=== PATIENT | female | born 1975 | race Caucasian/White ===

== ENCOUNTER → 2016-05-08 | Outpatient (REF) | payer SELFPAY ==
[~2016-05-08] MED LIST: /CLON1TA PO; /FENT25PA TD; /FENT75PA TD; /OXYC15TA OR; AMIT10TA2 OR; AMIT25TA2 PO; CARI350T20 PO; COLA100C PO; COLA100C2 PO; COLA50CA3 PO; DEPA250T3 OR; DIAZ5TAB OR; DILA2TAB OR; DILA4TAB PO; ELAVIL OR; EXAL8TAB PO; FIOR1CAP PO; FLEX10TA2 PO; FLEXERIL; HYDR-3713 PO; HYDR4TAB PO; IMIT50TA PO; IMIT6INJ IJ; LYRI75CA PO; MAGN1TAB25 PO; MAXA10TA17 OR; MAXA5TAB OR; MORP10SO OR; MORP15TA2 PO; MORP15TA4; MORP15TA4 OR; MOTR200T44 PO; MS C30TA2 OR; MULTIVIT; MULTIVIT OR; MULTTAB4 PO; MUSCCRE9 TOP; NEUR100C OR; NEUR300C PO; NORT25CA2 PO; OPAN10TA16 OR; OXYCPOW PO; PERCOCET PO; PROZ10CA OR; RELPAX OR; ROBA750T4 PO; SENN15UDC PO; SOMA250T OR; SOMA350T PO; TIZA4CAP PO; TIZA4CAP3 PO; TIZA4TAB; TIZA4TAB OR; TPS PAIN TOP; TRAM50TA2 PO; VALI5TAB PO; VOLT1GEL TOP; ZANA2CAP PO; ZOLO100T OR; [UNRECOGNIZED DRUG - CODE] PO; [UNRECOGNIZED DRUG - OTHER] PO; [UNRECOGNIZED DRUG - REMARK] PO; miralax PO; morphine PO
[2016-05-08 16:32] LABS: PERCENT SATURATION 13.8 % (13.2-37.4); PHOSPHORUS LEVEL 2.5 MG/DL (2.5-4.9)
[2016-05-12 10:08] LABS: PRETREATED FOLATE FOR RBCFOL 14.2 NG/ML
== END ==
LOC: M LAB REF 16:09
PROVIDERS: ATTEND Internal Medicine
DX: K91.2 Postsurgical malabsorption, not elsewhere classified (principal); Z98.84 Bariatric surgery status

== ENCOUNTER 2017-02-15 08:59 | Inpatient (IN) | payer OTHER ==
[~2017-02-15] VITALS: Ht 162.6 cm; Wt 74.5 kg
[~2017-02-15 08:59] MED LIST changes: +CARI350T PO; -CARI350T20 PO; -COLA100C PO; +COLA100C5 PO; -DILA4TAB PO; +DILA4TAB13 PO; +MUSC1CRE TOP; -MUSCCRE9 TOP
[2017-02-15] MEDS ORDERED: [UNRECOGNIZED DRUG - OTHER] (09:10)
[2017-02-15] MEDS ORDERED: GI COCKTAIL 50ML BTL(HYOSCYAMINE/MAALOX/LIDOCAINE VISCOUS)(1:3:1) PO ONE (09:30)
[2017-02-15 09:38] LABS: BASO % 0.4 % (0.0-1.0); EOS # 0.1 10^3/uL (0.0-0.50); EOS % 0.6 % (0.0-3.0); IMMATURE GRANULOCYTE % 0.2 % (0-0); LYMPH # 3.3 10^3/uL (1.5-4.5); LYMPH % 31.4 % (24.0-44.0); MEAN CORPUSCULAR HGB CONC 32.6 g/dl (32.0-36.5); MEAN CORPUSCULAR VOLUME 88.9 fl (80.0-96.0); MONO # 0.7 10^3/uL (0.0-0.8); MONO % 6.9 % (0.0-5.0); NEUTROPHILS # 6.3 10^3/uL (1.8-7.7); NEUTROPHILS % 60.5 % (36.0-66.0); PLATELET COUNT, AUTOMATED 350 10^3/uL (150-450); RED CELL DISTRIBUTION WIDTH 13.3 % (11.5-14.5); WHITE BLOOD COUNT 10.5 10^3/uL (4.0-10.0)
[2017-02-15] MEDS ORDERED: METOCLOPRAMIDE INJ 10MG/2ML VIAL (J2765) IV ONE (09:45)
[2017-02-15] MEDS: MORPHINE 4 MG/ML 1ML SYRINGE IV PRN ×2 (09:54→10:47)
[2017-02-15 09:57] LABS: CONTROL LINE HCG INT CTR LINE PRESENT
[2017-02-15 10:03] LABS: ALBUMIN/GLOBULIN RATIO 0.93 (1.00-1.93); ALKALINE PHOSPHATASE 111 U/L (45-117); ALT/SGPT 37 U/L (12-78); ANION GAP 5 MEQ/L (8-16); AST/SGOT 32 U/L (7-37); BILIRUBIN,DIRECT 0.2 MG/DL (0.0-0.2); BILIRUBIN,TOTAL 0.7 MG/DL (0.2-1.0); BLOOD UREA NITROGEN 10 MG/DL (7-18); CALCIUM LEVEL 8.9 MG/DL (8.5-10.1); CARBON DIOXIDE LEVEL 30 MEQ/L (21-32); CHLORIDE LEVEL 103 MEQ/L (98-107); CREATININE FOR GFR 0.74 MG/DL (0.55-1.02); GLOMERULAR FILTRATION RATE > 60.0 (>60); GLUCOSE, FASTING 89 MG/DL (70-105); POTASSIUM SERUM 3.6 MEQ/L (3.5-5.1); SODIUM LEVEL 138 MEQ/L (136-145); TOTAL PROTEIN 8.3 GM/DL (6.4-8.2)
[2017-02-15] MEDS ORDERED: SUCRALFATE SUSP 1GM/10ML UD PO ONE (10:30)
--- NOTE | 2017-02-15 10:47 | REP ---
AP PORTABLE SEATED CHEST: 02/15/2017. Clinical history: Chest pain. Comparison: 02/12/2016, 11/25/2006. Findings: The upright chest shows the lung fay well inflated and clear. The heart, mediastinal and hilar contours were normal. Aorta and airway intact. There is no widening of the mediastinum. Dorsal column stimulator leads terminate at about T7 as before. Impression: 1. Dorsal column stimulator leads present but no acute cardiopulmonary change. Stable chest. Signed by Akira Ernandez MD 02/15/2017 01:15 P
--- NOTE | 2017-02-15 12:13 | REP ---
CT ABDOMEN AND PELVIS WITHOUT CONTRAST: 02/15/2017. Clinical history: Abdominal pain. Comparison: CT 11/25/2006. Findings: CT abdomen: Lung bases were clear. Heart is not enlarged and there is no pericardial thickening or effusion. Staple line over the stomach from gastric sleeve procedure. No hiatal hernia. The liver and spleen are not enlarged. There is no focal hepatic mass or biliary dilatation. No adjacent ascites. Gallbladder shows no calcified stone or mass. Pancreas was unremarkable. No ductal dilatation or stone. Adrenal glands were normal. The kidneys show nonobstructing stones lower pole collecting system, both about 6 mm. There is no hydronephrosis or hydroureter on that right side the left side shows no stones, hydronephrosis or hydroureter. No ureteral stone. The aorta has a few calcifications but no aneurysm. No periaortic or other retroperitoneal pathologic sized lymphadenopathy. Small bowel loops grossly intact. Colon shows no sign of colitis or diverticulitis with scattered stool and gas. Lung windows of all CT abdomen pelvis slices show no sign of perforation, free air or other acute finding. The bone windows show the lumbar spine with degenerative disc change and vacuum phenomenon at L4-5 and L5-S1, the other disc levels show preserved height and vertebral body heights are normal throughout. No destructive lesion. Posterior elements grossly intact. Visualized ribs intact. Dorsal column stimulator terminating in the dorsal aspect of the thoracic neural canal. CT pelvis: Sacrum, SI joints, pelvis, hips and symphysis pubis show no fracture or destructive lesion. There is a bone island in the left femoral head and minimal degenerative changes at the acetabular roof with small rim osteophytes. Uterus anteverted with an IUD in the body and fundus. It is not enlarged. Ovaries symmetric in size, dominant follicle on the left about 13 mm. Bladder well filled and without wall thickening, stone or mass. No dilated distal ureter or ureteral stone. The distal left colon, sigmoid and rectum are without sign of colitis or diverticulitis. No stricture or mass. No ventral or inguinal hernia nor pathologic sized inguinal adenopathy. Appendix is seen and normal. Impression: 1. There are nonobstructing stones in the right lower pole collecting system where two approximately 6 mm stones are seen in the interpolar and lower pole region on that right side. No hydronephrosis, hydroureter or ureteral stone. 2. Prior gastric sleeve procedure. No other significant or acute findings. Incidental note made of a dorsal column stimulator battery unit over the right flank and leads terminating in the lower thoracic region. Signed by Akira Ernandez MD 02/15/2017 01:22 P
[2017-02-15] MEDS ORDERED: HYDROmorphone HCL 1 MG/ML SYRINGE (J1170) IV ONE (12:15)
[2017-02-15] MEDS ORDERED: PANTOPRAZOLE 40MG INJ (PROTONIX) (C9113) IV ONE (12:15)
[2017-02-15] MEDS ORDERED: ONDANSETRON 4MG/2ML VIAL (J2405) IV ONE (12:30)
[2017-02-15] MEDS ORDERED: PROMETHAZINE INJ 25 MG/ML VIAL (J2550) IV ONE (13:00)
[2017-02-15] MEDS ORDERED: VITMTA PO (14:07)
[2017-02-15] MEDS ORDERED: PROCHLORPERAZINE 10 MG/2 ML VIAL (J0780) IV PRN (14:15)
--- NOTE | 2017-02-15 14:28 | HPEPDOC ---
[facility] Medical History & Physical Date of Admission Feb 15, 2017 History and Physical ATTENDING: PCP: Dr Chatterjee CC: Intractable abdominal pain. HPI: 41yoF with a past medical history significant for chronic back pain, migraine PONCE, H/O gastric sleeve 01/25 who states she came to work this AM "feeling fine". She had coffee this AM. Was working when she suddenly had onset of N/V and upper abdominal pain. Pt states this has been sharp/pressure, radiating to rt scapular area. Denies diarrhea. States she had recent cold symptoms that have been lingering, but improving. Denies any fevers, chills, weakness, fatigue, PONCE, CP, SOB, cough, palpitations, Diarrhea or changes in bowel or bladder habits. Upon presentation to the hospital the patient was found to have intractable back pain, thus the hospitalist team was consulted. 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 Father: Alive, Parkinson's disease Siblings: Alive, migraine PONCE Children: Alive, well Unexpected deaths due to medical reasons: None. ROS: As noted in HPI, otherwise 11pt ROS of systems reviewed and remarkable only for LMP unknown, Mirena. PE: GEN: 41yoF, appears stated age. Well-nourished, well developed. Reporting persistent abdominal discomfort. Alert and oriented x 3. Interactive. HEENT: Normocephalic, atraumatic. Pupils are equal, round, and reactive to light. Extraocular movements are intact. No nystagmus appreciated. Sclera are nonicteric. Conjunctiva without injection. Nose midline. Nasal turbinates without bogginess. EACs both patent BL. TMs both visualized and valdes with good cone of light, no bulging or erythema. No facial asymmetry. Moist mucous membranes. Dentition fair. Pharynx pink and moist, no cobblestoning. Neck supple , trachea midline. No lymphadenopathy or thyromegaly appreciated. CHEST: Regular rate and rhythm, +S1, +S2 LUNGS: Clear to auscultation bilaterally. No wheezes, rales, or rhonchi. Breathing appears symmetric and easy. Patient is speaking in full sentences. No accessory muscle use. ABD: Round, soft, tender to palpation RUQ, epigastric area, non-distended. + Bowel sounds throughout. No rebound or guarding.Rt costovertebral angle tenderness noted. EXT: Pulses 2+ bilaterally dorsalis pedis and radial. No lower extremity edema appreciated. SKIN: [place], dry, warm. Capillary refill <2sec. No rashes. NEURO: Alert and oriented x 3. Cranial nerves III-XII are intact. No focal deficits appreciated. CXR: 1. Dorsal column stimulator leads present but no acute cardiopulmonary change. Stable chest. CT: A/P 1. There are nonobstructing stones in the right lower pole collecting system where two approximately 6 mm stones are seen in the interpolar and lower pole region on that right side. No hydronephrosis, hydroureter or ureteral stone. 2. Prior gastric sleeve procedure. No other significant or acute findings. Incidental note made of a dorsal column stimulator battery unit over the right flank and leads terminating in the lower thoracic region. EKG: SR/SA 88 bpm. BLOOD CULTURES: pending. UA/UC pending. A&P: 41yoF with a past medical history significant for chronic back pain, migraine PONCE, H/O gastric sleeve 01/25 who states she came to work this AM "feeling fine". She had coffee this AM. Was working when she suddenly had onset of N/V and upper abdominal pain. Pt states this has been sharp/pressure, radiating to rt scapular area. 1. The patient will be admitted to M/S for at least [address] Anand's service. Pt is discussed with Dr Joyce. 2. Intractable abdominal pain and vomiting. Clear liquids. IV Zofran/Compazine as needed. Carafate AC/HS. IV Protonix Q12. Check RUQ U/S. 3. H/O gastric sleeve 01/25. 4. Chronic LBP/DCS. 5. Chronic migraine PONCE. DVT prophylaxis. Lovenox. The patient is a Full code. Vital Signs Vital Signs Date Time Temp Pulse Resp B/P (MAP) Pulse Ox O2 Delivery O2 Flow Rate FiO2 02/15/17 12:59 92 96 02/15/17 12:50 107/65 (79) 02/15/17 12:42 18 Room Air 02/15/17 08:59 97.5 Laboratory Data Labs 24H Laboratory Tests 2 02/15/17 09:25: Immature Granulocyte % (Auto) 0.2H, White Blood Count 10.5H, Red Blood Count 5.04, Hemoglobin 14.6, Hematocrit 44.8, Mean Corpuscular Volume 88.9, Mean Corpuscular Hemoglobin 29.0, Mean Corpuscular Hemoglobin Concent 32.6, Red Cell Distribution Width 13.3, Platelet Count 350, Neutrophils (%) (Auto) 60.5, Lymphocytes (%) (Auto) 31.4, Monocytes (%) (Auto) 6.9H, Eosinophils (%) (Auto) 0.6, Basophils (%) (Auto) 0.4, Neutrophils # (Auto) 6.3, Lymphocytes # (Auto) 3.3, Monocytes # (Auto) 0.7, Eosinophils # (Auto) 0.1, Basophils # (Auto) 0.0, Immature Granulocyte # (Auto) 0.0, Nucleated Red Blood Cells % (auto) 0.0, Anion Gap 5L, Glomerular Filtration Rate > 60.0, Calcium Level 8.9, Aspartate Amino Transf (AST/SGOT) 32, Alanine Aminotransferase (ALT/SGPT) 37, Alkaline Phosphatase 111, Total Bilirubin 0.7, Direct Bilirubin 0.2, Total Protein 8.3H, Albumin 4.0, Albumin/Globulin Ratio 0.93L, Lipase 115, Human Chorionic Gonadotropin, Qual NEGATIVE CBC/BMP Laboratory Tests 02/15/17 09:25 Red Blood Count 5.04, Mean Corpuscular Volume 88.9, Mean Corpuscular Hemoglobin 29.0, Mean Corpuscular Hemoglobin Concent 32.6, Red Cell Distribution Width 13.3 , Neutrophils (%) (Auto) 60.5, Lymphocytes (%) (Auto) 31.4, Monocytes (%) (Auto ) 6.9 H, Eosinophils (%) (Auto) 0.6, Basophils (%) (Auto) 0.4, Neutrophils # ( Auto) 6.3, Lymphocytes # (Auto) 3.3, Monocytes # (Auto) 0.7, Eosinophils # (Auto ) 0.1, Basophils # (Auto) 0.0 Home Medications Scheduled Multivitamins *[facility] STOCKED* (Thera M Plus *[facility] STOCKED*) 1 Tab Tab, 1 TAB PO DAILY Allergies Coded Allergies: Amoxicillin (Verified Allergy, Intermediate, rash, 02/15/17) Hydrocodone (Verified Adverse Reaction, Intermediate, HEADACHE, 07/17/12) Ibuprofen (Verified Adverse Reaction, Mild, NAUSEA, 07/17/12) Nortriptyline (Unverified Adverse Reaction, Unknown, "[place] Drunk", 01/18/16 ) Pregabalin (Unverified Adverse Reaction, Unknown, "[place] Drunk", 01/18/16) Parul Mclain Feb 15, 2017 14:28
[2017-02-15] MEDS ORDERED: DICYCLOMINE INJ 20MG/2ML (J0500) IM ONE (15:15)
[2017-02-15 18:15] VITALS: BP 99/61
[2017-02-15] MEDS ORDERED: HYDROmorphone HCL 1 MG/ML SYRINGE (J1170) IV PRN (18:30)
[2017-02-15] MEDS: NS 1,000 ML IV SCH (18:42)
[2017-02-15] MEDS: ENOXAPARIN 40 MG/0.4 ML SYRINGE (J1650) SC SCH (18:44)
[2017-02-15] MEDS: HYDROmorphone HCL 1 MG/ML SYRINGE (J1170) IV PRN ×2 (18:48→21:38)
--- NOTE | 2017-02-15 18:53 | REP ---
Right upper quadrant sonography: History: Right upper quadrant pain. Comparison study: No comparison study Findings: Scanning through the right upper quadrant of the abdomen demonstrates a normal sized, thin-walled gallbladder containing multiple shadowing calculi in the dependent portion. No wall thickening. . Common bile duct is normal measuring 0.4 cm in greatest diameter. No focal liver lesion is seen. Liver size is normal. No pancreatic abnormality is observed. No right renal abnormality is seen. There is no evidence of ascites. The right kidney measures 11.3 x 4.5 x 3.9 cm. Impression: Cholelithiasis, otherwise negative right upper quadrant sonography. Signed by Remington Plasencia MD 02/15/2017 06:44 P
--- NOTE | 2017-02-15 18:57 | REP ---
KUB: Two views. History: Abdominal pain. Findings: Dorsal column stimulator device is noted. There are surgical sutures in the left upper quadrant of the abdomen suggestive of gastric bypass or other surgery. An IUD is seen in the central pelvis. Psoas margins and flank stripes are intact. A normal bowel gas pattern is seen. Urine filled bladder is noted in the pelvis. Impression: Dorsal column stimulator leads and sutures in the left upper quadrant postop. IUD in place. Normal bowel gas pattern. Signed by Remington Plasencia MD 02/15/2017 07:48 P
[2017-02-15 20:00] VITALS: BP_SYST 111; BP_SYST 96; BP_DIAS 47; BP_DIAS 68
[2017-02-15] MEDS ORDERED: MORPHINE 2 MG/ML 1ML SYRINGE IV ONE (22:45)
[2017-02-15] MEDS: ONDANSETRON 4MG/2ML VIAL (J2405) IV PRN (22:56)
[2017-02-15 23:10] VITALS: BP 119/62
[2017-02-16] MEDS: PANTOPRAZOLE 40MG INJ (PROTONIX) (C9113) IV SCH ×3 (00:03→23:22)
[2017-02-16] MEDS: HYDROmorphone HCL 1 MG/ML SYRINGE (J1170) IV PRN ×5 (00:54→22:43)
[2017-02-16] MEDS: ONDANSETRON 4MG/2ML VIAL (J2405) IV PRN (04:20)
[2017-02-16 06:57] LABS: BASO # 0.1 10^3/uL (0.0-0.2); BASO % 0.6 % (0.0-1.0); EOS # 0.2 10^3/uL (0.0-0.50); IMMATURE GRANULOCYTE % 0.3 % (0-0); LYMPH # 2.6 10^3/uL (1.5-4.5); LYMPH % 32.6 % (24.0-44.0); MEAN CORPUSCULAR HEMOGLOBIN 29.1 pg (27.0-33.0); MEAN CORPUSCULAR HGB CONC 32.4 g/dl (32.0-36.5); MEAN CORPUSCULAR VOLUME 89.7 fl (80.0-96.0); MONO # 0.6 10^3/uL (0.0-0.8); MONO % 7.8 % (0.0-5.0); NEUTROPHILS # 4.5 10^3/uL (1.8-7.7); NEUTROPHILS % 56.7 % (36.0-66.0); PLATELET COUNT, AUTOMATED 254 10^3/uL (150-450); RED CELL DISTRIBUTION WIDTH 13.3 % (11.5-14.5); WHITE BLOOD COUNT 7.9 10^3/uL (4.0-10.0)
[2017-02-16 07:19] LABS: ANION GAP 4 MEQ/L (8-16); BLOOD UREA NITROGEN 10 MG/DL (7-18); CALCIUM LEVEL 8.1 MG/DL (8.5-10.1); CARBON DIOXIDE LEVEL 30 MEQ/L (21-32); CHLORIDE LEVEL 107 MEQ/L (98-107); CREATININE FOR GFR 0.68 MG/DL (0.55-1.02); GLOMERULAR FILTRATION RATE > 60.0 (>60); GLUCOSE, FASTING 77 MG/DL (70-105); POTASSIUM SERUM 3.6 MEQ/L (3.5-5.1); SODIUM LEVEL 141 MEQ/L (136-145)
[2017-02-16] MEDS: NS 1,000 ML IV SCH ×2 (07:30→20:00)
[2017-02-16 08:00] VITALS: BP 112/67
[2017-02-16] MEDS: ENOXAPARIN 40 MG/0.4 ML SYRINGE (J1650) SC SCH (08:19)
--- NOTE | 2017-02-16 09:04 | ECGEPIP ---
Stationary ECG Study [facility] - ED Test Date: 2017-02-15 Pat Name: STEPHANIE BOLANOS Department: Room: [place] [address] Gender: F Assisted Living Nursing Director: jonatan : 1975 Requested By: Zuri Martino Order Number: [id number] Reading MD: Zuri Martino Measurements Intervals [place] Rate: 88 P: 64 MS: 123 QRS: 27 QRSD: 78 T: 42 QT: 371 QTc: 449 Interpretive Statements SINUS RHYTHM WITH SINUS ARRHYTHMIA BASELINE ARTIFACT LIMITS INTERPRETATION DECREASED RATE 02/12/16 Electronically Signed On 02-16-2017 9:04:32 EST by Zuri Martino
[2017-02-16] MEDS ORDERED: FIORICET TAB PO ONE (10:45)
[2017-02-16] MEDS ORDERED: SUMAtriptan SUCCINATE 25 MG TAB PO ONE (12:00)
[2017-02-16] MEDS ORDERED: ISOVUE-370 76% 100ML VIAL (Q9967) As Ordered ONE (13:19)
--- NOTE | 2017-02-16 15:20 | REP ---
CT ANGIOGRAM ABDOMEN: 02/16/2017 COMPARISON: Hepatic ultrasound 02/15/2017, CT abdomen/pelvis without contrast 02/15/2017. CLINICAL HISTORY: Upper abdominal pain. Prior gastric sleeve procedure. Evaluate arterial flow. FINDINGS: 100 mL Isovue-[address] angiogram of the abdomen with coronal and sagittal reconstructions, thick slab coronal MIP reformats and 3D surface rendering revolved around the longitudinal axis of the spine. Lung bases show minor dependent atelectatic change. Heart not enlarged. No pericardial thickening or effusion. No hepatosplenomegaly. No focal hepatic or splenic mass. Gallbladder without calcified stone. Pancreas grossly intact. Adrenal glands and kidneys grossly normal. Extrarenal pelvis for both kidneys. No periaortic other retroperitoneal pathologic adenopathy. Small bowel loops and colon grossly intact. There is a dorsal column stimulator over the left flank with the leads extending into the thoracic spine. Lung window review shows no perforation, free air, or abscess. Surgical clips from an anastomotic suture line related to gastric sleeve procedure. No hiatal hernia. CT ANGIOGRAM: The abdominal aorta shows no evidence of aneurysm or dissection. There is no visible calcific plaque. I see no stenosis or soft plaque. Origins of the bilateral renal arteries are symmetric. There is an early bifurcation of the of the right renal artery as anatomic variation. No stenosis or poststenotic dilatation. The SMA is intact without stenosis. The celiac axis shows no plaque. There is mild stenosis proximally with mild poststenotic dilatation near its origin. No calcific plaque. The hepatic, splenic arteries, and branches of the SMA are unremarkable. There is an OWEN, and it is also unremarkable. The right and left common iliac arteries were unremarkable. IMPRESSION: 1. No abdominal aortic aneurysm, dissection, stenosis, or atherosclerotic plaque. 2. 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 No obstruction or calcification. Hepatic and splenic arteries are unremarkable. 3. The bilateral renal arteries, SMA, and OWEN are unremarkable. No other findings or changes from noncontrast CT yesterday. Signed by Akira Ernandez MD 02/16/2017 04:52 P
[2017-02-16] MEDS ORDERED: MORPHINE 4 MG/ML 1ML SYRINGE IV PRN (15:30)
[2017-02-16 16:00] VITALS: BP 127/76
--- NOTE | 2017-02-16 17:18 | CR.PDOC ---
[facility] Consultation General Date of Consultation: 02/16/17 Consultation Report For: RAJ GILMORE DO Chief Complaint The patient is a 41-year-old female admitted with a reason for visit of Intractable Vomiting and epigastric and right upper quadrant abdominal pain. Pain management is asked to see her for emergence of left-sided head pain and intractable migraine headache. History of Present Illness Ana Cristina Kaba is a 41-year-old female well known to our practice. She has not been seen in the clinic in several years because, in general, she has done quite well. She has had a history of intense migrainous headaches which we have treated in the past. She reports that she had been doing fairly well until 02/15. At that time. She reports onset of severe epigastric and right upper quadrant pain. She was seen in the emergency room. She was treated with IV morphine 3 mg which produced minimal control of her abdominal pain. This was changed to hydromorphone 0.4 mg IV, which has provided relief. Over a week or prior to the emergence of the abdominal pain. She was having some increased neck tightness and pain located at the back of her head. With the use of the opioids for the abdominal pain control. She did have a marked increase in the head pain. This has occurred in the past. She was treated with Fioricet one dose , which did give some relief of the migraine. She is also been given Imitrex 50 mg by mouth. She is noting intense tightness and loss of range of motion at the base of the neck to the left. She notes I pain when with upward gaze. Rates her pain level as between a 7 and 8/10 with the worst of the headache and abdominal pain. Does note that the hydromorphone is helpful for the abdominal pain but does not improve the head pain and if anything does worsen it. Home Medications Scheduled Multivitamins *[facility] STOCKED* (Thera M Plus *[facility] STOCKED*) 1 Tab Tab, 1 TAB PO DAILY, (Reported) Allergies Coded Allergies: Amoxicillin (Verified Allergy, Intermediate, rash, 02/15/17) Hydrocodone (Verified Adverse Reaction, Intermediate, HEADACHE, 07/17/12) Ibuprofen (Verified Adverse Reaction, Mild, NAUSEA, 07/17/12) Nortriptyline (Unverified Adverse Reaction, Unknown, "[place] Drunk", 01/18/16 ) Pregabalin (Unverified Adverse Reaction, Unknown, "[place] Drunk", 01/18/16) Past Medical History Medical History Status post lumbar laminectomy with residual back pain and radiculopathy. Does have dorsal column stimulator in place which she states is providing good relief. Other health issues have included migraine headache. Surgical History Status post placement of gastric sleeve for weight loss by Dr. Moffett with success. Family History Family History Family history migraine headaches. Social History Social History Denies tobacco, alcohol, or illicit substance abuse. Review of Systems Subjective HEENT: Reports: eye pain (with upward gaze), other (denies swollen glands or sore throat), Denies: vision problems, hearing problems Skin: Denies: lesions, rash, breakdown Pulmonary: Denies: cough, dyspnea Cardiovascular: Denies: chest pain, edema, palpitations Gastrointestinal: Reports: abdominal pain, vomiting, other (persistent nausea) Genitourinary: Denies: dysuria, hematuria, loss of bladder control Hematologic: Denies: easy bleeding, easy bruising, blood dyscrasias Endocrine: Denies: Diabetes mellitus Musculoskeletal: Reports: neck pain, shoulder pain (left), muscle stiffness Neurological: Reports: headache (history of intermittent severe migrainous headaches.), seizures (denies), Denies: tremors, weakness Psych: Reports: mood normal, Denies: thoughts of self harm, thoughts of harming other Physical Examination Physical Examination Vital Signs/I&O Vital Signs Date Time Temp Pulse Resp B/P (MAP) Pulse Ox O2 Delivery O2 Flow Rate FiO2 02/16/17 15:49 18 02/16/17 08:00 98.9 80 112/67 (82) 97 Room Air 98.9 I&O- Last 24 Hours up to 6 AM 02/17/17 06:00 Intake Total 240 ml Output Total 250 ml Balance -10 ml General Exam: Positive: alert, attentive, talkative, no acute distress, oriented times three ENT EXAM: Positive: normocephalic Neck Exam: Positive: Limited range of motion (decreased range of motion, particularly with head turn to the left), Negative: Lymphadenopathy, Thyromegaly Chest Exam: Positive: Decreased breath sounds (with intermittent wheezing) Heart Exam: Positive: Regular rate and rhythm, Normal S1, S2 Abdominal Exam: Positive: Soft, BS Hyperactive, Other (tender in the epigastric and right upper quadrant) Extremity Exam: Negative: Edema Skin Exam: Positive: Warm, Dry, Negative: Rashes, Lesions Neuro Exam: Positive: Cranial Nerves 3-12 NL, Reflexes 2+ (bilateral upper and lower extremities), Other (EOMs are intact without nystagmus. Reports pain with upward gaze) Psych Exam: Positive: Mental status NL, Mood NL Musculoskeletal Point tenderness present at the left greater than right occipital notch. Trigger points and tight fibrous bands are identified over cervical paraspinous muscles across the trapezius bilaterally, left side greater than right. His range of motion with neck rotation to the left. Some decrease in left shoulder shrug. Visitor Information Assistant strength equal and strong. Laboratory Data CBC/BMP Laboratory Tests 02/16/17 06:36 Red Blood Count 4.19, Mean Corpuscular Volume 89.7, Mean Corpuscular Hemoglobin 29.1, Mean Corpuscular Hemoglobin Concent 32.4, Red Cell Distribution Width 13.3 , Neutrophils (%) (Auto) 56.7, Lymphocytes (%) (Auto) 32.6, Monocytes (%) (Auto ) 7.8 H, Eosinophils (%) (Auto) 2.0, Basophils (%) (Auto) 0.6, Neutrophils # ( Auto) 4.5, Lymphocytes # (Auto) 2.6, Monocytes # (Auto) 0.6, Eosinophils # (Auto ) 0.2, Basophils # (Auto) 0.1, Calcium Level 8.1 L Microbiology Microbiology 02/15/17 Blood Culture - Preliminary, Resulted No growth after 24 hours . All specim... Diagnostic and Imaging Studies No recent imaging studies are available of the head or neck. Assessment 1. Migraine headache with associated nausea, vomiting, photo and phonophobia. 2. Myalgia. 3. Occipital neuralgia 4. Abdominal pain/right upper quadrant pain. Currently undergoing further evaluation. Recommendation and Plan Recommendations.: Considered change in anti-emetics to rotation between Zofran and Reglan. Consider bolus of magnesium sulfate 1 g over 1 hour for migraine. Consider start of magnesium oxide 400 mg daily also for migraine prevention. Patient is reporting that the hydromorphone is helpful for the abdominal pain and so would like to continue this. Despite the migraine situation for control of her abdominal pain until a further explanation and treatment plan are put in place for the abdominal pain. In terms of the identified trigger points and tenderness over the left greater occipital nerve . We will look to do a occipital nerve block and trigger point injection to this region here in the pain Center tomorrow. I will put the Lovenox on hold for that purpose. Thank you [Cheng], for allowing us to participate in the care of your patient , Ana Cristina Purcell . Should you have any questions we will be glad to discuss this with you at any time please contact us here at the pain center at [phone]. Vangie Peck HARDBOARD PRESS OPERATOR-C Feb 16, 2017 17:18
[2017-02-16] MEDS ORDERED: MAGNESIUM OXIDE 400 MG TAB (MAG-OX) PO ONE (17:45)
[2017-02-16] MEDS: FIORICET TAB PO PRN ×2 (18:27→23:54)
[2017-02-16 20:00] VITALS: BP 110/67
[2017-02-17] VITALS: BP 119/74
[2017-02-17] MEDS ORDERED: diphenhydrAMINE 25 MG CAP PO ONE (00:15)
[2017-02-17] MEDS: HYDROmorphone HCL 1 MG/ML SYRINGE (J1170) IV PRN ×5 (02:46→21:00)
[2017-02-17] MEDS: ONDANSETRON 4MG/2ML VIAL (J2405) IV PRN (03:13)
[2017-02-17] MEDS: FIORICET TAB PO PRN ×2 (04:06→09:10)
[2017-02-17 07:21] LABS: BASO % 0.5 % (0.0-1.0); EOS # 0.2 10^3/uL (0.0-0.50); EOS % 2.5 % (0.0-3.0); IMMATURE GRANULOCYTE % 0.1 % (0-0); LYMPH # 3.1 10^3/uL (1.5-4.5); LYMPH % 35.3 % (24.0-44.0); MEAN CORPUSCULAR HEMOGLOBIN 29.6 pg (27.0-33.0); MEAN CORPUSCULAR HGB CONC 33.1 g/dl (32.0-36.5); MEAN CORPUSCULAR VOLUME 89.2 fl (80.0-96.0); MONO # 0.7 10^3/uL (0.0-0.8); MONO % 8.4 % (0.0-5.0); NEUTROPHILS # 4.7 10^3/uL (1.8-7.7); NEUTROPHILS % 53.2 % (36.0-66.0); PLATELET COUNT, AUTOMATED 232 10^3/uL (150-450); RED CELL DISTRIBUTION WIDTH 13.1 % (11.5-14.5); WHITE BLOOD COUNT 8.8 10^3/uL (4.0-10.0)
[2017-02-17 07:36] LABS: ANION GAP 2 MEQ/L (8-16); BLOOD UREA NITROGEN 5 MG/DL (7-18); CALCIUM LEVEL 7.8 MG/DL (8.5-10.1); CARBON DIOXIDE LEVEL 31 MEQ/L (21-32); CHLORIDE LEVEL 106 MEQ/L (98-107); CREATININE FOR GFR 0.55 MG/DL (0.55-1.02); GLOMERULAR FILTRATION RATE > 60.0 (>60); GLUCOSE, FASTING 78 MG/DL (70-105); MAGNESIUM LEVEL 1.9 MG/DL (1.8-2.4); POTASSIUM SERUM 3.5 MEQ/L (3.5-5.1); SODIUM LEVEL 139 MEQ/L (136-145)
--- NOTE | 2017-02-17 07:38 | IPN ---
DATE OF SERVICE: 02/16/2017 SUBJECTIVE: Patient seen and examined in the room today. The patient complained of persistent migraine headache with visual ora. Previously patient's migraines only intermittent. Patient does have a history of migraine exacerbation when patient is taking hydrocodone. She is not sure if Dilaudid is the reason for her persistent headaches. Does not have continuous nausea and vomiting at the time of encounter. Still complains about significant abdominal pain. OBJECTIVE: Vital signs: Temperature 98.9, pulse 80, respirations 17, blood pressure 112/67, pulse ox 97% on room air. General: Moderate stress secondary to severe migraine and abdominal pain, alert and oriented times three. HEENT: Normocephalic, atraumatic. Extraocular motor grossly intact. Appears to be some photo sensitivity noted during the encounter. Cardiovascular: Positive S1, S2. Regular rate. Lungs: Clear to auscultation bilaterally. Abdomen: Significant tenderness to palpation in bilateral abdomen and epigastric region. Upon light palpation, the pain can be recreated and with radiation to the right rib area and the back. Abdomen is soft. Bowel sounds present. Extremities: No edema. No sign of cyanosis. LABORATORY DATA: WBC 7.9, hemoglobin 12.2, hematocrit 37.6, platelet count is 254. Sodium is 141, potassium 3.6, chloride 107, carbon dioxide 30, BUN 10, creatinine 0.68, glomerular filtration rate is greater than 60, fasting glucose 77, calcium is 8.1. ASSESSMENT AND PLAN: 1. Severe abdominal pain with nausea and vomiting. Nausea and vomiting has been improving since admission. Patient has Zofran encompassing as needed. During examination, it seems that patient's pain is out of proportion. Will follow with CT angiogram of the abdomen. Previously patient did have a CT abdomen and pelvis with contrast showing no significant finding. Liver ultrasound was ordered which did not show any significant finding. Liver enzymes and pancreatic enzymes all negative. Etiology contributing to patient's severe abdominal pain is unknown at this moment, could be due to history of gastric sleeve. That was performed in 2015. We will also consult pain management for medication adjustments. 2. Migraine headache. Will try Fioricet as needed and patient will also have sumatriptan times one to see if we can control patient's pain. 3. History of gastric sleeve in January 2016. 4. Chronic lower back pain. Patient has a dorsal column stimulator placed. However per patient, the dorsal column stimulator is not activated at this moment. Patient is complaining about low back pain. 5. Deep venous thrombosis (DVT) prophylaxis on Lovenox.
[2017-02-17 08:00] VITALS: BP 130/76
[2017-02-17] MEDS: MAGNESIUM OXIDE 400 MG TAB (MAG-OX) PO SCH (09:09)
[2017-02-17] MEDS: NS 1,000 ML IV SCH ×2 (09:09→23:18)
[2017-02-17] MEDS: PANTOPRAZOLE 40MG INJ (PROTONIX) (C9113) IV SCH ×2 (11:31→23:18)
[2017-02-17] MEDS ORDERED: ONDANSETRON 4MG/2ML VIAL (J2405) IV SCH (12:00)
[2017-02-17] MEDS ORDERED: oxyCODONE 5MG TAB As Ordered ONE (12:46)
[2017-02-17] MEDS ORDERED: diazePAM 5 MG TAB As Ordered ONE (12:46)
[2017-02-17] MEDS ORDERED: BUPIVACAINE HCL 0.25% 10 ML VIAL As Ordered ONE (12:47)
[2017-02-17] MEDS ORDERED: TRIAMCINOLONE ACETONIDE SUSP 40 MG/ML VIAL (J3301) As Ordered ONE (12:47)
[2017-02-17] MEDS ORDERED: BUPIVACAINE HCL 0.25% 30 ML VIAL As Ordered ONE (12:47)
[2017-02-17] MEDS ORDERED: MAG SULF 1GM/100ML (MAG RUN) 1 GM in APPROPRIATE DILUENT 1 EA IV ONE (13:00)
[2017-02-17] MEDS ORDERED: VALPROATE SOD INJ 1,000 MG in D5W 50 ML IV SCH (15:00)
[2017-02-17] MEDS ORDERED: diphenhydrAMINE INJ 50MG/ML VIAL (J1200) IV ONE (15:30)
[2017-02-17 16:00] VITALS: BP 133/87
[2017-02-17] MEDS: SUCRALFATE 1 GM TAB PO SCH ×2 (16:48→21:00)
[2017-02-17] MEDS ORDERED: ONDANSETRON 4 MG ORAL DISINTEGRATING TAB (S0181) PO PRN (17:15)
--- NOTE | 2017-02-17 17:17 | CR.PDOC ---
[facility] Consultation Consultation DATE OF CONSULTATION: Feb 15, 2017 at 08:59 PRIMARY CARE PHYSICIAN: Dr. Chatterjee REFERRING PROVIDER: Fariba Anand DO ATTENDING PHYSICIAN: Ernesto Cedillo DO REASON FOR CONSULTATION/CHIEF COMPLAINT: Epigastric abdominal pain. HISTORY OF PRESENT ILLNESS: Yomaira Kaba is a 41 year old female who presents with the chief complaint of abdominal pain. 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 She was working 2 days ago when she had a sudden onset of sharp, burning epigastric abdominal pain that radiated up into her chest. She has never had pain like this before or problem with reflux in the past. She had not eaten anything that morning, was drinking coffee with 2 sugar and 2 cream which she usually drinks every morning. She had buffalo chicken wing dip for dinner the night before. During this episode she became sweaty, hot and lightheaded. She initially thought it was gas pains but decided to go to the ED after it remained constant. It began to radiate to the RUQ and through to her back and right scapula. She had one episode of clear/yellow emesis in the ED. Since receiving narcotics, the pain has been better but still constant and waxing and waning throughout the day. It seems to recur sporadically, somewhat aggravated by foods. Patient reports decreased appetite due to early satiety and feeling bloated every time she eats. She has been eating soft foods such as applesauce and pudding during her hospital course but can "feel the food stuck in my stomach". Complains of some associated nausea and dry heaving but no vomiting since the ED. She usually has 1 bowel movement daily but it is common for her to alternate between constipation and diarrhea. Recently she has had soft stools over past week and no stools for 2 days. Denies bloody, black or tarry stools. Denies blood or coffee ground emesis. No recent fever, chills, unexplained weight loss, urinary symptoms or NSAID use. ALLERGIES: Please see below. HOME MEDICATIONS: Please see below. PAST MEDICAL HISTORY: 1. Migraines. 2. Chronic low back pain. PAST SURGICAL HISTORY: 1. Sleeve gastrectomy 1 year ago 2. Tonsillectomy 3. Back surgery x2 - diskectomy with subsequent stimulator placement 4. 3 years ago FAMILY HISTORY: Noncontributory SOCIAL HISTORY: Tobacco use: none ETOH: Occasional Illicit drug use: denies REVIEW OF SYSTEMS: CONSTITUTIONAL: Denies fever, chills, unexplained weight loss. HEENT: Migraine headaches but none currently. CARDIOVASCULAR: Denies leg swelling. RESPIRATORY: denies shortness of breath. Admit pain on inhalation of the right upper quadrant. GENITOURINARY: Denies hematuria or dysuria. MUSCULOSKELETAL: Chronic low back pain. GASTROINTESTINAL: See HPI. SKIN: Denies jaundice. Admits to new generalized pruritus NEUROLOGICAL: Admits to chronic migraines and lower back pain. HEMATOLOGIC/LYMPHATIC: Denies easy bleeding/bruising. Denies lymphadenopathy. PHYSICAL EXAMINATION: VITAL SIGNS: Please see below. GENERAL APPEARANCE: pleasant 41 year old female in no acute distress sitting up right on the hospital bed. HEENT: Normocephalic, Atraumatic, PERRLA, EOMI. RESPIRATORY: lungs to clear to auscultate bilateral with no rhonchi, rales or wheezing appreciated. CARDIOVASCULAR: Regular sinus rhythm, no murmurs, rubs or gallops noted. ABDOMEN: soft nondistended abdomen with normal bowl sounds in all four quadrants. tenderness on palpitation of the epigastric, right upper and right lower quadrant. No lesion or rash on the abdomen. LABORATORY DATA: Please see below. ASSESSMENT/PLAN: 1. Abdominal Pain. With complaints of epigastric burning pain, and right upper quadrant sharp pain that is weaning. We will order a HIDA SCAN and EGD tomorrow to rule out gastric ulcer or underlying possible obstruction from the cholelithiasis. pending results will see if cholecystectomy is needed. Carafate has been ordered and continue pain management per medicine team. Thank you for this consult. Vital Signs/I&O Vital Signs Date Time Temp Pulse Resp B/P (MAP) Pulse Ox O2 Delivery O2 Flow Rate FiO2 02/17/17 16:00 98.9 70 18 133/87 (102) 97 Room Air I&O- Last 24 Hours up to 6 AM 02/18/17 06:00 Intake Total 660 ml Output Total 2400 ml Balance -1740 ml Laboratory Data Labs 24H Laboratory Tests 2 02/16/17 18:20: Magnesium Level 2.1 02/17/17 06:20: Magnesium Level 1.9, Immature Granulocyte % (Auto) 0.1H, White Blood Count 8.8, Red Blood Count 3.89L, Hemoglobin 11.5L, Hematocrit 34.7L, Mean Corpuscular Volume 89.2, Mean Corpuscular Hemoglobin 29.6, Mean Corpuscular Hemoglobin Concent 33.1, Red Cell Distribution Width 13.1, Platelet Count 232, Neutrophils (%) (Auto) 53.2, Lymphocytes (%) (Auto) 35.3, Monocytes (%) (Auto) 8.4H, Eosinophils (%) (Auto) 2.5, Basophils (%) (Auto) 0.5, Neutrophils # (Auto) 4.7, Lymphocytes # (Auto) 3.1, Monocytes # (Auto) 0.7, Eosinophils # (Auto) 0.2, Basophils # (Auto) 0.0, Immature Granulocyte # (Auto) 0.0, Nucleated Red Blood Cells % (auto) 0.0, Anion Gap 2L, Glomerular Filtration Rate > 60.0, Blood Urea Nitrogen 5L, Creatinine 0.55, Sodium Level 139, Potassium Level 3.5, Chloride Level 106, Carbon Dioxide Level 31, Calcium Level 7.8L CBC/BMP Laboratory Tests 02/17/17 06:20 Red Blood Count 3.89 L, Mean Corpuscular Volume 89.2, Mean Corpuscular Hemoglobin 29.6, Mean Corpuscular Hemoglobin Concent 33.1, Red Cell Distribution Width 13.1, Neutrophils (%) (Auto) 53.2, Lymphocytes (%) (Auto) 35.3, Monocytes (%) (Auto) 8.4 H, Eosinophils (%) (Auto) 2.5, Basophils (%) ( Auto) 0.5, Neutrophils # (Auto) 4.7, Lymphocytes # (Auto) 3.1, Monocytes # (Auto ) 0.7, Eosinophils # (Auto) 0.2, Basophils # (Auto) 0.0, Calcium Level 7.8 L Microbiology Microbiology 02/15/17 Blood Culture - Preliminary, Resulted No growth after 24 hours . All specim... 02/16/17 Urine Culture - Final, Complete Allergies Coded Allergies: Amoxicillin (Verified Allergy, Intermediate, rash, 02/15/17) Hydrocodone (Verified Adverse Reaction, Intermediate, HEADACHE, 07/17/12) Ibuprofen (Verified Adverse Reaction, Mild, NAUSEA, 07/17/12) Nortriptyline (Unverified Adverse Reaction, Unknown, "Sheldon Drunk", 01/18/16 ) Pregabalin (Unverified Adverse Reaction, Unknown, "Sheldon Drunk", 01/18/16) Home Medications Scheduled Multivitamins *[facility] STOCKED* (Thera M Plus *[facility] STOCKED*) 1 Tab Tab, 1 TAB PO DAILY, (Reported) GME ATTESTATION GME ATTESTATION My preceptor for this patient encounter was physically present in the building during the encounter and was fully available. As needed, all aspects of the patient interview, examination, medical decision making process, and medical care plan development were reviewed and approved by the preceptor. Preceptor is aware and concurs with the plan as stated in the body of this note and will attest to such by his/her cosignature. DUTCH TREVINO DO Feb 17, 2017 16:09
[2017-02-17] MEDS: FIORICET TAB PO SCH ×2 (17:57→23:19)
[2017-02-17] MEDS: METOCLOPRAMIDE INJ 10MG/2ML VIAL (J2765) IV SCH ×2 (17:57→23:18)
[2017-02-17] MEDS: diphenhydrAMINE 25 MG CAP PO PRN (23:18)
[2017-02-18] VITALS (9 sets, daily range): BP systolic 115–131; BP diastolic 63–88
--- NOTE | 2017-02-18 01:53 | CR ---
DATE OF CONSULTATION: 02/17/2017 REQUESTING PROVIDER: Dr. Anand. REASON FOR CONSULTATION: Intractable migraine headache. Ms. Kaba is a 41-year-old female with past medical history significant for chronic migraine headaches, occipital neuralgia, chronic neck and back pain. The patient was at [facility] admitted for intractable abdominal pain, described as right upper quadrant pain, currently being worked up for cholelithiasis. The patient was complaining of intense sharp pains at the left occipital region radiating towards her eye associated with a throbbing, shooting pain. The patient states that the pain presently is a 4/10, the best it has been since the admission. She was taken earlier today to the pain clinic where Dr. Hylton did an occipital node block and trigger point injection. This significantly reduced her symptoms. While in the hospital, the patient did receive intravenous (IV) Depacon which she states helped tremendously. The patient used to take Inderal 60 mg daily, as well as Maxalt 10 mg as needed for adequate relief of her migrainous headaches. She has not taken them for a number of years. She would like to continue to follow with the pain clinic. The patient states that her headaches are associated with light and sound sensitivity, nausea, vomiting and dizziness without any change in vision. She denies any aura, sensory, motor, speech changes. She gets about 1-2 migraines a month lasting all day and her pain is 10/10. Sometimes the headaches can last 1-2 weeks in a row. PAST MEDICAL HISTORY: 1. Migraine headaches. 2. Chronic back pain due to degenerative disc disease. 3. Chronic neck pain with history of cervical spondylosis. FAMILY HISTORY: Mother, two sisters, grandmother and great-grandmother with migraine headaches. SOCIAL HISTORY: The patient denies use of any alcohol, tobacco or illicit drugs. REVIEW OF SYSTEMS: 14-point review of systems obtained and is negative except as per history of present illness (HPI). MEDICATIONS: Given to her during the hospital stay: - Depacon 1000 mg - Zofran 4 mg - Dilaudid 0.4 mg - Fioricet - Protonix 40 mg - Compazine 10 mg - sucralfate [address] head completed on 12/24/2015 was negative. There has been no recent head CT completed during this hospitalization. ALLERGIES: AMOXICILLIN, HYDROCODONE, IBUPROFEN, NORTRIPTYLINE, LYRICA, TOPIRAMATE. PHYSICAL EXAMINATION: Blood pressure is 133/87, pulse 70, respiratory rate is 18, temperature is 98.9 degrees Fahrenheit. Oxygenation is 97% on room air. The patient is alert, oriented to person, place and time. Speech, language comprehension, and repetition are intact. Pupils are 3 mm, round, reactive to light. Reflexes are 2+ throughout. Sensation V1, V2, V3 is intact to light touch. No facial asymmetry to activation. Palate elevates symmetrically. Tongue is midline. No weakness to sternocleidomastoid bilaterally. Hearing is subjectively equal to finger rub. No pronator drift. Strength is 5/5 including bilateral deltoids, biceps, triceps, handgrip, iliopsoas, quadriceps, and anterior tibialis. Deep tendon reflexes are 2+ throughout. Sensory is intact to light touch, temperature in all four extremities. Coordination: Normal [id number] without any signs of ataxia, dysmetria. Gait is normal. ASSESSMENT: 1. Left-sided occipital neuralgia. 2. History of cervical spondylosis. 3. Chronic intractable migraine headache without aura. RECOMMEND: The patient start a Inderal 60 mg daily and Maxalt 10 mg daily at the onset of migraine. Patient advised not to exceed Maxalt usage beyond two tablets in 24 hours and four tablets in 7 days. The patient will followup only with her primary care provider for further management of her migraine headaches. The patient was discharged from the [facility] neurology practice due to noncompliance and failure to show up for followup appointments. The patient has been on numerous medications in the past and was thus treated for her migraines with Inderal and Maxalt. She finds tremendous relief with intravenous (IV) Depacon which would allow the patient to possibly benefit from Depakote as a contingency plan for treatment of her migraines. She would also benefit tremendously from repeat occipital nerve blocks and trigger point injections under the care of the pain clinic for which she is followed it for and was a patient of Dr. Stephen Hylton in the past.
[2017-02-18] MEDS: HYDROmorphone HCL 1 MG/ML SYRINGE (J1170) IV PRN ×6 (02:41→22:10)
[2017-02-18] MEDS: METOCLOPRAMIDE INJ 10MG/2ML VIAL (J2765) IV SCH ×4 (05:50→23:31)
[2017-02-18] MEDS: FIORICET TAB PO SCH ×4 (05:51→23:31)
[2017-02-18 07:24] LABS: BASO # 0.1 10^3/uL (0.0-0.2); BASO % 0.4 % (0.0-1.0); EOS # 0.1 10^3/uL (0.0-0.50); EOS % 0.9 % (0.0-3.0); IMMATURE GRANULOCYTE % 0.3 % (0-0); LYMPH # 2.2 10^3/uL (1.5-4.5); LYMPH % 19.1 % (24.0-44.0); MEAN CORPUSCULAR HEMOGLOBIN 29.1 pg (27.0-33.0); MEAN CORPUSCULAR HGB CONC 32.8 g/dl (32.0-36.5); MEAN CORPUSCULAR VOLUME 88.7 fl (80.0-96.0); MONO # 0.7 10^3/uL (0.0-0.8); MONO % 5.7 % (0.0-5.0); NEUTROPHILS # 8.4 10^3/uL (1.8-7.7); NEUTROPHILS % 73.6 % (36.0-66.0); PLATELET COUNT, AUTOMATED 255 10^3/uL (150-450); RED CELL DISTRIBUTION WIDTH 12.7 % (11.5-14.5); WHITE BLOOD COUNT 11.4 10^3/uL (4.0-10.0)
[2017-02-18 07:54] LABS: ANION GAP 3 MEQ/L (8-16); BLOOD UREA NITROGEN 5 MG/DL (7-18); CALCIUM LEVEL 8.4 MG/DL (8.5-10.1); CARBON DIOXIDE LEVEL 31 MEQ/L (21-32); CHLORIDE LEVEL 106 MEQ/L (98-107); CREATININE FOR GFR 0.61 MG/DL (0.55-1.02); GLOMERULAR FILTRATION RATE > 60.0 (>60); GLUCOSE, FASTING 86 MG/DL (70-105); POTASSIUM SERUM 4.2 MEQ/L (3.5-5.1); SODIUM LEVEL 140 MEQ/L (136-145)
[2017-02-18] MEDS: ENOXAPARIN 40 MG/0.4 ML SYRINGE (J1650) SC SCH (09:00)
[2017-02-18] MEDS: MAGNESIUM OXIDE 400 MG TAB (MAG-OX) PO SCH (09:24)
[2017-02-18] MEDS: SUCRALFATE 1 GM TAB PO SCH ×4 (09:24→21:56)
--- NOTE | 2017-02-18 09:43 | IPN ---
DATE OF VISIT: 02/17/2017 SUBJECTIVE: Patient seen and examined in the room today. Yesterday, we tried to adjust the patient's medication; however, patient felt the morphine is not as effective as Dilaudid to control her abdominal pain and was switched back. We also started a trial of the magnesium for her migraine headache control. She stated there is still effect but it is not significant. When reviewing patient's past medication use for her migraine headache, she stated she recently was discharged from the neurology clinic in [place]. Patient was referred to see neurology in either [place] or [place]; however, patient was not able to do so. Still has persistent abdominal pain with some migraine headache with visual auras. OBJECTIVE: Vital signs: Temperature 98.7, pulse 77, respirations 18, blood pressure 130/76, pulse oximetry 98% in room air. General: Mild to moderate distress secondary to abdominal pain and migraine headache. Alert and oriented times three. HEENT: Normocephalic, atraumatic. Extraocular motor grossly intact. Appeared to have some photosensitivity during the encounter. Cardiovascular: Positive S1, S2. Regular rate. Lungs: Clear to auscultation bilaterally. Abdomen: Abdominal tenderness to palpation in the bilateral upper quadrant and epigastric region, right side greater than the left. Abdomen is soft. Bowel sounds present. Extremities: No edema. No sign of cyanosis. LABORATORY DATA: WBC 8.8, hemoglobin 11.5, hematocrit 34.7, platelet count is 232. Sodium is 139, potassium 3.5, chloride 106, carbon dioxide 31, BUN 5, creatinine 0.55, GFR greater than 60, fasting glucose is 78, calcium is 7.8, magnesium 1.9. ASSESSMENT AND PLAN: 1. Intractable abdominal pain with nausea and vomiting. Nausea and vomiting have been improving since admission. CT angiogram was performed yesterday, and the imaging study is negative and there are no findings for colonic ischemia. General surgery, Dr. Cedillo, has been consulted to see if we can identify possible sources for patient's intractable abdominal pain. Currently, patient is on IV Dilaudid for pain control. Pain management has been consulted. Patient does have a history of gastric sleeve performed in 2016. 2. Migraine headache. Started a trial of Fioricet and sumatriptan previously; however, pain is still not controlled. Started trial of magnesium yesterday. No significant improvements noted. Case discussed with on-call neurologist, and we will start a trial of IV Depacon, IV magnesium sulfate bolus, and IV Zofran scheduled. Patient will be evaluated by Dr. Fernández. When asked with regarding to previous followup, it was noted that the patient was last seen November 2011 and since then, patient has multiple no shows. Therefore, patient was discharged from the neurology clinic. That may create some difficulty for patient's tighter migraine control. 3. History of gastric sleeve in January 2016. 4. Chronic back pain. Patient has a dorsal column stimulator placed. However, per patient, the device is not active. Apparently, patient is not compliant about the low back pain. 5. Deep venous thrombosis (DVT) prophylaxis. On Lovenox.
[2017-02-18] MEDS: PANTOPRAZOLE 40MG INJ (PROTONIX) (C9113) IV SCH ×2 (12:31→23:31)
[2017-02-18] MEDS: NS 1,000 ML IV SCH ×3 (14:30→21:59)
--- NOTE | 2017-02-18 15:11 | IPNPDOC ---
Date Seen The patient was seen on 02/18/17. Progress Note SUBJECTIVE: Patient is a 41 year old female presenting for abdominal pain. She was seen and examined this morning at bedside. Patient states her pain is getting better but is still present. She was able to sleep in the evening and has been NPO since midnight. Was given carafate yesterday which she states didn' t provide relief. She will be getting her Hida scan this morning. OBJECTIVE PHYSICAL EXAMINATION: VITAL SIGNS: Please see below. GENERAL: 41 year old female in no acute distress on her hospital bed ABDOMINAL: Soft, non distended, normal bowl sounds in all 4 quadrants. EXTREMITIES: no swelling on the lower extremities. LABORATORY DATA: Please see below. MICROBIOLOGY: Please see below. ASSESSMENT AND PLAN: Patient is a 41 year old female presenting for abdominal pain. PROBLEMS: 1. Patient is scheduled for a HIDA scan this morning, and an EGD later this evening. Continue with current pain management and Carafate. Pending results on imaging today will see if patient will need elective cholecystectomy. VS, I&O, [facility] Vital Signs/I&O Vital Signs Date Time Temp Pulse Resp B/P (MAP) Pulse Ox O2 Delivery O2 Flow Rate FiO2 02/18/17 13:30 18 02/18/17 08:00 98.3 67 116/65 (82) 100 Room Air I&O- Last 24 Hours up to 6 AM 02/19/17 06:00 Output Total 800 ml Balance -800 ml Laboratory Data 24H LABS Laboratory Tests 2 02/18/17 07:10: Immature Granulocyte % (Auto) 0.3H, White Blood Count 11.4H, Red Blood Count 4.16, Hemoglobin 12.1, Hematocrit 36.9, Mean Corpuscular Volume 88.7, Mean Corpuscular Hemoglobin 29.1, Mean Corpuscular Hemoglobin Concent 32.8, Red Cell Distribution Width 12.7, Platelet Count 255, Neutrophils (%) (Auto) 73.6H, Lymphocytes (%) (Auto) 19.1L, Monocytes (%) (Auto) 5.7H, Eosinophils (%) (Auto) 0.9, Basophils (%) (Auto) 0.4, Neutrophils # (Auto) 8.4H, Lymphocytes # (Auto) 2.2, Monocytes # (Auto) 0.7, Eosinophils # (Auto) 0.1, Basophils # (Auto) 0.1, Immature Granulocyte # (Auto) 0.0, Nucleated Red Blood Cells % (auto) 0.0, Anion Gap 3L, Glomerular Filtration Rate > 60.0, Blood Urea Nitrogen 5L, Creatinine 0.61, Sodium Level 140, Potassium Level 4.2, Chloride Level 106, Carbon Dioxide Level 31, Calcium Level 8.4L CBC/BMP Laboratory Tests 02/18/17 07:10 Red Blood Count 4.16, Mean Corpuscular Volume 88.7, Mean Corpuscular Hemoglobin 29.1, Mean Corpuscular Hemoglobin Concent 32.8, Red Cell Distribution Width 12.7 , Neutrophils (%) (Auto) 73.6 H, Lymphocytes (%) (Auto) 19.1 L, Monocytes (%) ( Auto) 5.7 H, Eosinophils (%) (Auto) 0.9, Basophils (%) (Auto) 0.4, Neutrophils # (Auto) 8.4 H, Lymphocytes # (Auto) 2.2, Monocytes # (Auto) 0.7, Eosinophils # (Auto) 0.1, Basophils # (Auto) 0.1, Calcium Level 8.4 L Microbiology Microbiology 02/15/17 Blood Culture - Preliminary, Resulted No Growth after 48 hours. All Specime... 02/16/17 Urine Culture - Final, Complete GME ATTESTATION GME ATTESTATION My preceptor for this patient encounter was physically present in the building during the encounter and was fully available. As needed, all aspects of the patient interview, examination, medical decision making process, and medical care plan development were reviewed and approved by the preceptor. Preceptor is aware and concurs with the plan as stated in the body of this note and will attest to such by his/her cosignature. DUTCH TREVINO DO Feb 18, 2017 15:11
--- NOTE | 2017-02-18 16:35 | REP ---
Hepatobiliary scan: History: Cholelithiasis. Technique: 6.6 mCi technetium 99m mebrofenin is injected and sequential anterior abdominal images are acquired. Scintigraphic findings: The initial hepatocellular parenchymal uptake phase is normal and homogeneous. Intrahepatic and extrahepatic biliary tract is labeled along the duodenum and gallbladder on the 10-minute image. There is normal washout from the liver parenchyma into the gallbladder and small intestine on subsequent images. Impression: Normal hepatobiliary scan. Signed by Remington Plasencia MD 02/18/2017 05:28 P
[2017-02-18] MEDS ORDERED: PROPOFOL 200 MG/20 ML VIAL As Ordered ONE (17:26)
[2017-02-18] MEDS ORDERED: LIDOCAINE 2% INJ 100 MG/5 ML SDV (FOR ANES.) As Ordered ONE (17:26)
[2017-02-18] MEDS ORDERED: fentaNYL 100 MCG/2 ML INJECTION (J3010) As Ordered ONE (17:27)
--- NOTE | 2017-02-18 18:39 | IPNPDOC ---
Text Note Date of Service The patient was seen on 02/18/17. NOTE SUBJECTIVE: Patient seen and examined in the room today. Her migraine headache is improving. However, she still continue to experience right upper abdominal pain. No nausea or vomiting. OBJECTIVE: Vital signs: Listed below. General: Mild to moderate distress secondary to abdominal pain and migraine headache. Alert and oriented times three. HEENT: Normocephalic, atraumatic. Extraocular motor grossly intact. Appeared to have some photosensitivity during the encounter. Cardiovascular: Positive S1, S2. Regular rate. Lungs: Clear to auscultation bilaterally. Abdomen: Abdominal tenderness to palpation in the bilateral upper quadrant and epigastric region, right side greater than the left. Abdomen is soft. Bowel sounds present. Extremities: No edema. No sign of cyanosis. LABORATORY DATA: Listed below ASSESSMENT AND PLAN: 1. Intractable abdominal pain with nausea and vomiting. Nausea and vomiting have been improving since admission. CT angiogram was performed, and the imaging study was negative. General surgery, Dr. Cedillo, has been consulted to see if we can identify possible sources for patient's intractable abdominal pain. Patient has HIDA and endoscopy scheduled for the patient. Currently, patient is on IV Dilaudid for pain control. Pain management has been consulted. 2. Migraine headache. Started a trial of Fioricet and sumatriptan previously; however, pain is still not controlled. Started trial of magnesium yesterday. No significant improvements noted. Started IV Depacon, IV magnesium sulfate bolus , and IV Zofran scheduled yesterday. And symptoms are improving. Will change to scheduled imdur and PRN Maxalt. 3. History of gastric sleeve in January 2016. 4. Chronic back pain. Patient has a dorsal column stimulator placed. However, per patient, the device is not active. Apparently, patient is not compliant about the low back pain. 5. Deep venous thrombosis (DVT) prophylaxis. On Lovenox. VS,Fishbone, I+O VS, Fishbone, I+O Laboratory Tests 02/18/17 07:10 Red Blood Count 4.16, Mean Corpuscular Volume 88.7, Mean Corpuscular Hemoglobin 29.1, Mean Corpuscular Hemoglobin Concent 32.8, Red Cell Distribution Width 12.7 , Neutrophils (%) (Auto) 73.6 H, Lymphocytes (%) (Auto) 19.1 L, Monocytes (%) ( Auto) 5.7 H, Eosinophils (%) (Auto) 0.9, Basophils (%) (Auto) 0.4, Neutrophils # (Auto) 8.4 H, Lymphocytes # (Auto) 2.2, Monocytes # (Auto) 0.7, Eosinophils # (Auto) 0.1, Basophils # (Auto) 0.1, Calcium Level 8.4 L Vital Signs Date Time Temp Pulse Resp B/P (MAP) Pulse Ox O2 Delivery O2 Flow Rate FiO2 02/18/17 16:00 99.1 67 16 123/74 (90) 96 Room Air I&O- Last 24 Hours up to 6 AM 02/19/17 06:00 Intake Total 960 ml Output Total 1700 ml Balance -740 ml RAJ GILMORE DO Feb 18, 2017 18:39
[2017-02-18] MEDS ORDERED: fentaNYL 100 MCG/2 ML INJECTION (J3010) IV PRN (18:45)
[2017-02-18] MEDS ORDERED: ONDANSETRON 4MG/2ML VIAL (J2405) IV PRN (18:45)
[2017-02-18] MEDS ORDERED: ISOSORBIDE MON. (IMDUR) 60 MG XR TAB PO SCH (21:00)
[2017-02-19] VITALS: BP 102/53
[2017-02-19] MEDS: HYDROmorphone HCL 1 MG/ML SYRINGE (J1170) IV PRN ×3 (01:12→12:20)
[2017-02-19] MEDS ORDERED: LIDOCAINE 5% (LIDODERM) PATCH TD PRN (03:15)
[2017-02-19] MEDS ORDERED: CYCLOBENZAPRINE 5MG TABLET PO ONE (03:15)
[2017-02-19] MEDS: RIZATRIPTAN BENZOATE 10 MG TAB PO PRN ×2 (03:48→09:40)
[2017-02-19 04:00] VITALS: BP 107/63
[2017-02-19] MEDS ORDERED: CYCLOBENZAPRINE 5MG TABLET PO SCH (06:00)
[2017-02-19] MEDS: METOCLOPRAMIDE INJ 10MG/2ML VIAL (J2765) IV SCH ×2 (06:28→12:09)
[2017-02-19] MEDS: FIORICET TAB PO SCH ×2 (06:29→12:10)
[2017-02-19 07:17] LABS: BASO % 0.3 % (0.0-1.0); EOS # 0.1 10^3/uL (0.0-0.50); EOS % 0.8 % (0.0-3.0); IMMATURE GRANULOCYTE % 0.3 % (0-0); LYMPH # 2.4 10^3/uL (1.5-4.5); LYMPH % 22.5 % (24.0-44.0); MEAN CORPUSCULAR HGB CONC 32.8 g/dl (32.0-36.5); MEAN CORPUSCULAR VOLUME 88.4 fl (80.0-96.0); MONO # 0.6 10^3/uL (0.0-0.8); MONO % 5.6 % (0.0-5.0); NEUTROPHILS # 7.6 10^3/uL (1.8-7.7); NEUTROPHILS % 70.5 % (36.0-66.0); PLATELET COUNT, AUTOMATED 265 10^3/uL (150-450); RED CELL DISTRIBUTION WIDTH 12.9 % (11.5-14.5); WHITE BLOOD COUNT 10.7 10^3/uL (4.0-10.0)
[2017-02-19] MEDS: NS 1,000 ML IV SCH (07:31)
[2017-02-19 07:50] LABS: ANION GAP 8 MEQ/L (8-16); BLOOD UREA NITROGEN 9 MG/DL (7-18); CALCIUM LEVEL 7.9 MG/DL (8.5-10.1); CARBON DIOXIDE LEVEL 25 MEQ/L (21-32); CHLORIDE LEVEL 109 MEQ/L (98-107); CREATININE FOR GFR 0.51 MG/DL (0.55-1.02); GLOMERULAR FILTRATION RATE > 60.0 (>60); GLUCOSE, FASTING 75 MG/DL (70-105); POTASSIUM SERUM 3.8 MEQ/L (3.5-5.1); SODIUM LEVEL 142 MEQ/L (136-145)
[2017-02-19 08:00] VITALS: BP 110/73
[2017-02-19] MEDS: ENOXAPARIN 40 MG/0.4 ML SYRINGE (J1650) SC SCH (08:21)
[2017-02-19] MEDS: MAGNESIUM OXIDE 400 MG TAB (MAG-OX) PO SCH (08:22)
[2017-02-19] MEDS: SUCRALFATE 1 GM TAB PO SCH ×2 (08:22→12:10)
[2017-02-19] MEDS: diphenhydrAMINE 25 MG CAP PO PRN (10:44)
[2017-02-19] MEDS ORDERED: ISOS60TA2 PO (11:12)
[2017-02-19] MEDS ORDERED: DILA2TAB6 PO (11:12)
[2017-02-19] MEDS ORDERED: BUTA-198 PO (11:12)
[2017-02-19] MEDS ORDERED: SUCR1TA PO (11:12)
[2017-02-19] MEDS ORDERED: DIPH25CA PO (11:12)
[2017-02-19] MEDS ORDERED: MAXA5TAB10 PO (11:12)
[2017-02-19 12:00] VITALS: BP 131/82
[2017-02-19] MEDS: PANTOPRAZOLE 40MG INJ (PROTONIX) (C9113) IV SCH (12:09)
--- NOTE | 2017-02-19 12:38 | IPNPDOC ---
Date Seen The patient was seen on 02/19/17. Progress Note SUBJECTIVE: Patient is a 41 year old female presenting for abdominal pain. She was seen and examined this morning at bedside. Yesterday she had an HIDA scan and EGD. She is still complaining of abdominal pain that is sharp in nature. She is getting some relief with the Protonix and Carafate. OBJECTIVE PHYSICAL EXAMINATION: VITAL SIGNS: Please see below. GENERAL: 41 year old female in no acute distress on her hospital bed ABDOMINAL: Soft, non distended, normal bowl sounds in all 4 quadrants. EXTREMITIES: no swelling on the lower extremities. LABORATORY DATA: Please see below. MICROBIOLOGY: Please see below. ASSESSMENT AND PLAN: Patient is a 41 year old female presenting for abdominal pain. PROBLEMS: 1. Abdominal pain - On 02/18, her HIDA scan on was negative and EGD was negative for ulcers but there was mild gastritis and biopsy is currently pending. We would like an upper GI series because the patient is still complaining of sharp epigastric pain and her description makes more esophageal / gastric in nature. Because this imaging is currently done here in [facility]. The patient has an appointment with [facility] on 02/22 at 9 am. She is to follow up with Dr. Cedillo in office on Wednesday. She will be discharged with Protonix and Carafate. VS, I&O, 24H, Fishbone Vital Signs/I&O Vital Signs Date Time Temp Pulse Resp B/P (MAP) Pulse Ox O2 Delivery O2 Flow Rate FiO2 02/19/17 12:20 98.9 72 16 107/63 95 Room Air 10.0 Laboratory Data 24H LABS Laboratory Tests 2 02/19/17 07:02: Immature Granulocyte % (Auto) 0.3H, White Blood Count 10.7H, Red Blood Count 3.89L, Hemoglobin 11.3L, Hematocrit 34.4L, Mean Corpuscular Volume 88.4, Mean Corpuscular Hemoglobin 29.0, Mean Corpuscular Hemoglobin Concent 32.8, Red Cell Distribution Width 12.9, Platelet Count 265, Neutrophils (%) (Auto) 70.5H, Lymphocytes (%) (Auto) 22.5L, Monocytes (%) (Auto) 5.6H, Eosinophils (%) (Auto) 0.8, Basophils (%) (Auto) 0.3, Neutrophils # (Auto) 7.6, Lymphocytes # (Auto) 2.4, Monocytes # (Auto) 0.6, Eosinophils # (Auto) 0.1, Basophils # (Auto) 0.0, Immature Granulocyte # (Auto) 0.0, Nucleated Red Blood Cells % (auto) 0.0, Anion Gap 8, Glomerular Filtration Rate > 60.0, Blood Urea Nitrogen 9#, Creatinine 0.51L, Sodium Level 142, Potassium Level 3.8, Chloride Level 109H, Carbon Dioxide Level 25, Calcium Level 7.9L CBC/BMP Laboratory Tests 02/19/17 07:02 Red Blood Count 3.89 L, Mean Corpuscular Volume 88.4, Mean Corpuscular Hemoglobin 29.0, Mean Corpuscular Hemoglobin Concent 32.8, Red Cell Distribution Width 12.9, Neutrophils (%) (Auto) 70.5 H, Lymphocytes (%) (Auto) 22.5 L, Monocytes (%) (Auto) 5.6 H, Eosinophils (%) (Auto) 0.8, Basophils (%) ( Auto) 0.3, Neutrophils # (Auto) 7.6, Lymphocytes # (Auto) 2.4, Monocytes # (Auto ) 0.6, Eosinophils # (Auto) 0.1, Basophils # (Auto) 0.0, Calcium Level 7.9 L Microbiology Microbiology 02/15/17 Blood Culture - Preliminary, Resulted No Growth after 72 hours. All specime... 02/16/17 Urine Culture - Final, Complete GME ATTESTATION GME ATTESTATION My preceptor for this patient encounter was physically present in the building during the encounter and was fully available. As needed, all aspects of the patient interview, examination, medical decision making process, and medical care plan development were reviewed and approved by the preceptor. Preceptor is aware and concurs with the plan as stated in the body of this note and will attest to such by his/her cosignature. DUTCH TREVINO DO Feb 19, 2017 12:38
[2017-02-19 12:40] VITALS: BP 107/63
[2017-02-19] MEDS ORDERED: PROT1TAB2 PO (17:30)
[2017-02-19] MEDS ORDERED: **NOTE PATIENT COMMENT** MISC XX PRN (21:00)
--- NOTE | 2017-02-19 22:09 | DSES ---
DATE OF ADMISSION: 02/15/2017 DATE OF DISCHARGE: 02/19/2017 PRIMARY CARE PROVIDER: Dr. Chatterjee CONSULTANTS: Pain management, neurologist, general surgery. PROCEDURE: Upper endoscopy. COMPLICATIONS: None. DISCHARGE DIAGNOSES: 1. Intractable abdominal pain with nausea and vomiting. 2. Persistent migraine headaches. 3. Chronic back pain status post dorsal column stimulator placement. 4. History of gastric sleeve procedure. HOSPITALIZATION COURSE: The patient is a 41-year-old female who presented to [facility] on 02/15/2017 with severe abdominal pain with persistent nausea and vomiting and persistent migraines. Patient was admitted to the medical/surgical floor under the hospitalist service. Imaging study was performed, and laboratory tests were done. No obvious source of patient's pain was identified. Due to the adverse effect to he pain medication and difficulty with pain control, pain management was consulted. Later, due to the persistence of the migraine headache, neurology was consulted. The regimen has been adjusted continuously. Later, general surgery was consulted, and patient had hepatobiliary iminodiacetic acid (HIDA) scan was ordered, and patient was brought to the procedure room for the upper endoscopy. Later, the results all came back negative. With medical management and assistance from other specialists, patient's pain is under good control. On 02/19/2017 patient is discharged from the hospital with instructions to followup with [facility] on 02/23/2017 to follow with upper gastrointestinal (GI) series, and patient is instructed to followup with Dr. Cedillo on 02/23/2017 to review the results for the biopsy sample taken from the upper endoscopy. At that time patient will be re-evaluated again to see if patient may benefit from elective cholecystectomy. VITAL SIGNS: On the day of discharge, temperature is 98.9, pulse is 72, respirations 10, blood pressure is 107/63, pulse oximetry is 95% in room air. LABORATORY DATA: WBC 10.7, hemoglobin 11.3, hematocrit 34.4, platelet count is 265. Sodium is 142, potassium 3.8, chloride 109, carbon dioxide 25, BUN 9, creatinine 0.51, GFR greater than 60, fasting glucose 75, calcium is 7.9. Urinalysis is negative. Microbiology: Blood cultures preliminary show negative after 72 hours. Urine culture shows contamination. GI biopsy is pending. IMAGING STUDIES: Chest x-ray on 02/15/2017 showed dorsal column stimulator leads present but not acute cardiopulmonary changes. CT abdomen and pelvis without contrast on 02/15/2017 showed no obstructing stones in the right lower pole collecting system, where two approximately 6 mm stones are seen in the interpolar and lower pole region on that right side. No hydronephrosis, hydroureter, or ureteral stone. Prior gastric sleeve procedure. No other significant or acute findings. Liver ultrasound on 02/15/2017 showed cholelithiasis. Otherwise, negative right upper quadrant sonography. Abdominal x-ray on 02/15/2017 showed dorsal column stimulator leads and sutures in the left upper quadrant, postoperative intrauterine device (IUD) in place. Normal bowel-gas pattern. CT angiogram of the abdomen on 02/16/2017 shows no abdominal aortic aneurysm, dissection, stenosis, or atherosclerotic plaque. Mild stenosis, proximal celiac axis near its origin, with mild post stenotic dilatation. No obstruction or calcification Hepatic and splenic arteries are unremarkable. The bilateral renal arteries, superior mesenteric artery (SMA) and inferior mesenteric artery (OWEN) are unremarkable. Hepatobiliary iminodiacetic acid (HIDA) scan on 02/18/2017 showed normal hepatobiliary scan. DISCHARGE MEDICATIONS: - Fioricet one tablet by mouth every 6 hours as needed. Maximum daily dose is four. - Benadryl 25 mg by mouth every 8 hours as needed for 7 days - Dilaudid 2 mg by mouth every 4 hours as needed for 5 days' supply only - isosorbide mononitrate 60 mg by mouth every 8 hours for migraine headache control - Maxalt 5 mg by mouth every 2 hours as needed for migraine control. Maximum daily dose two. Maximum weekly dose is four. Eight pills were given for a 2-week supply. - sucralfate 1 gram by mouth four times a day - Protonix 40 mg by mouth twice a day DISCHARGE INSTRUCTIONS: Discontinue line. Discharge home. Activity as tolerated. Diet as tolerated. Patient is recommended to take Imdur scheduled with as needed Maxalt for her migraine control. Patient is instructed to followup with [facility] on 02/22/2017 for upper GI series. Patient is instructed to followup with Dr. Cedillo on 02/23/2017 to review the procedure results and re-evaluate if patient may need elective cholecystectomy. Patient is instructed to followup with primary care provider in 1-2 weeks. DISCHARGE CONDITION: Stable. DISCHARGE TIME: Greater than 30 minutes.
--- NOTE | 2017-02-21 07:24 | RO ---
DATE OF PROCEDURE: 02/18/2017 PREOPERATIVE DIAGNOSIS: Epigastric abdominal pain. POSTOPERATIVE DIAGNOSIS: Epigastric abdominal pain. PROCEDURE: Esophagogastroduodenoscopy (EGD). SURGEON: Ernesto Cedillo DO QUICK SERVICE TECHNICIAN: None. ANESTHESIA: IV sedation. COMPLICATIONS: None. INDICATIONS FOR PROCEDURE: The patient is a 41-year-old female who presents with history of epigastric and right upper quadrant abdominal pain for the past week. She has been on the hospital for four days and has not had any improvement in her symptoms. The only abnormal finding so far is one gallstone. She is slightly improved with Carafate and a proton pump inhibitor (PPI); however, she still having immediate pain with food. Recommendation is to check an upper endoscopy due to her history of a gastric sleeve about a year ago to make sure she is not have any signs of gastritis, duodenitis or ulcer disease. Risks and benefits of the procedure, not limited to but including bleeding, infection and perforation were discussed in detail with the patient informed was obtained and procedure was planned. PROCEDURE: The patient brought back to operating room 3. After sufficient sedation, a bite block was placed an she was placed in a left lateral decubitus position. Next, a time out was done to confirm proper patient and proper procedure. Following that, the gastroscope was passed through the oropharynx, through the esophagus, down into the stomach and into the second portion of duodenum. The scope was then slowly retracted back. There was some edema, gastritis in the prepyloric area. This area was biopsied to check for H. pylori. The scope was then slowly withdrawn backwards. There were no signs of any active bleeding or ulcer disease. The gastric pouch looked healthy. There was no signs of any masses or strictures. The scope was then brought backwards towards the GE junction. There appeared to be a small sliding hiatal hernia. The Z-line appeared to be regular. No signs of any inflammation in this area. The scope was then brought out and the patient was awakened from anesthesia and sent to the postanesthesia care unit (PACU) in stable condition.
== END 2017-02-19 13:00 | disposition home or self-care (01) | DRG 251 ==
LOC: M ED 08:59 → OBSVTOIN 14:04 → M ED INP 14:04 → M MS4PR 18:40 → M PED 23:08 → OBSVTOIN 02-17 12:47 → INTOOBSV 02-17 12:47
PROVIDERS: ADMIT Internal Medicine Nephrology; ATTEND Internal Medicine
PROC: 3E0233Z Introduction of Anti-inflammatory into Muscle, Percutaneous Approach (ICD-10-PCS; 2017-02-17)
PROC: 0DB78ZX Excision of Stomach, Pylorus, Via Natural or Artificial Opening Endoscopic, Diagnostic (ICD-10-PCS; principal; 2017-02-18 16:30)
DX: R10.11 Right upper quadrant pain (principal); G43.719 Chronic migraine without aura, intractable, without status migrainosus; M54.81 Occipital neuralgia; R11.2 Nausea with vomiting, unspecified; G43.519 Persistent migraine aura without cerebral infarction, intractable, without status migrainosus; Z88.6 Allergy status to analgesic agent; Z88.5 Allergy status to narcotic agent; Z88.8 Allergy status to other drugs, medicaments and biological substances; M79.1 Myalgia; Z98.84 Bariatric surgery status; Z88.0 Allergy status to penicillin; K29.70 Gastritis, unspecified, without bleeding

== ENCOUNTER 2017-02-20 05:34 | Emergency (ER) | payer OTHER ==
[~2017-02-20] VITALS: Ht 162.6 cm; Wt 74.5 kg
[~2017-02-20 05:34] MED LIST changes: +BUTA-198 PO; +DILA2TAB6 PO; +DIPH25CA PO; +ISOS60TA2 PO; +MAXA5TAB10 PO; +PROT1TAB2 PO; +SUCR1TA PO; +VITMTA PO; +[UNRECOGNIZED DRUG - OTHER]
[2017-02-20] MEDS ORDERED: ONDANSETRON 4 MG ORAL DISINTEGRATING TAB (S0181) PO ONE (07:15)
[2017-02-20] MEDS ORDERED: SUMAtriptan SUCCINATE 6 MG/0.5 ML VIAL SC ONE (07:15)
[2017-02-20] MEDS ORDERED: PANTOPRAZOLE 40MG TAB (PROTONIX) PO ONE (07:45)
[2017-02-20] MEDS ORDERED: SUCRALFATE 1 GM TAB PO ONE (07:45)
[2017-02-20] MEDS ORDERED: diphenhydrAMINE 25 MG CAP PO ONE (07:45)
[2017-02-20 08:47] VITALS: BP 139/89
== END 2017-02-20 09:25 | disposition home or self-care (01) ==
LOC: M ED 05:34
DX: R51 Headache (principal); R11.0 Nausea; Z88.1 Allergy status to other antibiotic agents; Z88.5 Allergy status to narcotic agent; Z88.6 Allergy status to analgesic agent; Z88.8 Allergy status to other drugs, medicaments and biological substances; Z91.048 Other nonmedicinal substance allergy status; Z79.899 Other long term (current) drug therapy

== ENCOUNTER 2017-02-21 14:26 | Emergency (ER) | payer OTHER ==
[~2017-02-21] VITALS: Ht 162.6 cm; Wt 74.5 kg
[2017-02-21] MEDS ORDERED: METOCLOPRAMIDE INJ 10MG/2ML VIAL (J2765) IV ONE (16:15)
--- NOTE | 2017-02-21 16:28 | REP ---
CT cervical spine without contrast HISTORY: Left C3-4 radiculopathy COMPARISON: None There is no acute fracture or subluxation. There is no disc bulge or herniation. The spinal canal and neural foramina are patent. The intervertebral discs and vertebral bodies are normal in height. IMPRESSION: There is no acute fracture or subluxation. Signed by Ish Rodríguez MD 02/21/2017 04:18 P
[2017-02-21] MEDS ORDERED: HYDROmorphone 2 MG TAB PO ONE (16:45)
[2017-02-21 18:16] VITALS: BP 113/71
== END 2017-02-21 18:18 | disposition home or self-care (01) ==
LOC: M ED 14:26
DX: M54.81 Occipital neuralgia (principal); G89.4 Chronic pain syndrome
CPT/HCPCS: 72125; 96374; 96375; 99284; J2765; J3360

== ENCOUNTER → 2017-02-22 | Outpatient (CLI) | payer OTHER, MEDICAID ==
[~2017-02-22] MED LIST changes: +BANO25CA PO; +CIPR-249 PO; +GABA-283 PO; +MIREIUD IU
--- NOTE | 2017-03-09 23:56 | ECWPNPC ---
PATIENT NAME: STEPHANIE BOLANOS : 1975 GENDER: FEMALE VISIT DATE: 02/22/2017 DISCHARGE DATE: 02/22/17 0916 VISIT LOCKED DATE TIME: PHYSICIAN: SHELLY JOLLY RESOURCE: SHELLY JOLLY REASON FOR APPOINTMENT 1. D ON PER CHARGE NURSE PAST MEDICAL HISTORY MIGRAINES BACK PAIN RECURRENT SPONTANEOUS MISCARRAIGES DEPRESSIVE DISORDER ALLERGIES CIPRO: RASH: ALLERGY AMOXICILLIN: NAUSEA/VOMITING: ALLERGY HYDROCODONE-IBUPROFEN: NAUSEA/VOMITING: SIDE EFFECTS IMITREX: SUNBURN-LIKE RASH ON FACE: ALLERGY MAGNESIUM OXIDE: SUNBURN-LIKE RASH ON FACE: ALLERGY REVIEW OF SYSTEMS FOLLOW-UP ROS: GENERAL: INTENSE FACIAL FLUSHING . HEENT SHOOTING PAIN WITH SPEACH. NO SORE THROAT. . VITAL SIGNS WT 164.0 LBS, HT 62.5 IN, BMI 29.51 INDEX, BP 124/79 MM HG, HR 87 /MIN, RR 16 /MIN, TEMP 99.6 F, OXYGEN SAT % 97%, NA INITIALS TL 0837ELEVATED TEMP 99.7- TL. EXAMINATION GENERAL EXAMINATION: PSYCHALERT , ORIENTED X 3 , APPROPRIATE MOOD AND AFFECT . LUNGS:CLEAR TO AUSCULTATION BILATERALLY. HEART:HEART RATE REGULAR. MUSCULOSKELETAL:MUSCLE STRENGTH TESTING 5/5 BILATERAL UPPER AND LOWER EXTREMITIES. MILD TENDERNESS WITH PALPATION OVER BILATERAL OCCIPITAL NOTCH AND OVER CERVICAL PARASPINOUS MUSCLES. FEW TIGHT FIBROUS BANDS IDENTIFIED OVER TRAPEZIUS MUSCLES. GOOD RANGE OF MOTION WITH NECK FLEXION/EXTENSION AND ROTATION. 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 PROCEDURE CODES FA211 ESTABILISHED PATIENT [facility] CHARGE DISPOSITION & COMMUNICATION FOLLOW UP 02/24 VERY EARLY ELECTRONICALLY SIGNED BY MAGEN PARISH ON 03/09/2017 AT 08:45 AM EST DISCLAIMER : THIS IS A VISIT SUMMARY EXTRACTED FROM THE [employer] CHART. IT IS NOT A COPY OF THE [employer] PROGRESS NOTE. MTDD
== END ==
LOC: M PAIN 08:30
PROVIDERS: ATTEND Nurse Practitioner Family
DX: G89.29 Other chronic pain (principal); M79.1 Myalgia; M54.81 Occipital neuralgia; G43.709 Chronic migraine without aura, not intractable, without status migrainosus; F32.9 Major depressive disorder, single episode, unspecified; Z88.0 Allergy status to penicillin; Z88.5 Allergy status to narcotic agent; Z88.6 Allergy status to analgesic agent; Z88.8 Allergy status to other drugs, medicaments and biological substances

== ENCOUNTER → 2017-02-24 | Outpatient (CLI) | payer OTHER, MEDICAID ==
--- NOTE | 2017-03-09 23:54 | ECWPNPC ---
PATIENT NAME: STEPHANIE BOLANOS : 1975 GENDER: FEMALE VISIT DATE: 02/24/2017 DISCHARGE DATE: 02/24/1728 VISIT LOCKED DATE TIME: PHYSICIAN: SHELLY JOLLY RESOURCE: SHELLY JOLLY REASON FOR APPOINTMENT 1. F/U 02-24 PER MAYANK HISTORY OF PRESENT ILLNESS HISTORY OF PRESENT ILLNESS: PAIN THE PATIENT DESCRIBES THE PAIN... FALL RISK SCREENING: SCREENING :NO FALLS IN THE PAST YEAR TODAY'S VISIT: NOTES: RATES PAIN TODAY 11/19. REPORTS PAIN HAS SPREAD TO RIGHT SIDE OF NECK . CURRENT MEDICATIONS TAKING VALIUM 5 MG TABLET 1 TABLET NEEDED ORALLY FOUR TIMES DAILY TAKING FIORICET 325-50-40 MG TABLET 1 TABLET NEEDED ORALLY EVERY 4 HRS TAKING ISOSORBIDE MONONITRATE 60 MG TABLET EXTENDED RELEASE 24 HOUR 1 TABLET IN THE MORNING ORALLY ONCE A DAY TAKING MAXALT 5 MG TABLET 1 TABLET NEEDED ONE TIME ORALLY ONCE A DAY TAKING SUCRALFATE 1 GM TABLET 1 TABLET ON AN EMPTY STOMACH ORALLY TWICE A DAY TAKING PROTONIX 40 MG TABLET DELAYED RELEASE 1 TABLET ORALLY ONCE A DAY MEDICATION LIST REVIEWED AND RECONCILED WITH THE PATIENT PAST MEDICAL HISTORY MIGRAINES BACK PAIN RECURRENT SPONTANEOUS MISCARRAIGES DEPRESSIVE DISORDER ALLERGIES CIPRO: RASH: ALLERGY AMOXICILLIN: NAUSEA/VOMITING: ALLERGY HYDROCODONE-IBUPROFEN: NAUSEA/VOMITING: SIDE EFFECTS IMITREX: SUNBURN-LIKE RASH ON FACE: ALLERGY MAGNESIUM OXIDE: SUNBURN-LIKE RASH ON FACE: ALLERGY REVIEW OF SYSTEMS REVIEWED BY: PROVIDER: . CONSTITUTIONAL: ANY CHANGE IN YOUR MEDICAL CONDITION? NO . CHILLS NO . FEVER NO . INFECTION: DO YOU HAVE NEW INFECTIONS? NO . DO YOU HAVE HISTORY OF MRSA? NO . MUSCULOSKELETAL: ANY NEW PATTERNS OF PAIN OR NUMBNESS? YES PT WAS INPATIENT THURSDAY 02/15- MONDAY 02/19, SAW INPATIENT. HAD TPI/OCCIPTIAL NERVE BLOCK 02/17, STATES SHE DID NOT GET ANY RELIEF FROM INJECTIONS. NOW REPORTS HER NECK HURTS ON RIGHT SIDE WELL, . GASTROENTEROLOGY: ANY NEW CHANGE IN BOWEL CONTROL? YES PT REPORTS SHE HAS NOT HAD A BOWEL MOVEMENT SINCE HOSPITAL STAY LAST WEEK. . GENITOURINARY: ANY NEW CHANGE IN BLADDER CONTROL? NO . IS THERE A CHANCE YOU COULD BE ? NO . HEMATOLOGY/LYMPH: DO YOU TAKE ANY BLOOD THINNERS? (FOR EXAMPLE- COUMADIN, PLAVIX, AGGRENOX, PLATEL, PRADAXA, OR XARELTO) NO . WHEN WAS YOUR LAST DOSE? DATE: TIME: . NEUROLOGY: HAVE YOU FALLEN IN THE PAST 6 MONTHS? NO . ANY NEW EXTREMITY NUMBNESS OR WEAKNESS? NO . CARDIOLOGY: DO YOU HAVE A PACEMAKER OR DEFIBRILLATOR? NO . RESPIRATORY: HAVE YOU BEEN SICK IN THE PAST WEEK? NO . FEVER NO . FLU LIKE SYMPTOMS? NO . COUGH NO . INTEGUMENTARY: DO YOU HAVE ANY RASHES OR OPEN SORES? NO . ALLERGIC/IMMUNO: ARE YOU ALLERGIC TO SHELLFISH OR IV DYE? NO . ANY NEW ALLERGIES? NO . PSYCHIATRIC: DO YOU HAVE THOUGHTS OF HURTING YOURSELF OR SOMEONE ELSE? NO . ARE YOU ABUSED, NEGLECTED, OR IN AN UNSAFE ENVIRONMENT? NO . ENDOCRINOLOGY: ARE YOU DIABETIC? NO . OTHER: DO YOU NEED ANY PRESCRIPTIONS? NO . IF YES, PLEASE LIST: ____ . ANY NEW PROBLEMS WITH YOUR MEDICATIONS? NO . WHEN DID YOU LAST EAT? ____ . WHEN DID YOU LAST DRINK? ____ . WHAT DID YOU LAST DRINK? ____ . NAME OF PERSON DRIVING YOU HOME? ____ . DO YOU HAVE ANY OTHER QUESTIONS OR CONCERNS NO . VITAL SIGNS WT 164.0 LBS, HT 62.5 IN, BMI 29.51 INDEX, BP 121/76 MM HG, HR 61 /MIN, RR 16 /MIN, TEMP 97.8 F, OXYGEN SAT % 97%, NA INITIALS TL 0841, REVIEWED BY: NEVILLE. EXAMINATION GENERAL EXAMINATION: PSYCHALERT , ORIENTED X 3 , CRYING. VERY UNCOMFORTABLE. LUNGS:CLEAR TO AUSCULTATION BILATERALLY. HEART:HEART RATE REGULAR. MUSCULOSKELETAL:MUSCLE STRENGTH TESTING 5/5 BILATERAL UPPER AND LOWER EXTREMITIES. EXQUISITE TENDERNESS WITH PALPATION OVER BILATERAL OCCIPITAL NOTCH AND OVER CERVICAL PARASPINOUS MUSCLES. TIGHT FIBROUS BANDS IDENTIFIED OVER TRAPEZIUS MUSCLES. VERY POOR RANGE OF MOTION WITH FLEXION/EXTENSION AND ALMOST NO ABILITY TO ROTATE NECK RANGE OF MOTION WITH NECK FLEXION/EXTENSION AND ROTATION. ASSESSMENTS MYALGIA - M79.1 (PRIMARY) CERVICALGIA - M54.2 TREATMENT MYALGIA START GABAPENTIN TABLET, 800 MG, 1 TABLET, ORALLY, THREE TIMES A DAY, 10 DAY(S), 30 TABLET, REFILLS 0 START TIZANIDINE HCL TABLET, 4 MG, 1 TABLET NEEDED, ORALLY, EVERY 4 HOURS NEEDED, 10 DAY(S), 40, REFILLS 0 START HYDROMORPHONE HCL TABLET, 4 MG, 1 TABLET NEEDED, ORALLY, EVERY 4 HOURS NEEDED PRN PAIN MDD=4, 10 DAY(S), 60, REFILLS 0 NOTES: TAKE WHOLE TAB OF GABAPENTIN WHEN 1ST GET HOME AND THEN 1/2 TAB 4 TIMES PER DAYTAKE TIZANIDINE 4 TIMES A DAY FOR NERVE PAINSTOP VALIUM WHEN STARTING ABOVE MEDS. USE 1/2 TO 1 WHOLE TAB OF HYDROMORPHONE FOR PAIN NEEDED. PROCEDURE CODES FA211 ESTABILISHED PATIENT [facility] CHARGE DISPOSITION & COMMUNICATION FOLLOW UP MUST SEE EARLY 02/26/17 (REASON: NECK PAIN) ELECTRONICALLY SIGNED BY MAGEN PARISH ON 03/09/2017 AT 06:45 PM EST DISCLAIMER : THIS IS A VISIT SUMMARY EXTRACTED FROM THE [employer] CHART. IT IS NOT A COPY OF THE [employer] PROGRESS NOTE. TASHA
== END ==
LOC: M PAIN 08:30
PROVIDERS: ATTEND Nurse Practitioner Family
DX: G89.29 Other chronic pain (principal); M54.2 Cervicalgia; M79.1 Myalgia; F32.9 Major depressive disorder, single episode, unspecified; Z88.8 Allergy status to other drugs, medicaments and biological substances; Z88.1 Allergy status to other antibiotic agents; Z88.6 Allergy status to analgesic agent; Z79.899 Other long term (current) drug therapy

== ENCOUNTER 2017-02-25 16:02 | Emergency (ER) | payer MEDICAID, OTHER ==
[~2017-02-25] VITALS: Ht 162.6 cm; Wt 74.5 kg
[~2017-02-25 16:02] MED LIST changes: -BANO25CA PO; -CIPR-249 PO; -GABA-283 PO; -MIREIUD IU
[2017-02-25] MEDS ORDERED: CIPR-249 PO (16:19)
[2017-02-25] MEDS ORDERED: TIZA4CAP3 PO (16:19)
[2017-02-25] MEDS ORDERED: GABA-283 PO (16:19)
[2017-02-25] MEDS ORDERED: BANO25CA PO (16:19)
[2017-02-25] MEDS ORDERED: DILA4TAB13 PO (16:19)
[2017-02-25] MEDS ORDERED: MIREIUD IU (16:21)
[2017-02-25 17:39] LABS: BASO % 0.3 % (0.0-1.0); EOS # 0.1 10^3/uL (0.0-0.50); EOS % 0.8 % (0.0-3.0); IMMATURE GRANULOCYTE % 0.3 % (0-0); LYMPH # 2.9 10^3/uL (1.5-4.5); LYMPH % 24.6 % (24.0-44.0); MEAN CORPUSCULAR HEMOGLOBIN 29.3 pg (27.0-33.0); MEAN CORPUSCULAR HGB CONC 32.6 g/dl (32.0-36.5); MEAN CORPUSCULAR VOLUME 89.7 fl (80.0-96.0); MONO # 0.7 10^3/uL (0.0-0.8); NEUTROPHILS # 7.9 10^3/uL (1.8-7.7); PLATELET COUNT, AUTOMATED 315 10^3/uL (150-450); RED CELL DISTRIBUTION WIDTH 13.3 % (11.5-14.5); WHITE BLOOD COUNT 11.6 10^3/uL (4.0-10.0)
[2017-02-25 17:59] LABS: ALBUMIN 4.1 GM/DL (3.2-5.2); ALBUMIN/GLOBULIN RATIO 1.14 (1.00-1.93); ALKALINE PHOSPHATASE 126 U/L (45-117); ALT/SGPT 63 U/L (12-78); ANION GAP 6 MEQ/L (8-16); AST/SGOT 24 U/L (7-37); BILIRUBIN,TOTAL 0.3 MG/DL (0.2-1.0); BLOOD UREA NITROGEN 8 MG/DL (7-18); CALCIUM LEVEL 9.2 MG/DL (8.5-10.1); CARBON DIOXIDE LEVEL 31 MEQ/L (21-32); CHLORIDE LEVEL 104 MEQ/L (98-107); CREATININE FOR GFR 0.77 MG/DL (0.55-1.02); GLOMERULAR FILTRATION RATE > 60.0 (>60); GLUCOSE, FASTING 90 MG/DL (70-105); POTASSIUM SERUM 4.5 MEQ/L (3.5-5.1); SODIUM LEVEL 141 MEQ/L (136-145); TOTAL PROTEIN 7.7 GM/DL (6.4-8.2)
[2017-02-25] MEDS ORDERED: VALI5TAB PO (18:39)
[2017-02-25 19:00] VITALS: BP 137/84
== END 2017-02-25 19:02 | disposition home or self-care (01) ==
LOC: M ED 16:02
DX: M53.0 Cervicocranial syndrome (principal); G89.29 Other chronic pain; M54.9 Dorsalgia, unspecified; Z96.9 Presence of functional implant, unspecified; Z79.899 Other long term (current) drug therapy; Z97.5 Presence of (intrauterine) contraceptive device; Z88.1 Allergy status to other antibiotic agents; Z88.5 Allergy status to narcotic agent; Z88.8 Allergy status to other drugs, medicaments and biological substances; L23.1 Allergic contact dermatitis due to adhesives

== ENCOUNTER → 2017-02-26 | Outpatient (CLI) | payer OTHER, MEDICAID ==
[~2017-02-26] MED LIST changes: +BANO25CA PO; +CIPR-249 PO; +GABA-283 PO; +MIREIUD IU
--- NOTE | 2017-03-16 00:26 | ECWPNPC ---
PATIENT NAME: STPEHANIE BOLANOS : 1975 GENDER: FEMALE VISIT DATE: 02/26/2017 DISCHARGE DATE: 02/26/17 1455 VISIT LOCKED DATE TIME: PHYSICIAN: REBECCA ARIAS RESOURCE: REBECCA ARIAS REASON FOR APPOINTMENT 1. NECK PAIN HISTORY OF PRESENT ILLNESS GENERAL: 41 YEAR OLD FEMALE PATIENT WITH HISTORY OF CHRONIC NECK PAIN. PATIENT DESCRIBES THE PAIN SHARP, THROBBING, SORE, SHOOTING AND HAVING IT ALL THE TIME WITH A PAIN SCORE OF 8/10. PATIENT RECEIVED A TRIGGER POINT INJECTION ON 02/17/2017 AND REPORTS THE PAIN INCREASING SINCE THE INJECTION. PATIENT STATES THAT SHE IS BARELY ABLE TO MOVE HER NECK SINCE THE INJECTION AND AT TIMES THE PAIN IS UNBEARABLE. PATIENT HAS BEEN TO THE ED ON SEVERAL OCCASIONS FOR THIS PAIN. CURRENTLY THE PATIENT IS USING VALIUM, GABAPENTIN, TIZANIDINE AND HYDROMORPHONE FOR THIS PAIN AND STATES THAT THE MEDICATION IS TAKING THE EDGE OFF BUT THE PAIN IS STILL VERY SEVERE. PATIENT DENIES UNEXPLAINABLE WEIGHT LOSS, FEVER, CHILLS, NEW CHANGES ON HER URINARY OR BOWEL CONTROL. CURRENT MEDICATIONS TAKING VALIUM 5 MG TABLET 1 TABLET NEEDED ORALLY FOUR TIMES DAILY TAKING FIORICET 325-50-40 MG TABLET 1 TABLET NEEDED ORALLY EVERY 4 HRS TAKING MAXALT 5 MG TABLET 1 TABLET NEEDED ONE TIME ORALLY ONCE A DAY TAKING SUCRALFATE 1 GM TABLET 1 TABLET ON AN EMPTY STOMACH ORALLY TWICE A DAY TAKING PROTONIX 40 MG TABLET DELAYED RELEASE 1 TABLET ORALLY ONCE A DAY TAKING GABAPENTIN 400 MG TABLET 1 TABLET ORALLY THREE TIMES A DAY TAKING TIZANIDINE HCL 4 MG TABLET 1 TABLET NEEDED ORALLY EVERY 4 HOURS NEEDED TAKING HYDROMORPHONE HCL 4 MG TABLET 1 TABLET NEEDED ORALLY EVERY 4 HOURS NEEDED PRN PAIN MDD=4 NOT-TAKING ISOSORBIDE MONONITRATE 60 MG TABLET EXTENDED RELEASE 24 HOUR 1 TABLET IN THE MORNING ORALLY ONCE A DAY MEDICATION LIST REVIEWED AND RECONCILED WITH THE PATIENT PAST MEDICAL HISTORY MIGRAINES BACK PAIN RECURRENT SPONTANEOUS MISCARRAIGES DEPRESSIVE DISORDER ALLERGIES CIPRO: RASH: ALLERGY AMOXICILLIN: NAUSEA/VOMITING: ALLERGY HYDROCODONE-IBUPROFEN: NAUSEA/VOMITING: SIDE EFFECTS IMITREX: SUNBURN-LIKE RASH ON FACE: ALLERGY MAGNESIUM OXIDE: SUNBURN-LIKE RASH ON FACE: ALLERGY VITAL SIGNS WT 164 LBS, HT 62.5 IN, BMI 29.51 INDEX, BP 135/80 MM HG, HR 84 /MIN, RR 16 /MIN, TEMP 98.4 F, OXYGEN SAT % 95%, NA INITIALS SC 12:26. EXAMINATION GENERAL: PATIENT IS ALERT O X 3 AND COOPERATIVE. SEVERE SPACTICITY IN THE CERVICAL AREA. PATIENT NOT ABLE TO MOVE NECK DUE TO PAIN. ASSESSMENTS CERVICALGIA - M54.2 (PRIMARY) MYALGIA - M79.1 TREATMENT CERVICALGIA NOTES: WE DISCUSSED SEVERAL ISSUES WITH MRS. BOLANOS'S PAIN MANAGEMENT CASE. AT THIS TIME THE PATIENT WILL START SOMA FOR THE SEVERE SPASTICITY SHE IS HAVING IN THE CERVICAL AREA. PATIENT WAS ADVISED TO STOP THE MEDICATION IF SHE HAS ANY ADVERSE SIDE EFFECTS. I WILL ALSO REFER THE PATIENT TO A NEUROSURGEON FOR A SURGICAL CONSULT. DUE TO THE SEVERE PAIN THE PATIENT IS HAVING I WOULD LIKE THE PATIENT TO GO TO THE ER FOR PAIN CONTROL. PATIENT WILL FOLLOW UP IN 5 DAYS. INSTRUCTIONS WERE GIVEN, QUESTIONS WERE ANSWERED, PATIENT REPORTS UNDERSTANDING AND AGREES WITH THE PLAN. I, DORIS PAREDES, DOCUMENTED THE ABOVE INFORMATION ACTING A SCRIBE FOR DR. ARIAS. I HAVE REVIEWED THE ABOVE DOCUMENT, WRITTEN BY DORIS RENAE AND I VERIFY THAT IT IS ACCURATE. OTHERS START SOMA TABLET, 350 MG, 1 TABLET NEEDED, ORALLY FOR SPASMS AND PAIN, EVERY 6 HOURS NEEDEDMDD3, 10 DAY(S), 30, REFILLS 0 PROCEDURE CODES FA211 ESTABILISHED PATIENT [facility] FACILITY CHARGE G8427 DOC MEDS VERIFIED W/PT OR RE [id number] PAIN ASSESS POS TOOL F/U PLAN DOC DISPOSITION & COMMUNICATION FOLLOW UP 2 - 3 DAYS ELECTRONICALLY SIGNED BY REBECCA ARIAS MD ON 03/15/2017 AT 06:40 PM EST DISCLAIMER : THIS IS A VISIT SUMMARY EXTRACTED FROM THE [employer] CHART. IT IS NOT A COPY OF THE [employer] PROGRESS NOTE. MTDD
== END ==
LOC: M PAIN 11:00
PROVIDERS: ATTEND Anesthesiology
DX: M54.2 Cervicalgia (principal); M79.1 Myalgia; G89.29 Other chronic pain; F32.9 Major depressive disorder, single episode, unspecified; Z79.891 Long term (current) use of opiate analgesic; Z79.899 Other long term (current) drug therapy; Z88.0 Allergy status to penicillin; Z88.1 Allergy status to other antibiotic agents; Z88.5 Allergy status to narcotic agent; Z88.8 Allergy status to other drugs, medicaments and biological substances

== ENCOUNTER → 2017-03-03 | Outpatient (CLI) | payer OTHER, MEDICAID ==
--- NOTE | 2017-03-24 00:13 | ECWPNPC ---
PATIENT NAME: STEPHANIE BOLANOS : 1975 GENDER: FEMALE VISIT DATE: 03/03/2017 DISCHARGE DATE: 03/03/17 1638 VISIT LOCKED DATE TIME: PHYSICIAN: REBECCA ARIAS RESOURCE: REBECCA ARIAS REASON FOR APPOINTMENT 1. NECK PAIN HISTORY OF PRESENT ILLNESS HISTORY OF PRESENT ILLNESS: PAIN THE PATIENT DESCRIBES THE PAIN... 41 YEAR OLD FEMALE PATIENT WITH HISTORY OF CHRONIC NECK PAIN. PATIENT DESCRIBES THE PAIN SHARP, STABBING, TENDER, THROBBING, SORE, SHOOTING, AND HAVING IT ALL THE TIME WITH A PAIN SCORE OF 7/10. PATIENT REPORTS GOING TO THE ED IN [place] AND WAS ADMITTED FOR PAIN CONTROL. PATIENT STATES THAT THE PAIN HAS LESSENED BUT IT IS STILL VERY SEVERE. CURRENTLY THE PATIENT IS USING VALIUM, HYDROMORPHONE, GABAPENTIN, AND TIZANIDINE TO AID IN PAIN RELIEF. PATIENT STATES IT IS STILL DIFFICULT FOR HER TO TURN HER HEAD IN ANY DIRECTION. PATIENT DENIES UNEXPLAINABLE WEIGHT LOSS, FEVER, CHILLS, NEW CHANGES ON HER URINARY OR BOWEL CONTROL. FALL RISK SCREENING: SCREENING :NO FALLS IN THE PAST YEAR CURRENT MEDICATIONS TAKING VALIUM 5 MG TABLET 2 TABLET NEEDED ORALLY EVERY 6 HOURS NEEDED TAKING FIORICET 325-50-40 MG TABLET 1 TABLET NEEDED ORALLY EVERY 6 HRS TAKING MAXALT 5 MG TABLET 1 TABLET NEEDED ONE TIME ORALLY DIRECTED TAKING SUCRALFATE 1 GM TABLET 1 TABLET ON AN EMPTY STOMACH ORALLY TWICE A DAY TAKING PROTONIX 40 MG TABLET DELAYED RELEASE 1 TABLET ORALLY ONCE A DAY TAKING GABAPENTIN 400 MG TABLET 1 TABLET ORALLY THREE TIMES A DAY TAKING TIZANIDINE HCL 4 MG TABLET 1 TABLET NEEDED ORALLY EVERY 4 HOURS NEEDED TAKING HYDROMORPHONE HCL 4 MG TABLET 1 TABLET NEEDED ORALLY EVERY 4 HOURS NEEDED PRN PAIN MDD=4 TAKING SOMA 350 MG TABLET 1 TABLET NEEDED ORALLY FOR SPASMS AND PAIN EVERY 6 HOURS NEEDEDMDD3 TAKING XANAX 0.25 MG TABLET 1 TABLET ORALLY 3 TIMES A DAY NOT-TAKING ISOSORBIDE MONONITRATE 60 MG TABLET EXTENDED RELEASE 24 HOUR 1 TABLET IN THE MORNING ORALLY ONCE A DAY MEDICATION LIST REVIEWED AND RECONCILED WITH THE PATIENT PAST MEDICAL HISTORY MIGRAINES BACK PAIN RECURRENT SPONTANEOUS MISCARRAIGES DEPRESSIVE DISORDER CERVICAL NEURALGIA ALLERGIES CIPRO: RASH: ALLERGY AMOXICILLIN: NAUSEA/VOMITING: ALLERGY HYDROCODONE-IBUPROFEN: NAUSEA/VOMITING: SIDE EFFECTS IMITREX: SUNBURN-LIKE RASH ON FACE: ALLERGY MAGNESIUM OXIDE: SUNBURN-LIKE RASH ON FACE: ALLERGY SURGICAL HISTORY BACK SURGERY DORSAL COLUMN STIMULATER 2011 SOCIAL HISTORY GENERAL: TOBACCO USE ARE YOU A:NONSMOKER RECREATIONAL DRUG USE DRUG USE?NO CAFFEINE CAFFEINE USE?NO 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 LEARNING BARRIERS / SPECIAL NEEDS ABILITY TO UNDERSTAND VERBAL INSTRUCTIONS AVERAGE, ABILITY TO UNDERSTAND WRITTEN INSTRUCTIONS AVERAGE, KNOWLEDGE OF EDUCATIONAL NEEDS/TREATMENT PLAN AVERAGE, ORTHODOXY? NO, LEARNING PREFERENCE NO PREFERENCE, ORIENTED TO PLAN OF CARE: PATIENT, TEACHING MATERIALS DEMONSTRATION/VERBAL INSTRUCTION, RESPONSE TO EDUCATION EXPLAINES ACCURATELY/VERBALIZES UNDERSTANDING, PAIN MANAGEMENT PATIENT, TEACHING MATERIALS DEMONSTRATION/VERBAL INSTRUCTION, RESPONSE TO EDUCATION EXPLAINS ACCURATELY/VERBALIZES UNDERSTANDING. PSYCHOLOGICAL HX TREATMENTNO PAIN CLINIC PFS, CLERGY, PUBLIC HEALTH REFERRALS CLERGY REFERRAL NEEDED?NO WAS THE PROVIDER NOTIFIED OF ANY PERTINENT INFO?NO PFS REFERRAL NEEDED?NO PUBLIC HEALTH REFERRAL NEEDED?NO ADVANCE DIRECTIVES HEALTH CARE PROXY?NO POWER OF BAKERY ASSOCIATE?NO HOSPITALIZATION/MAJOR DIAGNOSTIC PROCEDURE SEE ABOVE CERVICAL NEURALGIA 02/2017 REVIEW OF SYSTEMS REVIEWED BY: PROVIDER: REBECCA ARIAS MD . CONSTITUTIONAL: ANY CHANGE IN YOUR MEDICAL CONDITION? NO . CHILLS NO . FEVER NO . INFECTION: DO YOU HAVE NEW INFECTIONS? NO . DO YOU HAVE HISTORY OF MRSA? NO . MUSCULOSKELETAL: ANY NEW PATTERNS OF PAIN OR NUMBNESS? NO . GASTROENTEROLOGY: ANY NEW CHANGE IN BOWEL CONTROL? NO . GENITOURINARY: ANY NEW CHANGE IN BLADDER CONTROL? NO . IS THERE A CHANCE YOU COULD BE ? NO . HEMATOLOGY/LYMPH: DO YOU TAKE ANY BLOOD THINNERS? (FOR EXAMPLE- COUMADIN, PLAVIX, AGGRENOX, PLATEL, PRADAXA, OR XARELTO) NO . WHEN WAS YOUR LAST DOSE? DATE: TIME: . NEUROLOGY: HAVE YOU FALLEN IN THE PAST 6 MONTHS? NO . ANY NEW EXTREMITY NUMBNESS OR WEAKNESS? NO . CARDIOLOGY: DO YOU HAVE A PACEMAKER OR DEFIBRILLATOR? NO . RESPIRATORY: HAVE YOU BEEN SICK IN THE PAST WEEK? NO . FEVER NO . FLU LIKE SYMPTOMS? NO . COUGH NO . INTEGUMENTARY: DO YOU HAVE ANY RASHES OR OPEN SORES? NO . ALLERGIC/IMMUNO: ARE YOU ALLERGIC TO SHELLFISH OR IV DYE? NO . ANY NEW ALLERGIES? NO . PSYCHIATRIC: DO YOU HAVE THOUGHTS OF HURTING YOURSELF OR SOMEONE ELSE? NO . ARE YOU ABUSED, NEGLECTED, OR IN AN UNSAFE ENVIRONMENT? NO . ENDOCRINOLOGY: ARE YOU DIABETIC? NO . OTHER: DO YOU NEED ANY PRESCRIPTIONS? NO . IF YES, PLEASE LIST: ____ . ANY NEW PROBLEMS WITH YOUR MEDICATIONS? NO . WHEN DID YOU LAST EAT? ____ . WHEN DID YOU LAST DRINK? ____ . WHAT DID YOU LAST DRINK? ____ . NAME OF PERSON DRIVING YOU HOME? ____ . DO YOU HAVE ANY OTHER QUESTIONS OR CONCERNS NO . VITAL SIGNS WT 164 LBS, HT 62.5 IN, BMI 29.51 INDEX, BP 136/84 MM HG, HR 100 /MIN, RR 16 /MIN, TEMP 98.3 F, OXYGEN SAT % 92%, NA INITIALS AW 1330, REVIEWED BY: ROMA. EXAMINATION : PATIENT IS ALERT O X 3 AND COOPERATIVE. WEARING SOFT COLLAR BRACE AROUND NECK AT VISIT. SEVERE SPASTICITY IN THE CERVICAL AREA. PATIENT NOT ABLE TO MOVE NECK DUE TO PAIN. CT OF THE CERVICAL SPINE DONE ON 02/21/17 SHOWS NO FRACTURE OR SUBLUXATION. ASSESSMENTS CERVICALGIA - M54.2 (PRIMARY) MYALGIA - M79.1 TREATMENT CERVICALGIA NOTES: WE DISCUSSED SEVERAL ISSUES WITH MRS. BOLANOS'S PAIN MANAGEMENT CASE. I WAS WITH THIS PATIENT FOR OVER 25 MINUTES MORE THAT HALF OF THE TIME I WAS IN COORDINATION OF CARE DISCUSSING MEDICATION MANAGEMENT AND OPTIONS. AT THIS TIME I WOULD LIKE THE PATIENT TO STOP REDUCE THE USE OF HYDROMORPHONE MUCH POSSIBLE AND SUBSTITUTE IT FOR SOMA. PATIENT WILL USE TIZANIDINE ONLY AT NIGHT DUE TO IT MAKING HER FEEL TIRED AND GROGGY. I WOULD LIKE THE PATIENT TO INCREASE GABAPENTIN TO 4 TABLETS A DAY TO AID IN NEUROPATHIC PAIN RELIEF. PATIENT WILL ALSO START LIDOCAINE JELLY TO AID WITH THE SOMATIC PAIN IN THE NECK. PATIENT WAS ADVISED TO STOP ANY MEDICATION IF SHE HAS ANY ADVERSE SIDE EFFECTS. PATIENT IS AWARE OF THE RISKS OF USING HYDROMORPHONE AND UNDERSTANDS WHY WE ARE TRYING TO REDUCE THE MEDICATION. PATIENT WILL RETURN IN ONE WEEK TO DISCUSS HOW THE MEDICATION IS WORKING FOR HER. INSTRUCTIONS WERE GIVEN, QUESTIONS WERE ANSWERED, PATIENT REPORTS UNDERSTANDING AND AGREES WITH THE PLAN. I, DORIS PAREDES, DOCUMENTED THE ABOVE INFORMATION ACTING A SCRIBE FOR DR. ARIAS. I HAVE REVIEWED THE ABOVE DOCUMENT, WRITTEN BY DORIS RENAE AND I VERIFY THAT IT IS ACCURATE. OTHERS START LIDOCAINE HCL JELLY JELLY, 2%, 3 ML, TOPICALLY AT NECK (FOR NECK NEUROPATHY), EVERY 6 HOURS NEEDED FOR PAIN, 30 DAY(S), 1, REFILLS 1 PROCEDURE CODES FA211 ESTABILISHED PATIENT [facility] FACILITY CHARGE G8427 DOC MEDS VERIFIED W/PT OR RE [id number] PAIN ASSESS POS TOOL F/U PLAN DOC DISPOSITION & COMMUNICATION FOLLOW UP 1 WEEK ELECTRONICALLY SIGNED BY REBECCA ARIAS MD ON 03/23/2017 AT 08:56 PM EST DISCLAIMER : THIS IS A VISIT SUMMARY EXTRACTED FROM THE [employer] CHART. IT IS NOT A COPY OF THE [employer] PROGRESS NOTE. TASHA
== END ==
LOC: M PAIN 13:00
PROVIDERS: ATTEND Anesthesiology
DX: M54.2 Cervicalgia (principal); M79.1 Myalgia; F32.9 Major depressive disorder, single episode, unspecified; G89.29 Other chronic pain; Z79.891 Long term (current) use of opiate analgesic; Z79.899 Other long term (current) drug therapy; Z88.1 Allergy status to other antibiotic agents; Z88.8 Allergy status to other drugs, medicaments and biological substances

== ENCOUNTER → 2017-03-09 | Outpatient (CLI) | payer OTHER, MEDICAID ==
--- NOTE | 2017-03-24 00:11 | ECWPNPC ---
PATIENT NAME: STEPHANIE BOLANOS : 1975 GENDER: FEMALE VISIT DATE: 03/09/2017 DISCHARGE DATE: 03/09/17 1349 VISIT LOCKED DATE TIME: PHYSICIAN: REBECCA ARIAS RESOURCE: REBECCA ARIAS REASON FOR APPOINTMENT 1. MEDS HISTORY OF PRESENT ILLNESS HISTORY OF PRESENT ILLNESS: PAIN THE PATIENT DESCRIBES THE PAIN... 41 YEAR OLD FEMALE PATIENT WITH HISTORY OF CHRONIC NECK PAIN. PATIENT DESCRIBES THE PAIN SHARP, THROBBING, SORE, SHOOTING AND HAVING IT ALL THE TIME WITH A PAIN SCORE OF 8/10. PATIENT RECEIVED A TRIGGER POINT INJECTION ON 02/17/2017 AND REPORTS THE PAIN INCREASING SINCE THE INJECTION. PATIENT STATES THAT SHE IS BARELY ABLE TO MOVE HER NECK SINCE THE INJECTION AND AT TIMES THE PAIN IS UNBEARABLE. PATIENT HAS BEEN TO THE ED ON SEVERAL OCCASIONS FOR THIS PAIN. CURRENTLY THE PATIENT IS USING VALIUM, GABAPENTIN, TIZANIDINE AND HYDROMORPHONE FOR THIS PAIN AND STATES THAT THE MEDICATION IS TAKING THE EDGE OFF BUT THE PAIN IS STILL VERY SEVERE. PATIENT DENIES UNEXPLAINABLE WEIGHT LOSS, FEVER, CHILLS, NEW CHANGES ON HER URINARY OR BOWEL CONTROL. FALL RISK SCREENING: SCREENING :NO FALLS IN THE PAST YEAR CURRENT MEDICATIONS TAKING VALIUM 5 MG TABLET 2 TABLET NEEDED ORALLY EVERY 6 HOURS NEEDED TAKING FIORICET 325-50-40 MG TABLET 1 TABLET NEEDED ORALLY EVERY 6 HRS TAKING MAXALT 5 MG TABLET 1 TABLET NEEDED ONE TIME ORALLY DIRECTED TAKING SUCRALFATE 1 GM TABLET 1 TABLET ON AN EMPTY STOMACH ORALLY TWICE A DAY TAKING PROTONIX 40 MG TABLET DELAYED RELEASE 1 TABLET ORALLY ONCE A DAY TAKING GABAPENTIN 400 MG TABLET 1 TABLET ORALLY THREE TIMES A DAY TAKING TIZANIDINE HCL 4 MG TABLET 1 TABLET NEEDED ORALLY EVERY 4 HOURS NEEDED TAKING HYDROMORPHONE HCL 4 MG TABLET 1 TABLET NEEDED ORALLY EVERY 4 HOURS NEEDED PRN PAIN MDD=4 TAKING SOMA 350 MG TABLET 1 TABLET NEEDED ORALLY FOR SPASMS AND PAIN EVERY 6 HOURS NEEDEDMDD3 TAKING LIDOCAINE HCL JELLY 2% JELLY 3 ML TOPICALLY AT NECK (FOR NECK NEUROPATHY) EVERY 6 HOURS NEEDED FOR PAIN NOT-TAKING XANAX 0.25 MG TABLET 1 TABLET ORALLY 3 TIMES A DAY NOT-TAKING ISOSORBIDE MONONITRATE 60 MG TABLET EXTENDED RELEASE 24 HOUR 1 TABLET IN THE MORNING ORALLY ONCE A DAY MEDICATION LIST REVIEWED AND RECONCILED WITH THE PATIENT PAST MEDICAL HISTORY MIGRAINES BACK PAIN RECURRENT SPONTANEOUS MISCARRAIGES DEPRESSIVE DISORDER CERVICAL NEURALGIA ALLERGIES CIPRO: RASH: ALLERGY AMOXICILLIN: NAUSEA/VOMITING: ALLERGY HYDROCODONE-IBUPROFEN: NAUSEA/VOMITING: SIDE EFFECTS IMITREX: SUNBURN-LIKE RASH ON FACE: ALLERGY MAGNESIUM OXIDE: SUNBURN-LIKE RASH ON FACE: ALLERGY SURGICAL HISTORY BACK SURGERY DORSAL COLUMN STIMULATER 2011 SOCIAL HISTORY GENERAL: TOBACCO USE ARE YOU A:NONSMOKER RECREATIONAL DRUG USE DRUG USE?NO CAFFEINE CAFFEINE USE?NO 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 LEARNING BARRIERS / SPECIAL NEEDS ABILITY TO UNDERSTAND VERBAL INSTRUCTIONS AVERAGE, ABILITY TO UNDERSTAND WRITTEN INSTRUCTIONS AVERAGE, KNOWLEDGE OF EDUCATIONAL NEEDS/TREATMENT PLAN AVERAGE, SHINTO? NO, LEARNING PREFERENCE NO PREFERENCE, ORIENTED TO PLAN OF CARE: PATIENT, TEACHING MATERIALS DEMONSTRATION/VERBAL INSTRUCTION, RESPONSE TO EDUCATION EXPLAINES ACCURATELY/VERBALIZES UNDERSTANDING, PAIN MANAGEMENT PATIENT, TEACHING MATERIALS DEMONSTRATION/VERBAL INSTRUCTION, RESPONSE TO EDUCATION EXPLAINS ACCURATELY/VERBALIZES UNDERSTANDING. PSYCHOLOGICAL HX TREATMENTNO PAIN CLINIC PFS, CLERGY, PUBLIC HEALTH REFERRALS CLERGY REFERRAL NEEDED?NO WAS THE PROVIDER NOTIFIED OF ANY PERTINENT INFO?NO PFS REFERRAL NEEDED?NO PUBLIC HEALTH REFERRAL NEEDED?NO ADVANCE DIRECTIVES HEALTH CARE PROXY?NO POWER OF SURVEYOR MINE?NO HOSPITALIZATION/MAJOR DIAGNOSTIC PROCEDURE SEE ABOVE CERVICAL NEURALGIA 02/2017 REVIEW OF SYSTEMS REVIEWED BY: PROVIDER: , REBECCA ARIAS MD . CONSTITUTIONAL: ANY CHANGE IN YOUR MEDICAL CONDITION? NO . CHILLS NO . FEVER NO . INFECTION: DO YOU HAVE NEW INFECTIONS? NO . DO YOU HAVE HISTORY OF MRSA? NO . MUSCULOSKELETAL: ANY NEW PATTERNS OF PAIN OR NUMBNESS? NO . GASTROENTEROLOGY: ANY NEW CHANGE IN BOWEL CONTROL? NO . GENITOURINARY: ANY NEW CHANGE IN BLADDER CONTROL? NO . IS THERE A CHANCE YOU COULD BE ? NO . HEMATOLOGY/LYMPH: DO YOU TAKE ANY BLOOD THINNERS? (FOR EXAMPLE- COUMADIN, PLAVIX, AGGRENOX, PLATEL, PRADAXA, OR XARELTO) NO . WHEN WAS YOUR LAST DOSE? DATE: TIME: . NEUROLOGY: HAVE YOU FALLEN IN THE PAST 6 MONTHS? NO . ANY NEW EXTREMITY NUMBNESS OR WEAKNESS? NO . CARDIOLOGY: DO YOU HAVE A PACEMAKER OR DEFIBRILLATOR? NO . RESPIRATORY: HAVE YOU BEEN SICK IN THE PAST WEEK? NO . FEVER NO . FLU LIKE SYMPTOMS? NO . COUGH NO . INTEGUMENTARY: DO YOU HAVE ANY RASHES OR OPEN SORES? NO . ALLERGIC/IMMUNO: ARE YOU ALLERGIC TO SHELLFISH OR IV DYE? NO . ANY NEW ALLERGIES? NO . PSYCHIATRIC: DO YOU HAVE THOUGHTS OF HURTING YOURSELF OR SOMEONE ELSE? NO . ARE YOU ABUSED, NEGLECTED, OR IN AN UNSAFE ENVIRONMENT? NO . ENDOCRINOLOGY: ARE YOU DIABETIC? NO . OTHER: DO YOU NEED ANY PRESCRIPTIONS? NO . IF YES, PLEASE LIST: ____ . ANY NEW PROBLEMS WITH YOUR MEDICATIONS? NO . WHEN DID YOU LAST EAT? ____ . WHEN DID YOU LAST DRINK? ____ . WHAT DID YOU LAST DRINK? ____ . NAME OF PERSON DRIVING YOU HOME? ____ . DO YOU HAVE ANY OTHER QUESTIONS OR CONCERNS NO . VITAL SIGNS WT 164.0 LBS, HT 62.5 IN, BMI 29.51 INDEX, BP 122/74 MM HG, HR 88 /MIN, RR 16 /MIN, TEMP 98.4 F, OXYGEN SAT % 98%, NA INITIALS TL 1248, REVIEWED BY: ROMA. EXAMINATION : PATIENT IS ALERT O X 3 AND COOPERATIVE. SEVERE SPACTICITY IN THE CERVICAL AREA. PATIENT NOT ABLE TO MOVE NECK DUE TO PAIN. ASSESSMENTS MYALGIA - M79.1 (PRIMARY) TREATMENT MYALGIA REFILL TIZANIDINE HCL TABLET, 4 MG, 1 TABLET NEEDED FOR SPSMS AND PAIN, ORALLY, BEFORE BEDTIME MAY REOEAT IN 5 HRS MDD2, 30 DAY(S), 60, REFILLS 1 REFILL GABAPENTIN TABLET, 400 MG, 1 TABLET, ORALLY, FOUR TIMES DAILY, 30 DAY(S), 120, REFILLS 1 CLINICAL NOTES: WE DISCUSSED SEVERAL ISSUES WITH MRS. BOLANOS'S PAIN MANAGEMENT CASE. AT THIS TIME THE PATIENT WILL START SOMA FOR THE SEVERE SPASTICITY SHE IS HAVING IN THE CERVICAL AREA, AND TIZANIDINE ONLY AT NIGHT. WE DISCUSSED REDUCING THE PATIENTS OTHER MEDICATIONS AT THIS TIME SUCH THE DILAUDID AND VALIUM. PATIENT WAS ADVISED TO STOP THE MEDICATION IF SHE HAS ANY ADVERSE SIDE EFFECTS. I WILL ALSO REFER THE PATIENT TO A NEUROSURGEON FOR A SURGICAL CONSULT TO HAVE HER DCS TAKEN OUT SO WE CAN PROCEED WITH MRI'S. PATIENT WILL FOLLOW UP IN 1 WEEK. INSTRUCTIONS WERE GIVEN, QUESTIONS WERE ANSWERED, PATIENT REPORTS UNDERSTANDING AND AGREES WITH THE PLAN. I, MARTIN FENG, DOCUMENTED THE ABOVE INFORMATION ACTING A SCRIBE FOR DR. ARIAS. I HAVE REVIEWED THE ABOVE DOCUMENT, WRITTEN BY MARTIN FENG SCRIBE AND I VERIFY THAT IT IS ACCURATE. OTHERS REFILL SOMA TABLET, 350 MG, 1 TABLET NEEDED, ORALLY FOR SPASMS AND PAIN, EVERY 6 HOURS NEEDEDMDD3, 14 DAY(S), 42, REFILLS 0 PROCEDURE CODES FA211 ESTABILISHED PATIENT [facility] CHARGE G8730 PAIN ASSESS POS TOOL F/U PLAN DOC G8427 DOC MEDS VERIFIED W/PT OR RE DISPOSITION & COMMUNICATION FOLLOW UP 1 WEEK ELECTRONICALLY SIGNED BY REBECCA ARIAS MD ON 03/23/2017 AT 09:31 PM EST DISCLAIMER : THIS IS A VISIT SUMMARY EXTRACTED FROM THE [employer] CHART. IT IS NOT A COPY OF THE [employer] PROGRESS NOTE. MTDD
== END ==
LOC: M PAIN 12:30
PROVIDERS: ATTEND Anesthesiology
DX: G89.29 Other chronic pain (principal); M79.1 Myalgia; G43.909 Migraine, unspecified, not intractable, without status migrainosus; F32.9 Major depressive disorder, single episode, unspecified; M79.2 Neuralgia and neuritis, unspecified; M54.2 Cervicalgia; Z79.899 Other long term (current) drug therapy; Z88.0 Allergy status to penicillin; Z88.5 Allergy status to narcotic agent; Z88.8 Allergy status to other drugs, medicaments and biological substances; Z88.1 Allergy status to other antibiotic agents

== ENCOUNTER → 2017-03-12 | Outpatient (CLI) | payer OTHER, MEDICAID ==
--- NOTE | 2017-03-12 23:18 | ECWPNPC ---
PATIENT NAME: STEPHANIE BOLANOS : 1975 GENDER: FEMALE VISIT DATE: 03/12/2017 DISCHARGE DATE: 03/12/17 1534 VISIT LOCKED DATE TIME: PHYSICIAN: SHELLY JOLLY RESOURCE: SHELLY JOLLY REASON FOR APPOINTMENT 1. NECK PAIN HISTORY OF PRESENT ILLNESS TODAY'S VISIT: NOTES: REPORTS INCREASING NECK PAIN AND THAT IT HURTS TO MOVE HER NECK AND HEAD.IS NOT WEARING SOFT CERVICAL COLLAR SHE IS SAYING IT MAKES NO DIFFERENCE. RATES PAIN TODAY 6/10. DESCRIBES PAIN STABBING, TENDER SORE AND SHOOTING. REPORTS SHE IS VERY FRUSTRATED.. CURRENT MEDICATIONS TAKING FIORICET 325-50-40 MG TABLET 1 TABLET NEEDED ORALLY EVERY 6 HRS TAKING MAXALT 5 MG TABLET 1 TABLET NEEDED ONE TIME ORALLY DIRECTED TAKING SUCRALFATE 1 GM TABLET 1 TABLET ON AN EMPTY STOMACH ORALLY TWICE A DAY TAKING PROTONIX 40 MG TABLET DELAYED RELEASE 1 TABLET ORALLY ONCE A DAY TAKING TIZANIDINE HCL 4 MG TABLET 1 TABLET NEEDED FOR SPSMS AND PAIN ORALLY BEFORE BEDTIME MAY REOEAT IN 5 HRS MDD2 TAKING GABAPENTIN 400 MG TABLET 1 TABLET ORALLY FOUR TIMES DAILY TAKING SOMA 350 MG TABLET 1 TABLET NEEDED ORALLY FOR SPASMS AND PAIN EVERY 6 HOURS NEEDEDMDD3 TAKING LIDOCAINE 4 % CREAM 1 APPLICATION TO AFFECTED AREA NEEDED EXTERNALLY APPLY EVERY 2 HRS TO NECK REGION NOT-TAKING VALIUM 5 MG TABLET 2 TABLET NEEDED ORALLY EVERY 6 HOURS NEEDED NOT-TAKING HYDROMORPHONE HCL 4 MG TABLET 1 TABLET NEEDED ORALLY EVERY 4 HOURS NEEDED PRN PAIN MDD=4 NOT-TAKING LIDOCAINE HCL JELLY 2% JELLY 3 ML TOPICALLY AT NECK (FOR NECK NEUROPATHY) EVERY 6 HOURS NEEDED FOR PAIN NOT-TAKING XANAX 0.25 MG TABLET 1 TABLET ORALLY 3 TIMES A DAY NOT-TAKING ISOSORBIDE MONONITRATE 60 MG TABLET EXTENDED RELEASE 24 HOUR 1 TABLET IN THE MORNING ORALLY ONCE A DAY MEDICATION LIST REVIEWED AND RECONCILED WITH THE PATIENT PAST MEDICAL HISTORY MIGRAINES BACK PAIN RECURRENT SPONTANEOUS MISCARRAIGES DEPRESSIVE DISORDER CERVICAL NEURALGIA ALLERGIES CIPRO: RASH: ALLERGY AMOXICILLIN: NAUSEA/VOMITING: ALLERGY HYDROCODONE-IBUPROFEN: NAUSEA/VOMITING: SIDE EFFECTS IMITREX: SUNBURN-LIKE RASH ON FACE: ALLERGY MAGNESIUM OXIDE: SUNBURN-LIKE RASH ON FACE: ALLERGY SOCIAL HISTORY GENERAL: TOBACCO USE ARE YOU A:: NEVER SMOKER , ARE YOU A: NONSMOKER . RECREATIONAL DRUG USE DRUG USE? NO. CAFFEINE CAFFEINE USE? NO . 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 CHRISTIANITY NO EPISCOPALIAN BELIEFS THAT WOULD IMPACT HEALTH CARE, NO PREFERENCE. LEARNING BARRIERS / SPECIAL NEEDS ABILITY TO UNDERSTAND VERBAL INSTRUCTIONS AVERAGE, ABILITY TO UNDERSTAND WRITTEN INSTRUCTIONS AVERAGE, KNOWLEDGE OF EDUCATIONAL NEEDS/TREATMENT PLAN AVERAGE, EPISCOPALIAN? NO, LEARNING PREFERENCE NO PREFERENCE, ORIENTED TO PLAN OF CARE: PATIENT, TEACHING MATERIALS DEMONSTRATION/VERBAL INSTRUCTION, RESPONSE TO EDUCATION EXPLAINES ACCURATELY/VERBALIZES UNDERSTANDING, PAIN MANAGEMENT PATIENT, TEACHING MATERIALS DEMONSTRATION/VERBAL INSTRUCTION, RESPONSE TO EDUCATION EXPLAINS ACCURATELY/VERBALIZES UNDERSTANDING. PSYCHOLOGICAL HX TREATMENT NO . PAIN CLINIC PFS, CLERGY, PUBLIC HEALTH REFERRALS PFS REFERRAL NEEDED? NO , CLERGY REFERRAL NEEDED? NO , PUBLIC HEALTH REFERRAL NEEDED? NO , WAS THE PROVIDER NOTIFIED OF ANY PERTINENT INFO? NO . ADVANCE DIRECTIVES HEALTH CARE PROXY? NO , POWER OF FUSELAGE FRAMER? NO . REVIEW OF SYSTEMS FOLLOW-UP ROS: NEUROLOGY: NO NUMBNESS OR TINGLING INTO ARMS OR HANDS. DID HAVE SOME TO RIGHT HAND WHILE HOSPITALIZED IN [place] . PSYCHOLOGY: POSITIVE FOR, ANXIETY/FRUSTRATION. IS NOT SLEEPING DUE TO PAIN AND SPASMS . VITAL SIGNS WT 164 LBS, HT 62.5 IN, BMI 29.51 INDEX, BP 128/82 MM HG, HR 88 /MIN, RR 16 /MIN, TEMP 98.6 F, OXYGEN SAT % 97%, NA INITIALS SC 15:09, REVIEWED BY: JOSE. EXAMINATION GENERAL EXAMINATION: PSYCHALERT , ORIENTED X 3 , VERY UNCOMFORTABLE WITH SHARP INTERMITTANT SPASMS IN NECK. LUNGS:CLEAR TO AUSCULTATION BILATERALLY. HEART:HEART RATE REGULAR. MUSCULOSKELETAL:MUSCLE STRENGTH TESTING 5/5 BILATERAL UPPER AND LOWER EXTREMITIES. EXQUISITE TENDERNESS WITH PALPATION OVER CERVICAL PARASPINOUS MUSCLES. TIGHT FIBROUS BANDS IDENTIFIED OVER TRAPEZIUS MUSCLES. VERY POOR RANGE OF MOTION WITH FLEXION/EXTENSION AND ALMOST NO ABILITY TO ROTATE NECK RANGE OF MOTION WITH NECK FLEXION/EXTENSION AND ROTATION. ASSESSMENTS CERVICALGIA - M54.2 (PRIMARY) MYALGIA - M79.1 TREATMENT CERVICALGIA REFILL SOMA TABLET, 350 MG, 1 TABLET NEEDED, ORALLY FOR SPASMS AND PAIN, EVERY 6 HOURS NEEDEDMDD3, 30 DAY(S), 90, REFILLS 0 START ALPRAZOLAM TABLET, 0.25 MG, 1 TABLET, ORALLY, Q 8 HOURS PRN SPASM MDD=3, 14 DAY(S), 42, REFILLS 0 START BUSPIRONE HCL TABLET, 5 MG, 1 TAB, ORALLY, THREE TIMES DAILY, 30 DAY(S), 90, REFILLS 1 NOTES: LUMBAR DORSAL COLUMN STIMULATOR ID NON FUNCTIONAL AND NEEDS TO COME OUT SO THAT CERVICAL MRI CAN BE COMPLETED. CONSIDER PHYSICAL THERAPY WT CERVICAL TRACTION IN THE FUTURE. USE ALPAZALAM INFREQUENTLY. MAY DECREASE GABAPENTIN BACK TO 3/DAY IF PAIN BETTER CONTROLLED WITH NEW MEDS. WEAR COLLAR IF IT HELPS. CLINICAL NOTES: [facility]STOP REGISTRY REVIEWED AND DEMNOSTRATES COMPLLIANCE. REF # [id number]. [facility]FERRAL TO[facility] REASON:NEEDS REMOVAL OF LUMBAR DCS LUIS DISPOSITION & COMMUNICATION FOLLOW UP KEEP SCHEDULED APPOINTMENT (REASON: NECK PAIN) ELECTRONICALLY SIGNED BY MAGEN PARISH ON 03/12/2017 AT 04:17 PM EST DISCLAIMER : THIS IS A VISIT SUMMARY EXTRACTED FROM THE [employer] CHART. IT IS NOT A COPY OF THE [employer] PROGRESS NOTE. TASHA
== END ==
LOC: M PAIN 14:45
PROVIDERS: ATTEND Nurse Practitioner Family
DX: G89.29 Other chronic pain (principal); M54.2 Cervicalgia; M79.1 Myalgia; G43.709 Chronic migraine without aura, not intractable, without status migrainosus; F32.9 Major depressive disorder, single episode, unspecified; F41.9 Anxiety disorder, unspecified; G47.09 Other insomnia; Z88.1 Allergy status to other antibiotic agents; Z88.5 Allergy status to narcotic agent; Z88.8 Allergy status to other drugs, medicaments and biological substances; Z79.891 Long term (current) use of opiate analgesic; Z79.899 Other long term (current) drug therapy

== ENCOUNTER → 2017-03-19 | Outpatient (CLI) | payer OTHER, MEDICAID ==
--- NOTE | 2017-04-08 02:17 | ECWPNPC ---
PATIENT NAME: STEPHANIE BOLANOS : 1975 GENDER: FEMALE VISIT DATE: 03/19/2017 DISCHARGE DATE: 03/19/17 1651 VISIT LOCKED DATE TIME: PHYSICIAN: REBECCA ARIAS RESOURCE: REBECCA ARIAS REASON FOR APPOINTMENT 1. NECK PAIN HISTORY OF PRESENT ILLNESS HISTORY OF PRESENT ILLNESS: PAIN THE PATIENT DESCRIBES THE PAIN... 41 YEAR OLD FEMALE PATIENT WITH HISTORY OF CHRONIC CERVICAL PAIN. PATIENT DESCRIBES THE PAIN SHARP, TENDER, SORE, SHOOTING, AND HAVING IT ALL THE TIME WITH A PAIN SCORE OF 6/10. PATIENT IS CURRENTLY USING XANAX, TIZANIDINE, LIDOCAINE, AND TRAMADOL TO AID IN PAIN RELIEF AND STATES THAT THE MEDICATION DOES AID IN RELIEF BUT IT IS STILL SEVERE. PATIENT IS AWAITING A REFERRAL TO DR. DOMINIQUE TO HAVE THE DCS REMOVED SO THE PATIENT MAY MOVE FORWARD WITH IMAGING OF THE CERVICAL AREA. PATIENT DENIES UNEXPLAINABLE WEIGHT LOSS, FEVER, CHILLS, NEW CHANGES ON HER URINARY OR BOWEL CONTROL. FALL RISK SCREENING: SCREENING :NO FALLS IN THE PAST YEAR CURRENT MEDICATIONS TAKING FIORICET 325-50-40 MG TABLET 1 TABLET NEEDED ORALLY EVERY 6 HRS TAKING MAXALT 5 MG TABLET 1 TABLET NEEDED ONE TIME ORALLY DIRECTED TAKING SUCRALFATE 1 GM TABLET 1 TABLET ON AN EMPTY STOMACH ORALLY TWICE A DAY TAKING PROTONIX 40 MG TABLET DELAYED RELEASE 1 TABLET ORALLY ONCE A DAY TAKING TIZANIDINE HCL 4 MG TABLET 1 TABLET NEEDED FOR SPSMS AND PAIN ORALLY BEFORE BEDTIME MAY REOEAT IN 5 HRS MDD2 TAKING GABAPENTIN 400 MG TABLET 1 TABLET ORALLY FOUR TIMES DAILY TAKING LIDOCAINE 4 % CREAM 1 APPLICATION TO AFFECTED AREA NEEDED EXTERNALLY APPLY EVERY 2 HRS TO NECK REGION TAKING SOMA 350 MG TABLET 1 TABLET NEEDED ORALLY FOR SPASMS AND PAIN EVERY 6 HOURS NEEDEDMDD3 TAKING ALPRAZOLAM 0.25 MG TABLET 1 TABLET ORALLY Q 8 HOURS PRN SPASM MDD=3 TAKING BUSPIRONE HCL 5 MG TABLET 1 TAB ORALLY THREE TIMES DAILY NOT-TAKING VALIUM 5 MG TABLET 2 TABLET NEEDED ORALLY EVERY 6 HOURS NEEDED NOT-TAKING HYDROMORPHONE HCL 4 MG TABLET 1 TABLET NEEDED ORALLY EVERY 4 HOURS NEEDED PRN PAIN MDD=4 NOT-TAKING LIDOCAINE HCL JELLY 2% JELLY 3 ML TOPICALLY AT NECK (FOR NECK NEUROPATHY) EVERY 6 HOURS NEEDED FOR PAIN NOT-TAKING XANAX 0.25 MG TABLET 1 TABLET ORALLY 3 TIMES A DAY NOT-TAKING ISOSORBIDE MONONITRATE 60 MG TABLET EXTENDED RELEASE 24 HOUR 1 TABLET IN THE MORNING ORALLY ONCE A DAY MEDICATION LIST REVIEWED AND RECONCILED WITH THE PATIENT PAST MEDICAL HISTORY MIGRAINES BACK PAIN RECURRENT SPONTANEOUS MISCARRAIGES DEPRESSIVE DISORDER CERVICAL NEURALGIA ALLERGIES CIPRO: RASH: ALLERGY AMOXICILLIN: NAUSEA/VOMITING: ALLERGY HYDROCODONE-IBUPROFEN: NAUSEA/VOMITING: SIDE EFFECTS IMITREX: SUNBURN-LIKE RASH ON FACE: ALLERGY MAGNESIUM OXIDE: SUNBURN-LIKE RASH ON FACE: ALLERGY SURGICAL HISTORY BACK SURGERY DORSAL COLUMN STIMULATER 2011 SOCIAL HISTORY GENERAL: TOBACCO USE ARE YOU A:: NEVER SMOKER , ARE YOU A: NONSMOKER . RECREATIONAL DRUG USE DRUG USE? NO. CAFFEINE CAFFEINE USE? NO . 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 [place] NO HOLINESS BELIEFS THAT WOULD IMPACT HEALTH CARE, NO PREFERENCE. LEARNING BARRIERS / SPECIAL NEEDS ABILITY TO UNDERSTAND VERBAL INSTRUCTIONS AVERAGE, ABILITY TO UNDERSTAND WRITTEN INSTRUCTIONS AVERAGE, KNOWLEDGE OF EDUCATIONAL NEEDS/TREATMENT PLAN AVERAGE, HOLINESS? NO, LEARNING PREFERENCE NO PREFERENCE, ORIENTED TO PLAN OF CARE: PATIENT, TEACHING MATERIALS DEMONSTRATION/VERBAL INSTRUCTION, RESPONSE TO EDUCATION EXPLAINES ACCURATELY/VERBALIZES UNDERSTANDING, PAIN MANAGEMENT PATIENT, TEACHING MATERIALS DEMONSTRATION/VERBAL INSTRUCTION, RESPONSE TO EDUCATION EXPLAINS ACCURATELY/VERBALIZES UNDERSTANDING. PSYCHOLOGICAL HX TREATMENT NO . PAIN CLINIC PFS, CLERGY, PUBLIC HEALTH REFERRALS PFS REFERRAL NEEDED? NO , CLERGY REFERRAL NEEDED? NO , PUBLIC HEALTH REFERRAL NEEDED? NO , WAS THE PROVIDER NOTIFIED OF ANY PERTINENT INFO? NO . ADVANCE DIRECTIVES HEALTH CARE PROXY? NO , POWER OF MOLD CHECKER? NO . HOSPITALIZATION/MAJOR DIAGNOSTIC PROCEDURE SEE ABOVE CERVICAL NEURALGIA 02/2017 REVIEW OF SYSTEMS REVIEWED BY: PROVIDER: REBECCA ARIAS MD . CONSTITUTIONAL: ANY CHANGE IN YOUR MEDICAL CONDITION? NO . CHILLS NO . FEVER NO . INFECTION: DO YOU HAVE NEW INFECTIONS? NO . DO YOU HAVE HISTORY OF MRSA? NO . MUSCULOSKELETAL: ANY NEW PATTERNS OF PAIN OR NUMBNESS? NO . GASTROENTEROLOGY: ANY NEW CHANGE IN BOWEL CONTROL? NO . GENITOURINARY: ANY NEW CHANGE IN BLADDER CONTROL? NO . IS THERE A CHANCE YOU COULD BE ? NO . HEMATOLOGY/LYMPH: DO YOU TAKE ANY BLOOD THINNERS? (FOR EXAMPLE- COUMADIN, PLAVIX, AGGRENOX, PLATEL, PRADAXA, OR XARELTO) NO . WHEN WAS YOUR LAST DOSE? DATE: TIME: . NEUROLOGY: HAVE YOU FALLEN IN THE PAST 6 MONTHS? NO . ANY NEW EXTREMITY NUMBNESS OR WEAKNESS? NO . CARDIOLOGY: DO YOU HAVE A PACEMAKER OR DEFIBRILLATOR? NO . RESPIRATORY: HAVE YOU BEEN SICK IN THE PAST WEEK? NO . FEVER NO . FLU LIKE SYMPTOMS? NO . COUGH NO . INTEGUMENTARY: DO YOU HAVE ANY RASHES OR OPEN SORES? NO . ALLERGIC/IMMUNO: ARE YOU ALLERGIC TO SHELLFISH OR IV DYE? NO . ANY NEW ALLERGIES? NO . PSYCHIATRIC: DO YOU HAVE THOUGHTS OF HURTING YOURSELF OR SOMEONE ELSE? NO . ARE YOU ABUSED, NEGLECTED, OR IN AN UNSAFE ENVIRONMENT? NO . ENDOCRINOLOGY: ARE YOU DIABETIC? NO . OTHER: DO YOU NEED ANY PRESCRIPTIONS? NO . IF YES, PLEASE LIST: ____ . ANY NEW PROBLEMS WITH YOUR MEDICATIONS? NO . WHEN DID YOU LAST EAT? ____ . WHEN DID YOU LAST DRINK? ____ . WHAT DID YOU LAST DRINK? ____ . NAME OF PERSON DRIVING YOU HOME? ____ . DO YOU HAVE ANY OTHER QUESTIONS OR CONCERNS NO . VITAL SIGNS WT 164.0 LBS, HT 62.5 IN, BMI 29.51 INDEX, BP 120/59 MM HG, HR 78 /MIN, RR 16 /MIN, TEMP 97.5 F, OXYGEN SAT % 98%, NA INITIALS TL 1523, REVIEWED BY: NL. EXAMINATION GENERAL EXAMINATION: PATIENT IS ALERT O X 3 AND COOPERATIVE. SEVERE SPACTICITY IN THE CERVICAL AREA. PATIENT NOT ABLE TO MOVE NECK DUE TO PAIN. CT OF THE CERVICAL SPINE DONE ON 02/21/17 SHOWS NO FRACTURE OF SUBLUXATION. PATIENT HAS DCS SO UNABLE TO RECEIVE MRIS AT THIS TIME. ASSESSMENTS MYALGIA - M79.1 (PRIMARY) CERVICALGIA - M54.2 TREATMENT MYALGIA NOTES: WE DISCUSSED SEVERAL ISSUES WITH MRS. BOLANOS'S PAIN MANAGEMENT CASE. I WAS WITH THE PATIENT FOR OVER 25 MINUTES, OVER HALF OF THE TIME WAS DISCUSSING MEDICATIONS THAT THE PATIENT MAY BE ABLE TO USE, ALSO SPEAKING WITH HER SURGEONS OFFICE AND DISCUSSING ALTERNATIVES. I SPOKE WITH THE PATIENT GASTROINTESTINAL DOCTOR AND THE DOCTOR RECOMMENDS TRAMADOL AND IF WE USED NSAID'S FOR ANY REASON TO ALSO PRESCRIBE 2 OMEPRAZOLE'S PER NSAID. WE ALSO DISCUSSED THE PATIENT STOPPING THE XANAX THE MEDICATION IS HIGHLY ADDICTION AND THE PATIENT REPORTS THAT IT IS NOT AIDING IN PAIN RELIEF IT SHOULDER. PATIENT WILL START TRAMADOL BUT WAS ADVISED TO STOP THE MEDICATION IF SHE HAS ANY ADVERSE SIDE EFFECT. WE ALSO DISCUSSED THE USE OF CYMBALTA. PATIENT DENIES ABUSE OF ANY MEDICATION, DENIES USE OF ILLEGAL SUBSTANCES, AND STATES THAT SHE IS ONLY USING THE MEDICATION FOR PAIN MANAGEMENT. ISTOP REVIEWED [id number]. PATIENT WILL FOLLOW UP IN ONE WEEK TO DISCUSS HOW THE MEDICATION IS AIDING IN PAIN RELIEF. INSTRUCTIONS WERE GIVEN, QUESTIONS WERE ANSWERED, PATIENT REPORTS UNDERSTANDING AND AGREES WITH THE PLAN. I, DORIS PAREDES, DOCUMENTED THE ABOVE INFORMATION ACTING A SCRIBE FOR DR. ARIAS. I HAVE REVIEWED THE ABOVE DOCUMENT, WRITTEN BY DORIS MONTESIBSerenity AND I VERIFY THAT IT IS ACCURATE. OTHERS START TRAMADOL HCL TABLET, 50 MG, 1 TO 2 TABLET NEEDED, ORALLY, EVERY 6 HRS MDD6, 10 DAY(S), 60, REFILLS 0 PROCEDURE CODES FA211 ESTABILISHED PATIENT [facility] FACILITY CHARGE G8427 DOC MEDS VERIFIED W/PT OR RE G0682 PAIN ASSESS POS TOOL F/U PLAN DOC DISPOSITION & COMMUNICATION ELECTRONICALLY SIGNED BY REBECCA ARIAS MD ON 04/07/2017 AT 08:10 PM EST DISCLAIMER : THIS IS A VISIT SUMMARY EXTRACTED FROM THE [employer] CHART. IT IS NOT A COPY OF THE [employer] PROGRESS NOTE. WENDYD
== END ==
LOC: M PAIN 16:00
PROVIDERS: ATTEND Anesthesiology
DX: M79.1 Myalgia (principal); M54.2 Cervicalgia; G89.29 Other chronic pain; Z79.899 Other long term (current) drug therapy; Z88.1 Allergy status to other antibiotic agents; Z88.0 Allergy status to penicillin; Z88.8 Allergy status to other drugs, medicaments and biological substances

== ENCOUNTER → 2017-03-24 | Outpatient (CLI) | payer OTHER, MEDICAID | LOC: M PAIN 16:15 | DX: M79.1 Myalgia (principal); M54.2 Cervicalgia; G89.29 Other chronic pain; Z79.891 Long term (current) use of opiate analgesic; Z79.899 Other long term (current) drug therapy; Z88.1 Allergy status to other antibiotic agents; Z88.8 Allergy status to other drugs, medicaments and biological substances | CPT/HCPCS: G0463 ==

== ENCOUNTER → 2017-03-25 | Outpatient (REF) | payer OTHER | LOC: M LAB REF 18:54 | PROVIDERS: ATTEND Specialist | DX: Z01.419 Encounter for gynecological examination (general) (routine) without abnormal findings (principal); Z11.51 Encounter for screening for human papillomavirus (HPV) ==

== ENCOUNTER → 2017-03-26 | Outpatient (CLI) | payer OTHER, MEDICAID | LOC: M PAIN 15:15 | DX: G89.29 Other chronic pain (principal); M54.2 Cervicalgia; M79.1 Myalgia; G43.709 Chronic migraine without aura, not intractable, without status migrainosus; F32.9 Major depressive disorder, single episode, unspecified; Z88.1 Allergy status to other antibiotic agents; Z88.5 Allergy status to narcotic agent; Z88.8 Allergy status to other drugs, medicaments and biological substances; Z79.899 Other long term (current) drug therapy | CPT/HCPCS: G0463 ==

== ENCOUNTER → 2017-05-13 | Outpatient (CLI) | payer OTHER, MEDICAID | LOC: M PAIN 09:00 | DX: G89.29 Other chronic pain (principal); M79.1 Myalgia; M54.2 Cervicalgia; G43.909 Migraine, unspecified, not intractable, without status migrainosus; F32.9 Major depressive disorder, single episode, unspecified; Z79.899 Other long term (current) drug therapy; Z88.0 Allergy status to penicillin; Z88.5 Allergy status to narcotic agent; Z88.6 Allergy status to analgesic agent; Z88.8 Allergy status to other drugs, medicaments and biological substances | CPT/HCPCS: G0463 ==

== ENCOUNTER → 2017-05-21 | Outpatient (CLI) | payer OTHER, MEDICAID | LOC: M PAIN 10:15 | DX: M54.2 Cervicalgia (principal); M79.1 Myalgia; M54.81 Occipital neuralgia; G43.909 Migraine, unspecified, not intractable, without status migrainosus; F32.9 Major depressive disorder, single episode, unspecified; Z79.899 Other long term (current) drug therapy; Z88.1 Allergy status to other antibiotic agents; Z88.5 Allergy status to narcotic agent; Z88.8 Allergy status to other drugs, medicaments and biological substances | CPT/HCPCS: G0463 ==

== ENCOUNTER 2017-06-19 13:49 | Emergency (ER) | payer OTHER, SELFPAY, MEDICAID ==
[2017-06-19] MEDS: NS 1,000 ML IV ×2 (14:44)
[2017-06-19] MEDS: methylPREDNISolone INJ 125 MG/2 ML VIAL (J2930) IV ×2 (14:44)
[2017-06-19] MEDS: METOCLOPRAMIDE INJ 10MG/2ML VIAL (J2765) IV ×2 (14:44)
[2017-06-19] MEDS: hydrOXYzine 25 MG TAB PO ×2 (15:12)
[2017-06-19] MEDS: HYDROmorphone HCL 1 MG/ML SYRINGE (J1170) IV ×4 (16:12→17:27)
[2017-06-19] MEDS: ONDANSETRON 4MG/2ML VIAL (J2405) IV ×2 (16:27)
[2017-06-19] MEDS: diazePAM 5 MG TAB PO ×2 (18:31)
== END 2017-06-19 20:08 | disposition home or self-care (01) ==
LOC: M ED 13:49
DX: G43.909 Migraine, unspecified, not intractable, without status migrainosus (principal); Z98.84 Bariatric surgery status; Z79.899 Other long term (current) drug therapy; Z88.0 Allergy status to penicillin; Z88.6 Allergy status to analgesic agent; Z88.5 Allergy status to narcotic agent; Z88.8 Allergy status to other drugs, medicaments and biological substances; Z91.89 Other specified personal risk factors, not elsewhere classified
CPT/HCPCS: J1170

== ENCOUNTER → 2017-07-01 | Outpatient (CLI) | payer OTHER, MEDICAID | LOC: M PAIN 13:00 | DX: M54.2 Cervicalgia (principal); M79.1 Myalgia; M54.81 Occipital neuralgia; G43.909 Migraine, unspecified, not intractable, without status migrainosus; Z79.891 Long term (current) use of opiate analgesic; Z79.899 Other long term (current) drug therapy; Z88.8 Allergy status to other drugs, medicaments and biological substances; Z96.9 Presence of functional implant, unspecified | CPT/HCPCS: G0463 ==

== ENCOUNTER → 2017-07-12 | Outpatient (CLI) | payer OTHER | LOC: M RAD 13:28 | DX: M54.2 Cervicalgia (principal); M54.6 Pain in thoracic spine | CPT/HCPCS: 72128 ==

== ENCOUNTER → 2017-07-12 | Outpatient (CLI) | payer OTHER, MEDICAID | LOC: M PAIN 10:45 | DX: M54.2 Cervicalgia (principal); M79.1 Myalgia; M54.81 Occipital neuralgia; G43.909 Migraine, unspecified, not intractable, without status migrainosus; F32.0 Major depressive disorder, single episode, mild; Z88.1 Allergy status to other antibiotic agents; Z88.5 Allergy status to narcotic agent; Z88.8 Allergy status to other drugs, medicaments and biological substances; Z79.899 Other long term (current) drug therapy | CPT/HCPCS: G0463 ==

== ENCOUNTER → 2017-07-19 | Outpatient (CLI) | payer OTHER, MEDICAID | LOC: M PAIN 12:30 | DX: M54.2 Cervicalgia (principal); M79.1 Myalgia; M54.81 Occipital neuralgia; G43.909 Migraine, unspecified, not intractable, without status migrainosus; F32.9 Major depressive disorder, single episode, unspecified; Z79.899 Other long term (current) drug therapy; Z88.1 Allergy status to other antibiotic agents; Z88.5 Allergy status to narcotic agent; Z88.8 Allergy status to other drugs, medicaments and biological substances | CPT/HCPCS: G0463 ==

== ENCOUNTER → 2017-08-11 | Outpatient (CLI) | payer OTHER, MEDICAID | LOC: M PAIN 10:45 | DX: M79.1 Myalgia (principal); M54.2 Cervicalgia; M54.32 Sciatica, left side; G43.909 Migraine, unspecified, not intractable, without status migrainosus; F32.9 Major depressive disorder, single episode, unspecified; Z79.899 Other long term (current) drug therapy; Z88.1 Allergy status to other antibiotic agents; Z88.5 Allergy status to narcotic agent; Z88.8 Allergy status to other drugs, medicaments and biological substances | CPT/HCPCS: G0463 ==

== ENCOUNTER → 2017-08-17 | Outpatient (CLI) | payer OTHER, MEDICAID | LOC: M PAIN 13:45 | DX: M79.1 Myalgia (principal); M54.2 Cervicalgia; M54.32 Sciatica, left side; G43.909 Migraine, unspecified, not intractable, without status migrainosus; F32.9 Major depressive disorder, single episode, unspecified; Z79.891 Long term (current) use of opiate analgesic; Z79.1 Long term (current) use of non-steroidal anti-inflammatories (NSAID); Z79.899 Other long term (current) drug therapy; Z88.5 Allergy status to narcotic agent; Z88.8 Allergy status to other drugs, medicaments and biological substances | CPT/HCPCS: G0463 ==

== ENCOUNTER → 2017-09-16 | Outpatient (CLI) | payer OTHER, MEDICAID ==
[~2017-09-16] MED LIST changes: -/CLON1TA PO; -/FENT25PA TD; -/FENT75PA TD; -/OXYC15TA OR; -AMIT10TA2 OR; -AMIT25TA2 PO; -BANO25CA PO; +BUPIVACAINE HCL 0.25% 30 ML VIAL As Ordered; -BUTA-198 PO; -CARI350T PO; -CIPR-249 PO; -COLA100C2 PO; -COLA100C5 PO; -COLA50CA3 PO; -DEPA250T3 OR; -DIAZ5TAB OR; -DILA2TAB OR; -DILA2TAB6 PO; -DILA4TAB13 PO; -DIPH25CA PO; -ELAVIL OR; -EXAL8TAB PO; -FIOR1CAP PO; -FLEX10TA2 PO; -FLEXERIL; -GABA-283 PO; -HYDR-3713 PO; -HYDR4TAB PO; -IMIT50TA PO; -IMIT6INJ IJ; -ISOS60TA2 PO; +ISOVUE-M 300 61% 15ML VIAL (Q9967) As Ordered; +LIDOCAINE 1% SDV INJ 30 ML VIAL As Ordered; -LYRI75CA PO; -MAGN1TAB25 PO; -MAXA10TA17 OR; -MAXA5TAB OR; -MAXA5TAB10 PO; +MIDAZOLAM INJ 2 MG/2 ML VIAL (J2250) As Ordered; -MIREIUD IU; -MORP10SO OR; -MORP15TA2 PO; -MORP15TA4; -MORP15TA4 OR; -MOTR200T44 PO; -MS C30TA2 OR; -MULTIVIT; -MULTIVIT OR; -MULTTAB4 PO; -MUSC1CRE TOP; -NEUR100C OR; -NEUR300C PO; -NORT25CA2 PO; -OPAN10TA16 OR; -OXYCPOW PO; -PERCOCET PO; -PROT1TAB2 PO; -PROZ10CA OR; -RELPAX OR; -ROBA750T4 PO; -SENN15UDC PO; -SOMA250T OR; -SOMA350T PO; -SUCR1TA PO; -TIZA4CAP PO; -TIZA4CAP3 PO; -TIZA4TAB; -TIZA4TAB OR; -TPS PAIN TOP; -TRAM50TA2 PO; +TRIAMCINOLONE ACETONIDE SUSP 40 MG/ML VIAL (J3301) As Ordered; -VALI5TAB PO; -VITMTA PO; -VOLT1GEL TOP; -ZANA2CAP PO; -ZOLO100T OR; -[UNRECOGNIZED DRUG - CODE] PO; -[UNRECOGNIZED DRUG - OTHER]; -[UNRECOGNIZED DRUG - OTHER] PO; -[UNRECOGNIZED DRUG - REMARK] PO; +diphenhydrAMINE 25 MG CAP As Ordered; +diphenhydrAMINE INJ 50MG/ML VIAL (J1200) As Ordered; +fentaNYL 100 MCG/2 ML INJECTION (J3010) As Ordered; -miralax PO; -morphine PO
== END ==
LOC: M PAIN 14:00
DX: G89.29 Other chronic pain (principal); M46.1 Sacroiliitis, not elsewhere classified; M53.88 Other specified dorsopathies, sacral and sacrococcygeal region; F32.9 Major depressive disorder, single episode, unspecified; G43.909 Migraine, unspecified, not intractable, without status migrainosus; Z79.891 Long term (current) use of opiate analgesic; Z79.899 Other long term (current) drug therapy; Z88.1 Allergy status to other antibiotic agents; Z88.5 Allergy status to narcotic agent; Z88.8 Allergy status to other drugs, medicaments and biological substances
CPT/HCPCS: J3301

== ENCOUNTER → 2017-09-16 | Outpatient (CLI) | payer OTHER, MEDICAID | LOC: M PAIN 10:30 | DX: M79.1 Myalgia (principal); M46.1 Sacroiliitis, not elsewhere classified; G43.909 Migraine, unspecified, not intractable, without status migrainosus; F32.9 Major depressive disorder, single episode, unspecified; Z79.891 Long term (current) use of opiate analgesic; Z79.899 Other long term (current) drug therapy; Z88.1 Allergy status to other antibiotic agents; Z88.5 Allergy status to narcotic agent; Z88.8 Allergy status to other drugs, medicaments and biological substances | CPT/HCPCS: G0463 ==

== ENCOUNTER → 2017-09-24 | Outpatient (CLI) | payer OTHER, MEDICAID | LOC: M PAIN 12:30 | DX: M51.16 Intervertebral disc disorders with radiculopathy, lumbar region (principal); M51.17 Intervertebral disc disorders with radiculopathy, lumbosacral region; G89.29 Other chronic pain; G43.909 Migraine, unspecified, not intractable, without status migrainosus; F32.9 Major depressive disorder, single episode, unspecified; Z79.899 Other long term (current) drug therapy; Z88.1 Allergy status to other antibiotic agents; Z88.5 Allergy status to narcotic agent; Z88.8 Allergy status to other drugs, medicaments and biological substances | CPT/HCPCS: G0463 ==

== ENCOUNTER → 2017-10-08 | Outpatient (CLI) | payer OTHER, MEDICAID | LOC: M PAIN 12:45 | DX: M51.16 Intervertebral disc disorders with radiculopathy, lumbar region (principal); M79.1 Myalgia; M96.1 Postlaminectomy syndrome, not elsewhere classified; G43.909 Migraine, unspecified, not intractable, without status migrainosus; Z79.891 Long term (current) use of opiate analgesic; Z79.899 Other long term (current) drug therapy; Z88.0 Allergy status to penicillin; Z88.8 Allergy status to other drugs, medicaments and biological substances | CPT/HCPCS: G0463 ==

== ENCOUNTER → 2017-10-14 | Outpatient (CLI) | payer OTHER, MEDICAID ==
[~2017-10-14] MED LIST changes: -TRIAMCINOLONE ACETONIDE SUSP 40 MG/ML VIAL (J3301) As Ordered; +dexameTHASONE 10 MG/1 ML VIAL PRES.FREE (J1100) As Ordered; -diphenhydrAMINE 25 MG CAP As Ordered
== END ==
LOC: M PAIN 14:00
DX: G89.29 Other chronic pain (principal); M51.16 Intervertebral disc disorders with radiculopathy, lumbar region; G43.909 Migraine, unspecified, not intractable, without status migrainosus; F32.9 Major depressive disorder, single episode, unspecified; M54.81 Occipital neuralgia; Z79.891 Long term (current) use of opiate analgesic; Z79.899 Other long term (current) drug therapy; Z88.1 Allergy status to other antibiotic agents; Z88.8 Allergy status to other drugs, medicaments and biological substances; Z88.5 Allergy status to narcotic agent
CPT/HCPCS: J1100

== ENCOUNTER 2017-10-17 12:42 | Emergency (ER) | payer OTHER, MEDICAID | END 2017-10-17 14:46 | disposition home or self-care (01) | LOC: M ED 12:42 | DX: M25.521 Pain in right elbow (principal); Z88.0 Allergy status to penicillin; Z88.5 Allergy status to narcotic agent; Z88.8 Allergy status to other drugs, medicaments and biological substances; Z91.048 Other nonmedicinal substance allergy status; Z79.899 Other long term (current) drug therapy | CPT/HCPCS: 73080 ==

== ENCOUNTER → 2017-10-22 | Outpatient (CLI) | payer OTHER, MEDICAID | LOC: M PAIN 11:45 | DX: M51.16 Intervertebral disc disorders with radiculopathy, lumbar region (principal); M79.1 Myalgia; G43.909 Migraine, unspecified, not intractable, without status migrainosus; F31.9 Bipolar disorder, unspecified; Z79.891 Long term (current) use of opiate analgesic; Z79.899 Other long term (current) drug therapy; Z88.1 Allergy status to other antibiotic agents; Z88.5 Allergy status to narcotic agent; Z88.8 Allergy status to other drugs, medicaments and biological substances | CPT/HCPCS: G0463 ==

== ENCOUNTER 2017-11-22 23:08 | Emergency (ER) | payer OTHER, MEDICAID ==
[2017-11-23 01:05] LABS: BASO % 0.3 % (0.0-1.0); EOS # 0.1 10^3/uL (0.0-0.50); EOS % 0.5 % (0.0-3.0); HEMATOCRIT 39.7 % (36.0-47.0); HEMOGLOBIN 13.4 g/dl (12.0-15.5); IMMATURE GRANULOCYTE % 0.3 % (0-3.0); LYMPH # 2.2 10^3/uL (1.5-4.5); MEAN CORPUSCULAR HEMOGLOBIN 29.8 pg (27.0-33.0); MEAN CORPUSCULAR HGB CONC 33.8 g/dl (32.0-36.5); MEAN CORPUSCULAR VOLUME 88.2 fl (80.0-96.0); MONO # 1.1 10^3/uL (0.0-0.8); MONO % 7.3 % (0.0-5.0); NEUTROPHILS % 77.6 % (36.0-66.0); PLATELET COUNT, AUTOMATED 232 10^3/uL (150-450); RED CELL DISTRIBUTION WIDTH 12.4 % (11.5-14.5); WHITE BLOOD COUNT 15.4 10^3/uL (4.0-10.0)
[2017-11-23] MEDS: GI COCKTAIL 50ML BTL(HYOSCYAMINE/MAALOX/LIDOCAINE VISCOUS)(1:3:1) PO (01:17)
[2017-11-23] MEDS: GASTROGRAFIN SOLUTION 30ML PO ×2 (01:17→02:00)
[2017-11-23] MEDS: ONDANSETRON 4MG/2ML VIAL (J2405) IV (01:17)
[2017-11-23] MEDS: PANTOPRAZOLE 40MG INJ (PROTONIX) (C9113) IV (01:17)
[2017-11-23 01:32] LABS: ALBUMIN 3.5 GM/DL (3.2-5.2); ALBUMIN/GLOBULIN RATIO 1.03 (1.00-1.93); ALKALINE PHOSPHATASE 80 U/L (45-117); ALT/SGPT 57 U/L (12-78); ANION GAP 9 MEQ/L (8-16); AST/SGOT 135 U/L (7-37); BILIRUBIN,DIRECT 0.4 MG/DL (0.0-0.2); BILIRUBIN,TOTAL 0.6 MG/DL (0.2-1.0); BLOOD UREA NITROGEN 11 MG/DL (7-18); CALCIUM LEVEL 8.3 MG/DL (8.5-10.1); CARBON DIOXIDE LEVEL 26 MEQ/L (21-32); CHLORIDE LEVEL 107 MEQ/L (98-107); CREATININE FOR GFR 0.62 MG/DL (0.55-1.30); GLOMERULAR FILTRATION RATE > 60.0 (>58); GLUCOSE, FASTING 96 MG/DL (70-100); LIPASE 118 U/L (73-393); POTASSIUM SERUM 4.1 MEQ/L (3.5-5.1); SODIUM LEVEL 142 MEQ/L (136-145); TOTAL PROTEIN 6.9 GM/DL (6.4-8.2)
[2017-11-23 01:40] LABS: CONTROL LINE HCG INT CTR LINE PRESENT; HCG, SERUM QUALITATIVE NEGATIVE (NEGATIVE)
[2017-11-23] MEDS ORDERED: ISOVUE-370 76% 100ML VIAL (Q9967) As Ordered (02:32)
[2017-11-23] MEDS: MORPHINE 2 MG/ML 1ML SYRINGE (J2270) IM (03:50)
== END 2017-11-23 06:03 | disposition home or self-care (01) ==
LOC: M ED 23:08
DX: K59.00 Constipation, unspecified (principal); N20.0 Calculus of kidney; R94.31 Abnormal electrocardiogram [ECG] [EKG]; F11.20 Opioid dependence, uncomplicated; G89.29 Other chronic pain; Z98.84 Bariatric surgery status; Z98.890 Other specified postprocedural states; Z79.899 Other long term (current) drug therapy; Z88.0 Allergy status to penicillin; Z88.5 Allergy status to narcotic agent; Z91.048 Other nonmedicinal substance allergy status; Z88.8 Allergy status to other drugs, medicaments and biological substances
CPT/HCPCS: C9113

== ENCOUNTER 2017-11-29 12:36 | Outpatient (RCR) | payer OTHER | END 2017-12-10 | LOC: M PT 12:36 | DX: Z47.89 Encounter for other orthopedic aftercare (principal); S50.01XA Contusion of right elbow, initial encounter | CPT/HCPCS: 97140 ==

== ENCOUNTER → 2017-12-21 | Outpatient (CLI) | payer OTHER, MEDICAID | LOC: M PAIN 15:15 | DX: M79.1 Myalgia (principal); M54.2 Cervicalgia; G43.909 Migraine, unspecified, not intractable, without status migrainosus; F32.9 Major depressive disorder, single episode, unspecified; Z88.0 Allergy status to penicillin; Z88.1 Allergy status to other antibiotic agents; Z88.5 Allergy status to narcotic agent; Z88.8 Allergy status to other drugs, medicaments and biological substances; Z79.899 Other long term (current) drug therapy | CPT/HCPCS: G0463 ==

== ENCOUNTER → 2018-01-03 | Outpatient (CLI) | payer OTHER, MEDICAID | LOC: M PAIN 09:15 | DX: M79.1 Myalgia (principal); G43.709 Chronic migraine without aura, not intractable, without status migrainosus; M54.2 Cervicalgia; G43.909 Migraine, unspecified, not intractable, without status migrainosus; F32.9 Major depressive disorder, single episode, unspecified; Z79.891 Long term (current) use of opiate analgesic; Z79.899 Other long term (current) drug therapy; Z88.0 Allergy status to penicillin; Z88.1 Allergy status to other antibiotic agents; Z88.8 Allergy status to other drugs, medicaments and biological substances | CPT/HCPCS: G0463 ==

== ENCOUNTER → 2018-02-10 | Outpatient (REF) | payer OTHER ==
[2018-02-10 19:15] LABS: FERRITIN 22 NG/ML (8-252); IRON (FE) 97 UG/DL (50-170); PERCENT SATURATION 25.1 % (13.2-45.0); TOTAL IRON BINDING CAPACITY 387 UG/DL (250-450)
== END ==
LOC: M LAB REF 16:44
DX: Z98.84 Bariatric surgery status (principal)

== ENCOUNTER → 2018-02-18 | Outpatient (CLI) | payer OTHER, MEDICAID | LOC: M PAIN 11:45 | DX: M79.18 Myalgia, other site (principal); G43.709 Chronic migraine without aura, not intractable, without status migrainosus; M54.2 Cervicalgia; F32.9 Major depressive disorder, single episode, unspecified; Z79.891 Long term (current) use of opiate analgesic; Z79.899 Other long term (current) drug therapy; Z88.1 Allergy status to other antibiotic agents; Z88.5 Allergy status to narcotic agent; Z88.8 Allergy status to other drugs, medicaments and biological substances | CPT/HCPCS: G0463 ==

== ENCOUNTER → 2018-03-28 | Outpatient (CLI) | payer OTHER, MEDICAID ==
[~2018-03-28] MED LIST changes: +/CLON1TA PO; +/FENT25PA TD; +/FENT75PA TD; +/OXYC15TA OR; +ACE65ERTAB PO; +AMIT10TA2 OR; +AMIT25TA2 PO; +BANO25CA PO; +BOTULINUM INJ 100 UNITS (J0585) IM ONE; -BUPIVACAINE HCL 0.25% 30 ML VIAL As Ordered; +BUT/APAP/CAF; +BUTA-198 PO; +BUTACAP78; +CARI1TAB7 PO; +CIPR-249 PO; +CLIN150C14 PO; +CLON1TAB8; +COLA100C2 PO; +COLA100C5 PO; +COLA50CA3 PO; +CYCL10TA; +DEPA250T3 OR; +DIAZ5TAB OR; +DILA2TAB OR; +DILA2TAB6; +DILA2TAB6 PO; +DILA4TAB13 PO; +DIPH25CA PO; +ELAVIL OR; +EXAL8TAB PO; +FENT12DI8; +FIOR1CAP PO; +FLEX10TA2 PO; +FLEXERIL; +GABA-845 PO; +HYDR-3713 PO; +HYDR4TAB PO; +IMIT50TA PO; +IMIT6INJ IJ; +ISOS60TA2 PO; -ISOVUE-M 300 61% 15ML VIAL (Q9967) As Ordered; -LIDOCAINE 1% SDV INJ 30 ML VIAL As Ordered; +LYRI75CA PO; +MAGN1TAB25 PO; +MAXA10TA17 OR; +MAXA5TAB OR; +MAXA5TAB10 PO; -MIDAZOLAM INJ 2 MG/2 ML VIAL (J2250) As Ordered; +MIRE1IUD IU; +MORP10SO OR; +MORP15TA2 PO; +MORP15TA4; +MORP15TA4 OR; +MOTR200T44 PO; +MS C30TA2 OR; +MULT1TAB18 PO; +MULTIVIT; +MULTIVIT OR; +MULTTAB4 PO; +MUSC1CRE TOP; +NEUR100C OR; +NEUR300C PO; +NORT25CA2 PO; +OPAN10TA16 OR; +OXYC1TAB23 PO; +OXYCPOW PO; +PERCOCET PO; +PROT1TAB2 PO; +PROZ10CA OR; +RELPAX OR; +RIZA10TA2; +ROBA750T4 PO; +SENN15UDC PO; +SERT25TA88; +SOMA250T OR; +SOMA350T PO; +SUCR1TA PO; +TIZA4CAP PO; +TIZA4CAP6 PO; +TIZA4TAB; +TIZA4TAB OR; +TPS PAIN TOP; +TRAM50TA2 PO; +VALI5TAB PO; +VITA100072 PO; +VITMTA PO; +VOLT1GEL TOP; +ZANA2CAP PO; +ZOLO100T OR; +[UNRECOGNIZED DRUG - CODE] PO; +[UNRECOGNIZED DRUG - OTHER]; +[UNRECOGNIZED DRUG - OTHER] PO; +[UNRECOGNIZED DRUG - REMARK] PO; -dexameTHASONE 10 MG/1 ML VIAL PRES.FREE (J1100) As Ordered; +diazePAM 5 MG TAB As Ordered ONE; +diphenhydrAMINE 25 MG CAP As Ordered ONE; -diphenhydrAMINE INJ 50MG/ML VIAL (J1200) As Ordered; -fentaNYL 100 MCG/2 ML INJECTION (J3010) As Ordered; +miralax PO; +morphine PO; +oxyCODONE 5MG TAB As Ordered ONE
--- NOTE | 2018-04-12 23:47 | ECWPNPC ---
PATIENT NAME: STEPHANIE BOLANOS : 1975 GENDER: FEMALE VISIT DATE: 03/28/2018 DISCHARGE DATE: 03/28/18 1424 VISIT LOCKED DATE TIME: PHYSICIAN: REBECCA ARIAS MD RESOURCE: REBECCA ARIAS MD REASON FOR APPOINTMENT 1. BOTOX HISTORY OF PRESENT ILLNESS HISTORY OF PRESENT ILLNESS: PAIN THE PATIENT DESCRIBES THE PAIN... FALL RISK SCREENING: SCREENING :NO FALLS IN THE PAST YEAR CURRENT MEDICATIONS TAKING SUCRALFATE 1 GM TABLET 1 TABLET ON AN EMPTY STOMACH ORALLY TWICE A DAY NEEDED, NOTES: 2 WEEKS AGO TAKING COLACE 100 MG CAPSULE 1 CAPSULE ORALLY ONCE A DAY NEEDED, NOTES: 2 WEEKS AGO TAKING ONDANSETRON HCL 8 MG TABLET 1 TAB ORALLY TWICE A DAY PRN NAUSEA, NOTES: 1 WEEK TAKING INDERAL LA 60 MG CAPSULE EXTENDED RELEASE 24 HOUR 1 CAPSULE ORALLY ONCE A DAY, NOTES: 03/28 8AM TAKING PERCOCET 5-325 MG TABLET 1-2 TABLET NEEDED ORALLY EVERY 6 HRS PRN PAIN MDD=6, NOTES: ON HOLD TAKING CYCLOBENZAPRINE HCL 10 MG TABLET 1 TABLET NEEDED ORALLY THREE TIMES A DAY, NOTES: 03/28 6:30AM TAKING MAXALT 10 MG TABLET 1 TABLET ORALLY BID FOR MIGRAINE MAX 10 MIGRAINE DAIS PER MONTH MDD=2, NOTES: 03/28 7AM TAKING FIORICET 325-50-40 MG TABLET 1 TABLET NEEDED ORALLY EVERY 6 HRS PRN MIGRAINE MDD=2, NOTES: 03/28 7AM TAKING FENTANYL 12 MCG/HR PATCH 72 HOUR 1 PATCH TO SKIN TRANSDERMAL FOR PAIN Q 72 HRS MDD1, NOTES: 2 DAYS AGO 7PM TAKING OXYCODONE HCL 15 MG TABLET 1 TABLET ORALLY Q12H PRN MDD2, NOTES: 03/28 9AM NOT-TAKING ESCITALOPRAM OXALATE 20 MG TABLET 1 TAB ORALLY ONCE A DAY NOT-TAKING DIPHENHYDRAMINE HCL 25 MG CAPSULE 1 CAPSULE NEEDED ORALLY AT ONSET OF MIGRAINE MAY REPEAT IN 6HR IF NEEDED NOT-TAKING REGLAN 10 MG TABLET DIRECTED ORALLY AT ONSET OF MIGRAINE NOT-TAKING IBUPROFEN 600 MG TABLET 2 ORALLY AT ONSET OF MIGRAINE NOT-TAKING SERTRALINE HCL 50 MG TABLET 1 TABLET ORALLY ONCE A DAY NOT-TAKING REGLAN 10 MG TABLET DIRECTED ORALLY Q 6 HRS PRN MIGRAINE NOT-TAKING ACETAMINOPHEN 500 MG TABLET 1 TABLETS ORALLY EVERY 6 HRS NOT-TAKING HYDROXYZINE HCL 25 MG TABLET 1-2 TABLET ORALLY EVERY 6 HRS PRN ITCHING/SLEEP NOT-TAKING ZOLMITRIPTAN 5 MG TABLET 1 TABLET NEEDED ONE TIME ORALLY BID PRN MIGRAINE MAX 10 MIGRAINE DAYS PER MONTH NOT-TAKING CYCLOBENZAPRINE HCL 10 MG TABLET 1 TABLET NEEDED ORALLY THREE TIMES A DAY NOT-TAKING ZONISAMIDE 25 MG CAPSULE 1 CAP ORALLY TWICE A DAY NOT-TAKING MORPHINE SULFATE 15 MG TABLET 1 TABLET NEEDED ORALLY FOR PAIN EVERY 4 HRS FOR PAIN MDD6 NOT-TAKING CYMBALTA 30 MG CAPSULE DELAYED RELEASE PARTICLES 1 CAPSULE ORALLY WITH FOOD ONCE A DAY NOT-TAKING FENTANYL 12 MCG/HR PATCH 72 HOUR 1 PATCH TO SKIN TRANSDERMAL APPLY 1 PATCH Q 72 HRS MDD=1 NOT-TAKING DIAZEPAM 5 MG TABLET 1 TABLET NEEDED ORALLY FOR SPASMS AND PAIN EVERY 6 HOURS NEEDED MDD4 NOT-TAKING GABAPENTIN 100 MG CAPSULE 2 CAPSULE ORALLY THREE TIMES A DAY, NOTES: NOT TAKING, GAVE CHEST PAIN NOT-TAKING BUTRANS 5 MCG/HR PATCH WEEKLY 1 PATCH TO SKIN TRANSDERMAL APPLY 1 PATCH Q 7 DAYS FPR CHRONIC PAIN MDD=1, NOTES: HASNT GOTTEN YET NOT-TAKING DIPHENHYDRAMINE HCL 25 MG CAPSULE 1 CAPSULE NEEDED FOR ITCHING ORALLY EVERY 8 HRS MDD3 MEDICATION LIST REVIEWED AND RECONCILED WITH THE PATIENT PAST MEDICAL HISTORY MIGRAINES BACK PAIN RECURRENT SPONTANEOUS MISCARRAIGES DEPRESSIVE DISORDER CERVICAL NEURALGIA ALLERGIES CIPRO: RASH: ALLERGY AMOXICILLIN: NAUSEA/VOMITING: ALLERGY HYDROCODONE-IBUPROFEN: NAUSEA/VOMITING: SIDE EFFECTS IMITREX: SUNBURN-LIKE RASH ON FACE: ALLERGY MAGNESIUM OXIDE: SUNBURN-LIKE RASH ON FACE: ALLERGY BUSPIRONE: HIVES: ALLERGY NUCYNTA: HIVES: ALLERGY CYMBALTA: RASH: ALLERGY TRAMADOL HCL: RASH: ALLERGY HYDROMORPHONE HCL: ITCHING: ALLERGY NEURONTIN: CHEST PAIN: ALLERGY SURGICAL HISTORY BACK SURGERY DORSAL COLUMN STIMULATER 2011 DORSAL COLUMN REMOVED JUNE 2017 FAMILY HISTORY NO FAMILY HISTORY DOCUMENTED. SOCIAL HISTORY GENERAL: TOBACCO USE ARE YOU A:: NEVER SMOKER , ARE YOU A: NONSMOKER . RECREATIONAL DRUG USE DRUG USE? NO. CAFFEINE CAFFEINE USE? NO . JUDAISM NO TENRIISM BELIEFS THAT WOULD IMPACT HEALTH CARE, NO PREFERENCE. LANGUAGE LANGUAGES SPOKEN:POL[place] LEARNING BARRIERS / SPECIAL NEEDS ABILITY TO UNDERSTAND VERBAL INSTRUCTIONS AVERAGE, ABILITY TO UNDERSTAND WRITTEN INSTRUCTIONS AVERAGE, KNOWLEDGE OF EDUCATIONAL NEEDS/TREATMENT PLAN AVERAGE, TENRIISM? NO, LEARNING PREFERENCE NO PREFERENCE, ORIENTED TO PLAN OF CARE: PATIENT, TEACHING MATERIALS DEMONSTRATION/VERBAL INSTRUCTION, RESPONSE TO EDUCATION EXPLAINES ACCURATELY/VERBALIZES UNDERSTANDING, PAIN MANAGEMENT PATIENT, TEACHING MATERIALS DEMONSTRATION/VERBAL INSTRUCTION, RESPONSE TO EDUCATION EXPLAINS ACCURATELY/VERBALIZES UNDERSTANDING. 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 PAIN CLINIC PFS, CLERGY, PUBLIC HEALTH REFERRALS WAS THE PROVIDER NOTIFIED OF ANY PERTINENT INFO?YES HAS THE PATIENT BEEN EDUCATED REGARDING HIS/HER PLAN OF CARE?YES HAS THE PATIENT BEEN EDUCATED REGARDING PAIN, THE RISK FOR PAIN, THE IMPORTANCE OF EFFECTIVE PAIN MANAGEMENT, AND THE PAIN ASSESSMENT PROCESS?YES ADVANCE DIRECTIVE ADVANCE DIRECTIVE DISCUSSED WITH PATIENT:YES PT DECLINES HOSPITALIZATION/MAJOR DIAGNOSTIC PROCEDURE SEE ABOVE CERVICAL NEURALGIA 02/2017 REVIEW OF SYSTEMS REVIEWED BY: PROVIDER: . CONSTITUTIONAL: ANY CHANGE IN YOUR MEDICAL CONDITION? NO . CHILLS NO . FEVER NO . INFECTION: DO YOU HAVE NEW INFECTIONS? NO . DO YOU HAVE HISTORY OF MRSA? NO . MUSCULOSKELETAL: ANY NEW PATTERNS OF PAIN OR NUMBNESS? NO . GASTROENTEROLOGY: ANY NEW CHANGE IN BOWEL CONTROL? NO . GENITOURINARY: ANY NEW CHANGE IN BLADDER CONTROL? NO . IS THERE A CHANCE YOU COULD BE ? NO . HEMATOLOGY/LYMPH: DO YOU TAKE ANY BLOOD THINNERS? (FOR EXAMPLE- COUMADIN, PLAVIX, AGGRENOX, PLATEL, PRADAXA, OR XARELTO) NO . WHEN WAS YOUR LAST DOSE? DATE: TIME: . NEUROLOGY: HAVE YOU FALLEN IN THE PAST 6 MONTHS? NO . ANY NEW EXTREMITY NUMBNESS OR WEAKNESS? NO . CARDIOLOGY: DO YOU HAVE A PACEMAKER OR DEFIBRILLATOR? NO . RESPIRATORY: HAVE YOU BEEN SICK IN THE PAST WEEK? NO . FEVER NO . FLU LIKE SYMPTOMS? NO . COUGH NO . INTEGUMENTARY: DO YOU HAVE ANY RASHES OR OPEN SORES? NO . ALLERGIC/IMMUNO: ARE YOU ALLERGIC TO SHELLFISH OR IV DYE? NO . ANY NEW ALLERGIES? NO . PSYCHIATRIC: DO YOU HAVE THOUGHTS OF HURTING YOURSELF OR SOMEONE ELSE? NO . ARE YOU ABUSED, NEGLECTED, OR IN AN UNSAFE ENVIRONMENT? NO . ENDOCRINOLOGY: ARE YOU DIABETIC? NO . OTHER: DO YOU NEED ANY PRESCRIPTIONS? NO . IF YES, PLEASE LIST: ____ . ANY NEW PROBLEMS WITH YOUR MEDICATIONS? NO . WHEN DID YOU LAST EAT? 12-16 DINNER . WHEN DID YOU LAST DRINK? 12-17 8AM . WHAT DID YOU LAST DRINK? WATER . NAME OF PERSON DRIVING YOU HOME? DAUGHTER . DO YOU HAVE ANY OTHER QUESTIONS OR CONCERNS NO . VITAL SIGNS WT 153.8 LBS, HT 62.5 IN, BMI 27.68 INDEX, BP 119/79 MM HG, HR 80 /MIN, RR 16 /MIN, TEMP 98.0 F, OXYGEN SAT % 97%, SAFE IN ENV? (Y/N) Y, NA INITIALS TX 11:36, REVIEWED BY: JANEEN. ASSESSMENTS CHRONIC MIGRAINE - G43.709 (PRIMARY) PROCEDURES PN BOTOX INJECTIONS FIRST INJECTION DATE OF PROCEDURE 03/28/2018 : PRE PROCEDURE DIAGNOSIS CHRONIC MIGRAINE HEADACHES. POST PROCEDURE DIAGNOSIS CHRONIC MIGRAINE HEADACHES. PROCEDURE BOTOX INJECTION AT THE HEAD, NECK AND SHOULDERS. SURGEON DR. REBECCA ARIAS TIRE TECHNICIAN NONE ANESTHESIA NONE PRE PROCEDURE NOTE 42 YEAR-OLD PATIENT WITH HISTORY OF CHRONIC MIGRAINE HEADACHES. I EVALUATED THE PATIENT AND REVIEWED THE CHART. I WENT OVER THE RISKS, ALTERNATIVES, AND BENEFITS ASSOCIATED WITH THIS PROCEDURE. THE PATIENT WOULD LIKE TO PROCEED AND GAVE CONSENT TO PERFORM THE PROCEDURE. THE PATIENT DENIES UNEXPLAINABLE WEIGHT LOSS, FEVER, CHILLS, OR NEW CHANGES IN URINARY OR BOWEL CONTROL. THE PATIENT HAS BEEN SUFFERING FROM HEADACHES FOR MORE THAN 16 DAYS OF THE MONTH. THESE HEADACHES LAST MORE THAN 4 HOURS PER DAY. THE PATIENT HAS USED THE MEDICATIONS LISTED IN THE CHART TO TREAT THE HEADACHES FOR MANY MONTHS BUT THE HEADACHES PERSIST DESCRIBED ABOVE. DESCRIPTION OF PROCEDURE THE PATIENT WAS BROUGHT TO THE PROCEDURE ROOM AND PLACED IN THE SUPINE POSITION. I CHECKED LATERALITY AND THE AREAS WHERE THE PROCEDURE WAS GOING TO BE PERFORMED WITH THE PATIENT AND THE SUPPORTING STAFF AT THE MOMENT OF THE TIME OUT IN THE PROCEDURE ROOM. FOR THE PROCEDURE I USED A SOLUTION OF 5 UNITS OF BOTOX PER EACH 0.1 ML OF THE SOLUTION. I USED A 30-GAUGE NEEDLE TO INJECT THE SOLUTION AT THE SELECTED LOCATIONS. I INJECTED FIRST THE RIGHT AND LEFT BRICK POINTER MUSCLES. THE LANDMARK FOR BOTH INJECTIONS WAS APPROXIMATELY 1 CM ABOVE THE SUPERIOR MEDIAL EDGE OF THE EYEBROW. AFTER THESE TWO INJECTIONS, I INJECTED THE PROCERUS MUSCLE AT THE MIDLINE POINT BETWEEN THESE FIRST TWO INJECTIONS. THEN I PROCEEDED TO INJECT THE RIGHT AND LEFT FRONTALIS MUSCLE. TWO INJECTIONS WERE DONE IN EACH SIDE. THE FIRST INJECTION WAS DONE APPROXIMATELY 2 CM ABOVE THE FIRST INJECTION OF THE BRICK POINTER. THE SECOND INJECTION WAS DONE APPROXIMATELY 1.5 CM LATERAL TO THIS FIST INJECTION OF THE FRONTALIS OF EACH SIDE. AFTER THE INJECTIONS OVER THE FOREHEAD WERE DONE, THE PATIENT'S HEAD WAS TURNED TO THE LEFT SIDE AND WE STARTED TO WORK WITH THE RIGHT TEMPORALIS MUSCLE. FIRST INJECTION WAS DONE IN A VERTICAL LINE OF THE TRAGUS APPROXIMATELY 3 CM ABOVE THE TRAGUS. THE SECOND INJECTION WAS DONE APPROXIMATELY 2 CM ABOVE THE FIRST INJECTION. THE THIRD INJECTION WAS DONE APPROXIMATELY 1 CM FRONTWARD FROM THIS VERTICAL LINE CREATED AT THE LEVEL OF THE TRAGUS, CUSTODIAL BETWEEN THESE TWO INJECTIONS. THE FOURTH INJECTION WAS DONE APPROXIMATELY 1.5 CM BACK FROM THE SECOND INJECTION TO THE TEMPORALIS IN LINE TO THE MIDPORTION OF THE EAR. THEN, WE PROCEEDED TO INJECT THE LEFT TEMPORALIS MUSCLE. WE CLEANED THE AREA WITH ALCOHOL AND PROCEEDED TO PERFORM THE SAME FOR INJECTIONS DESCRIBED ABOVE BUT IN THE LEFT TEMPORALIS MUSCLE USING THE SAME LANDMARKS. AFTER THESE INJECTIONS WERE DONE, THE PATIENT WAS SEATED. FIRST, WE STARTED TO INJECT THE LEFT AND RIGHT OCCIPITALIS MUSCLE. I INJECTED AT THE FOLLOWING PLACES IN THE RIGHT AND LEFT MUSCLE. THE FIRST INJECTION WAS DONE AT THE MIDPOINT POSITION BETWEEN THE MASTOID PROCESS AND THE INION OF THE OCCIPITAL PROTUBERANCE. THE SECOND INJECTION WAS DONE APPROXIMATELY 1.5 CM SUPERIOR AND LATERAL OF THIS POINT. THE THIRD INJECTION WAS DONE APPROXIMATELY 1.5 CM SUPERIOR AND MEDIAL TO THIS FIRST INJECTION. NEXT, I PROCEEDED TO INJECT THE RIGHT AND LEFT PARASPINAL MUSCLES. LANDMARK OF THE INJECTION WERE APPROXIMATELY: FIRST INJECTION 3 CM BELOW THE INION AND 1 CM LATERAL TO THE MIDLINE AND SECOND INJECTION AT EACH SIDE WAS DONE APPROXIMATELY 1.5 CM SUPERIOR AND LATERAL OF THE FIRST INJECTION. THE LAST GROUP OF INJECTIONS WAS DONE OVER THE RIGHT AND LEFT TRAPEZIUS MUSCLE OVER THE SHOULDERS AREA. THE FIRST INJECTION WAS DONE AT THE MIDPOINT BETWEEN THE INFLECTION POINT BETWEEN THE NECK AND SHOULDER AND THE ACROMION. THE SECOND AND THIRD INJECTIONS WERE DONE APPROXIMATELY 2.5 CM LATERAL AND MEDIAL FROM THIS FIRST INJECTION. SAME TARGETS WERE USED IN THE RIGHT AND LEFT SIDE. IN TOTAL, I INJECTED 155 UNITS OF BOTOX. PROCEDURE WAS DONE WITHOUT EVIDENCE OF PARESTHESIA, PNEUMOTHORAX, OR ANY COMPLICATIONS. THE PATIENT TOLERATED THE PROCEDURE VERY WELL. THE PATIENT WAS SENT TO THE RECOVERY ROOM FOR OBSERVATIONS. INJECTIONS WERE DONE AFTER CLEANING WITH ALCOHOL, USING ASEPTIC TECHNIQUES. POST PROCEDURE NOTE THE PROCEDURE DONE WAS DISCUSSED WITH THE PATIENT. THE PATIENT WILL BE SEEN IN A FOLLOW UP IN THE NEXT FEW WEEKS. INSTRUCTIONS WERE GIVEN, QUESTIONS WERE ANSWERED, AND THE PATIENT EXPRESSED UNDERSTANDING AND AGREES WITH THE PLAN. INATHAN, DOCUMENTED THE ABOVE INFORMATION ACTING A SCRIBE FOR DR. ARIAS. I HAVE REVIEWED THE ABOVE DOCUMENT, WRITTEN BY NATHAN MONTESIBSerenity AND I VERIFY THAT IT IS ACCURATE. PROCEDURE CODES 36440 CHEMODENERV MUSC MIGRAINE DISPOSITION & COMMUNICATION FOLLOW UP 3 WEEKS ELECTRONICALLY SIGNED BY REBECCA ARIAS MD, MD ON 04/12/2018 AT 07:22 PM EST DISCLAIMER : THIS IS A VISIT SUMMARY EXTRACTED FROM THE [employer] CHART. IT IS NOT A COPY OF THE [employer] PROGRESS NOTE. TASHA
== END ==
LOC: M PAIN 11:30
PROVIDERS: ATTEND Anesthesiology
DX: G43.709 Chronic migraine without aura, not intractable, without status migrainosus (principal); M79.2 Neuralgia and neuritis, unspecified; F32.9 Major depressive disorder, single episode, unspecified; Z79.899 Other long term (current) drug therapy; N96 Recurrent pregnancy loss; Z88.0 Allergy status to penicillin; Z88.5 Allergy status to narcotic agent; Z88.1 Allergy status to other antibiotic agents; Z88.8 Allergy status to other drugs, medicaments and biological substances
CPT/HCPCS: 64615; J0585

== ENCOUNTER 2018-03-31 09:35 | Emergency (ER) | payer OTHER ==
[~2018-03-31] VITALS: Ht 162.6 cm; Wt 65.9 kg
[~2018-03-31 09:35] MED LIST changes: -BOTULINUM INJ 100 UNITS (J0585) IM ONE; -CLIN150C14 PO; -CLON1TAB8; -CYCL10TA; -diazePAM 5 MG TAB As Ordered ONE; -diphenhydrAMINE 25 MG CAP As Ordered ONE; -oxyCODONE 5MG TAB As Ordered ONE
[2018-03-31] MEDS ORDERED: CYCL10TA (09:52)
[2018-03-31] MEDS ORDERED: CLON1TAB8 (09:52)
[2018-03-31] MEDS ORDERED: CLINDAMYCIN 900 MG in APPROPRIATE DILUENT 1 EA IV ONE (10:15)
[2018-03-31] MEDS ORDERED: methylPREDNISolone INJ 125 MG/2 ML VIAL (J2930) IV ONE (10:15)
[2018-03-31 10:30] LABS: BASO % 0.4 % (0.0-1.0); EOS % 0.4 % (0.0-3.0); HEMATOCRIT 42.6 % (36.0-47.0); HEMOGLOBIN 14.2 g/dl (12.0-15.5); LYMPH # 2.1 10^3/uL (1.5-4.5); LYMPH % 21.7 % (24.0-44.0); MEAN CORPUSCULAR HEMOGLOBIN 30.3 pg (27.0-33.0); MEAN CORPUSCULAR HGB CONC 33.3 g/dl (32.0-36.5); MONO # 0.6 10^3/uL (0.0-0.8); MONO % 6.7 % (0.0-5.0); NEUTROPHILS # 6.6 10^3/uL (1.8-7.7); NEUTROPHILS % 70.5 % (36.0-66.0); PLATELET COUNT, AUTOMATED 299 10^3/uL (150-450); RED BLOOD COUNT 4.68 10^6/uL (4.00-5.40); WHITE BLOOD COUNT 9.4 10^3/uL (4.0-10.0)
[2018-03-31 10:49] LABS: ERYTHROCYTE SEDIMENTATION RATE 4 mm/hr (0-20)
--- NOTE | 2018-03-31 10:53 | REP ---
RIGHT ELBOW, FOUR VIEWS: HISTORY: Pain. There is no acute fracture or dislocation. The joint space is normal in appearance. IMPRESSION: There is no acute fracture or dislocation. Electronically Signed by Ish Rodríguez MD 03/31/2018 10:58 A
[2018-03-31 10:58] LABS: ALBUMIN 3.8 GM/DL (3.2-5.2); ALT/SGPT 14 U/L (12-78); BILIRUBIN,TOTAL 0.3 MG/DL (0.2-1.0); BLOOD UREA NITROGEN 9 MG/DL (7-18); CALCIUM LEVEL 8.5 MG/DL (8.5-10.1); CARBON DIOXIDE LEVEL 30 MEQ/L (21-32); CHLORIDE LEVEL 104 MEQ/L (98-107); CREATININE FOR GFR 0.92 MG/DL (0.55-1.30); GLOMERULAR FILTRATION RATE > 60.0 (>58); GLUCOSE, FASTING 80 MG/DL (70-100); POTASSIUM SERUM 3.8 MEQ/L (3.5-5.1); SODIUM LEVEL 140 MEQ/L (136-145); TOTAL PROTEIN 7.3 GM/DL (6.4-8.2)
[2018-03-31] MEDS ORDERED: CLIN150C14 PO (11:31)
[2018-03-31 11:41] VITALS: BP 120/72
== END 2018-03-31 11:46 | disposition home or self-care (01) ==
LOC: M ED 09:35
DX: M25.561 Pain in right knee (principal); Z98.890 Other specified postprocedural states
CPT/HCPCS: 73080; 80053; 85025; 85652; 86140; 87040; 96374; 99284; J2930

== ENCOUNTER → 2018-04-25 | Outpatient (REF) | payer OTHER ==
[~2018-04-25] MED LIST changes: +CLIN150C14 PO; +CLON1TAB8; +CYCL10TA
== END ==
LOC: M LAB REF 17:16
PROVIDERS: ATTEND Advanced Practice Midwife
DX: R30.0 Dysuria (principal)

== ENCOUNTER → 2018-05-22 | Outpatient (REF) | payer OTHER | LOC: M LAB REF 09:11 | PROVIDERS: ATTEND Physician Assistant | DX: R30.0 Dysuria (principal) ==

== ENCOUNTER → 2018-06-06 | Outpatient (CLI) | payer OTHER, MEDICAID ==
--- NOTE | 2018-06-20 00:15 | ECWPNPC ---
PATIENT NAME: STEPHANIE BOLANOS : 1975 GENDER: FEMALE VISIT DATE: 06/06/2018 DISCHARGE DATE: 06/06/18 1254 VISIT LOCKED DATE TIME: PHYSICIAN: RODNEY NEAL RESOURCE: RODNEY NEAL REASON FOR APPOINTMENT 1. POST BOTOX HISTORY OF PRESENT ILLNESS HISTORY OF PRESENT ILLNESS: HERE FOR POST BOTOX VISIT.LAST BOTOX WAS 03/28/18.REPORTING LESS FREQUENT HEADACHES SINCE BOTOX.HAVING BAD HEADACHE DAYS THAT LAST 5 DAYS.RATING PAIN VAS 6/10. PAIN THE PATIENT DESCRIBES THE PAIN... FALL RISK SCREENING: SCREENING : NO FALLS IN THE PAST YEAR. CURRENT MEDICATIONS TAKING SUCRALFATE 1 GM TABLET 1 TABLET ON AN EMPTY STOMACH ORALLY TWICE A DAY NEEDED TAKING COLACE 100 MG CAPSULE 1 CAPSULE ORALLY ONCE A DAY NEEDED TAKING ONDANSETRON HCL 8 MG TABLET 1 TAB ORALLY TWICE A DAY PRN NAUSEA TAKING PERCOCET 5-325 MG TABLET 1-2 TABLET NEEDED ORALLY EVERY 6 HRS PRN PAIN MDD=6 TAKING MAXALT 10 MG TABLET 1 TABLET ORALLY BID FOR MIGRAINE MAX 10 MIGRAINE DAIS PER MONTH MDD=2 TAKING FIORICET 325-50-40 MG TABLET 1 TABLET NEEDED ORALLY EVERY 6 HRS PRN MIGRAINE MDD=2 TAKING FENTANYL 12 MCG/HR PATCH 72 HOUR 1 PATCH TO SKIN TRANSDERMAL FOR PAIN Q 72 HRS MDD1 TAKING OXYCODONE HCL 15 MG TABLET 1 TABLET ORALLY Q12H PRN MDD2 TAKING CYCLOBENZAPRINE HCL 10 MG TABLET 1 TABLET NEEDED ORALLY THREE TIMES A DAY TAKING DIPHENHYDRAMINE HCL 25 MG CAPSULE 1 CAPSULE NEEDED ORALLY AT ONSET OF MIGRAINE MAY REPEAT IN 6HR IF NEEDED TAKING REGLAN 10 MG TABLET DIRECTED ORALLY AT ONSET OF MIGRAINE TAKING HYDROXYZINE HCL 25 MG TABLET 1-2 TABLET ORALLY EVERY 6 HRS PRN ITCHING/SLEEP TAKING ZOLMITRIPTAN 5 MG TABLET 1 TABLET NEEDED ONE TIME ORALLY BID PRN MIGRAINE MAX 10 MIGRAINE DAYS PER MONTH NOT-TAKING INDERAL LA 60 MG CAPSULE EXTENDED RELEASE 24 HOUR 1 CAPSULE ORALLY ONCE A DAY NOT-TAKING BUTRANS 5 MCG/HR PATCH WEEKLY 1 PATCH TO SKIN TRANSDERMAL APPLY 1 PATCH Q 7 DAYS FPR CHRONIC PAIN MDD=1, NOTES: NEVER APPROVED BY INSURANCE DISCONTINUED ESCITALOPRAM OXALATE 20 MG TABLET 1 TAB ORALLY ONCE A DAY DISCONTINUED IBUPROFEN 600 MG TABLET 2 ORALLY AT ONSET OF MIGRAINE DISCONTINUED SERTRALINE HCL 50 MG TABLET 1 TABLET ORALLY ONCE A DAY DISCONTINUED REGLAN 10 MG TABLET DIRECTED ORALLY Q 6 HRS PRN MIGRAINE DISCONTINUED ACETAMINOPHEN 500 MG TABLET 1 TABLETS ORALLY EVERY 6 HRS DISCONTINUED CYCLOBENZAPRINE HCL 10 MG TABLET 1 TABLET NEEDED ORALLY THREE TIMES A DAY, NOTES: DUPLICATE DISCONTINUED ZONISAMIDE 25 MG CAPSULE 1 CAP ORALLY TWICE A DAY DISCONTINUED MORPHINE SULFATE 15 MG TABLET 1 TABLET NEEDED ORALLY FOR PAIN EVERY 4 HRS FOR PAIN MDD6 DISCONTINUED CYMBALTA 30 MG CAPSULE DELAYED RELEASE PARTICLES 1 CAPSULE ORALLY WITH FOOD ONCE A DAY DISCONTINUED FENTANYL 12 MCG/HR PATCH 72 HOUR 1 PATCH TO SKIN TRANSDERMAL APPLY 1 PATCH Q 72 HRS MDD=1, NOTES: DUPLICATE DISCONTINUED DIAZEPAM 5 MG TABLET 1 TABLET NEEDED ORALLY FOR SPASMS AND PAIN EVERY 6 HOURS NEEDED MDD4 DISCONTINUED GABAPENTIN 100 MG CAPSULE 2 CAPSULE ORALLY THREE TIMES A DAY, NOTES: NOT TAKING, GAVE CHEST PAIN DISCONTINUED DIPHENHYDRAMINE HCL 25 MG CAPSULE 1 CAPSULE NEEDED FOR ITCHING ORALLY EVERY 8 HRS MDD3, NOTES: DUPLICATE MEDICATION LIST REVIEWED AND RECONCILED WITH THE PATIENT PAST MEDICAL HISTORY MIGRAINES BACK PAIN RECURRENT SPONTANEOUS MISCARRAIGES DEPRESSIVE DISORDER CERVICAL NEURALGIA ALLERGIES CIPRO: RASH: ALLERGY AMOXICILLIN: NAUSEA/VOMITING: ALLERGY HYDROCODONE-IBUPROFEN: NAUSEA/VOMITING: SIDE EFFECTS IMITREX: SUNBURN-LIKE RASH ON FACE: ALLERGY MAGNESIUM OXIDE: SUNBURN-LIKE RASH ON FACE: ALLERGY BUSPIRONE: HIVES: ALLERGY NUCYNTA: HIVES: ALLERGY CYMBALTA: RASH: ALLERGY TRAMADOL HCL: RASH: ALLERGY HYDROMORPHONE HCL: ITCHING: ALLERGY NEURONTIN: CHEST PAIN: ALLERGY SURGICAL HISTORY BACK SURGERY DORSAL COLUMN STIMULATER 2011 DORSAL COLUMN REMOVED JUNE 2017 FAMILY HISTORY FATHER: ALIVE, NO KNOWN MEDICAL PROBLEMS MOTHER: ALIVE, NO KNOWN MEDICAL PROBLEMS 2 SON(S) , 2 DAUGHTER(S) - HEALTHY. SOCIAL HISTORY GENERAL: TOBACCO USE ARE YOU A:: NEVER SMOKER , ARE YOU A: NONSMOKER . ALCOHOL SCREENING DID YOU HAVE A DRINK CONTAINING ALCOHOL IN THE PAST YEAR?NO POINTS0 INTERPRETATIONNEGATIVE RECREATIONAL DRUG USE DRUG USE? NO. CAFFEINE CAFFEINE USE? NO . WORSHIP NO ADVENTISM BELIEFS THAT WOULD IMPACT HEALTH CARE, NO PREFERENCE. LANGUAGE LANGUAGES SPOKEN:ST HELENIAN LEARNING BARRIERS / SPECIAL NEEDS ABILITY TO UNDERSTAND VERBAL INSTRUCTIONS AVERAGE, ABILITY TO UNDERSTAND WRITTEN INSTRUCTIONS AVERAGE, KNOWLEDGE OF EDUCATIONAL NEEDS/TREATMENT PLAN AVERAGE, ADVENTISM? NO, LEARNING PREFERENCE NO PREFERENCE, ORIENTED TO PLAN OF CARE: PATIENT, TEACHING MATERIALS DEMONSTRATION/VERBAL INSTRUCTION, RESPONSE TO EDUCATION EXPLAINES ACCURATELY/VERBALIZES UNDERSTANDING, PAIN MANAGEMENT PATIENT, TEACHING MATERIALS DEMONSTRATION/VERBAL INSTRUCTION, RESPONSE TO EDUCATION EXPLAINS ACCURATELY/VERBALIZES UNDERSTANDING. 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 PAIN CLINIC PFS, CLERGY, PUBLIC HEALTH REFERRALS HAS THE PATIENT BEEN EDUCATED REGARDING HIS/HER PLAN OF CARE?YES HAS THE PATIENT BEEN EDUCATED REGARDING PAIN, THE RISK FOR PAIN, THE IMPORTANCE OF EFFECTIVE PAIN MANAGEMENT, AND THE PAIN ASSESSMENT PROCESS?YES ADVANCE DIRECTIVE ADVANCE DIRECTIVE DISCUSSED WITH PATIENT:YES 05/27/18 PT DOES NOT HAVE ANY ADVANCED DIRECTIVES AND SHE DECLINES INFORMATION ON HCP AT THIS TIME. AD 05/27/18 REVIEWED WITH PT. AD. HOSPITALIZATION/MAJOR DIAGNOSTIC PROCEDURE SEE ABOVE CERVICAL NEURALGIA/MIGRAINES 02/2017 REVIEW OF SYSTEMS REVIEWED BY: PROVIDER: RODNEY DRAKE . CONSTITUTIONAL: ANY CHANGE IN YOUR MEDICAL CONDITION? NO . CHILLS NO . FEVER NO . INFECTION: DO YOU HAVE NEW INFECTIONS? NO . DO YOU HAVE HISTORY OF MRSA? NO . MUSCULOSKELETAL: ANY NEW PATTERNS OF PAIN OR NUMBNESS? YES, TODAY HER MIGRAINE IS SEVERE. SHE FEELS IT IS COMING FROM HER NECK. SHE STATES SHE HAS HAD THIS MIGRAINE FOR 5 DAYS. NOTHING HAS REALLY HELPED IT. . GASTROENTEROLOGY: ANY NEW CHANGE IN BOWEL CONTROL? NO . GENITOURINARY: ANY NEW CHANGE IN BLADDER CONTROL? NO . IS THERE A CHANCE YOU COULD BE ? NO . HEMATOLOGY/LYMPH: DO YOU TAKE ANY BLOOD THINNERS? (FOR EXAMPLE- COUMADIN, PLAVIX, AGGRENOX, PLATEL, PRADAXA, OR XARELTO) NO . WHEN WAS YOUR LAST DOSE? DATE: TIME: . NEUROLOGY: HAVE YOU FALLEN IN THE PAST 12 MONTHS? NO . ANY NEW EXTREMITY NUMBNESS OR WEAKNESS? NO . CARDIOLOGY: DO YOU HAVE A PACEMAKER OR DEFIBRILLATOR? NO . RESPIRATORY: HAVE YOU BEEN SICK IN THE PAST WEEK? NO . FEVER NO . FLU LIKE SYMPTOMS? NO . COUGH NO . INTEGUMENTARY: DO YOU HAVE ANY RASHES OR OPEN SORES? NO . ALLERGIC/IMMUNO: ARE YOU ALLERGIC TO IV DYE? NO . ANY NEW ALLERGIES? NO . PSYCHIATRIC: DO YOU HAVE THOUGHTS OF HURTING YOURSELF OR SOMEONE ELSE? NO . ARE YOU ABUSED, NEGLECTED, OR IN AN UNSAFE ENVIRONMENT? NO . ENDOCRINOLOGY: ARE YOU DIABETIC? NO . OTHER: DO YOU NEED ANY PRESCRIPTIONS? NO . IF YES, PLEASE LIST: ____ . ANY NEW PROBLEMS WITH YOUR MEDICATIONS? YES, FENTANYL PATCH IS MAKING HER ITCH AND HAS REDNESS AT THE PATCH SITE . WHEN DID YOU LAST EAT? ____ . WHEN DID YOU LAST DRINK? ____ . WHAT DID YOU LAST DRINK? ____ . NAME OF PERSON DRIVING YOU HOME? ____ . DO YOU HAVE ANY OTHER QUESTIONS OR CONCERNS NO . VITAL SIGNS WT 153 LBS, HT 62.5 IN, BMI 27.54 INDEX, BP 155/74 MM HG, HR 100 /MIN, RR 16 /MIN, TEMP 98.5 F, OXYGEN SAT % 99%, SAFE IN ENV? (Y/N) Y, NA INITIALS AW 1201, REVIEWED BY: AD. EXAMINATION GENERAL EXAMINATION: PSYCHALERT , ORIENTED X 3 , APPROPRIATE MOOD AND AFFECT . LUNGS:CLEAR TO AUSCULTATION BILATERALLY. HEART:HEART RATE REGULAR. ASSESSMENTS CHRONIC MIGRAINE W/O AURA W/O STATUS MIGRAINOSUS, NOT INTRACTABLE - G43.709 (PRIMARY) LUMBAR POST-LAMINECTOMY SYNDROME - M96.1 CERVICALGIA - M54.2 TREATMENT CHRONIC MIGRAINE W/O AURA W/O STATUS MIGRAINOSUS, NOT INTRACTABLE DECREASE PERCOCET TABLET, 5-325 MG, 1, ORALLY, Q6H PRN MDD4, 30 DAY(S), 120, REFILLS 0 REFILL MAXALT TABLET, 10 MG, 1 TABLET, ORALLY, BID FOR MIGRAINE MAX 10 MIGRAINE DAIS PER MONTH MDD=2, 30 DAY(S), 20, REFILLS 1 REFILL FIORICET TABLET, 325-50-40 MG, 1 TABLET NEEDED, ORALLY, EVERY 6 HRS PRN MIGRAINE MDD=2, 30 DAY(S), 30, REFILLS 0 STOP FENTANYL PATCH 72 HOUR, 12 MCG/HR, 1 PATCH TO SKIN, TRANSDERMAL FOR PAIN, Q 72 HRS MDD1 REFILL OXYCODONE HCL TABLET, 15 MG, 1 TABLET, ORALLY, Q8H TID MDD3, 30 DAY(S), 90, REFILLS 0 CONTINUE COLACE CAPSULE, 100 MG, 1 CAPSULE, ORALLY, ONCE A DAY NEEDED CONTINUE REGLAN TABLET, 10 MG, DIRECTED, ORALLY, AT ONSET OF MIGRAINE CONTINUE CYCLOBENZAPRINE HCL TABLET, 10 MG, 1 TABLET NEEDED, ORALLY, THREE TIMES A DAY NOTES: ISTOP REGISTRY REVIEWED AND DEMONSTRATES COMPLLIANCE. (REF # [id number] ) BRINGS IN MEDICATIONS WHICH IS APPROPRIATE FOR WHAT WAS DISPENSED. RECENT URINE TOXICOLOGY REVIEWED. NO UNAUTHORIZED MEDICATIONS. NO ILLICIT SUBSTANCES AND PRESCRIBED MEDICATIONS WERE PRESENT. , RISKS AND BENEFITS OF NARCOTIC/OPIOD MEDICATIONS WERE REVIEWED WITH PATIENT - THIS INCLUDES BUT IS NOT LIMITED TO RISK OF DEPENDANCE/DEVELOPMENT OF ADDICTION, MOOD DISTURBANCE AND DEPRESSION, OSTEOPOROSIS, HORMONAL AND LABIDAL CHANGES, RESPIRATORY DEPRESSION AND . PATIENT IS ADVISED NOT TO DRIVE OR DRINK ALCOHOL WHILE ON THESE MEDICATIONSBOTOX @ 06/26/18. PREVENTIVE MEDICINE PAIN CLINIC TEACHING: PROCEDURE TEACHING REVIEWED BOTOX PROCEDURE INFORMATION WITH PATIENT. ALSO REVIEWED PRE-PROCEDURE INSTRUCTIONS. PATIENT VERBALIZED AN UNDERSANDING. CARMEN MORAN 06/06/2018 1:15:54 PM > . PROCEDURE CODES FA211 ESTABILISHED PATIENT [facility] CHARGE DISPOSITION & COMMUNICATION FOLLOW UP POST / NURSE VISIT WEDNESDAY-URINE/MED VISIT (REASON: BOTOX @ 06/26/18) ELECTRONICALLY SIGNED BY VIDAL THOMPSON ON 06/19/2018 AT 11:06 AM EDT DISCLAIMER : THIS IS A VISIT SUMMARY EXTRACTED FROM THE [employer] [email or web address] CHART. IT IS NOT A COPY OF THE [employer] PROGRESS NOTE. TASHA
== END ==
LOC: M PAIN 11:00
PROVIDERS: ATTEND Nurse Practitioner Family
DX: G43.709 Chronic migraine without aura, not intractable, without status migrainosus (principal); M96.1 Postlaminectomy syndrome, not elsewhere classified; M54.2 Cervicalgia; F32.9 Major depressive disorder, single episode, unspecified; Z79.891 Long term (current) use of opiate analgesic; Z79.899 Other long term (current) drug therapy; Z88.1 Allergy status to other antibiotic agents; Z88.5 Allergy status to narcotic agent; Z88.8 Allergy status to other drugs, medicaments and biological substances

== ENCOUNTER 2018-08-31 09:26 | Emergency (ER) | payer OTHER ==
[~2018-08-31] VITALS: Ht 162.6 cm; Wt 71.2 kg
[~2018-08-31 09:26] MED LIST changes: -/CLON1TA PO; -/FENT25PA TD; -/FENT75PA TD; -/OXYC15TA OR; +CLON-412 PO; +FENT1DIS14 TD; +FENT1DIS16 TD; -MAGN1TAB25 PO; +MAGN1TAB26 PO; +OXYC15TA76 PO; +OXYC1TAB32 OR; +VITA100018 PO; -VITA100072 PO
[2018-08-31] MEDS ORDERED: METOCLOPRAMIDE INJ 10MG/2ML VIAL (J2765) IV ONE (10:15)
[2018-08-31] MEDS ORDERED: NS 1,000 ML IV ONE (10:15)
[2018-08-31] MEDS ORDERED: diphenhydrAMINE INJ 50MG/ML VIAL (J1200) IV ONE (10:15)
[2018-08-31 10:38] LABS: BASO # 0.1 10^3/uL (0.0-0.2); BASO % 0.5 % (0.0-1.0); EOS # 0.2 10^3/uL (0.0-0.50); EOS % 1.7 % (0.0-3.0); HEMATOCRIT 43.7 % (36.0-47.0); HEMOGLOBIN 14.6 g/dl (12.0-15.5); LYMPH # 2.5 10^3/uL (1.5-4.5); MEAN CORPUSCULAR HEMOGLOBIN 30.6 pg (27.0-33.0); MEAN CORPUSCULAR HGB CONC 33.4 g/dl (32.0-36.5); MEAN CORPUSCULAR VOLUME 91.6 fl (80.0-96.0); MONO % 7.9 % (0.0-5.0); NEUTROPHILS # 8.8 10^3/uL (1.8-7.7); NEUTROPHILS % 69.5 % (36.0-66.0); PLATELET COUNT, AUTOMATED 296 10^3/uL (150-450); RED BLOOD COUNT 4.77 10^6/uL (4.00-5.40); WHITE BLOOD COUNT 12.7 10^3/uL (4.0-10.0)
[2018-08-31 10:59] LABS: BLOOD UREA NITROGEN 9 MG/DL (7-18); CALCIUM LEVEL 8.3 MG/DL (8.5-10.1); CARBON DIOXIDE LEVEL 26 MEQ/L (21-32); CHLORIDE LEVEL 106 MEQ/L (98-107); CREATININE FOR GFR 0.73 MG/DL (0.55-1.30); GLOMERULAR FILTRATION RATE > 60.0 (>58); GLUCOSE, FASTING 68 MG/DL (70-100); MAGNESIUM LEVEL 2.2 MG/DL (1.8-2.4); POTASSIUM SERUM 4.4 MEQ/L (3.5-5.1); SODIUM LEVEL 139 MEQ/L (136-145)
[2018-08-31] MEDS ORDERED: BUPIVACAINE HCL 0.25% 10 ML VIAL IM ONE (13:30)
[2018-08-31] MEDS ORDERED: BACL10TA2 PO (13:50)
[2018-08-31 14:22] VITALS: BP 117/66
== END 2018-08-31 14:28 | disposition home or self-care (01) ==
LOC: M ED 09:26
DX: G40.909 Epilepsy, unspecified, not intractable, without status epilepticus (principal); M54.2 Cervicalgia; Z88.0 Allergy status to penicillin; Z88.8 Allergy status to other drugs, medicaments and biological substances
CPT/HCPCS: 20552; 36415; 80048; 83735; 85025; 96374; 96375; 99284; J1200; J2765; J3360

== ENCOUNTER → 2018-09-14 | Outpatient (REF) | payer OTHER ==
[~2018-09-14] MED LIST changes: +BACL10TA2 PO
== END ==
LOC: M LAB REF 19:48
PROVIDERS: ATTEND Physician Assistant
DX: R30.0 Dysuria (principal)

== ENCOUNTER → 2018-11-04 | Outpatient (CLI) | payer MEDICAID, OTHER ==
--- NOTE | 2018-11-07 23:49 | ECWPNPC ---
PATIENT NAME: STEPHANIE BOLANOS : 1975 GENDER: FEMALE VISIT DATE: 11/04/2018 DISCHARGE DATE: 11/04/18 1217 VISIT LOCKED DATE TIME: PHYSICIAN: RICH BOBO RESOURCE: RICH BOBO REASON FOR APPOINTMENT 1. NECK HISTORY OF PRESENT ILLNESS HISTORY OF PRESENT ILLNESS: PAIN THE PATIENT DESCRIBES THE PAIN... 43 YEAR OLD FEMALE WITH A HX OF CHRONIC PAIN IN WITH COMPLAINTS OF INCREASED PAIN RECENTLY. SHE RATES HER PAIN AT AN 8/10 AND DESCRIBES IT SORE, TENDER, SHARP, AND SHOOTING. SHE ADMITS THAT HER WORST PAIN IS LOCATED IN HER LEFT LEG AND BUTTOCK. FALL RISK SCREENING: SCREENING :NO FALLS REPORTED IN THE LAST YEAR CURRENT MEDICATIONS TAKING SUCRALFATE 1 GM TABLET 1 TABLET ON AN EMPTY STOMACH ORALLY TWICE A DAY NEEDED TAKING FIORICET 325-50-40 MG TABLET 1 TABLET NEEDED ORALLY EVERY 6 HRS PRN MIGRAINE MDD=2 TAKING MAXALT 10 MG TABLET 1 TABLET ORALLY BID FOR MIGRAINE MAX 10 MIGRAINE DAIS PER MONTH MDD=2 TAKING CYCLOBENZAPRINE HCL 10 MG TABLET 1 TABLET NEEDED ORALLY THREE TIMES A DAY TAKING PERCOCET 5-325 MG TABLET TAKE 2 TAB ORALLY Q8H PRN MDD6 TAKING OXYCODONE HCL 15 MG TABLET 1 TABLET ORALLY Q8H TID MDD3 TAKING CLONIDINE HCL 0.1 MG TABLET 1 TABLET ORALLY Q8H PRN MDD3 NOT-TAKING ONDANSETRON HCL 8 MG TABLET 1 TAB ORALLY TWICE A DAY PRN NAUSEA NOT-TAKING DIPHENHYDRAMINE HCL 25 MG CAPSULE 1 CAPSULE NEEDED ORALLY AT ONSET OF MIGRAINE MAY REPEAT IN 6HR IF NEEDED NOT-TAKING HYDROXYZINE HCL 25 MG TABLET 1-2 TABLET ORALLY EVERY 6 HRS PRN ITCHING/SLEEP NOT-TAKING COLACE 100 MG CAPSULE 1 CAPSULE ORALLY ONCE A DAY NEEDED NOT-TAKING REGLAN 10 MG TABLET DIRECTED ORALLY AT ONSET OF MIGRAINE NOT-TAKING CARISOPRODOL 350 MG TABLET 1 TABLET NEEDED ORALLY FOR SPASMS AND PAIN EVERY 8 HOURS NEEDED MDD2 NOT-TAKING INDERAL LA 60 MG CAPSULE EXTENDED RELEASE 24 HOUR 1 CAPSULE ORALLY ONCE A DAY NOT-TAKING BUTRANS 5 MCG/HR PATCH WEEKLY 1 PATCH TO SKIN TRANSDERMAL APPLY 1 PATCH Q 7 DAYS FPR CHRONIC PAIN MDD=1, NOTES: NEVER APPROVED BY INSURANCE UNKNOWN ZOLMITRIPTAN 5 MG TABLET 1 TABLET NEEDED ONE TIME ORALLY BID PRN MIGRAINE MAX 10 MIGRAINE DAYS PER MONTH MEDICATION LIST REVIEWED AND RECONCILED WITH THE PATIENT PAST MEDICAL HISTORY MIGRAINES BACK PAIN RECURRENT SPONTANEOUS MISCARRAIGES DEPRESSIVE DISORDER CERVICAL NEURALGIA ALLERGIES CIPRO: RASH - ALLERGY AMOXICILLIN: NAUSEA/VOMITING - ALLERGY HYDROCODONE-IBUPROFEN: NAUSEA/VOMITING - SIDE EFFECTS IMITREX: SUNBURN-LIKE RASH ON FACE - ALLERGY MAGNESIUM OXIDE: SUNBURN-LIKE RASH ON FACE - ALLERGY BUSPIRONE: HIVES - ALLERGY NUCYNTA: HIVES - ALLERGY CYMBALTA: RASH - ALLERGY TRAMADOL HCL: RASH - ALLERGY HYDROMORPHONE HCL: ITCHING - ALLERGY NEURONTIN: CHEST PAIN - ALLERGY SURGICAL HISTORY BACK SURGERY DORSAL COLUMN STIMULATER 2011 DORSAL COLUMN REMOVED JUNE 2017 FAMILY HISTORY FATHER: ALIVE, NO KNOWN MEDICAL PROBLEMS MOTHER: ALIVE, NO KNOWN MEDICAL PROBLEMS 2 SON(S) , 2 DAUGHTER(S) - HEALTHY. SOCIAL HISTORY GENERAL: TOBACCO USE ARE YOU A:: NEVER SMOKER , ARE YOU A: NONSMOKER. PAIN CLINIC PFS, CLERGY, PUBLIC HEALTH REFERRALS HAS THE PATIENT BEEN EDUCATED REGARDING HIS/HER PLAN OF CARE?YES HAS THE PATIENT BEEN EDUCATED REGARDING PAIN, THE RISK FOR PAIN, THE IMPORTANCE OF EFFECTIVE PAIN MANAGEMENT, AND THE PAIN ASSESSMENT PROCESS?YES CAFFEINE CAFFEINE USE? NO. ADVANCE DIRECTIVE ADVANCE DIRECTIVE DISCUSSED WITH PATIENT:YES 05/27/18 PT DOES NOT HAVE ANY ADVANCED DIRECTIVES AND SHE DECLINES INFORMATION ON HCP AT THIS TIME. AD SIKH NO BUDDHISM BELIEFS THAT WOULD IMPACT HEALTH CARE, NO PREFERENCE. LANGUAGE LANGUAGES SPOKEN:FRISIAN DOMESTIC VIOLENCE DO YOU FEEL SAFE IN YOUR ENVIRONMENT?YES ALCOHOL SCREENING DID YOU HAVE A DRINK CONTAINING ALCOHOL IN THE PAST YEAR?NO POINTS0 INTERPRETATIONNEGATIVE RECREATIONAL DRUG USE DRUG USE? NO. 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 LEARNING BARRIERS / SPECIAL NEEDS ABILITY TO UNDERSTAND VERBAL INSTRUCTIONS AVERAGE, ABILITY TO UNDERSTAND WRITTEN INSTRUCTIONS AVERAGE, KNOWLEDGE OF EDUCATIONAL NEEDS/TREATMENT PLAN AVERAGE, BUDDHISM? NO, LEARNING PREFERENCE NO PREFERENCE, ORIENTED TO PLAN OF CARE: PATIENT, TEACHING MATERIALS DEMONSTRATION/VERBAL INSTRUCTION, RESPONSE TO EDUCATION EXPLAINES ACCURATELY/VERBALIZES UNDERSTANDING, PAIN MANAGEMENT PATIENT, TEACHING MATERIALS DEMONSTRATION/VERBAL INSTRUCTION, RESPONSE TO EDUCATION EXPLAINS ACCURATELY/VERBALIZES UNDERSTANDING. 05/27/18 REVIEWED WITH PT. AD. HOSPITALIZATION/MAJOR DIAGNOSTIC PROCEDURE SEE ABOVE CERVICAL NEURALGIA/MIGRAINES 02/2017 REVIEW OF SYSTEMS REVIEWED BY: PROVIDER: OLE US . CONSTITUTIONAL: ANY CHANGE IN YOUR MEDICAL CONDITION? NO . CHILLS NO . FEVER NO . INFECTION: DO YOU HAVE NEW INFECTIONS? NO . DO YOU HAVE HISTORY OF MRSA? NO . MUSCULOSKELETAL: ANY NEW PATTERNS OF PAIN OR NUMBNESS? YES INCREASED PAIN DOWN LOWER LEFT BACK . GASTROENTEROLOGY: ANY NEW CHANGE IN BOWEL CONTROL? NO . GENITOURINARY: ANY NEW CHANGE IN BLADDER CONTROL? NO . IS THERE A CHANCE YOU COULD BE ? NO . HEMATOLOGY/LYMPH: DO YOU TAKE ANY BLOOD THINNERS? (FOR EXAMPLE- COUMADIN, PLAVIX, AGGRENOX, PLATEL, PRADAXA, OR XARELTO) NO . WHEN WAS YOUR LAST DOSE? DATE: TIME: . NEUROLOGY: HAVE YOU FALLEN IN THE PAST 12 MONTHS? NO . ANY NEW EXTREMITY NUMBNESS OR WEAKNESS? NO . CARDIOLOGY: DO YOU HAVE A PACEMAKER OR DEFIBRILLATOR? NO . RESPIRATORY: HAVE YOU BEEN SICK IN THE PAST WEEK? NO . FEVER NO . FLU LIKE SYMPTOMS? NO . COUGH NO . INTEGUMENTARY: DO YOU HAVE ANY RASHES OR OPEN SORES? NO . ALLERGIC/IMMUNO: ARE YOU ALLERGIC TO IV DYE? NO . ANY NEW ALLERGIES? NO . PSYCHIATRIC: DO YOU HAVE THOUGHTS OF HURTING YOURSELF OR SOMEONE ELSE? NO . ARE YOU ABUSED, NEGLECTED, OR IN AN UNSAFE ENVIRONMENT? NO . ENDOCRINOLOGY: ARE YOU DIABETIC? NO . OTHER: DO YOU NEED ANY PRESCRIPTIONS? YES SOMETHING FOR PAIN . IF YES, PLEASE LIST: ____ . ANY NEW PROBLEMS WITH YOUR MEDICATIONS? NO . WHEN DID YOU LAST EAT? ____ . WHEN DID YOU LAST DRINK? ____ . WHAT DID YOU LAST DRINK? ____ . NAME OF PERSON DRIVING YOU HOME? ____ . DO YOU HAVE ANY OTHER QUESTIONS OR CONCERNS NO . VITAL SIGNS WT 156 LBS, HT 62.5 IN, BMI 28.08 INDEX, BP 106/61 MM HG, HR 68 /MIN, RR 16 /MIN, TEMP 97.4 F, OXYGEN SAT % 98%, NA INITIALS SC 11:14. EXAMINATION GENERAL EXAMINATION: GENERALNO ACUTE DISTRESS, WELL NOURISHED AND HYDRATED. PSYCHAPPROPRIATE MOOD AND AFFECT . LUNGS:CLEAR TO AUSCULTATION BILATERALLY, NO WHEEZES, RHONCHI, RALES. HEART:NO MURMURS, REGULAR RATE AND RHYTHM. BACK:POINT TENDER IN THE CERVICAL AND LUMBAR AREAS. SKIN SHOWS NO ERYTHEMA, INCREASED WARMTH, ECCHYMOSIS, AND/OR SKIN ERUPTIONS. + CLARA'S TEST. . ASSESSMENTS INTERVERTEBRAL DISC DISORDER WITH RADICULOPATHY OF LUMBAR REGION - M51.16 (PRIMARY) TREATMENT INTERVERTEBRAL DISC DISORDER WITH RADICULOPATHY OF LUMBAR REGION START SOMA 350 MG 30 TQBLET, 350 MG, ONE TABLET, ORALLY, EVERY 8 HOURS NEEDED FOR PAIN, 1 DAYS, 2 NOTES: LEFT TRANSFORAMINAL. CLINICAL NOTES: 43 YEAR OLD FEMALE IN WITH COMPLAINTS OF INCREASED PAIN RECENTLY. GIVEN PRESENTING SYMPTOMS AND RESULTS OF PHYSICAL EXAMINATION RECOMMENDED TWO TABLETS OF SOME TONIGHT TO HELP WITH PAIN, SHE WILL PHARMACY ANALYST HER SCRIPTS TOMORROW, AND A REPEAT LEFT TRANSFORAMINAL WITH POST PROCEDURAL FOLLOW UP. PATIENT HAS EXPRESSED UNDERSTANDING OF AND WAS IN AGREEMENT WITH TREATMENT PLAN. GIVEN TIME TO ASK QUESTIONS AND EXPRESS CONCERNS., ISTOP REGISTRY REVIEWED AND DEMONSTRATES COMPLLIANCE. (REF # [id number] ) BRINGS IN MEDICATIONS WHICH IS APPROPRIATE FOR WHAT WAS DISPENSED. RECENT URINE TOXICOLOGY REVIEWED. NO UNAUTHORIZED MEDICATIONS. NO ILLICIT SUBSTANCES AND PRESCRIBED MEDICATIONS WERE PRESENT. PREVENTIVE MEDICINE PAIN CLINIC TEACHING: MEDICATIONS NEW MEDICATION SOMA DISCUSSED WITH PT. VERBALIZED UNDERSTANDING OF USAGE.. PROCEDURE TEACHING PRE-PROCEDURE INSTRUCTIONS REVIEWED WITH PT. VERBALIZED UNDERSTANDING.. PROCEDURE CODES FA211 ESTABILISHED PATIENT [facility] CHARGE DISPOSITION & COMMUNICATION FOLLOW UP POST PROCEDURE (REASON: LEFT TRANSFORAMINAL) ELECTRONICALLY SIGNED BY VIDAL WEBER ON 11/07/2018 AT 08:59 AM EDT DISCLAIMER : THIS IS A VISIT SUMMARY EXTRACTED FROM THE [employer] CHART. IT IS NOT A COPY OF THE [facility] PROGRESS NOTE. TASHA
== END ==
LOC: M PAIN 10:15
PROVIDERS: ATTEND Family Medicine
DX: M51.16 Intervertebral disc disorders with radiculopathy, lumbar region (principal); G43.909 Migraine, unspecified, not intractable, without status migrainosus; F32.9 Major depressive disorder, single episode, unspecified; M54.2 Cervicalgia; Z79.891 Long term (current) use of opiate analgesic; Z79.899 Other long term (current) drug therapy; Z88.0 Allergy status to penicillin; Z88.1 Allergy status to other antibiotic agents; Z88.5 Allergy status to narcotic agent; Z88.8 Allergy status to other drugs, medicaments and biological substances

== ENCOUNTER 2018-11-08 02:17 | Emergency (ER) | payer MEDICAID, OTHER ==
[~2018-11-08] VITALS: Ht 162.6 cm; Wt 69.1 kg
[2018-11-08 02:17] VITALS: BP 139/92
[~2018-11-08 02:17] MED LIST changes: -DIPH25CA PO; +DIPH25CA32 PO
[2018-11-08] MEDS ORDERED: ONDANSETRON 4 MG ORAL DISINTEGRATING TAB (Q0162 PER 1MG) PO ONE (02:45)
[2018-11-08 02:52] LABS: HEMATOCRIT 45.6 % (36.0-47.0); HEMOGLOBIN 15.4 g/dl (12.0-15.5); MEAN CORPUSCULAR HGB CONC 33.8 g/dl (32.0-36.5); MEAN CORPUSCULAR VOLUME 88.9 fl (80.0-96.0); PLATELET COUNT, AUTOMATED 279 10^3/uL (150-450); RED BLOOD COUNT 5.13 10^6/uL (4.00-5.40); WHITE BLOOD COUNT 16.5 10^3/uL (4.0-10.0)
[2018-11-08 03:15] LABS: HCG, SERUM QUALITATIVE NEGATIVE (NEGATIVE)
[2018-11-08 03:18] LABS: ALBUMIN 3.8 GM/DL (3.2-5.2); ALT/SGPT 22 U/L (12-78); BILIRUBIN,TOTAL 0.5 MG/DL (0.2-1.0); BLOOD UREA NITROGEN 14 MG/DL (7-18); CALCIUM LEVEL 8.6 MG/DL (8.5-10.1); CARBON DIOXIDE LEVEL 20 MEQ/L (21-32); CHLORIDE LEVEL 109 MEQ/L (98-107); CREATININE FOR GFR 0.79 MG/DL (0.55-1.30); GLOMERULAR FILTRATION RATE > 60.0 (>58); GLUCOSE, FASTING 133 MG/DL (70-100); POTASSIUM SERUM 4.3 MEQ/L (3.5-5.1); SODIUM LEVEL 139 MEQ/L (136-145); TOTAL PROTEIN 7.5 GM/DL (6.4-8.2)
--- NOTE | 2018-11-08 05:30 | REPVR ---
EXAM: CT Abdomen and Pelvis Without Contrast EXAM DATE/TIME: 11/08/2018 2:50 AM CLINICAL HISTORY: 43 years old, female; Abdominal pain; Flank; Right; Additional info: Right flank pain with nausea and vomiting TECHNIQUE: Imaging protocol: Axial computed tomography images of the abdomen and pelvis without contrast. Coronal and sagittal reformatted images were created and reviewed. Radiation optimization: All CT scans at this facility use at least one of these dose optimization techniques: automated exposure control; mA and/or kV adjustment per patient size (includes targeted exams where dose is matched to clinical indication); or iterative reconstruction. COMPARISON: CT ABD PELVIS W/O CONTRAST 02/15/2017 11:05 AM FINDINGS: Lungs: The visualized portions of the lung bases are normal. Liver: There are no focal liver lesions present. Gallbladder and bile ducts: The gallbladder is normal with no stones or biliary ductal dilation. Pancreas: The pancreas is normal with no ductal dilation. Spleen: The spleen is normal. Adrenals: The adrenal glands are normal. Kidneys and ureters: There is a stone measuring 9 mm in diameter in the right renal pelvis. There is infiltration of the renal sinus fat in the right kidney which represents a change from the prior exam. No definite calyceal dilation is appreciated. 2 stones that were present in the lower pole calyces in the right kidney on the prior exam are no longer visualized. No right-sided ureteral stones or ureteral dilation are seen. The left ureter appears normal with no stones or hydronephrosis. The left kidney normal. Stomach and bowel: There is a suture line along the greater curvature of the stomach, consistent with a gastric sleeve surgery. There is fluid within the small bowel and the colon, but without significant dilation or bowel wall thickening. Appendix: A structure which appears to be a normal sized appendix is identified. Intraperitoneal space: There is no evidence of free intraperitoneal or pelvic fluid. There is no free intraperitoneal air. Vasculature: The aorta is normal. No aneurysm. Lymph nodes: No lymphadenopathy is seen. Bladder: The bladder is mostly collapsed. No bladder stones are identified. Reproductive: There is an IUD in the uterus. There is a 2.8 x 3.0 cm cyst in the left ovary. Bones/joints: No suspicious osseous lesions. No acute fractures or dislocations. Soft tissues: Unremarkable. IMPRESSION: 1. 9 mm stone in the right renal pelvis with infiltration of the right renal sinus fat, but no definite calyceal dilation. The findings may be due to obstruction by the stone. Pyelonephritis could have a similar appearance. No ureteral stones identified. 2. Fluid within small and large bowel without significant dilation or bowel wall thickening is nonspecific, and may be due to an enterocolitis or a mild ileus. Electronically signed by: Tiffany Son On 11/08/2018 05:29:40 AM
--- NOTE | 2018-11-14 10:02 | ED PDOC ---
Post-Departure Follow-Up pt lwbs - will fax ct abd/p to dr iglesias and have jeison zabala call pt w resu lt and encourage fu Mireya Sands MD Nov 14, 2018 10:02
== END 2018-11-08 04:00 | disposition left against medical advice (07) ==
LOC: M ED 02:17
DX: R11.10 Vomiting, unspecified (principal); Z53.21 Procedure and treatment not carried out due to patient leaving prior to being seen by health care provider

== ENCOUNTER → 2018-11-14 | Outpatient (CLI) | payer MEDICAID, OTHER ==
[~2018-11-14] MED LIST changes: +DIPH25CA PO; -DIPH25CA32 PO
--- NOTE | 2018-11-15 23:37 | ECWPNPC ---
PATIENT NAME: STEPHANIE BOLANOS : 1975 GENDER: FEMALE VISIT DATE: 11/14/2018 DISCHARGE DATE: 11/14/18 1451 VISIT LOCKED DATE TIME: PHYSICIAN: RICH BOBO RESOURCE: RICH BOBO REASON FOR APPOINTMENT 1. INCREASED NEXCK PAIN HISTORY OF PRESENT ILLNESS HISTORY OF PRESENT ILLNESS: PAIN THE PATIENT DESCRIBES THE PAIN... 43 YEAR OLD FEMALE IN WITH COMPLAINTS OF INCREASED NECK PAIN RELATED TO EXCESSIVE VOMITING PRIOR TO GALLBLADDER SURGERY. SHE RATES HER PAIN AT AN 8/10 AND DESCRIBES IT ACHING, SHARP, STABBING, SHOOTING, AND TENDER. FALL RISK SCREENING: SCREENING :NO FALLS REPORTED IN THE LAST YEAR CURRENT MEDICATIONS TAKING SUCRALFATE 1 GM TABLET 1 TABLET ON AN EMPTY STOMACH ORALLY TWICE A DAY NEEDED TAKING FIORICET 325-50-40 MG TABLET 1 TABLET NEEDED ORALLY EVERY 6 HRS PRN MIGRAINE MDD=2 TAKING MAXALT 10 MG TABLET 1 TABLET ORALLY BID FOR MIGRAINE MAX 10 MIGRAINE DAIS PER MONTH MDD=2 TAKING CYCLOBENZAPRINE HCL 10 MG TABLET 1 TABLET NEEDED ORALLY THREE TIMES A DAY TAKING PERCOCET 5-325 MG TABLET TAKE 2 TAB ORALLY Q8H PRN MDD6 TAKING OXYCODONE HCL 15 MG TABLET 1 TABLET ORALLY Q8H TID MDD3 TAKING SOMA 350 MG TABLET 1 TABLET BID NEEDED ORALLY EVERY 12 HRS NEEDED, NOTES: PATIENT TO PAY JULIAN FOR MEDICATION NOT-TAKING CLONIDINE HCL 0.1 MG TABLET 1 TABLET ORALLY Q8H PRN MDD3 NOT-TAKING ONDANSETRON HCL 8 MG TABLET 1 TAB ORALLY TWICE A DAY PRN NAUSEA NOT-TAKING DIPHENHYDRAMINE HCL 25 MG CAPSULE 1 CAPSULE NEEDED ORALLY AT ONSET OF MIGRAINE MAY REPEAT IN 6HR IF NEEDED NOT-TAKING HYDROXYZINE HCL 25 MG TABLET 1-2 TABLET ORALLY EVERY 6 HRS PRN ITCHING/SLEEP NOT-TAKING COLACE 100 MG CAPSULE 1 CAPSULE ORALLY ONCE A DAY NEEDED NOT-TAKING REGLAN 10 MG TABLET DIRECTED ORALLY AT ONSET OF MIGRAINE NOT-TAKING INDERAL LA 60 MG CAPSULE EXTENDED RELEASE 24 HOUR 1 CAPSULE ORALLY ONCE A DAY NOT-TAKING BUTRANS 5 MCG/HR PATCH WEEKLY 1 PATCH TO SKIN TRANSDERMAL APPLY 1 PATCH Q 7 DAYS FPR CHRONIC PAIN MDD=1, NOTES: NEVER APPROVED BY INSURANCE NOT-TAKING ZOLMITRIPTAN 5 MG TABLET 1 TABLET NEEDED ONE TIME ORALLY BID PRN MIGRAINE MAX 10 MIGRAINE DAYS PER MONTH DISCONTINUED CARISOPRODOL 350 MG TABLET 1 TABLET NEEDED ORALLY FOR SPASMS AND PAIN EVERY 8 HOURS NEEDED MDD2, NOTES: DUPLICATE MEDICATION LIST REVIEWED AND RECONCILED WITH THE PATIENT PAST MEDICAL HISTORY MIGRAINES BACK PAIN RECURRENT SPONTANEOUS MISCARRAIGES DEPRESSIVE DISORDER CERVICAL NEURALGIA GALL STONES ALLERGIES CIPRO: RASH - ALLERGY AMOXICILLIN: NAUSEA/VOMITING - ALLERGY HYDROCODONE-IBUPROFEN: NAUSEA/VOMITING - SIDE EFFECTS IMITREX: SUNBURN-LIKE RASH ON FACE - ALLERGY MAGNESIUM OXIDE: SUNBURN-LIKE RASH ON FACE - ALLERGY BUSPIRONE: HIVES - ALLERGY NUCYNTA: HIVES - ALLERGY CYMBALTA: RASH - ALLERGY TRAMADOL HCL: RASH - ALLERGY HYDROMORPHONE HCL: ITCHING - ALLERGY NEURONTIN: CHEST PAIN - ALLERGY SURGICAL HISTORY BACK SURGERY DORSAL COLUMN STIMULATER 2011 DORSAL COLUMN REMOVED JUNE 2017 CHOLECYSTECTOMY 11/09/18 FAMILY HISTORY FATHER: ALIVE, NO KNOWN MEDICAL PROBLEMS MOTHER: ALIVE, NO KNOWN MEDICAL PROBLEMS 2 SON(S) , 2 DAUGHTER(S) - HEALTHY. SOCIAL HISTORY GENERAL: TOBACCO USE ARE YOU A:: NEVER SMOKER , ARE YOU A: NONSMOKER. PAIN CLINIC PFS, CLERGY, PUBLIC HEALTH REFERRALS HAS THE PATIENT BEEN EDUCATED REGARDING HIS/HER PLAN OF CARE?YES HAS THE PATIENT BEEN EDUCATED REGARDING PAIN, THE RISK FOR PAIN, THE IMPORTANCE OF EFFECTIVE PAIN MANAGEMENT, AND THE PAIN ASSESSMENT PROCESS?YES LATEX QUESTIONNAIRE LATEX ALLERGY : HAVE YOU EVER DEVELOPED ANY TYPE OF REACTION AFTER HANDLING LATEX PRODUCTS SUCH RUBBER GLOVES, CONDOMS, DIAPHRAGMS, BALLOONS, SOCKS, OR UNDERWEAR?NO LATEX ALLERGY : HAVE YOU EVER DEVELOPED ANY TYPE OF REACTION DURING OR AFTER DENTAL APPOINTMENT, VAGINAL/RECTAL EXAMINATION, SURGICAL PROCEDURE, OR ANY OTHER EXPOSURE?NO LATEX RISK : HAVE YOU EVER HAD ANY DIFFICULTY BREATHING OR HIVES AFTER EATING OR HANDLING ANY FRUITS, OR VEGETABLES; SUCH KIWI, BANANAS, STONE FRUITS, OR CHESTNUTSNO LATEX RISK : DO YOU HAVE A PREVIOUS PERSONAL HISTORY OF MORE THAN NINE SURGERIES, SPINA BIFIDA, OR REPEATED CATHERIZATIONS? NO LATEX RISK : ARE YOU FREQUENTLY EXPOSED TO LATEX PRODUCTS IN YOUR OCCUPATION?NO DATE ASKED : 11/14/2018 CAFFEINE CAFFEINE USE? NO. ADVANCE DIRECTIVE ADVANCE DIRECTIVE DISCUSSED WITH PATIENT:YES 11/14/18 PT DOES NOT HAVE ANY ADVANCED DIRECTIVES AND SHE DECLINES INFORMATION ON HCP AT THIS TIME. AD PRESYBETERIAN NO ORTHODOXY BELIEFS THAT WOULD IMPACT HEALTH CARE, NO PREFERENCE. LANGUAGE LANGUAGES SPOKEN:KOREAN DOMESTIC VIOLENCE DO YOU FEEL SAFE IN YOUR ENVIRONMENT?YES ALCOHOL SCREENING DID YOU HAVE A DRINK CONTAINING ALCOHOL IN THE PAST YEAR?NO POINTS0 INTERPRETATIONNEGATIVE RECREATIONAL DRUG USE DRUG USE? NO. 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 LEARNING BARRIERS / SPECIAL NEEDS ABILITY TO UNDERSTAND VERBAL INSTRUCTIONS AVERAGE, ABILITY TO UNDERSTAND WRITTEN INSTRUCTIONS AVERAGE, KNOWLEDGE OF EDUCATIONAL NEEDS/TREATMENT PLAN AVERAGE, ORTHODOXY? NO, LEARNING PREFERENCE NO PREFERENCE, ORIENTED TO PLAN OF CARE: PATIENT, TEACHING MATERIALS DEMONSTRATION/VERBAL INSTRUCTION, RESPONSE TO EDUCATION EXPLAINES ACCURATELY/VERBALIZES UNDERSTANDING, PAIN MANAGEMENT PATIENT, TEACHING MATERIALS DEMONSTRATION/VERBAL INSTRUCTION, RESPONSE TO EDUCATION EXPLAINS ACCURATELY/VERBALIZES UNDERSTANDING. 05/27/18 REVIEWED WITH PT. AD. HOSPITALIZATION/MAJOR DIAGNOSTIC PROCEDURE SEE ABOVE CERVICAL NEURALGIA/MIGRAINES 02/2017 REVIEW OF SYSTEMS REVIEWED BY: PROVIDER: OLE US . CONSTITUTIONAL: ANY CHANGE IN YOUR MEDICAL CONDITION? YES, HAD EMERGENCY CHOLECYSTECTOMY 11/09/18 . CHILLS NO . FEVER NO . INFECTION: DO YOU HAVE NEW INFECTIONS? NO . DO YOU HAVE HISTORY OF MRSA? NO . MUSCULOSKELETAL: ANY NEW PATTERNS OF PAIN OR NUMBNESS? YES, INCREASE IN NECK PAIN--STARTED AFTER VOMITING DUE TO GALL BLADDER PROBLEMS . GASTROENTEROLOGY: ANY NEW CHANGE IN BOWEL CONTROL? NO . GENITOURINARY: ANY NEW CHANGE IN BLADDER CONTROL? NO . IS THERE A CHANCE YOU COULD BE ? NO . HEMATOLOGY/LYMPH: DO YOU TAKE ANY BLOOD THINNERS? (FOR EXAMPLE- COUMADIN, PLAVIX, AGGRENOX, PLATEL, PRADAXA, OR XARELTO) NO . WHEN WAS YOUR LAST DOSE? DATE: TIME: . NEUROLOGY: HAVE YOU FALLEN IN THE PAST 12 MONTHS? NO . ANY NEW EXTREMITY NUMBNESS OR WEAKNESS? NO . CARDIOLOGY: DO YOU HAVE A PACEMAKER OR DEFIBRILLATOR? NO . RESPIRATORY: HAVE YOU BEEN SICK IN THE PAST WEEK? YES, WITH GALLBLADDER PROBLEMS INWHICH SHE HAD EMERGENCY SURGERY . FEVER NO . FLU LIKE SYMPTOMS? NO . COUGH NO . INTEGUMENTARY: DO YOU HAVE ANY RASHES OR OPEN SORES? NO . ALLERGIC/IMMUNO: ARE YOU ALLERGIC TO IV DYE? NO . ANY NEW ALLERGIES? NO . PSYCHIATRIC: DO YOU HAVE THOUGHTS OF HURTING YOURSELF OR SOMEONE ELSE? NO . ARE YOU ABUSED, NEGLECTED, OR IN AN UNSAFE ENVIRONMENT? NO . ENDOCRINOLOGY: ARE YOU DIABETIC? NO . OTHER: DO YOU NEED ANY PRESCRIPTIONS? NO . IF YES, PLEASE LIST: ____ . ANY NEW PROBLEMS WITH YOUR MEDICATIONS? YES, MEDS ARE NOT WORKING FOR NECK MUSCLE SPASMS . WHEN DID YOU LAST EAT? ____ . WHEN DID YOU LAST DRINK? ____ . WHAT DID YOU LAST DRINK? ____ . NAME OF PERSON DRIVING YOU HOME? ____ . DO YOU HAVE ANY OTHER QUESTIONS OR CONCERNS YES, "CAN'T SLEEP, GET COMFORTABLE, CAN'T MOVE NECK. I HAD EMERGENCY GALLBLADDER SURGERY SURG. AND FROM THROWING UP MY NECK IS IN COMPLETE SPASMS" . VITAL SIGNS WT 148.2 LBS, HT 62.5 IN, BMI 26.67 INDEX, BP 141/76 MM HG, HR 82 /MIN, RR 16 /MIN, TEMP 98.8 F, OXYGEN SAT % 98%, SAFE IN ENV? (Y/N) Y, REVIEWED BY: CARMELITA 1430. EXAMINATION GENERAL EXAMINATION: GENERALNO ACUTE DISTRESS, WELL NOURISHED AND HYDRATED. PSYCHAPPROPRIATE MOOD AND AFFECT . LUNGS:CLEAR TO AUSCULTATION BILATERALLY, NO WHEEZES, RHONCHI, RALES. HEART:NO MURMURS, REGULAR RATE AND RHYTHM. ASSESSMENTS CERVICALGIA - M54.2 TREATMENT OTHERS CLINICAL NOTES: 43 YEAR OLD FEMALE IN FOR INCREASED NECK PAIN. GIVEN PRESENTING SYMPTOMS AND RESULTS OF PHYSICAL EXAMINATION RECOMMENDED THAT SHE GO TO URGENT CARE FOR FURTHER EVALUATION GIVEN THE NEW ONSET OF ACUTE PAIN AND MECHANISM OF INJURY. PATIENT HAS EXPRESSED UNDERSTANDING OF AND WAS IN AGREEMENT WITH TX PLAN. GIVEN TIME TO ASK QUESTIONS AND EXPRESS CONCERNS , ISTOP REGISTRY REVIEWED AND DEMONSTRATES COMPLLIANCE. (REF # [id number] ) BRINGS IN MEDICATIONS WHICH IS APPROPRIATE FOR WHAT WAS DISPENSED. RECENT URINE TOXICOLOGY REVIEWED. NO UNAUTHORIZED MEDICATIONS. NO ILLICIT SUBSTANCES AND PRESCRIBED MEDICATIONS WERE PRESENT. PROCEDURE CODES FA211 ESTABILISHED PATIENT [facility] F[facility]ILITY CHARGE DISPOSITION & COMMUNICATION ELECTRONICALLY SIGNED BY VIDAL WEBER ON 11/15/2018 AT 08:56 AM EDT DISCLAIMER : THIS IS A VISIT SUMMARY EXTRACTED FROM THE [employer] CHART. IT IS NOT A COPY OF THE [employer] PROGRESS NOTE. TASHA
== END ==
LOC: M PAIN 14:00
PROVIDERS: ATTEND Family Medicine
DX: M54.2 Cervicalgia (principal); G43.909 Migraine, unspecified, not intractable, without status migrainosus; Z86.59 Personal history of other mental and behavioral disorders; Z88.1 Allergy status to other antibiotic agents; Z88.5 Allergy status to narcotic agent; Z88.8 Allergy status to other drugs, medicaments and biological substances; Z79.891 Long term (current) use of opiate analgesic; Z79.899 Other long term (current) drug therapy

== ENCOUNTER 2018-12-05 06:50 | Observation (INO) | payer OTHER ==
[~2018-12-05] VITALS: Ht 162.6 cm; Wt 72.5 kg
[~2018-12-05 06:50] MED LIST changes: -DIPH25CA PO; +DIPH25CA32 PO; -RIZA10TA2; +RIZA10TA2 PO
[2018-12-05] MEDS ORDERED: METH750T2 PO (07:27)
[2018-12-05] MEDS ORDERED: BACLOFEN 10 MG TAB PO ONE (07:45)
[2018-12-05] MEDS ORDERED: METHOCARBAMOL 1,000 MG/10 ML VIAL (J2800) IV ONE (07:45)
[2018-12-05 07:58] LABS: HEMATOCRIT 43.5 % (36.0-47.0); HEMOGLOBIN 14.5 g/dl (12.0-15.5); MEAN CORPUSCULAR HGB CONC 33.3 g/dl (32.0-36.5); MEAN CORPUSCULAR VOLUME 90.1 fl (80.0-96.0); PLATELET COUNT, AUTOMATED 381 10^3/uL (150-450); RED BLOOD COUNT 4.83 10^6/uL (4.00-5.40); WHITE BLOOD COUNT 12.3 10^3/uL (4.0-10.0)
[2018-12-05] MEDS ORDERED: METHOCARBAMOL 1,000 MG/10 ML VIAL (J2800) IM ONE (08:00)
[2018-12-05] MEDS ORDERED: ONDANSETRON 4MG/2ML VIAL (J2405) IV ONE (08:15)
[2018-12-05] MEDS ORDERED: MORPHINE 4 MG/ML 1ML VIAL/SYRINGE (J2270) IV ONE (08:15)
[2018-12-05 08:20] LABS: ALBUMIN 3.9 GM/DL (3.2-5.2); ALT/SGPT 31 U/L (12-78); BILIRUBIN,DIRECT < 0.1 MG/DL (0.0-0.2); BILIRUBIN,TOTAL 0.3 MG/DL (0.2-1.0); BLOOD UREA NITROGEN 10 MG/DL (7-18); CALCIUM LEVEL 8.7 MG/DL (8.5-10.1); CARBON DIOXIDE LEVEL 31 MEQ/L (21-32); CHLORIDE LEVEL 107 MEQ/L (98-107); CREATININE FOR GFR 0.79 MG/DL (0.55-1.30); GLOMERULAR FILTRATION RATE > 60.0 (>58); GLUCOSE, FASTING 85 MG/DL (70-100); LIPASE 139 U/L (73-393); POTASSIUM SERUM 3.9 MEQ/L (3.5-5.1); SODIUM LEVEL 143 MEQ/L (136-145); TOTAL PROTEIN 7.8 GM/DL (6.4-8.2)
[2018-12-05] MEDS: GASTROGRAFIN SOLUTION 30ML PO SCH ×2 (08:53→09:15)
[2018-12-05] MEDS ORDERED: MORPHINE 2 MG/ML 1ML SYRINGE (J2270) IV ONE ×2 (09:00→14:15)
[2018-12-05] MEDS ORDERED: LIDOCAINE 5% (LIDODERM) PATCH TD ONE (09:00)
[2018-12-05] MEDS ORDERED: HALOPERIDOL 5 MG/ML VIAL (J1630) IV ONE (09:30)
[2018-12-05] MEDS ORDERED: NACL IV ONE (09:45)
[2018-12-05] MEDS ORDERED: DILUENT IV ONE (09:45)
[2018-12-05] MEDS ORDERED: KETAMINE IV ONE (09:45)
[2018-12-05 09:55] LABS: C REACTIVE PROTEIN QUANTITATIV < 0.30 MG/DL (0.00-0.30)
[2018-12-05 10:20] LABS: ERYTHROCYTE SEDIMENTATION RATE 9 mm/hr (0-20)
[2018-12-05] MEDS ORDERED: BUTACAP78 PO (13:02)
[2018-12-05] MEDS ORDERED: NS 1,000 ML IV ONE (13:15)
[2018-12-05] MEDS ORDERED: KETOROLAC 30 MG/ML VIAL (J1885) IV ONE (13:15)
[2018-12-05 13:22] LABS: CPK CREATINE PHOSPHOKINASE 58 U/L (26-192); MAGNESIUM LEVEL 2.2 MG/DL (1.8-2.4)
[2018-12-05] MEDS ORDERED: MORPHINE 4 MG/ML 1ML VIAL/SYRINGE (J2270) IV PRN ×2 (14:30→19:00)
[2018-12-05 15:20] VITALS: BP 139/76
[2018-12-05] MEDS: NS 1,000 ML IV SCH (16:15)
--- NOTE | 2018-12-05 16:43 | REP ---
CT of the thoracic spine without contrast Indication: Excruciating pain. Comparison: None Technique: Axial CT of the thoracic spine was performed without contrast. Axial coronal and sagittal bone reformatted images were provided. Findings: There is mild inferior endplate irregularity within the mid and lower thoracic spine, likely related to Schmorl's node. There is no evidence of acute fracture or dislocation. The CT appearance of the spinal canal is normal. The paraspinal soft tissues are within normal limits. Note is made of prior gastric surgery. Gallbladder is surgically absent. There is no suspicious lung nodule or mass. Normal Impression: No acute fracture or subluxation of the thoracic spine. Electronically Signed by Naty Rao MD 12/05/2018 11:57 A
--- NOTE | 2018-12-05 16:44 | REP ---
CT of the lumbar spine without contrast Indication: Pain. Comparison: CT abdomen pelvis of the same date. Technique: Axial CT of the lumbar spine was performed without contrast. Axial and coronal and sagittal bone reformatted were provided. Findings: There is no acute fracture or subluxation of the lumbar spine. Vertebral body heights are maintained. There is vacuum disc phenomenon and disc space narrowing at L4-5 of S1. There is bilateral facet arthropathy at L4-L5 L5-S1. The CT appearance of the spinal canal is within normal limits. The sacroiliac joints are intact. There is an large calculus within the right renal collecting system, better described on same date CT abdomen pelvis. Paravertebral soft tissues otherwise within normal limits. Impression: No acute fracture or subluxation of the lumbar spine. Partially imaged right renal collecting system calculus, better described on same date abdominal pelvic CT. Electronically Signed by Naty Rao MD 12/05/2018 11:52 A
--- NOTE | 2018-12-05 16:49 | HPEPDOC ---
[facility] Medical History & Physical Date of Admission Dec 05, 2018 Date of Service: Dec 05, 2018 History and Physical CHIEF COMPLAINT: [Intractable back pain] HISTORY OF PRESENT ILLNESS: [ 43 y/o F with migraines, chronic back pain (seen in pain management clinic), cholecystectomy 2.5 weeks ago presents to ED with 9/10 acute on chronic, cramping, mid-back pain starting 5 hours prior to admission. She describes this similar to a spasm and endorses some radiation to the RLE. She notes prior episode like this which resulted in a week long hospital stay. Prior to coming in she took her home doses of robaxin, oxycodone 15mg, Percocet 2 tabs without relief. In the ED she was given Baclofen 10mg, Morphine 2mg IV x2 and 4mg x1, Toradol 30mg IV, Ketamine infusion, 1g robaxin IM without relief of her pain. She denies any fevers, chills, chest pain, palpitations, shortness of breath, cough, wheezing, abdominal pain, n/v/d, focal weakness, no swelling, no trauma, no rashes, no bruising, no recent injections, no increased activity/lifting heavy objects. ] PAST MEDICAL HISTORY: Migraines, chronic back pain, gastric sleeve PAST SURGICAL HISTORY: L4-L5 discectomy, Gastric sleeve, , cholecystectomy 2.5 weeks prior at [facility] SOCIAL HISTORY: No tobacco, social ETOH, no illicit drug use FAMILY HISTORY: Mother no hx DM ALLERGIES: Please see below. 10 point ROS negative unless otherwise stated in HPI HOME MEDICATIONS: Please see below. PHYSICAL EXAMINATION: Vitals 128/69, HR 108, RR 20, 100% on RA, 97.7 GEN: Female writhing in bed in obvious distress HEENT: EOMI, MMM Cardio: s1/s2 present, mildly tachycardic Lungs: CTA b/l although limited exam due to pain Abd: s, nt, nd, bs present Ext: no LE edema, pulses palpable Psych: anxious in pain Neuro: A&Ox3, no focal neurologic deficits Skin: surgical scar over midline back along spine consistent with prior surgery MSK: mid back pain to palpation along paraspinal muscles and laterally just below scapula, no erythema or skin break down, no abscesses noted. LABORATORY DATA: See below. IMAGING: CT T and L spines without acute fractures or subluxation. Pending official read CT Abd/pelvis: no acute abnormalities, right renal stone, no evidence of hydronephrosis or pyelo Labs: largely unremarkable. Pending official read MICROBIOLOGY: Please see below. ASSESSMENT: 43 y/o F with migraines, chronic back pain (seen in pain management clinic), cholecystectomy 2.5 weeks ago presents to ED with 9/10 acute on chronic, cramping, mid-back pain starting 5 hours prior to admission requiring multiple rounds of IV opioids and anti-inflammatory medications without relief. Placed on OBS for intractable back pain. . PLAN: Intractable back pain: likely muscle spasm -no fractures or subluxation noted on CT scans -appears musculoskeletal on exam, unlikely infectious however given right kidney stone pending UA, low suspicion for pyelo. Electrolytes and renal function wnl, normal ESR/CRP, CK wnl. 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 Would like patient placed NPO after 6:30 pm for trigger point injections in pain clinic tomorrow morning 8:30 AM. -Will start Lidocaine patch, Toradol 30mg IV q8 PRN, Morphine 3mg IV q4 PRN severe pain. -IVF hydration Migraines: continue home Rizatriptan PRN. Dvt ppx: Lovenox Vital Signs Vital Signs Date Time Temp Pulse Resp B/P (MAP) Pulse Ox O2 Delivery O2 Flow Rate FiO2 12/05/18 16:17 20 12/05/18 15:20 98.1 85 139/76 (97) 98 12/05/18 14:30 Room Air Laboratory Data Labs 24H Laboratory Tests 2 12/05/18 07:37: Nucleated Red Blood Cells % (auto) 0.0, Erythrocyte Sedimentation Rate 9, Anion Gap 5L, Glomerular Filtration Rate > 60.0, Lactic Acid Level 1.5, Calcium Level 8.7, Magnesium Level 2.2, Aspartate Amino Transf (AST/SGOT) 19, Alanine Aminotransferase (ALT/SGPT) 31, Alkaline Phosphatase 90, Total Bilirubin 0.3, Direct Bilirubin < 0.1, Total Creatine Kinase 58, C-Reactive Protein, Quantitative < 0.30, Total Protein 7.8, Albumin 3.9, Albumin/Globulin Ratio 1.00, Lipase 139 12/05/18 07:41: POC Beta HCG, Quantitative < 5.0 CBC/BMP Laboratory Tests 12/05/18 07:37 Red Blood Count 4.83, Mean Corpuscular Volume 90.1, Mean Corpuscular Hemoglobin 30.0, Mean Corpuscular Hemoglobin Concent 33.3, Red Cell Distribution Width 12.5 Home Medications Scheduled Oxycodone Hcl (Oxycodone HCl) 15 Mg Tablet, 15 MG PO TID Scheduled PRN Butalb/Acetaminophen/Caffeine (Vlxenv-Xfrgqwvh-Pmwc 50-325-40) 1 Each Capsule, 1 CAP PO BID PRN for MIGRAINE Methocarbamol (Methocarbamol) 750 Mg Tablet, 750 MG PO Q4H PRN for PAIN Oxycodone HCl/Acetaminophen (Oxycodone-Acetaminophen 5-325) 1 Tab Tab, 2 TAB PO BID PRN for PAIN Rizatriptan Benzoate (Rizatriptan) 10 Mg Tab, 10 MG PO BID PRN for MIGRAINE TAKE ONE TABLET AT ONSET AND ONE 2 HOURS LATER IF SYMPTOMS PERSIST. NOT TO EXCEED 2 TABLETS PER DAY Allergies Coded Allergies: amoxicillin (Verified Allergy, Intermediate, RASH, 11/08/18) magnesium (Verified Allergy, Mild, 11/08/18) tapentadol (Verified Allergy, Unknown, 11/08/18) hydrocodone (Verified Adverse Reaction, Intermediate, HEADACHE, 11/08/18) TAPE (Verified Adverse Reaction, Mild, REDNESS, 11/08/18) ibuprofen (Verified Adverse Reaction, Mild, NAUSEA, 11/08/18) nortriptyline (Verified Adverse Reaction, Unknown, FELT DRUNK, 11/08/18) pregabalin (Unverified Adverse Reaction, Unknown, FELT DRUNK, 11/08/18) TYRON LOGAN MD Dec 05, 2018 16:49
[2018-12-05] MEDS: ENOXAPARIN 40 MG/0.4 ML SYRINGE (J1650) SC SCH (17:41)
[2018-12-05] MEDS: OMEPRAZOLE 20 MG CAP PO SCH (17:43)
[2018-12-05] MEDS ORDERED: CARISOPRODOL 350 MG TAB PO ONE (17:45)
[2018-12-05] MEDS ORDERED: MORPHINE 15 MG SA TAB PO ONE (17:45)
[2018-12-05] MEDS ORDERED: MORPHINE 10 MG/ML 1ML VIAL (J2270) IV ONE (19:00)
[2018-12-05] MEDS ORDERED: HYDROMORPHONE HCL 0.5 MG/ 0.5 ML SYRINGE (J1170 PER 1) IV PRN (19:00)
[2018-12-05] MEDS ORDERED: methylPREDNISolone INJ 125 MG/2 ML VIAL (J2930) IV ONE (19:00)
[2018-12-05] MEDS: KETOROLAC 30 MG/ML VIAL (J1885) IV PRN (19:01)
[2018-12-05 20:00] VITALS: BP 118/93
[2018-12-05] MEDS ORDERED: **NOTE PATIENT COMMENT** MISC XX SCH (21:00)
[2018-12-05] MEDS ORDERED: LORazepam 0.5 MG TAB PO ONE (22:45)
[2018-12-05 23:25] VITALS: BP 150/71
[2018-12-05] MEDS: HYDROmorphone HCL 2 MG/ML 1ML VIAL (J1170) IV PRN (23:37)
[2018-12-06] MEDS: NS 1,000 ML IV SCH ×3 (00:46→20:14)
[2018-12-06] MEDS: HYDROmorphone HCL 2 MG/ML 1ML VIAL (J1170) IV PRN ×7 (03:18→22:39)
[2018-12-06] MEDS: KETOROLAC 30 MG/ML VIAL (J1885) IV PRN ×3 (03:32→22:38)
[2018-12-06 03:42] LABS: APPEARANCE, URINE TURBID (CLEAR); BACTERIA, URINE AUTO 2+ (NEGATIVE); BILIRUBIN, URINE AUTO NEGATIVE (NEGATIVE); BLOOD, URINE BLOOD 3+ (NEGATIVE); COLOR, URINE YELLOW (YELLOW); GLUCOSE, URINE (UA) AUTO NEGATIVE (NEGATIVE); KETONE, URINE AUTO NEGATIVE (NEGATIVE); LEUKOCYTE ESTERASE, URINE AUTO 3+ (NEGATIVE); MUCUS, URINE SMALL (NEGATIVE); NITRITE, URINE AUTO NEGATIVE (NEGATIVE); PROTEIN, URINE AUTO 2+ mg/dL (NEGATIVE); RBC, URINE AUTO 48 /HPF (0-3); SPECIFIC GRAVITY URINE AUTO 1.011 (1.002-1.035); SQUAMOUS EPITHELIAL CELL UR AU 4 /HPF (0-6); UROBILINOGEN, URINE AUTO 0.2 mg/dL (0.0-2.0); WBC, URINE AUTO TNTC /HPF (0-3)
[2018-12-06 04:00] VITALS: BP 137/57
[2018-12-06] MEDS: CARISOPRODOL 350 MG TAB PO SCH ×3 (05:30→20:14)
[2018-12-06 05:49] LABS: HEMATOCRIT 35.6 % (36.0-47.0); MEAN CORPUSCULAR HGB CONC 33.1 g/dl (32.0-36.5); MEAN CORPUSCULAR VOLUME 90.6 fl (80.0-96.0); RED BLOOD COUNT 3.93 10^6/uL (4.00-5.40); WHITE BLOOD COUNT 9.4 10^3/uL (4.0-10.0)
[2018-12-06 05:51] LABS: HEMOGLOBIN 11.8 g/dl (12.0-15.5); PLATELET COUNT, AUTOMATED 249 10^3/uL (150-450)
--- NOTE | 2018-12-06 06:07 | REP ---
CT ABDOMEN AND PELVIS WITHOUT CONTRAST: CT abdomen and pelvis performed without oral or IV contrast. Sagittal and coronal reconstruction images are performed. Comparison is made with a prior study of 11/08/2018. Visualized lung bases are clear. The liver is grossly unremarkable. Patient has had a prior cholecystectomy as well as apparent gastric bypass surgery. The spleen is normal in size. The adrenals and pancreas are grossly unremarkable. Once again, there is a 9 mm calculus in the right renal pelvis without definite right hydronephrosis. The appearance is unchanged since the prior study of 11/08/2018. There is no abdominal aortic aneurysm. There is no adenopathy. There is no free air or free fluid. No bowel wall thickening is seen. There is no evidence of appendicitis. The urinary bladder is mildly distended and grossly unremarkable. An IUD is seen in the endometrial canal. There is a cystic structure of the left ovary 3 cm in diameter. IMPRESSION: Once again the right renal pelvis is a 9 mm calculus unchanged in position compared to the prior CT of 11/08/2018. There is no definite hydronephrosis. There is no evidence of appendicitis. No free air or free fluid. Left ovarian cyst measures 3 cm in diameter. IUD is seen in the uterus. Electronically Signed by Ernesto Hernandez MD 12/06/2018 11:47 P
[2018-12-06 06:12] LABS: BLOOD UREA NITROGEN 8 MG/DL (7-18); CALCIUM LEVEL 7.8 MG/DL (8.5-10.1); CARBON DIOXIDE LEVEL 24 MEQ/L (21-32); CHLORIDE LEVEL 109 MEQ/L (98-107); CREATININE FOR GFR 0.62 MG/DL (0.55-1.30); GLOMERULAR FILTRATION RATE > 60.0 (>58); GLUCOSE, FASTING 133 MG/DL (70-100); SODIUM LEVEL 143 MEQ/L (136-145)
[2018-12-06] MEDS: RIZATRIPTAN BENZOATE 10 MG TAB PO PRN ×2 (07:58→20:13)
[2018-12-06 08:00] VITALS: BP 132/69
[2018-12-06] MEDS: MORPHINE 15 MG SA TAB PO SCH ×2 (08:25→20:13)
[2018-12-06] MEDS: ENOXAPARIN 40 MG/0.4 ML SYRINGE (J1650) SC SCH (08:25)
[2018-12-06] MEDS: OMEPRAZOLE 20 MG CAP PO SCH (08:26)
[2018-12-06] MEDS ORDERED: **NOTE PATIENT COMMENT** MISC XX ONE (09:00)
--- NOTE | 2018-12-06 09:00 | CR.PDOC ---
[facility] Pain Clinic Consultation General Date of Consultation: 12/06/18 Chief Complaint The patient is a 43-year-old female admitted with a reason for visit of Intractable Back Pain. History of Present Illness 43 year old female who presented to the ER with complaints of intractable back pain. While in the ER patient received multiple medications none of which helped to relieve her pain. She does have a hx of a kidney stone that was found in October but per nursing in the ER this is unchanged since that time. Patient denies hx of recent trauma. Home Medications Scheduled Oxycodone Hcl (Oxycodone HCl) 15 Mg Tablet, 15 MG PO TID, (Reported) Scheduled PRN Butalb/Acetaminophen/Caffeine (Rucohy-Jjgwhfny-Hrlr 50-325-40) 1 Each Capsule, 1 CAP PO BID PRN for MIGRAINE, (Reported) Methocarbamol (Methocarbamol) 750 Mg Tablet, 750 MG PO Q4H PRN for PAIN, (Reported) Oxycodone HCl/Acetaminophen (Oxycodone-Acetaminophen 5-325) 1 Tab Tab, 2 TAB PO BID PRN for PAIN, (Reported) Rizatriptan Benzoate (Rizatriptan) 10 Mg Tab, 10 MG PO BID PRN for MIGRAINE, (Reported) TAKE ONE TABLET AT ONSET AND ONE 2 HOURS LATER IF SYMPTOMS PERSIST. NOT TO EXCEED 2 TABLETS PER DAY Allergies Coded Allergies: amoxicillin (Verified Allergy, Intermediate, RASH, 11/08/18) magnesium (Verified Allergy, Mild, 11/08/18) tapentadol (Verified Allergy, Unknown, 11/08/18) hydrocodone (Verified Adverse Reaction, Intermediate, HEADACHE, 11/08/18) TAPE (Verified Adverse Reaction, Mild, REDNESS, 11/08/18) ibuprofen (Verified Adverse Reaction, Mild, NAUSEA, 11/08/18) nortriptyline (Verified Adverse Reaction, Unknown, FELT DRUNK, 11/08/18) pregabalin (Unverified Adverse Reaction, Unknown, FELT DRUNK, 11/08/18) Review of Systems Subjective Musculoskeletal: Reports: muscle pain, spasms, muscle stiffness, midthoracic pain Physical Examination Physical Examination Vital Signs/I&O Vital Signs Date Time Temp Pulse Resp B/P (MAP) Pulse Ox O2 Delivery O2 Flow Rate FiO2 12/06/18 08:25 30 12/06/18 08:00 97.7 81 132/69 (90) 96 12/05/18 14:30 Room Air I&O- Last 24 Hours up to 6 AM 12/06/18 06:00 Intake Total 2015 ml Output Total 900 ml Balance 1115 ml General Exam: Positive: alert, cooperative, severe distress Heart Exam: Positive: Regular rate and rhythm Inspection of spine Point tender along thoracic spine, surrounding skin shows no erythema, ecchymosis, increased warmth, and/or skin eruptions. Laboratory Data Labs 24H Laboratory Tests 2 12/06/18 03:24: Urine Appearance TURBIDH, Urine Color YELLOW, Urine pH 6.0, Urine Specific [place] 1.011, Urine Protein 2+H, Urine Glucose (UA) NEGATIVE, Urine Ketones NEGATIVE, Urine Urobilinogen 0.2, Urine Bilirubin NEGATIVE, Urine Leukocyte Esterase 3+H, Urine Blood 3+H, Urine Nitrite NEGATIVE, Urine WBC (Auto) TNTCH, Urine RBC (Auto) 48H, Urine Hyaline Casts (Auto) 0, Urine Bacteria (Auto) 2+H, Urine Squamous Epithelial Cells 4, Urine Mucus (Auto) SMALL, Urine Sperm (Auto) 12/06/18 05:15: Nucleated Red Blood Cells % (auto) 0.0, Anion Gap 10, Glomerular Filtration Rate > 60.0, Blood Urea Nitrogen 8, Creatinine 0.62, Sodium Level 143, Potassium Level 4.0, Chloride Level 109H, Carbon Dioxide Level 24, Calcium Level 7.8L CBC/BMP Laboratory Tests 12/06/18 05:15 Red Blood Count 3.93 L, Mean Corpuscular Volume 90.6, Mean Corpuscular Hemoglobin 30.0, Mean Corpuscular Hemoglobin Concent 33.1, Red Cell Distribution Width 12.5, Calcium Level 7.8 L Assessment Given presenting symptoms and results of physical examination recommend MS Contin 15mg BID as needed for pain and Soma 350mg TID as needed. Further recommend TPI on 12/06/18 at 0830. Patient to be NPO after 0230 may have clears up until 0630. Recommendation and Plan Thank you for allowing us to participate in the care of your patient. Should you have any questions we will be glad to discuss this with you at any time please contact us here at the pain center at [phone]. OLE BOBO Dec 06, 2018 09:00
[2018-12-06] MEDS ORDERED: oxyCODONE 5MG TAB As Ordered ONE (09:26)
[2018-12-06] MEDS ORDERED: diazePAM 5 MG TAB As Ordered ONE (09:26)
[2018-12-06] MEDS ORDERED: BUPIVACAINE HCL 0.25% 10 ML VIAL As Ordered ONE (09:33)
[2018-12-06] MEDS ORDERED: TRIAMCINOLONE ACETONIDE SUSP 40 MG/ML VIAL (J3301) As Ordered ONE (09:33)
[2018-12-06] MEDS ORDERED: BUPIVACAINE HCL 0.25% 30 ML VIAL As Ordered ONE (09:33)
[2018-12-06] MEDS ORDERED: LIDOCAINE 5% (LIDODERM) PATCH As Ordered ONE (11:20)
[2018-12-06 12:00] VITALS: BP 94/53
--- NOTE | 2018-12-06 15:26 | IPNPDOC ---
Text Note Date of Service The patient was seen on 12/06/18. NOTE Subjective: Complains of severe back pain, 8 out of 10. She stated that pain management slightly alleviate her pain. Patient denies fever, chills, nausea, vomiting, chest pain, palpitations, diarrhea or dysuria. Trigger point injections in pain clinic done today. Objective Gen: in severe distress HEENT: PERRLA, EOMI Lungs: Clear to auscultation bilaterally Abdomen: Nontender, nondistended Back: Area of tenderness over paraspinal muscles T 7-12, hypertonus of paraspinal muscles b/l Extremities: No cyanosis Neuro: Nonfocal Patient is 43 years old female past medical history of migraine, chronic back pain (seen in pain management clinic), cholecystectomy 2.5 weeks ago presented hospital with severe back pain. Patient required IV opioids, muscle relaxant and trigger point injection. Back pain likely 2/2 muscle spasm -no fractures or subluxation noted on CT scans of the lumbar /thoracic spine -Right kidney stone unlikely cause of pain given no hydronephrosis, patient doesn't have leukocytosis and fever. -IVF hydration Pain specialist recommended MS Contin 15mg BID as needed for pain and Soma 350mg TID as needed - Continue IV pain management Migraines: continue home Rizatriptan PRN. Dvt ppx: Lovenox VS,Fishbone, I+O VS, Fishbone, I+O Laboratory Tests 12/06/18 05:15 Red Blood Count 3.93 L, Mean Corpuscular Volume 90.6, Mean Corpuscular Hemoglobin 30.0, Mean Corpuscular Hemoglobin Concent 33.1, Red Cell Distribution Width 12.5, Calcium Level 7.8 L Vital Signs Date Time Temp Pulse Resp B/P (MAP) Pulse Ox O2 Delivery O2 Flow Rate FiO2 12/06/18 12:54 22 12/06/18 12:00 97.9 100 94/53 (67) 97 12/05/18 14:30 Room Air I&O- Last 24 Hours up to 6 AM 12/06/18 06:00 Intake Total 2015 ml Output Total 900 ml Balance 1115 ml BRII NDIAYE DO Dec 06, 2018 15:26
[2018-12-06] MEDS ORDERED: ONDANSETRON 4MG/2ML VIAL (J2405) IV PRN (19:00)
[2018-12-06 20:00] VITALS: BP 128/80
[2018-12-06 22:00] VITALS: BP 120/83
[2018-12-06 23:59] VITALS: BP 121/72
[2018-12-07] VITALS (7 sets, daily range): BP systolic 110–147; BP diastolic 66–85
[2018-12-07] MEDS: CARISOPRODOL 350 MG TAB PO SCH ×5 (00:03→23:38)
[2018-12-07] MEDS ORDERED: LORazepam 1 MG TAB PO ONE (00:30)
[2018-12-07] MEDS: HYDROmorphone HCL 2 MG/ML 1ML VIAL (J1170) IV PRN ×9 (00:37→22:31)
[2018-12-07] MEDS: NS 1,000 ML IV SCH ×2 (06:01→16:30)
[2018-12-07] MEDS: ENOXAPARIN 40 MG/0.4 ML SYRINGE (J1650) SC SCH (07:51)
[2018-12-07] MEDS: MORPHINE 15 MG SA TAB PO SCH ×2 (07:51→21:38)
[2018-12-07] MEDS: OMEPRAZOLE 20 MG CAP PO SCH (07:51)
[2018-12-07] MEDS: KETOROLAC 30 MG/ML VIAL (J1885) IV PRN (07:53)
--- NOTE | 2018-12-07 12:20 | IPNPDOC ---
Text Note Date of Service The patient was seen on 12/07/18. NOTE Subjective: Complains of severe back pain, 7 out of 10. She stated that pain management slightly alleviate her pain. After Soma was increased patient was able to sleep 4 hours. Also patient complains of frequency in urination. Patient denies fever, chills, nausea, vomiting, chest pain, palpitations, diarrhea. Trigger point injections in pain clinic done yesterday. Objective Gen: in severe distress HEENT: PERRLA, EOMI Lungs: Clear to auscultation bilaterally Abdomen: Nontender, nondistended Back: Area of tenderness over paraspinal muscles T 7-12, hypertonus of paraspinal muscles b/l Extremities: No cyanosis Neuro: Nonfocal Patient is 43 years old female past medical history of migraine, chronic back pain (seen in pain management clinic), cholecystectomy 2.5 weeks ago presented hospital with severe back pain. Patient required IV opioids, muscle relaxant and trigger point injection. Also patient developed dysuria secondary to UTI Back pain likely 2/2 muscle spasm -no fractures or subluxation noted on CT scans of the lumbar /thoracic spine -Right kidney stone unlikely cause of pain given no hydronephrosis, patient doesn't have leukocytosis and fever. -IVF hydration Pain specialist recommended MS Contin 15mg BID as needed for pain and Soma 350mg TID - Continue IV pain management PT/OT evaluation Migraines: continue home Rizatriptan PRN. UTI Patient complains of dysuria UA shows positive leukocytes esterase and nitrite Urinalysis with culture Ciprofloxacin 500mg BID for 3 days Patient will need follow-up with urologist in the outpatient settings. Patient has right kidney stone with size 0.9 centimeters Dvt ppx: Lovenox VS,Fishbone, I+O VS, Fishbone, I+O Vital Signs Date Time Temp Pulse Resp B/P (MAP) Pulse Ox O2 Delivery O2 Flow Rate FiO2 12/07/18 11:14 24 12/07/18 08:00 97.6 84 110/68 (82) 97 12/05/18 14:30 Room Air I&O- Last 24 Hours up to 6 AM 12/07/18 06:00 Intake Total 2660 ml Output Total 1000 ml Balance 1660 ml BRII NDIAYE DO Dec 07, 2018 12:20
--- NOTE | 2018-12-07 14:48 | IPNPDOC ---
General Date of Service/Time The patient was seen on 12/07/18 at 14:41. Chief complaint The patient is a 43-year-old female admitted with a reason for visit of Intractable Back Pain. Pain management is asked to see in regards to patient's continued back pain. Progress Note SUBJECTIVE: Patient is a 43-year-old female with back pain. Arrived on unit to speak with patient and she was noted to be sleeping but easily awakened. When a sked she denied the TPI having any effect on her back pain. She does admit the medications are working but they do not seem to last. ASSESSMENT AND PLAN: Spoke with Dr. Hylton regarding patient and her current medications to help manage back pain. He recommended changing soma to PRN every 6 hours given that patient had been experiencing increased spasticity in her back. If you have any questions or concerns regarding this please give us a call and that pain center. Thank you for allowing us to participate in the care of your patient. Allergies Allergies: Coded Allergies: amoxicillin (Verified Allergy, Intermediate, RASH, 11/08/18) magnesium (Verified Allergy, Mild, 11/08/18) tapentadol (Verified Allergy, Unknown, 11/08/18) hydrocodone (Verified Adverse Reaction, Intermediate, HEADACHE, 11/08/18) TAPE (Verified Adverse Reaction, Mild, REDNESS, 11/08/18) ibuprofen (Verified Adverse Reaction, Mild, NAUSEA, 11/08/18) nortriptyline (Verified Adverse Reaction, Unknown, FELT DRUNK, 11/08/18) pregabalin (Unverified Adverse Reaction, Unknown, FELT DRUNK, 11/08/18) VS,Fishbone, I+O VS, Fishbone, I+O Vital Signs Date Time Temp Pulse Resp B/P (MAP) Pulse Ox O2 Delivery O2 Flow Rate FiO2 12/07/18 14:00 24 12/07/18 12:00 99.6 90 118/77 (91) 97 12/05/18 14:30 Room Air I&O- Last 24 Hours up to 6 AM 12/07/18 06:00 Intake Total 2660 ml Output Total 1000 ml Balance 1660 ml OLE BOBOP Dec 07, 2018 14:48
[2018-12-07] MEDS ORDERED: CIPROFLOXACIN 500 MG TAB PO ONE (15:00)
[2018-12-07] MEDS ORDERED: traMADol 50 MG TAB PO PRN (15:45)
[2018-12-08] MEDS: HYDROmorphone HCL 2 MG/ML 1ML VIAL (J1170) IV PRN ×4 (03:49→13:06)
[2018-12-08 04:00] VITALS: BP 157/102
[2018-12-08 04:15] LABS: HEMATOCRIT 30.8 % (36.0-47.0); HEMOGLOBIN 10.1 g/dl (12.0-15.5); MEAN CORPUSCULAR HEMOGLOBIN 30.2 pg (27.0-33.0); MEAN CORPUSCULAR HGB CONC 32.8 g/dl (32.0-36.5); MEAN CORPUSCULAR VOLUME 92.2 fl (80.0-96.0); PLATELET COUNT, AUTOMATED 178 10^3/uL (150-450); RED BLOOD COUNT 3.34 10^6/uL (4.00-5.40); WHITE BLOOD COUNT 10.1 10^3/uL (4.0-10.0)
[2018-12-08] MEDS: RIZATRIPTAN BENZOATE 10 MG TAB PO PRN (04:35)
[2018-12-08] MEDS: KETOROLAC 30 MG/ML VIAL (J1885) IV PRN ×2 (04:55→11:31)
[2018-12-08] MEDS ORDERED: CIPROFLOXACIN 500 MG TAB PO SCH (06:00)
[2018-12-08] MEDS: CARISOPRODOL 350 MG TAB PO SCH ×2 (06:02→11:27)
--- NOTE | 2018-12-08 06:14 | ECGEPIP ---
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
[2018-12-08] MEDS ORDERED: traMADol 50 MG TAB PO PRN (07:30)
[2018-12-08 08:00] VITALS: BP 127/85
[2018-12-08] MEDS: ENOXAPARIN 40 MG/0.4 ML SYRINGE (J1650) SC SCH (08:43)
[2018-12-08] MEDS: OMEPRAZOLE 20 MG CAP PO SCH (08:43)
[2018-12-08] MEDS: MORPHINE 15 MG SA TAB PO SCH (08:43)
[2018-12-08 11:42] VITALS: BP 125/74
[2018-12-08] MEDS ORDERED: CIPR500T19 PO (11:46)
[2018-12-08] MEDS ORDERED: TRAM50TA2 PO (11:48)
[2018-12-08] MEDS ORDERED: CARI1TAB7 PO (11:53)
--- NOTE | 2018-12-08 18:10 | DS.PDOC ---
Discharge Summary General Date of Admission Dec 05, 2018 at 06:51 Date of Discharge 12/08/18 Primary Care Physician: DANIELLE HOUSTON DO Attending Physician: BRII NDIAYE DO Discharge Summary PROCEDURES PERFORMED DURING STAY: None. ADMITTING DIAGNOSES: 1. Back pain 2 UTI DISCHARGE DIAGNOSES: 1. Back pain 2 UTI COMPLICATIONS/CHIEF COMPLAINT: Intractable Back Pain. HISTORY OF PRESENT ILLNESS: 43 y/o F with migraines, chronic back pain (seen in pain management clinic), cholecystectomy 2.5 weeks ago presents to ED with 9/10 acute on chronic, cramping, mid-back pain starting 5 hours prior to admission. She describes this similar to a spasm and endorses some radiation to the RLE. She notes prior episode like this which resulted in a week long hospital stay. Prior to coming in she took her home doses of robaxin, oxycodone 15mg, Percocet 2 tabs without relief. In the ED she was given Baclofen 10mg, Morphine 2mg IV x2 and 4mg x1, Toradol 30mg IV, Ketamine infusion, 1g robaxin IM without relief of her pain. She denies any fevers, chills, chest pain, palpitations, shortness of breath, cough, wheezing, abdominal pain, n/v/d, focal weakness, no swelling, no trauma, no rashes, no bruising, no recent injections, no increased activity/lifting heavy objects. HOSPITAL COURSE: During hospital stay patient received trigger point injection, pain management was intensified with Soma every 6 hours, tramadol, Contin. Also patient was diagnosed with cystitis and a right kidney stone. Patient received treatment with ciprofloxacin. After treatment her back pain partially subsided. DISCHARGE MEDICATIONS: Please see below. ALLERGIES: Please see below. PHYSICAL EXAMINATION ON DISCHARGE: VITAL SIGNS: Please see below. Gen: NAD HEENT: PERRLA, EOMI Lungs: Clear to auscultation bilaterally Abdomen: Nontender, nondistended Back: Area of tenderness over paraspinal muscles T 7-12, hypertonus of paraspinal muscles b/l Extremities: No cyanosis Neuro: Nonfocal LABORATORY DATA: Please see below. IMAGING: NAME: STEPHANIE BOLANOS DATE OF : 1975 AGE: 43 SEX: F REPORT #: [id number] ROOM: M PED TECHNOLOGIST: RYLEY DOCTOR: BYRON DEL REAL PA-C Ordered for Date&Time: 12/05/18 0754 cc: [~ rep ct ivnm] Service Date&Time: 12/05/18 1115 EXAMINATION REQUESTED: CT Spine, lumbar w/o contrast REASON FOR PATIENT VISIT: INTRACTABLE BACK PAIN REASON FOR EXAM/COMMENT: excrutiating pain CT of the lumbar spine without contrast Indication: Pain. Comparison: CT abdomen pelvis of the same date. Technique: Axial CT of the lumbar spine was performed without contrast. Axial and coronal and sagittal bone reformatted were provided. Findings: There is no acute fracture or subluxation of the lumbar spine. Vertebral body heights are maintained. There is vacuum disc phenomenon and disc space narrowing at L4-5 of S1. There is bilateral facet arthropathy at L4-L5 L5-S1. The CT appearance of the spinal canal is within normal limits. The sacroiliac joints are intact. There is an large calculus within the right renal collecting system, better described on same date CT abdomen pelvis. Paravertebral soft tissues otherwise within normal limits. Impression: No acute fracture or subluxation of the lumbar spine. Partially imaged right renal collecting system calculus, better described on same date abdominal pelvic CT. Electronically Signed by Naty Kelley MD 12/05/2018 11:52 A DD: ANTY KELLEY MD 12/05/18 1147 DT: LATONIA 12/05/18 1152 DS: NADYA 12/05/18 1152 12/05/18 1152 [~ rep ct labl] CT of the thoracic spine without contrast Indication: Excruciating pain. Comparison: None Technique: Axial CT of the thoracic spine was performed without contrast. Axial coronal and sagittal bone reformatted images were provided. Findings: There is mild inferior endplate irregularity within the mid and lower thoracic spine, likely related to Schmorl's node. There is no evidence of acute fracture or dislocation. The CT appearance of the spinal canal is normal. The paraspinal soft tissues are within normal limits. Note is made of prior gastric surgery. Gallbladder is surgically absent. There is no suspicious lung nodule or mass. Normal Impression: No acute fracture or subluxation of the thoracic spine. Electronically Signed by Naty Kelley MD 12/05/2018 11:57 A DD: NATY KELLEY MD 12/05/18 1152 DT: LATONIA 12/05/18 1157 DS: NADYA 12/05/18 1157 12/05/18 1157 PROGNOSIS: Favorable ACTIVITY: As tolerated DIET: Regular DISCHARGE PLAN: Home DISPOSITION: 01 Home, Self-Care. DISCHARGE INSTRUCTIONS: 1. Continue taking prescribed medications Warm compression over back ITEMS TO FOLLOWUP ON ON OUTPATIENT: 1. Follow-up with pain clinic DISCHARGE CONDITION: Stable. TIME SPENT ON DISCHARGE: Greater than 20 minutes. Vital Signs/I&Os Vital Signs Date Time Temp Pulse Resp B/P (MAP) Pulse Ox O2 Delivery O2 Flow Rate FiO2 12/08/18 13:16 20 12/08/18 11:42 97.4 71 125/74 (91) 95 12/05/18 14:30 Room Air I&O- Last 24 Hours up to 6 AM0 12/08/18 06:00 Intake Total 2130 ml Output Total 500 ml Balance 1630 ml Laboratory Data Labs 24H Laboratory Tests 2 12/08/18 03:41: Nucleated Red Blood Cells % (auto) 0.0 CBC/BMP Laboratory Tests 12/08/18 03:41 Red Blood Count 3.34 L, Mean Corpuscular Volume 92.2, Mean Corpuscular Hemoglobin 30.2, Mean Corpuscular Hemoglobin Concent 32.8, Red Cell Distribution Width 12.6 Microbiology Microbiology 12/07/18 Urine Culture, Received Pending Discharge Medications Scheduled Ciprofloxacin/Ciprofloxa HCl (Ciprofloxacin ER 500 mg Tablet) 500 Mg Tbmp.24hr, 500 MG PO DAILY Oxycodone Hcl (Oxycodone HCl) 15 Mg Tablet, 15 MG PO TID, (Reported) Scheduled PRN Butalb/Acetaminophen/Caffeine (Xgmahc-Zxnbbxts-Bump 50-325-40) 1 Each Capsule, 1 CAP PO BID PRN for MIGRAINE, (Reported) Carisoprodol (Carisoprodol) 350 Mg Tablet, 350 MG PO Q8H PRN for BACK PAIN Methocarbamol (Methocarbamol) 750 Mg Tablet, 750 MG PO Q4H PRN for PAIN, (Reported) Oxycodone HCl/Acetaminophen (Oxycodone-Acetaminophen 5-325) 1 Tab Tab, 2 TAB PO BID PRN for PAIN, (Reported) Rizatriptan Benzoate (Rizatriptan) 10 Mg Tab, 10 MG PO BID PRN for MIGRAINE, (Reported) TAKE ONE TABLET AT ONSET AND ONE 2 HOURS LATER IF SYMPTOMS PERSIST. NOT TO EXCEED 2 TABLETS PER DAY Tramadol HCl (Tramadol HCl) 50 Mg Tablet, 100 MG PO Q12HP PRN for PAIN PRN for severe pain 8-10 Allergies Coded Allergies: amoxicillin (Verified Allergy, Intermediate, RASH, 11/08/18) magnesium (Verified Allergy, Mild, 11/08/18) tapentadol (Verified Allergy, Mild, 12/07/18) per pt. she had a mild rash reaction in her arm a while ago. She does not recall how long ago. hydrocodone (Verified Adverse Reaction, Intermediate, HEADACHE, 11/08/18) TAPE (Verified Adverse Reaction, Mild, REDNESS, 11/08/18) ibuprofen (Verified Adverse Reaction, Mild, NAUSEA, 11/08/18) nortriptyline (Verified Adverse Reaction, Unknown, FELT DRUNK, 11/08/18) pregabalin (Unverified Adverse Reaction, Unknown, FELT DRUNK, 11/08/18) BRII NDIAYE DO Dec 08, 2018 18:10
[2018-12-14] MEDS ORDERED: KEFL500C17 PO (16:26)
== END 2018-12-08 14:51 | disposition home or self-care (01) ==
LOC: M ED 06:50 → M ED INP 06:51 → M PED 15:15 → M PCU 23:21
PROVIDERS: ADMIT Internal Medicine; ATTEND Internal Medicine
DX: M54.5 Low back pain (principal); N39.0 Urinary tract infection, site not specified; G43.909 Migraine, unspecified, not intractable, without status migrainosus; Z79.899 Other long term (current) drug therapy; Z88.0 Allergy status to penicillin; Z88.8 Allergy status to other drugs, medicaments and biological substances; Z98.84 Bariatric surgery status; Z98.1 Arthrodesis status
CPT/HCPCS: 36415; 72128; 72131; 74176; 80048; 80076; 81001; 82330; 82550; 83605; 83690; 83735; 84702; 85027; 85652; 86140; 87088; 87186; 93005; 96361; 96374; 96375; 96376; 97116; 97161; 99284; J1170; J1885; J2270; J2405; J2800; J2930; J3301; Q9963

== ENCOUNTER → 2018-12-06 | Outpatient (CLI) | payer OTHER, MEDICAID ==
[~2018-12-06] MED LIST changes: +BUPR50TA PO; +BUTACAP78 PO; +CIPR500T19 PO; +KEFL500C17 PO; +METH750T2 PO; +OXYB5TAB10 PO
--- NOTE | 2018-12-09 23:07 | ECWPNPC ---
PATIENT NAME: STEPHANIE BOLANOS : 1975 GENDER: FEMALE VISIT DATE: 12/06/2018 DISCHARGE DATE: 12/06/18 0756 VISIT LOCKED DATE TIME: PHYSICIAN: REBECCA ARIAS MD RESOURCE: REBECCA ARIAS MD REASON FOR APPOINTMENT 1. INPT TRIGGER POINT INJECTION HISTORY OF PRESENT ILLNESS HISTORY OF PRESENT ILLNESS: PAIN THE PATIENT DESCRIBES THE PAIN... FALL RISK SCREENING: SCREENING :NO FALLS REPORTED IN THE LAST YEAR CURRENT MEDICATIONS TAKING SUCRALFATE 1 GM TABLET 1 TABLET ON AN EMPTY STOMACH ORALLY TWICE A DAY NEEDED TAKING FIORICET 325-50-40 MG TABLET 1 TABLET NEEDED ORALLY EVERY 6 HRS PRN MIGRAINE MDD=2 TAKING MAXALT 10 MG TABLET 1 TABLET ORALLY BID FOR MIGRAINE MAX 10 MIGRAINE DAIS PER MONTH MDD=2 TAKING CYCLOBENZAPRINE HCL 10 MG TABLET 1 TABLET NEEDED ORALLY THREE TIMES A DAY TAKING PERCOCET 5-325 MG TABLET TAKE 2 TAB ORALLY Q8H PRN MDD6 TAKING OXYCODONE HCL 15 MG TABLET 1 TABLET ORALLY Q8H TID MDD3 TAKING SOMA 350 MG TABLET 1 TABLET BID NEEDED ORALLY EVERY 12 HRS NEEDED, NOTES: PATIENT TO PAY JULIAN FOR MEDICATION TAKING ROBAXIN-750 750 MG TABLET 1 TABLET ORALLY EVERY 4 HRS UNKNOWN CLONIDINE HCL 0.1 MG TABLET 1 TABLET ORALLY Q8H PRN MDD3 UNKNOWN ONDANSETRON HCL 8 MG TABLET 1 TAB ORALLY TWICE A DAY PRN NAUSEA UNKNOWN DIPHENHYDRAMINE HCL 25 MG CAPSULE 1 CAPSULE NEEDED ORALLY AT ONSET OF MIGRAINE MAY REPEAT IN 6HR IF NEEDED UNKNOWN HYDROXYZINE HCL 25 MG TABLET 1-2 TABLET ORALLY EVERY 6 HRS PRN ITCHING/SLEEP UNKNOWN COLACE 100 MG CAPSULE 1 CAPSULE ORALLY ONCE A DAY NEEDED UNKNOWN REGLAN 10 MG TABLET DIRECTED ORALLY AT ONSET OF MIGRAINE UNKNOWN INDERAL LA 60 MG CAPSULE EXTENDED RELEASE 24 HOUR 1 CAPSULE ORALLY ONCE A DAY UNKNOWN BUTRANS 5 MCG/HR PATCH WEEKLY 1 PATCH TO SKIN TRANSDERMAL APPLY 1 PATCH Q 7 DAYS FPR CHRONIC PAIN MDD=1, NOTES: NEVER APPROVED BY INSURANCE UNKNOWN ZOLMITRIPTAN 5 MG TABLET 1 TABLET NEEDED ONE TIME ORALLY BID PRN MIGRAINE MAX 10 MIGRAINE DAYS PER MONTH PAST MEDICAL HISTORY MIGRAINES BACK PAIN RECURRENT SPONTANEOUS MISCARRAIGES DEPRESSIVE DISORDER CERVICAL NEURALGIA GALL STONES ALLERGIES CIPRO: RASH - ALLERGY AMOXICILLIN: NAUSEA/VOMITING - ALLERGY HYDROCODONE-IBUPROFEN: NAUSEA/VOMITING - SIDE EFFECTS IMITREX: SUNBURN-LIKE RASH ON FACE - ALLERGY MAGNESIUM OXIDE: SUNBURN-LIKE RASH ON FACE - ALLERGY BUSPIRONE: HIVES - ALLERGY NUCYNTA: HIVES - ALLERGY CYMBALTA: RASH - ALLERGY TRAMADOL HCL: RASH - ALLERGY HYDROMORPHONE HCL: ITCHING - ALLERGY NEURONTIN: CHEST PAIN - ALLERGY SURGICAL HISTORY BACK SURGERY DORSAL COLUMN STIMULATER 2011 DORSAL COLUMN REMOVED JUNE 2017 CHOLECYSTECTOMY 11/09/18 FAMILY HISTORY FATHER: ALIVE, NO KNOWN MEDICAL PROBLEMS MOTHER: ALIVE, NO KNOWN MEDICAL PROBLEMS 2 SON(S) , 2 DAUGHTER(S) - HEALTHY. HOSPITALIZATION/MAJOR DIAGNOSTIC PROCEDURE SEE ABOVE CERVICAL NEURALGIA/MIGRAINES 02/2017 REVIEW OF SYSTEMS REVIEWED BY: PROVIDER: . CONSTITUTIONAL: ANY CHANGE IN YOUR MEDICAL CONDITION? NO . CHILLS NO . FEVER NO . INFECTION: DO YOU HAVE NEW INFECTIONS? NO . DO YOU HAVE HISTORY OF MRSA? NO . MUSCULOSKELETAL: ANY NEW PATTERNS OF PAIN OR NUMBNESS? NO . GASTROENTEROLOGY: ANY NEW CHANGE IN BOWEL CONTROL? NO . GENITOURINARY: ANY NEW CHANGE IN BLADDER CONTROL? NO . IS THERE A CHANCE YOU COULD BE ? NO . HEMATOLOGY/LYMPH: DO YOU TAKE ANY BLOOD THINNERS? (FOR EXAMPLE- COUMADIN, PLAVIX, AGGRENOX, PLATEL, PRADAXA, OR XARELTO) NO . WHEN WAS YOUR LAST DOSE? DATE: TIME: . NEUROLOGY: HAVE YOU FALLEN IN THE PAST 12 MONTHS? NO . ANY NEW EXTREMITY NUMBNESS OR WEAKNESS? NO . CARDIOLOGY: DO YOU HAVE A PACEMAKER OR DEFIBRILLATOR? NO . RESPIRATORY: HAVE YOU BEEN SICK IN THE PAST WEEK? NO . FEVER NO . FLU LIKE SYMPTOMS? NO . COUGH NO . INTEGUMENTARY: DO YOU HAVE ANY RASHES OR OPEN SORES? NO . ALLERGIC/IMMUNO: ARE YOU ALLERGIC TO IV DYE? NO . ANY NEW ALLERGIES? NO . PSYCHIATRIC: DO YOU HAVE THOUGHTS OF HURTING YOURSELF OR SOMEONE ELSE? NO . ARE YOU ABUSED, NEGLECTED, OR IN AN UNSAFE ENVIRONMENT? NO . ENDOCRINOLOGY: ARE YOU DIABETIC? NO . OTHER: DO YOU NEED ANY PRESCRIPTIONS? NO . IF YES, PLEASE LIST: ____ . ANY NEW PROBLEMS WITH YOUR MEDICATIONS? NO . WHEN DID YOU LAST EAT? ____ . WHEN DID YOU LAST DRINK? ____ . WHAT DID YOU LAST DRINK? ____ . NAME OF PERSON DRIVING YOU HOME? ____ . DO YOU HAVE ANY OTHER QUESTIONS OR CONCERNS NO . VITAL SIGNS WT 148 LBS, HT 62.5 IN, BMI 26.64 INDEX, BP 118/71 MM HG, HR 76 /MIN, RR 16 /MIN, TEMP 98.0 F, OXYGEN SAT % 96%, NA INITIALS SC 09:05, REVIEWED BY: KG. ASSESSMENTS MYALGIA, OTHER SITE - M79.18 (PRIMARY) PROCEDURES PN TRIGGER POINT INJECTION WITH STEROIDS PRE PROCEDURE DIAGNOSIS 1. MYALGIA 2. PAIN AT BILATERAL THORACIC AREA. POST PROCEDURE DIAGNOSIS 1. MYALGIA 2. PAIN AT BILATERAL THORACIC AREA. PROCEDURE TRIGGER POINT INJECTION AT RIGHT AND LEFT THORACIC AREA. SURGEON DR. REBECCA ARIAS [place] PICK[employer] NONE ANESTHESIA LOCAL PRE PROCEDURE NOTE THE PATIENT HAS A HISTORY OF CHRONIC PAIN AT THE RIGHT AND LEFT THORACIC AREA. I EVALUATED THE PATIENT AND REVIEWED THE CHART. THERE IS EVIDENCE OF BANDS OF TISSUE WITH RESTRICTION OF MOVEMENT AND PRESENCE OF TRIGGER POINT AT THE AFFECTED AREA. I WENT OVER THE RISKS, ALTERNATIVES, AND BENEFITS ASSOCIATED WITH THIS PROCEDURE. THE PATIENT WOULD LIKE TO PROCEED AND GIVE CONSENT TO PERFORMED THE PROCEDURE. THE PATIENT DENIES UNEXPLAINABLE WEIGHT LOSS, FEVER, CHILLS, OR NEW CHANGES IN URINARY OR BOWEL CONTROL DESCRIPTION OF PROCEDURE THE PATIENT WAS BROUGHT TO THE PROCEDURE ROOM AND PLACED IN THE SITTING POSITION. THE AREA WAS CLEANED WITH ALCOHOL. THE PROCEDURE WAS DONE USING ASEPTIC STERILE TECHNIQUE. I CHECKED LATERALITY AND THE LEVEL WHERE THE PROCEDURE WAS GOING TO BE PERFORMED WITH THE PATIENT AND THE SUPPORTING STAFF AT THE MOMENT OF THE TIME OUT IN THE PROCEDURE ROOM. USING A 25-GAUGE NEEDLE, TRIGGER POINTS WERE INJECTED AT THE RIGHT AND LEFT THORACIC AREA WITH A TOTAL OF 40 ML OF BUPIVACAINE 0.25% AND KENALOG 40 MG. THERE WAS NO EVIDENCE OF BLOOD, PARESTHESIA OR CEREBROSPINAL FLUID DURING THE PROCEDURE. THE PATIENT WAS SENT TO THE RECOVERY ROOM. THE PATIENT WAS MOVING THE EXTREMITIES AND DOING WELL. THERE WAS NO COMPLICATION DURING THE PROCEDURE POST PROCEDURE NOTE THE PATIENT WILL BE SEEN IN A FOLLOW UP IN THE NEXT FEW WEEKS. INSTRUCTIONS WERE GIVEN, QUESTIONS WERE ANSWERED, AND THE PATIENT EXPRESSED UNDERSTANDING AND AGREES WITH THE PLAN. I, ARMINDA ANDRADE, DOCUMENTED THE ABOVE INFORMATION ACTING A SCRIBE FOR DR. ARIAS. I HAVE REVIEWED THE ABOVE DOCUMENT, WRITTEN BY ARMINDA ANDRADE [employer] AND I VERIFY THAT IT IS ACCURATE. PROCEDURE CODES 24288 INJ TRIGGER POINT 1/2 MUSCL DISPOSITION & COMMUNICATION FOLLOW UP 3 WEEKS ELECTRONICALLY SIGNED BY REBECCA ARIAS MD, MD ON 12/09/2018 AT 04:57 PM EDT DISCLAIMER : THIS IS A VISIT SUMMARY EXTRACTED FROM THE [employer] CHART. IT IS NOT A COPY OF THE [employer] PROGRESS NOTE. TASHA
== END ==
LOC: M PAIN 08:30
PROVIDERS: ATTEND Anesthesiology
DX: G89.29 Other chronic pain (principal); M79.18 Myalgia, other site; M54.6 Pain in thoracic spine; Z79.891 Long term (current) use of opiate analgesic; Z79.899 Other long term (current) drug therapy; Z88.0 Allergy status to penicillin; Z88.1 Allergy status to other antibiotic agents; Z88.5 Allergy status to narcotic agent; Z88.8 Allergy status to other drugs, medicaments and biological substances

== ENCOUNTER → 2018-12-13 | Outpatient (CLI) | payer OTHER, MEDICAID ==
--- NOTE | 2018-12-13 10:02 | REP ---
Clinical: Kidney stone. Technique: Two supine views of the abdomen and pelvis. Findings: Right ureteral stent extends from the right renal pelvis to the bladder. 9 mm calculus is identified in the proximal right ureter adjacent to the stent. Smaller urinary tract calcifications may be obscured by bowel gas. The bowel gas pattern is nonspecific. Evidence of prior cholecystectomy. IUD in the pelvis. Skeletal structures intact. Impression: 1. Right ureteral stent in satisfactory position. 2. 9 mm proximal right ureteral calculus. Electronically Signed by Oracio Barboza MD 12/13/2018 09:53 A
== END ==
LOC: M SMT 09:27
PROVIDERS: ATTEND Nurse Practitioner Women's Health
DX: N20.0 Calculus of kidney (principal)

== ENCOUNTER 2018-12-16 07:11 | Day surgery (SDC) | payer OTHER ==
[~2018-12-16] VITALS: Ht 162.6 cm; Wt 69.4 kg
[~2018-12-16 07:11] MED LIST changes: -BUPR50TA PO; +CLINDAMYCIN 900 MG in APPROPRIATE DILUENT 1 EA IV ONE; +LR 1,000 ML IV ONE; -OXYB5TAB10 PO
[2018-12-16] MEDS ORDERED: cefTRIAXone SOD 1 GM in D5W MINI-BAG PLUS 50 ML IV ONE (08:00)
[2018-12-16] MEDS ORDERED: PROPOFOL 200 MG/20 ML VIAL As Ordered ONE (08:01)
[2018-12-16] MEDS ORDERED: LIDOCAINE 2% INJ 100 MG/5 ML SDV (FOR ANES.) As Ordered ONE (08:01)
[2018-12-16] MEDS ORDERED: fentaNYL 100 MCG/2 ML INJECTION (J3010) As Ordered ONE ×2 (08:01→09:51)
[2018-12-16] MEDS ORDERED: MIDAZOLAM INJ 2 MG/2 ML VIAL (J2250) As Ordered ONE (08:02)
[2018-12-16 08:34] LABS: HCG, SERUM QUALITATIVE NEGATIVE (NEGATIVE)
[2018-12-16] MEDS ORDERED: CONRAY-60 60% 50ML VIAL (Q9961) As Ordered ONE (08:44)
[2018-12-16] MEDS ORDERED: dexameTHASONE 4 MG/ML 1ML VIAL (J1100) As Ordered ONE (09:05)
[2018-12-16] MEDS ORDERED: ONDANSETRON 4MG/2ML VIAL (J2405) As Ordered ONE (09:05)
[2018-12-16] MEDS ORDERED: MEPERIDINE INJ 25 MG/ML VIAL (J2175) As Ordered ONE (09:51)
[2018-12-16] MEDS ORDERED: oxyCODONE 5MG TAB As Ordered ONE (09:51)
[2018-12-16] MEDS: oxyCODONE 5MG TAB PO PRN ×2 (09:55→10:35)
[2018-12-16] MEDS: fentaNYL 100 MCG/2 ML INJECTION (J3010) IV PRN ×4 (09:55→10:10)
[2018-12-16] MEDS: MEPERIDINE INJ 25 MG/ML VIAL (J2175) IV PRN ×2 (09:57→10:05)
[2018-12-16] MEDS ORDERED: LR 1,000 ML IV SCH (10:00)
[2018-12-16] MEDS ORDERED: PERCOCET 5MG/325MG TAB PO PRN ×2 (10:00→11:15)
[2018-12-16] MEDS ORDERED: ONDANSETRON 4MG/2ML VIAL (J2405) IV PRN (10:00)
[2018-12-16] MEDS ORDERED: oxyBUTYnin 5 MG TAB PO PRN ×2 (10:15→11:15)
[2018-12-16] MEDS ORDERED: HYDROMORPHONE HCL 0.5 MG/ 0.5 ML SYRINGE (J1170 PER 1) As Ordered ONE (10:18)
[2018-12-16] MEDS: HYDROMORPHONE HCL 0.5 MG/ 0.5 ML SYRINGE (J1170 PER 1) IV PRN ×2 (10:20→10:40)
[2018-12-16] MEDS ORDERED: KETOROLAC 30 MG/ML VIAL (J1885) As Ordered ONE (11:06)
[2018-12-16] MEDS ORDERED: KETOROLAC 30 MG/ML VIAL (J1885) IV ONE (11:15)
[2018-12-16 12:25] VITALS: BP 123/80
--- NOTE | 2018-12-16 20:25 | RO ---
DATE OF PROCEDURE: 12/16/2018 PREPROCEDURE DIAGNOSIS: Right kidney stone. POSTPROCEDURE DIAGNOSIS: Right kidney stone. PROCEDURE: Cystoscopy, right ureteroscopy with laser lithotripsy and basket extraction of stones, right retrograde pyelogram with intraoperative interpretation of images, right ureteral stent exchange. SURGEON: Dr. Alverto Castro LICENSED REACTOR OPERATOR: None. ANESTHESIA: General. OPERATIVE INDICATIONS: This is a 43-year-old female who was found to have an obstructing 9 mm right ureteropelvic junction stone and had a right ureteral stent placed previously. She was brought to the operating room today for treatment of her stone. DESCRIPTION OF PROCEDURE: The patient was brought to the operating room and general anesthesia induced. Prophylactic antibiotics were infused. She was then placed in the dorsal lithotomy position and prepped and draped in the usual sterile fashion. A rigid cystoscope was inserted into the urethral meatus and advanced to the bladder. Once inside the bladder, the previously placed stent was seen. The stent was then grasped and withdrawn until the distal end was protruding from the urethral meatus. I then advanced a wire up the stent. The stent was then removed leaving the wire in place. I then advanced the ureteral access sheath over the wire into the right collecting system. I went up the access sheath with a flexible ureteroscope and then the 9 mm stone was seen in the right renal pelvis. The stone was fragmented into smaller pieces using 272 micron laser fiber. All the fragments were removed using a basket. Once all the fragments were removed, a retrograde pyelogram was performed. It was notable for moderate right hydronephrosis, no extravasation. I then withdrew the ureteroscope along with the access sheath and no additional stones were seen within the ureter. I then utilized the wire to advance a #6-Bulgarian x 22-32 cm JJ ureteral stent up into the right collecting system. The wire was then removed, and there were adequate curls of the stent in the right renal pelvis and in the bladder. The bladder was then emptied of all fluids, and this marked the conclusion of the procedure. The patient was then taken out of the dorsal lithotomy position, awakened from anesthesia, and transported to the recovery room in stable condition. Estimated blood loss: 5 mL. Complications: None. Specimens: Kidney stone fragments. PLAN: The patient will followup in the clinic in a week or two for stent removal.
--- NOTE | 2018-12-16 23:18 | REP ---
RETROGRADE PYELOGRAM: Three views. HISTORY: Cysto with stent. 6 seconds of fluoroscopy time is reported. FINDINGS: A sequence of three last image hold fluoroscopically obtained spot radiographs of the abdomen document ureteral cannulation, contrast injection, and stent placement. No laterality markers are visible. An IUD is noted incidentally in the pelvis. Electronically Signed by Remington Plasencia MD 12/19/2018 07:53 A
[2018-12-24 00:06] LABS: CA Oxalate Dihy 20 % (.); COMMENT Note: (.); Ca Ox Monohydrate 45 % (.)
== END 2018-12-16 12:28 | disposition home or self-care (01) ==
LOC: M SDC 07:11
PROVIDERS: ATTEND Urology
DX: N20.0 Calculus of kidney (principal); N20.1 Calculus of ureter; M51.36 Other intervertebral disc degeneration, lumbar region; J45.909 Unspecified asthma, uncomplicated; G62.9 Polyneuropathy, unspecified; Z79.899 Other long term (current) drug therapy; Z88.0 Allergy status to penicillin; Z88.8 Allergy status to other drugs, medicaments and biological substances
CPT/HCPCS: 36415; 52356; 74420; 82360; 84703; 88300; C1769; C1894; C2617; J0696; J1100; J1170; J1885; J2175; J2250; J2405; J3010; Q9961

== ENCOUNTER 2018-12-18 19:13 | Observation (INO) | payer OTHER ==
[~2018-12-18] VITALS: Ht 162.6 cm; Wt 72.2 kg
[~2018-12-18 19:13] MED LIST changes: -CLINDAMYCIN 900 MG in APPROPRIATE DILUENT 1 EA IV ONE; -LR 1,000 ML IV ONE
[2018-12-18] MEDS ORDERED: NS 1,000 ML IV ONE (20:00)
[2018-12-18] MEDS ORDERED: ACETAMINOPHEN *IV* 1,000 MG in APPROPRIATE DILUENT 1 EA IV ONE (20:00)
[2018-12-18] MEDS ORDERED: KETOROLAC 30 MG/ML VIAL (J1885) IV ONE (20:00)
[2018-12-18] MEDS ORDERED: MORPHINE 4 MG/ML 1ML VIAL/SYRINGE (J2270) IV ONE ×2 (20:30→23:15)
[2018-12-18 20:31] LABS: BASO # 0.1 10^3/uL (0.0-0.2); BASO % 0.4 % (0.0-1.0); EOS # 0.2 10^3/uL (0.0-0.5); EOS % 0.9 % (0.0-3.0); HEMATOCRIT 41.4 % (36.0-47.0); HEMOGLOBIN 13.7 g/dl (12.0-15.5); LYMPH # 2.2 10^3/uL (1.5-5.0); LYMPH % 13.5 % (24.0-44.0); MEAN CORPUSCULAR HEMOGLOBIN 30.3 pg (27.0-33.0); MEAN CORPUSCULAR HGB CONC 33.1 g/dl (32.0-36.5); MEAN CORPUSCULAR VOLUME 91.6 fl (80.0-96.0); MONO % 6.2 % (0.0-5.0); NEUTROPHILS % 78.6 % (36.0-66.0); PLATELET COUNT, AUTOMATED 331 10^3/uL (150-450); RED BLOOD COUNT 4.52 10^6/uL (4.00-5.40); WHITE BLOOD COUNT 16.5 10^3/uL (4.0-10.0)
--- NOTE | 2018-12-18 20:39 | REPVR ---
EXAM: CT Abdomen and Pelvis Without Contrast EXAM DATE/TIME: 12/18/2018 8:01 PM CLINICAL HISTORY: 43 years old, female; Abdominal pain; Prior surgery; Surgery date: 3-7 days post-operative; Additional info: Post op pain R stent TECHNIQUE: Imaging protocol: Computed tomography of the abdomen and pelvis without contrast. Axial, coronal and sagittal reformatted images were created and reviewed. Radiation optimization: All CT scans at this facility use at least one of these dose optimization techniques: automated exposure control; mA and/or kV adjustment per patient size (includes targeted exams where dose is matched to clinical indication); or iterative reconstruction. COMPARISON: CT ABD PELVIS W/O CONTRAST 12/05/2018 11:06 AM FINDINGS: Liver: Unremarkable. Gallbladder and bile ducts: Status post cholecystectomy. No biliary ductal dilatation. Pancreas: Unremarkable. Spleen: Unremarkable. Adrenals: Unremarkable. Kidneys and ureters: Right ureteral stent in place. Small amount of gas in the right renal pelvis, likely iatrogenic. Mild to moderate right-sided hydroureteronephrosis and perinephric/periureteral edema. Nonobstructing right renal calculus. Stomach and bowel: Status post gastric sleeve. Large amount of retained stool in the colon. No obstruction. No bowel wall thickening. No pneumatosis. Appendix: Normal. Intraperitoneal space: No free fluid. No organized fluid collection. No free air. Vasculature: Unremarkable. No aneurysm. Lymph nodes: No pathologically enlarged lymph nodes. Bladder: Small amount of gas in the nondependent urinary bladder, likely iatrogenic. Reproductive: Bilateral adnexal cystic lesions, measuring up to 4.4 x 3.8 cm on the right and 3.2 x 2.5 cm on the left. Bones/joints: No acute osseous abnormality. Soft tissues: Unremarkable. IMPRESSION: 1. Limited noncontrast examination. 2. Right ureteral stent in place with a small amount of gas in the right renal pelvis a nondependent urinary bladder, likely iatrogenic. 3. Mild to moderate right-sided hydroureteronephrosis and perinephric/periureteral edema. Infection cannot be excluded without intravenous contrast. 4. Nonobstructing right renal calculus. 5. Bilateral adnexal cystic lesions, measuring up to 4.4 x 3.8 cm on the right and 3.2 x 2.5 cm on the left. If clinically indicated, pelvic ultrasound may be obtained for further evaluation. 6. Additional findings, as above. Electronically signed by: Steve Taylor On 12/18/2018 20:39:26 PM
[2018-12-18 20:42] LABS: INR 1.06; PROTHROMBIN TIME 13.5 SECONDS (11.8-14.0)
[2018-12-18 20:43] LABS: PARTIAL THROMBOPLASTIN TIME 26.7 SECONDS (25.0-38.4)
[2018-12-18 20:58] LABS: BLOOD UREA NITROGEN 9 MG/DL (7-18); CALCIUM LEVEL 8.9 MG/DL (8.5-10.1); CARBON DIOXIDE LEVEL 23 MEQ/L (21-32); CHLORIDE LEVEL 106 MEQ/L (98-107); CREATININE FOR GFR 0.77 MG/DL (0.55-1.30); GLOMERULAR FILTRATION RATE > 60.0 (>58); GLUCOSE, FASTING 104 MG/DL (70-100); SODIUM LEVEL 139 MEQ/L (136-145)
[2018-12-18 21:58] LABS: APPEARANCE, URINE HAZY (CLEAR); BACTERIA, URINE AUTO NEGATIVE (NEGATIVE); BILIRUBIN, URINE AUTO NEGATIVE (NEGATIVE); BLOOD, URINE BLOOD 3+ (NEGATIVE); COLOR, URINE YELLOW (YELLOW); GLUCOSE, URINE (UA) AUTO NEGATIVE (NEGATIVE); KETONE, URINE AUTO 1+ mg/dL (NEGATIVE); LEUKOCYTE ESTERASE, URINE AUTO 2+ (NEGATIVE); MUCUS, URINE SMALL (NEGATIVE); NITRITE, URINE AUTO NEGATIVE (NEGATIVE); PROTEIN, URINE AUTO 2+ mg/dL (NEGATIVE); RBC, URINE AUTO TNTC /HPF (0-3); SPECIFIC GRAVITY URINE AUTO 1.025 (1.002-1.035); SQUAMOUS EPITHELIAL CELL UR AU 1 /HPF (0-6); UROBILINOGEN, URINE AUTO 0.2 mg/dL (0.0-2.0); WBC, URINE AUTO 74 /HPF (0-3)
[2018-12-18] MEDS ORDERED: CIPROFLOXACIN 400 MG in APPROPRIATE DILUENT 1 EA IV ONE (23:15)
[2018-12-18] MEDS ORDERED: SOMA350T PO (23:50)
[2018-12-18] MEDS ORDERED: BUPR50TA PO (23:50)
[2018-12-18] MEDS ORDERED: OXYB5TAB10 PO (23:51)
--- NOTE | 2018-12-18 23:55 | HPEPDOC ---
[facility] Medical History & Physical Date of Admission Dec 18, 2018 Date of Service: Dec 18, 2018 Primary Care Physician: DANIELLE HOUSTON DO Attending Physician: FRANCES COOK MD History and Physical TIME OF SERVICE: 1157pm CHIEF COMPLAINT: Abdominal pain HISTORY OF PRESENT ILLNESS: This is a 43-year-old female with a past medical history of nephrolithiasis with had stent placement on November 11. On Wednesday the stent was repositioned. Today she presented with complaints of sharp 10 out of 10 in severity, nonradiating right lower abdominal pain. The pain improved slightly to 7 out of 10 in severity after receiving morphine in the ED. She denies having nausea, denies having vomiting, denies having fevers, denies having chills. Per discussion with Dr. Clarke the WBC count was 17, UA showed findings consistent with a UTI and hematuria and CT abdomen showed moderate hydronephrosi s with perinephric fat stranding and edema, which is new when compared to her previous CT; she was started on ciprofloxacin IV fluids. Dr. Paul was consulted. REVIEW OF SYSTEMS: 12 point review of systems negative except as listed in HPI PAST MEDICAL/ SURGICAL HISTORY: Migraines Chronic back pain Status post Gastric sleeve surgery L4-L5 discectomy Status post . Status post cholecystectomy SOCIAL HISTORY: Nonsmoker has 4 children. FAMILY HISTORY: Parkinson's disease. Migraines Chronic back pain ALLERGIES: Please see below. HOME MEDICATIONS: Please see below. PHYSICAL EXAMINATION: VITAL SIGNS: Please see below. GENERAL APPEARANCE: Well-nourished, well-developed, in moderate distress HEENT: Normocephalic, atraumatic, mucous membranes moist and pink CARDIOVASCULAR: Regular rate and rhythm. No murmurs, rubs or gallops. No lotion edema LUNGS: Clear to auscultation bilaterally on room air ABDOMEN: Bowel sounds are hypoactive, abdomen is soft and with palpation of the right side MUSCULOSKELETAL: Range of motion is intact in all 4 extremities INTEGUMENT: . Old post laparoscopy scars are visible in the abdomen NEUROLOGICAL: CN II to 12 grossly intact, speech is not dysarthric PSYCHIATRIC: Alert and oriented to person, place and time, able to understand and follow commands LABORATORY DATA: See below. IMAGING: CT of the abdomen showed right ureteral stent thousand, place the small amount of gas in the right renal pelvis, mild to moderate right-sided hydrour eteronephrosis , along with perinephric and periureteral edema, nonobstructing right renal calculus, and bilateral adnexal cysts measuring 4.4 cm in the right and 3.2 cm of the left recommendations for pelvic ultrasound if clinically indicated MICROBIOLOGY: Please see below. ASSESSMENT: Ms. Kaba is a 43-year-old female with a past medical history of migraines, chronic back pain, gastric see surgery, nephrolithiasis, and previous stent placement will be admitted for management of pyelonephritis. PLAN: 1. Pyelonephritis. Diagnosis made based on complaints of right left abdominal pain, UA and CT findings. WBC count elevated , but no other SIRS criteria present BUN and creatinine at baseline Plan: admit to [facility] / NPO w IVF pending Urology eval / f/u Ucx, blood Cx and renal function /c/w Cipro /morphine and toradol for pain 2. Migraines. Plan: Continue home meds 3.Bilateral adnexal cysts. 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 Disposition pending clinical course Vital Signs Vital Signs Date Time Temp Pulse Resp B/P (MAP) Pulse Ox O2 Delivery O2 Flow Rate FiO2 12/18/18 23:24 16 12/18/18 23:18 98.4 80 134/62 (86) 98 Laboratory Data Labs 24H Laboratory Tests 2 12/18/18 20:16: Immature Granulocyte % (Auto) 0.4, White Blood Count 16.5H, Red Blood Count 4.52, Hemoglobin 13.7, Hematocrit 41.4, Mean Corpuscular Volume 91.6, Mean Co rpuscular Hemoglobin 30.3, Mean Corpuscular Hemoglobin Concent 33.1, Red Cell Distribution Width 13.2, Platelet Count 331, Neutrophils (%) (Auto) 78.6H, Lymphocytes (%) (Auto) 13.5L, Monocytes (%) (Auto) 6.2H, Eosinophils (%) (Auto) 0.9, Basophils (%) (Auto) 0.4, Neutrophils # (Auto) 13.0H, Lymphocytes # (Auto) 2.2, Monocytes # (Auto) 1.0H, Eosinophils # (Auto) 0.2, Basophils # (Auto) 0.1, Nucleated Red Blood Cells % (auto) 0.0, Prothrombin Time 13.5, Prothromb Time International Ratio 1.06, Activated Partial Thromboplast Time 26.7, Anion Gap 10, Glomerular Filtration Rate > 60.0, Blood Urea Nitrogen 9, Creatinine 0.77, Sodium Level 139, Potassium Level 4.0, Chloride Level 106, Carbon Dioxide Level 23, Calcium Level 8.9 12/18/18 21:36: Urine Appearance HAZY, Urine Color YELLOW, Urine pH 6.0, Urine Specific [place] 1.025, Urine Protein 2+H, Urine Glucose (UA) NEGATIVE, Urine Ketones 1+H, Urine Urobilinogen 0.2, Urine Bilirubin NEGATIVE, Urine Leukocyte Esterase 2+H, Urine Blood 3+H, Urine Nitrite NEGATIVE, Urine WBC (Auto) 74H, Urine RBC (Auto) TNTCH, Urine Hyaline Casts (Auto) 0, Urine Bacteria (Auto) NEGATIVE, Urine Squamous Epithelial Cells 1, Urine Mucus (Auto) SMALL, Urine Sperm (Auto) CBC/BMP Laboratory Tests 12/18/18 20:16 Red Blood Count 4.52, Mean Corpuscular Volume 91.6, Mean Corpuscular Hemoglobin 30.3, Mean Corpuscular Hemoglobin Concent 33.1, Red Cell Distribution Width 13.2, Neutrophils (%) (Auto) 78.6 H, Lymphocytes (%) (Auto) 13.5 L, Monocytes (%) (Auto) 6.2 H, Eosinophils (%) (Auto) 0.9, Basophils (%) (Auto) 0.4, Neut rophils # (Auto) 13.0 H, Lymphocytes # (Auto) 2.2, Monocytes # (Auto) 1.0 H, Eosinophils # (Auto) 0.2, Basophils # (Auto) 0.1, Calcium Level 8.9 Microbiology Microbiology 12/18/18 Urine Culture, Received Pending Home Medications Scheduled Bupropion HCl (Bupropion HCl) 100 Mg Tablet, 100 MG PO BID Cephalexin (Keflex) 500 Mg Capsule, 500 MG PO QID FOR 10 DAYS Ciprofloxacin HCl (Cipro) 500 Mg Tablet, 1 TAB PO BID Oxybutynin Chloride (Oxybutynin Chloride) 5 Mg Tablet, 5 MG PO TID Oxycodone Hcl (Oxycodone HCl) 15 Mg Tablet, 15 MG PO TID Scheduled PRN Butalb/Acetaminophen/Caffeine (Edrsus-Gqzazjnm-Sdan 50-325-40) 1 Each Capsule, 1 CAP PO BID PRN for MIGRAINE Carisoprodol (Soma) 350 Mg Tablet, 350 MG PO Q8H PRN for BACK PAIN Oxycodone HCl/Acetaminophen (Oxycodone-Acetaminophen 5-325) 1 Tab Tab, 2 TAB PO BID PRN for PAIN Rizatriptan Benzoate (Rizatriptan) 10 Mg Tab, 10 MG PO BID PRN for MIGRAINE TAKE ONE TABLET AT ONSET AND ONE 2 HOURS LATER IF SYMPTOMS PERSIST. NOT TO EXCEED 2 TABLETS PER DAY Allergies Coded Allergies: amoxicillin (Verified Allergy, Intermediate, RASH, 11/08/18) magnesium (Verified Allergy, Mild, 11/08/18) tapentadol (Verified Allergy, Mild, MILD RASH, 12/16/18) per pt. she had a mild rash reaction in her arm a while ago. She does not recall how long ago. TAPE (Verified Adverse Reaction, Mild, REDNESS, 11/08/18) hydrocodone (Verified Adverse Reaction, Mild, HEADACHE, 12/16/18) ibuprofen (Verified Adverse Reaction, Mild, NAUSEA, 11/08/18) nortriptyline (Verified Adverse Reaction, Unknown, FELT DRUNK, 11/08/18) pregabalin (Verified Adverse Reaction, Unknown, FELT DRUNK, 12/16/18) A-FIB/CHADSVASC A-FIB History Current/History of A-Fib/PAF?: No Current PO Anticoag Therapy: FRANCES Worrell MD Dec 18, 2018 23:55
[2018-12-19] MEDS ORDERED: MORPHINE 4 MG/ML 1ML VIAL/SYRINGE (J2270) IV PRN
[2018-12-19 01:09] VITALS: BP 142/91
[2018-12-19] MEDS: NS 1,000 ML IV SCH ×3 (01:27→18:45)
[2018-12-19] MEDS ORDERED: fentaNYL 100 MCG/2 ML INJECTION (J3010) IV PRN (02:00)
[2018-12-19] MEDS: KETOROLAC 30 MG/ML VIAL (J1885) IV SCH ×4 (02:16→20:37)
[2018-12-19] MEDS: MORPHINE 4 MG/ML 1ML VIAL/SYRINGE (J2270) IV PRN ×5 (03:29→22:19)
[2018-12-19 06:00] VITALS: BP 117/90
[2018-12-19 07:52] LABS: HEMATOCRIT 35.6 % (36.0-47.0); MEAN CORPUSCULAR HEMOGLOBIN 30.1 pg (27.0-33.0); MEAN CORPUSCULAR HGB CONC 32.3 g/dl (32.0-36.5); MEAN CORPUSCULAR VOLUME 93.2 fl (80.0-96.0); PLATELET COUNT, AUTOMATED 248 10^3/uL (150-450); RED BLOOD COUNT 3.82 10^6/uL (4.00-5.40); WHITE BLOOD COUNT 12.2 10^3/uL (4.0-10.0)
[2018-12-19 08:01] LABS: HEMOGLOBIN 11.5 g/dl (12.0-15.5)
[2018-12-19] MEDS: buPROPion 100 MG TAB PO SCH ×2 (08:16→20:37)
[2018-12-19] MEDS: oxyBUTYnin 5 MG TAB PO SCH ×3 (08:16→20:37)
[2018-12-19 08:18] LABS: BLOOD UREA NITROGEN 7 MG/DL (7-18); CALCIUM LEVEL 8.2 MG/DL (8.5-10.1); CARBON DIOXIDE LEVEL 26 MEQ/L (21-32); CHLORIDE LEVEL 108 MEQ/L (98-107); CREATININE FOR GFR 0.66 MG/DL (0.55-1.30); GLOMERULAR FILTRATION RATE > 60.0 (>58); GLUCOSE, FASTING 89 MG/DL (70-100); MAGNESIUM LEVEL 2.1 MG/DL (1.8-2.4); POTASSIUM SERUM 3.7 MEQ/L (3.5-5.1); SODIUM LEVEL 143 MEQ/L (136-145)
--- NOTE | 2018-12-19 08:36 | SMCUROLCON ---
Urology Consultation General Date of Consultation 12/19/18 Reason For Consultation This patient is seen for Pyelonephritis. History of Present Illness This is a 43 y/o F POD3 s/p right ureteroscopy w/ laser lithotripsy and basket extraction of stones, and right ureteral stent placement, admitted for worsening right flank pain. She notes that her pain acute worsened yesterday after voiding. She also saw an increased amount of blood in the urine at the time. She denies dysuria. She denies fevers or chills. She denies nausea/vomiting. CT A/P done on admission was notable for mild right hydro w/ the ureteral stent in good condition. There was no perinephric stranding. Her WBC is 12.2 this morning. UA was notable for 74 WBCs/hpf and no bacteria. Past Medical History Medical History migraines, back pain, depression, kidney stones Surgical Hstory back surgery, , cholecystectomy, gastric sleeve, ureteroscopy w/ laser lithotripsy Medications Current Medications Current Medications Medications (Trade) Dose Ordered Sig/Yair Route PRN Reason Start Time Stop Time Status Last Admin Dose Admin Bupropion HCl (Wellbutrin) 100 mg BID PO 12/19/18 09:00 12/19/18 08:16 Ciprofloxacin 400 mg/IV Miscellaneous Supplies 200 ml @ 200 mls/hr Q12H IV 12/19/18 12:00 Fentanyl Citrate (Sublimaze) 50 mcg Q2HP PRN IV pain 5-10 in severity 12/19/18 02:00 12/19/18 02:00 DC Home Med (Med Rec Complete!) ASDIRECTED XX 12/19/18 00:00 12/19/18 00:00 JUNG Ketorolac Tromethamine (ToRADol) 30 mg Q6H IV 12/19/18 02:00 12/24/18 01:59 12/19/18 08:17 Morphine Sulfate (Morphine Sulfate Inj) 2 mg Q2HP PRN IV pain 5-10 in severity 12/19/18 01:00 12/19/18 05:43 Morphine Sulfate (Morphine Sulfate Inj) 2 mg Q4HP PRN IV pain 5-10 12/19/18 00:00 12/19/18 00:27 DC 12/19/18 00:26 Oxybutynin Chloride (Ditropan) 5 mg TID PO 12/19/18 09:00 12/19/18 08:16 Rizatriptan Benzoate (Maxalt) 10 mg BID PRN PO MIGRAINE 12/19/18 05:00 Sodium Chloride 1,000 ml @ 100 mls/hr Q10H IV 12/18/18 23:50 12/19/18 01:27 Allergies Allergies: Coded Allergies: amoxicillin (Verified Allergy, Intermediate, RASH, 11/08/18) magnesium (Verified Allergy, Mild, 11/08/18) tapentadol (Verified Allergy, Mild, MILD RASH, 12/16/18) per pt. she had a mild rash reaction in her arm a while ago. She does not recall how long ago. TAPE (Verified Adverse Reaction, Mild, REDNESS, 11/08/18) hydrocodone (Verified Adverse Reaction, Mild, HEADACHE, 12/16/18) ibuprofen (Verified Adverse Reaction, Mild, NAUSEA, 11/08/18) nortriptyline (Verified Adverse Reaction, Unknown, FELT DRUNK, 11/08/18) pregabalin (Verified Adverse Reaction, Unknown, FELT DRUNK, 12/16/18) Review of Systems Constitutional: Denies: Fever, Chills, Sweats, Weakness, Malaise Pulmonary: Denies: Dyspnea, Cough Cardiovascular: Denies Chest Pain, Denies Palpitations Gastrointestinal: Reports: Abdominal Pain (right lower abd pain); Denies: Nausea, Vomiting Genitourinary: Reports: Hematuria; Denies: Dysuria, Frequency, Incontinence Musculoskeletal: Reports: Back Pain (right flank pain) Neurological: Denies: Weakness, Numbness, Incoordination, Change in Speech Psych: Reports: Mood Normal Physical Examination General Exam: Alert, No Acute Distress Chest Exam: Normal air movement Heart Exam: Rate Normal Abdomen Exam: Soft, Tenderness (mild right lower abd tenderness) Skin Exam: Nl turgor and temperature Neuro Exam: Normal Speech Psych Exam: Mood NL Vital Signs/I&O Vital Signs Date Time Temp Pulse Resp B/P (MAP) Pulse Ox O2 Delivery O2 Flow Rate FiO2 12/19/18 06:00 97.8 76 17 117/90 (99) 100 12/19/18 00:27 Room Air I&O- Last 24 Hours up to 6 AM 12/19/18 06:00 Intake Total 1750 ml Balance 1750 ml Laboratory Data 24H Labs Laboratory Tests 2 12/18/18 20:16: Immature Granulocyte % (Auto) 0.4, White Blood Count 16.5H, Red Blood Count 4.52 , Hemoglobin 13.7, Hematocrit 41.4, Mean Corpuscular Volume 91.6, Mean Corpuscular Hemoglobin 30.3, Mean Corpuscular Hemoglobin Concent 33.1, Red Cell Distribution Width 13.2, Platelet Count 331, Neutrophils (%) (Auto) 78.6H, Lymphocytes (%) (Auto) 13.5L, Monocytes (%) (Auto) 6.2H, Eosinophils (%) (Auto) 0.9, Basophils (%) (Auto) 0.4, Neutrophils # (Auto) 13.0H, Lymphocytes # (Auto) 2.2, Monocytes # (Auto) 1.0H, Eosinophils # (Auto) 0.2, Basophils # (Auto) 0.1, Nucleated Red Blood Cells % (auto) 0.0, Prothrombin Time 13.5, Prothromb Time International Ratio 1.06, Activated Partial Thromboplast Time 26.7, Anion Gap 10, Glomerular Filtration Rate > 60.0, Blood Urea Nitrogen 9, Creatinine 0.77, Sodium Level 139, Potassium Level 4.0, Chloride Level 106, Carbon Dioxide Level 23, Calcium Level 8.9 12/18/18 21:36: Urine Appearance HAZY, Urine Color YELLOW, Urine pH 6.0, Urine Specific [place] 1.025, Urine Protein 2+H, Urine Glucose (UA) NEGATIVE, Urine Ketones 1+H, Urine Urobilinogen 0.2, Urine Bilirubin NEGATIVE, Urine Leukocyte Esterase 2+H, Urine Blood 3+H, Urine Nitrite NEGATIVE, Urine WBC (Auto) 74H, Urine RBC (Auto) TNTCH, Urine Hyaline Casts (Auto) 0, Urine Bacteria (Auto) NEGATIVE, Urine Squamous Epithelial Cells 1, Urine Mucus (Auto) SMALL, Urine Sperm (Auto) 12/19/18 07:35: Nucleated Red Blood Cells % (auto) 0.0, Anion Gap 9, Glomerular Filtration Rate > 60.0, Blood Urea Nitrogen 7, Creatinine 0.66, Sodium Level 143, Potassium Level 3.7, Chloride Level 108H, Carbon Dioxide Level 26, Calcium Level 8.2L, Magnesium Level 2.1 CBC/BMP Laboratory Tests 12/18/18 20:16 Red Blood Count 4.52, Mean Corpuscular Volume 91.6, Mean Corpuscular Hemoglobin 30.3, Mean Corpuscular Hemoglobin Concent 33.1, Red Cell Distribution Width 13.2, Neutrophils (%) (Auto) 78.6 H, Lymphocytes (%) (Auto) 13.5 L, Monocytes (%) (Auto) 6.2 H, Eosinophils (%) (Auto) 0.9, Basophils (%) (Auto) 0.4, Neutrophils # (Auto) 13.0 H, Lymphocytes # (Auto) 2.2, Monocytes # (Auto) 1.0 H, Eosinophils # (Auto) 0.2, Basophils # (Auto) 0.1, Calcium Level 8.9 12/19/18 07:35 Red Blood Count 3.82 L, Mean Corpuscular Volume 93.2, Mean Corpuscular Hemoglobin 30.1, Mean Corpuscular Hemoglobin Concent 32.3, Red Cell Distribution Width 13.3, Calcium Level 8.2 L Microbiology Microbiology 12/18/18 Urine Culture, Received Pending Assessment This is a 43 y/o F POD 3 s/p right ureteroscopy w/ laser lithotripsy w/ basket extraction of stones, and right ureteral stent placement, admitted for increased right flank pain. I suspect her pain is related to urine reflux back up her stent when she voids. Plan - cont pain management w/ toradol and percocet - oxybutynin prn bladder spasms - suspect this is not pyelonephritis but will defer to hospitalist regarding antibiotics - once patient's pain is better controlled, ok for discharge home from urologic standpoint - will have patient f/u as scheduled on 12/28 in the urology office for stent removal ERIBERTO WILKINSON MD Dec 19, 2018 08:36
[2018-12-19 10:00] VITALS: BP 135/93
[2018-12-19] MEDS: oxyCODONE 5MG TAB PO SCH ×3 (10:35→20:38)
[2018-12-19] MEDS: CIPROFLOXACIN 400 MG in APPROPRIATE DILUENT 1 EA IV SCH (11:37)
[2018-12-19] MEDS: PERCOCET 5MG/325MG TAB PO PRN (13:01)
[2018-12-19] MEDS ORDERED: ONDANSETRON 4MG/2ML VIAL (J2405) As Ordered ONE (13:22)
[2018-12-19] MEDS ORDERED: ONDANSETRON 4MG/2ML VIAL (J2405) IV PRN (13:30)
--- NOTE | 2018-12-19 13:57 | IPNPDOC ---
Text Note Date of Service The patient was seen on 12/19/18. NOTE Subjective: Patient is a 43-year-old female presented to the hospital with 10 out of 10 abdominal pain. Patient was seen by urology this morning who said that there is nothing more to surgically do as the new stent that was placed 3 days ago is functioning and the kidney is draining. Patient's is still complaining of pain however, she is asking for food. Patient is not having any nausea, vomiting, or diarrhea. She has been urinating. There were no acute events overnight. Review of systems General: Patient denies fevers HEENT: Patient denies headaches Cardiovascular: Patient denies chest pain Respiratory: Patient denies shortness of breath, cough GI: Patient endorses abdominal pain but denies nausea vomiting or diarrhea. : Patient endorses pain with urination. Neurological: Patient denies numbness or tingling in extremities Extremities: Patient denies swelling or pain in extremities Objective: Vitals: (see below) General: No acute distress, laying comfortably in bed. HEENT: Normocephalic, atraumatic, moist mucous membranes. Neck: No JVD or lymphadenopathy Cardiac: RRR, No murmurs Pulm: Clear to auscultation b/l. No wheezing, rhonchi Abd: Tender to palpation of the right abdomen. There is no tenderness to the left side of the abdomen. Positive CVA tenderness on the right side. Ext: No edema Labs (see below) Images: A CT of the abdomen and pelvis without contrast performed on 12/18/2018 showed right ureteral stent in place with a small amount of gas in the right renal pelvis a nondependent urinary bladder, likely iatrogenic. Mild to moderate right-sided hydro-nephrosis and ureter nephrosis and perinephric/periureteral edema. Infection cannot be excluded without intravenous contrast. Nonobstructing right renal calculus. Bilateral adnexal cystic lesion measuring up to 4.4 x 3.8 cm on the right and 3.2 x 2.5 cm on the left if clinically indicated, pelvic ultrasound may be obtained for further evaluation. Assessment/Plan 1. Pyelonephritis. Diagnosis made based on CT and UA findings. White blood cell count is elevated. We will await culture results and we will continue with ciprofloxacin. Patient is on her home pain medication regimen. 2. Migraines. Continue home medications 3. Bilateral adnexal cysts. 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 DVT prophy: Sequential compression devices and thromboembolic deterrent stockings Dispo: Pending clinical improvement I saw and evaluated the patient. I agree with the findings and plan of care as documented in the above note VS,Fishbone, I+O VS, Fishbone, I+O Laboratory Tests 12/18/18 20:16 Red Blood Count 4.52, Mean Corpuscular Volume 91.6, Mean Corpuscular Hemoglobin 30.3, Mean Corpuscular Hemoglobin Concent 33.1, Red Cell Distribution Width 13.2, Neutrophils (%) (Auto) 78.6 H, Lymphocytes (%) (Auto) 13.5 L, Monocytes (%) (Auto) 6.2 H, Eosinophils (%) (Auto) 0.9, Basophils (%) (Auto) 0.4, Neutrophils # (Auto) 13.0 H, Lymphocytes # (Auto) 2.2, Monocytes # (Auto) 1.0 H, Eosinophils # (Auto) 0.2, Basophils # (Auto) 0.1, Calcium Level 8.9 12/19/18 07:35 Red Blood Count 3.82 L, Mean Corpuscular Volume 93.2, Mean Corpuscular Hemoglobin 30.1, Mean Corpuscular Hemoglobin Concent 32.3, Red Cell Distribution Width 13.3, Calcium Level 8.2 L Vital Signs Date Time Temp Pulse Resp B/P (MAP) Pulse Ox O2 Delivery O2 Flow Rate FiO2 12/19/18 13:01 17 12/19/18 10:00 97.3 74 135/93 (107) 97 12/19/18 00:27 Room Air I&O- Last 24 Hours up to 6 AM 12/19/18 06:00 Intake Total 1750 ml Balance 1750 ml JANAE SALCEDO DO Dec 19, 2018 13:57 WILLIAM BO MD Dec 27, 2018 12:08
[2018-12-19 14:00] VITALS: BP 151/67
[2018-12-19] MEDS ORDERED: DOCUSATE SODIUM 100 MG CAP PO PRN (14:00)
[2018-12-19] MEDS ORDERED: MIRALAX *UNIT DOSE* 17GM PACKET PO PRN (14:00)
[2018-12-19] MEDS: RIZATRIPTAN BENZOATE 10 MG TAB PO PRN (16:37)
[2018-12-19 18:00] VITALS: BP 137/69
[2018-12-19 22:00] VITALS: BP 136/68
[2018-12-20] MEDS: RIZATRIPTAN BENZOATE 10 MG TAB PO PRN (00:06)
[2018-12-20] MEDS: CIPROFLOXACIN 400 MG in APPROPRIATE DILUENT 1 EA IV SCH ×2 (00:06→11:39)
[2018-12-20] MEDS: PERCOCET 5MG/325MG TAB PO PRN (01:51)
[2018-12-20] MEDS: KETOROLAC 30 MG/ML VIAL (J1885) IV SCH ×2 (01:52→08:33)
[2018-12-20 02:00] VITALS: BP 111/60
[2018-12-20] MEDS: NS 1,000 ML IV SCH (05:34)
[2018-12-20] MEDS: MORPHINE 4 MG/ML 1ML VIAL/SYRINGE (J2270) IV PRN (05:42)
[2018-12-20 06:05] VITALS: BP 118/86
[2018-12-20 08:00] VITALS: BP 130/88
[2018-12-20] MEDS: buPROPion 100 MG TAB PO SCH (08:32)
[2018-12-20] MEDS: oxyBUTYnin 5 MG TAB PO SCH (08:32)
[2018-12-20] MEDS: oxyCODONE 5MG TAB PO SCH (09:05)
[2018-12-20] MEDS ORDERED: CIPR-249 PO (09:39)
[2018-12-20 10:00] VITALS: BP_SYST 128; BP_SYST 137; BP_DIAS 78; BP_DIAS 87
[2018-12-20] MEDS ORDERED: OXYC1TAB23 PO (10:42)
--- NOTE | 2018-12-20 11:09 | DS.PDOC ---
Discharge Summary General Date of Admission Dec 18, 2018 at 19:14 Date of Discharge 12/20/18 Primary Care Physician: DANIELLE HOUSTON DO Attending Physician: BRENDA ROSA MD Specialist/Consultants Involve: ERIBERTO WILKINSON MD Discharge Summary PROCEDURES PERFORMED DURING STAY: None. ADMITTING/DISCHARGE DIAGNOSES: 1. Pyelonephritis 2. Migraines 3. Bilateral adnexal cysts 4. Chronic pain COMPLICATIONS/CHIEF COMPLAINT: Abdominal pain HISTORY OF PRESENT ILLNESS/HOSPITAL COURSE: Patient is a 43-year-old female who is a history of nephrolithiasis with a stent placed on 11/11/2018. On 12/16/2018 patient had the stent replaced. Since then she has been noticing increasing right-sided abdominal and flank pain. Patient says this pain is sharp and 10 out of 10 intensity. Patient was given IV morphine and slightly improved. Patient did have a leukocytosis with a urinary analysis showing findings consistent with urinary tract infection. CT of the abdomen showed moderate hydronephrosis and perinephric fat stranding and edema which was new compared to her previous CT. Urology saw the patient and deemed that the patient most likely does not have an infection in that her pain is mostly coming from urinary reflux due to the stent being replaced as well as inflammation in the ureter. Dr. Wilkinson of urology cleared the patient and will follow up with the patient outpatient. Dr. Wilkinson stated that if he were to remove the stent, he would cause the patient more pain and problems then if the stent is left in and her pain was treated. Patient was put back on her home opiate pain medication for chronic pain which was able to treat her pain. Overnight on hospital day 2 patient did well and was able to eat and drink without difficulty. Patient is going to the bathroom without difficulty. On the morning of hospital day 3, patient was deemed ready for discharge. Patient will be sent home with a seven- day course of ciprofloxacin for a 10 day course in total. Extra Percocet for pain control was attempted to give the patient however, the patient's pharmacy would not dispense it as her pain medication must come from the pain center. Patient was instructed to contact the pain center. Patient was discharged on 12/20/2018. DISCHARGE MEDICATIONS: Please see below. ALLERGIES: Please see below. PHYSICAL EXAMINATION ON DISCHARGE: Vitals: (see below) General: No acute distress, laying comfortably in bed. HEENT: Moist mucous membranes. Neck: No JVD or lymphadenopathy Cardiac: RRR, No murmurs Pulm: Clear to auscultation b/l. No wheezing, rhonchi Abd: Mild right-sided abdominal pain. Mild CVA tenderness on the right side. Ext: No edema or cyanosis LABORATORY DATA: Please see below. IMAGING: A CT of the abdomen and pelvis without contrast performed on 12/18/2017 showed right ureteral stent in place with a small amount of gas in the right renal pelvis a nondependent urinary bladder, likely iatrogenic. Mild to moderate right sided hydroureteronephrosis and perinephric periureteral edema. Infection cannot be excluded without intravenous contrast. Nonobstructing right renal calculus. Bilateral adnexal cystic lesions measuring up to 4.4 x 3.8 cm on the r ight and 3.2 x 2.5 cm on the left. If clinically indicated, pelvic ultrasound may be obtained for further evaluation. PROGNOSIS: Good ACTIVITY: As tolerated. DIET: Regular DISCHARGE PLAN/DISPOSITION: Discharge home DISCHARGE INSTRUCTIONS: 1. Continue ciprofloxacin 500 mg twice a day for 7 days for a total of 10 day course. 2. Follow-up with urology as scheduled. 3. Follow-up with primary care provider within 5-10 days. 4. Continue with her home. Pain medication for pain control. We have written 8 additional Percocet due to the extra pain that he may be in about her normal baseline. 5. Return to the ED if symptoms worsen. DISCHARGE CONDITION: Stable. TIME SPENT ON DISCHARGE: Greater than 30 minutes. Vital Signs/I&Os Vital Signs Date Time Temp Pulse Resp B/P (MAP) Pulse Ox O2 Delivery O2 Flow Rate FiO2 12/20/18 10:00 98.3 72 18 128/78 (95) 98 12/19/18 00:27 Room Air I&O- Last 24 Hours up to 6 AM 12/20/18 06:00 Intake Total 3220 ml Output Total 1650 ml Balance 1570 ml Microbiology Microbiology 12/18/18 Urine Culture - Final, Complete Discharge Medications Scheduled Bupropion HCl (Bupropion HCl) 100 Mg Tablet, 100 MG PO BID, (Reported) Cephalexin (Keflex) 500 Mg Capsule, 500 MG PO QID, (Reported) FOR 10 DAYS Ciprofloxacin HCl (Cipro) 500 Mg Tablet, 1 TAB PO BID Oxybutynin Chloride (Oxybutynin Chloride) 5 Mg Tablet, 5 MG PO TID, (Reported) Oxycodone Hcl (Oxycodone HCl) 15 Mg Tablet, 15 MG PO TID, (Reported) Scheduled PRN Butalb/Acetaminophen/Caffeine (Wqqkwf-Smsfrvuy-Rkvg 50-325-40) 1 Each Capsule, 1 CAP PO BID PRN for MIGRAINE, (Reported) Carisoprodol (Soma) 350 Mg Tablet, 350 MG PO Q8H PRN for BACK PAIN, (Reported) Oxycodone HCl/Acetaminophen (Oxycodone-Acetaminophen 5-325) 1 Tab Tab, 2 TAB PO BID PRN for PAIN, (Reported) Rizatriptan Benzoate (Rizatriptan) 10 Mg Tab, 10 MG PO BID PRN for MIGRAINE, (Reported) TAKE ONE TABLET AT ONSET AND ONE 2 HOURS LATER IF SYMPTOMS PERSIST. NOT TO EXCEED 2 TABLETS PER DAY Allergies Coded Allergies: amoxicillin (Verified Allergy, Intermediate, RASH, 11/08/18) magnesium (Verified Allergy, Mild, 11/08/18) tapentadol (Verified Allergy, Mild, MILD RASH, 12/16/18) per pt. she had a mild rash reaction in her arm a while ago. She does not recall how long ago. TAPE (Verified Adverse Reaction, Mild, REDNESS, 11/08/18) hydrocodone (Verified Adverse Reaction, Mild, HEADACHE, 12/16/18) ibuprofen (Verified Adverse Reaction, Mild, NAUSEA, 11/08/18) nortriptyline (Verified Adverse Reaction, Unknown, FELT DRUNK, 11/08/18) pregabalin (Verified Adverse Reaction, Unknown, FELT DRUNK, 12/16/18) GME ATTESTATION GME ATTESTATION My faculty preceptor for this patient encounter was physically present during the encounter and was fully available. All aspects of the patient interview, examination, medical decision making process, and medical care plan development were reviewed and approved by the faculty preceptor. The faculty preceptor is aware and concurs with the plan as stated in the body of this note and will attest to such by his/her cosignature. ATTENDING NOTE I, Brenda Rosa, have independently examined this patient and performed my own physical exam, as well as reviewed the documentation and edited where necessary. I have discussed in detail with the resident / student the findings and plan of treatment as documented by the resident / student and edited their note. I agree with their findings and treatment plan and have edited their documentation. I will continue to follow the patient during this hospital stay. Time spent on discharge 37 minutes JANAE SALCEDO DO Dec 20, 2018 11:09 BRENDA ROSA MD Dec 20, 2018 15:49
[2018-12-20] MEDS ORDERED: PERCOCET 5MG/325MG TAB PO PRN (11:50)
== END 2018-12-20 12:39 | disposition home or self-care (01) ==
LOC: M ED 19:13 → M ED INP 19:14 → M MSPAV 12-19 01:12
PROVIDERS: ADMIT Internal Medicine; ATTEND Internal Medicine
DX: N10 Acute pyelonephritis (principal); G43.909 Migraine, unspecified, not intractable, without status migrainosus; N83.291 Other ovarian cyst, right side; N83.292 Other ovarian cyst, left side; G89.4 Chronic pain syndrome; Z79.899 Other long term (current) drug therapy; Z88.0 Allergy status to penicillin; Z88.8 Allergy status to other drugs, medicaments and biological substances; Z98.84 Bariatric surgery status; Z98.1 Arthrodesis status
CPT/HCPCS: 36415; 74176; 80048; 81001; 83735; 85025; 85027; 85610; 85730; 87086; 96361; 96365; 96366; 96375; 96376; 99284; J0131; J0744; J1885; J2270; J2405

== ENCOUNTER → 2018-12-30 | Outpatient (CLI) | payer OTHER, MEDICAID ==
[~2018-12-30] MED LIST changes: +BUPR50TA PO; +OXYB5TAB10 PO; +SERT25TA21; -SERT25TA88
--- NOTE | 2019-01-02 23:34 | ECWPNPC ---
PATIENT NAME: STEPHANIE BOLANOS : 1975 GENDER: FEMALE VISIT DATE: 12/30/2018 DISCHARGE DATE: 12/30/18 1301 VISIT LOCKED DATE TIME: PHYSICIAN: RICH BOBO RESOURCE: RICH BOBO HISTORY OF PRESENT ILLNESS HISTORY OF PRESENT ILLNESS: PAIN THE PATIENT DESCRIBES THE PAIN... 43-YEAR-OLD FEMALE IN FOR CHRONIC PAIN FOLLOW-UP. SHE RATES HER PAIN AT A 5 OUT OF10 CURRENTLY AND DESCRIBES IT SHARP, STABBING, SHOOTING, AND TENDER. SHE WAS RECENTLY HOSPITALIZED FOR EPISODES OF INCREASED PAIN. FALL RISK SCREENING: SCREENING :NO FALLS REPORTED IN THE LAST YEAR CURRENT MEDICATIONS TAKING FIORICET 325-50-40 MG TABLET 1 TABLET NEEDED ORALLY EVERY 6 HRS PRN MIGRAINE MDD=2 TAKING MAXALT 10 MG TABLET 1 TABLET ORALLY BID FOR MIGRAINE MAX 10 MIGRAINE DAIS PER MONTH MDD=2 TAKING PERCOCET 5-325 MG TABLET TAKE 2 TAB ORALLY Q8H PRN MDD6 TAKING OXYCODONE HCL 15 MG TABLET 1 TABLET ORALLY Q8H TID MDD3 NOT-TAKING ROBAXIN-750 750 MG TABLET 1 TABLET ORALLY EVERY 4 HRS NOT-TAKING OXYBUTYNIN CHLORIDE 5 MG TABLET 1 TABLET ORALLY THREE TIMES DAILY NEEDED NOT-TAKING SOMA 350 MG TABLET 1 TABLET BID NEEDED ORALLY EVERY 12 HRS NEEDED, NOTES: PATIENT TO PAY JULIAN FOR MEDICATION NOT-TAKING KEFLEX 500 MG CAPSULE 1 CAPSULE ORALLY EVERY 12 HRS NOT-TAKING KEFLEX 500 MG CAPSULE 1 CAPSULE ORALLY EVERY 12 HRS MEDICATION LIST REVIEWED AND RECONCILED WITH THE PATIENT PAST MEDICAL HISTORY MIGRAINES BACK PAIN RECURRENT SPONTANEOUS MISCARRAIGES DEPRESSIVE DISORDER CERVICAL NEURALGIA GALL STONES KIDNEY STONES ALLERGIES CIPRO: RASH - ALLERGY AMOXICILLIN: NAUSEA/VOMITING - ALLERGY HYDROCODONE-IBUPROFEN: NAUSEA/VOMITING - SIDE EFFECTS IMITREX: SUNBURN-LIKE RASH ON FACE - ALLERGY MAGNESIUM OXIDE: SUNBURN-LIKE RASH ON FACE - ALLERGY BUSPIRONE: HIVES - ALLERGY NUCYNTA: HIVES - ALLERGY CYMBALTA: RASH - ALLERGY TRAMADOL HCL: RASH - ALLERGY HYDROMORPHONE HCL: ITCHING - ALLERGY NEURONTIN: CHEST PAIN - ALLERGY SURGICAL HISTORY BACK SURGERY DORSAL COLUMN STIMULATER 2011 DORSAL COLUMN REMOVED JUNE 2017 CHOLECYSTECTOMY 11/09/18 TONSILLECTOMY STENT PLACEMENT IN [facility] Nov GASTRIC SLEEVE FOR WEIGHT LOSS CYSTOSCOPY, RIGHT URETEROSCOPY WITH LASER LITHOTRIPSY AND BASKET 12/16/2018 CYSTOSCOPY WITH RIGHT STENT REMOVAL 12/28/2018 FAMILY HISTORY FATHER: ALIVE, NO KNOWN MEDICAL PROBLEMS MOTHER: ALIVE, NO KNOWN MEDICAL PROBLEMS 2 SON(S) , 2 DAUGHTER(S) - HEALTHY. SOCIAL HISTORY GENERAL: TOBACCO USE ARE YOU A:: NEVER SMOKER , ARE YOU A: NONSMOKER. DIET: REGULAR. LANGUAGE LANGUAGES SPOKEN:GRENADIAN DOMESTIC VIOLENCE DO YOU FEEL SAFE IN YOUR ENVIRONMENT?YES RECREATIONAL DRUG USE DRUG USE? NO. EXERCISE: DAILY. LEARNING BARRIERS / SPECIAL NEEDS ABILITY TO UNDERSTAND VERBAL INSTRUCTIONS AVERAGE, ABILITY TO UNDERSTAND WRITTEN INSTRUCTIONS AVERAGE, KNOWLEDGE OF EDUCATIONAL NEEDS/TREATMENT PLAN AVERAGE, YARSANISM? NO, LEARNING PREFERENCE NO PREFERENCE, ORIENTED TO PLAN OF CARE: PATIENT, TEACHING MATERIALS DEMONSTRATION/VERBAL INSTRUCTION, RESPONSE TO EDUCATION EXPLAINES ACCURATELY/VERBALIZES UNDERSTANDING, PAIN MANAGEMENT PATIENT, TEACHING MATERIALS DEMONSTRATION/VERBAL INSTRUCTION, RESPONSE TO EDUCATION EXPLAINS ACCURATELY/VERBALIZES UNDERSTANDING. PAIN CLINIC PFS, CLERGY, PUBLIC HEALTH REFERRALS WAS THE PROVIDER NOTIFIED OF ANY PERTINENT INFO?YES HAS THE PATIENT BEEN EDUCATED REGARDING HIS/HER PLAN OF CARE?YES HAS THE PATIENT BEEN EDUCATED REGARDING PAIN, THE RISK FOR PAIN, THE IMPORTANCE OF EFFECTIVE PAIN MANAGEMENT, AND THE PAIN ASSESSMENT PROCESS?YES LATEX QUESTIONNAIRE LATEX ALLERGY : HAVE YOU EVER DEVELOPED ANY TYPE OF REACTION AFTER HANDLING LATEX PRODUCTS SUCH RUBBER GLOVES, CONDOMS, DIAPHRAGMS, BALLOONS, SOCKS, OR UNDERWEAR?NO LATEX ALLERGY : HAVE YOU EVER DEVELOPED ANY TYPE OF REACTION DURING OR AFTER DENTAL APPOINTMENT, VAGINAL/RECTAL EXAMINATION, SURGICAL PROCEDURE, OR ANY OTHER EXPOSURE?NO LATEX RISK : HAVE YOU EVER HAD ANY DIFFICULTY BREATHING OR HIVES AFTER EATING OR HANDLING ANY FRUITS, OR VEGETABLES; SUCH KIWI, BANANAS, STONE FRUITS, OR CHESTNUTSNO LATEX RISK : DO YOU HAVE A PREVIOUS PERSONAL HISTORY OF MORE THAN NINE SURGERIES, SPINA BIFIDA, OR REPEATED CATHERIZATIONS? NO LATEX RISK : ARE YOU FREQUENTLY EXPOSED TO LATEX PRODUCTS IN YOUR OCCUPATION?NO DATE ASKED : 12/30/2018 CAFFEINE CAFFEINE USE?YES HOW OFTEN AND HOW MUCH? CUP OF COFFE EVERY MORNING ADVANCE DIRECTIVE ADVANCE DIRECTIVE DISCUSSED WITH PATIENT:YES PT DOES NOT HAVE ANY ADVANCED DIRECTIVES AND SHE DECLINES INFORMATION ON HCP AT THIS TIME. NONDENOMINATIONAL NO YARSANISM BELIEFS THAT WOULD IMPACT HEALTH CARE, NO PREFERENCE. MARITAL STATUS: .. 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 05/27/18 REVIEWED WITH PT. AD. HOSPITALIZATION/MAJOR DIAGNOSTIC PROCEDURE SEE ABOVE CERVICAL NEURALGIA/MIGRAINES 02/2017 MISPLACED KIDNEY STENT, KIDNEY INFECTION 12/2018 REVIEW OF SYSTEMS REVIEWED BY: PROVIDER: OLE US . CONSTITUTIONAL: ANY CHANGE IN YOUR MEDICAL CONDITION? YES, KIDNEY INFECTION DUE TO MISPLACED STENT . CHILLS NO . FEVER NO . INFECTION: DO YOU HAVE NEW INFECTIONS? YES, KIDNEY INFECTION . DO YOU HAVE HISTORY OF MRSA? NO . MUSCULOSKELETAL: ANY NEW PATTERNS OF PAIN OR NUMBNESS? YES . GASTROENTEROLOGY: ANY NEW CHANGE IN BOWEL CONTROL? NO . GENITOURINARY: ANY NEW CHANGE IN BLADDER CONTROL? YES, KIDNEY INFECTION . IS THERE A CHANCE YOU COULD BE ? NO . HEMATOLOGY/LYMPH: DO YOU TAKE ANY BLOOD THINNERS? (FOR EXAMPLE- COUMADIN, PLAVIX, AGGRENOX, PLATEL, PRADAXA, OR XARELTO) NO . WHEN WAS YOUR LAST DOSE? DATE: TIME: . NEUROLOGY: HAVE YOU FALLEN IN THE PAST 12 MONTHS? NO . ANY NEW EXTREMITY NUMBNESS OR WEAKNESS? NO . CARDIOLOGY: DO YOU HAVE A PACEMAKER OR DEFIBRILLATOR? NO . RESPIRATORY: HAVE YOU BEEN SICK IN THE PAST WEEK? YES, PT STATES THAT SHE HAS BEEN SICK SINCE OCTOBER WITH GALL BLADDER AND KIDNEY ISSUES . FEVER NO . FLU LIKE SYMPTOMS? NO . COUGH NO . INTEGUMENTARY: DO YOU HAVE ANY RASHES OR OPEN SORES? NO . ALLERGIC/IMMUNO: ARE YOU ALLERGIC TO IV DYE? NO . ANY NEW ALLERGIES? NO . PSYCHIATRIC: DO YOU HAVE THOUGHTS OF HURTING YOURSELF OR SOMEONE ELSE? NO . ARE YOU ABUSED, NEGLECTED, OR IN AN UNSAFE ENVIRONMENT? NO . ENDOCRINOLOGY: ARE YOU DIABETIC? NO . OTHER: DO YOU NEED ANY PRESCRIPTIONS? MUSCLE RELAXER, PERCOCET, OXYCODONE, MAXALT, FIORICET . IF YES, PLEASE LIST: ____ . ANY NEW PROBLEMS WITH YOUR MEDICATIONS? NO . WHEN DID YOU LAST EAT? ____ . WHEN DID YOU LAST DRINK? ____ . WHAT DID YOU LAST DRINK? ____ . NAME OF PERSON DRIVING YOU HOME? ____ . DO YOU HAVE ANY OTHER QUESTIONS OR CONCERNS PT STATES THAT SHE WAS ADMITTED AND HOSPITALIST CHANGED MEDICATIONS, PER PT ATTEMPTED TO CONTACT PAIN CLINIC MD TO HAVE MEDS INCREASED, UNABLE TO RECEIVE CONFIRMATION TO INCREASE MEDS AND PT STATES THAT SHE IS ABOUT TO RUN OUT OF SCRIPTS . VITAL SIGNS WT 147.7 LBS, HT 62.5 IN, BMI 26.58 INDEX, BP 123/67 MM HG, HR 84 /MIN, RR 18 /MIN, TEMP 99.3 F, OXYGEN SAT % 98%, SAFE IN ENV? (Y/N) Y, NA INITIALS AW 1147, REVIEWED BY: DS. EXAMINATION GENERAL EXAMINATION: GENERALNO ACUTE DISTRESS, WELL NOURISHED AND HYDRATED. PSYCHAPPROPRIATE MOOD AND AFFECT . LUNGS:CLEAR TO AUSCULTATION BILATERALLY, NO WHEEZES, RHONCHI, RALES. HEART:NO MURMURS, REGULAR RATE AND RHYTHM. ASSESSMENTS INTERVERTEBRAL DISC DISORDER WITH RADICULOPATHY OF LUMBAR REGION - M51.16 (PRIMARY) CHRONIC MIGRAINE W/O AURA W/O STATUS MIGRAINOSUS, NOT INTRACTABLE - G43.709 TREATMENT INTERVERTEBRAL DISC DISORDER WITH RADICULOPATHY OF LUMBAR REGION REFILL SOMA TABLET, 350 MG, 1 TABLET BID NEEDED, ORALLY, EVERY 12 HRS NEEDED, 30 DAY(S), 60, REFILLS 0, NOTES: PATIENT TO PAY JULIAN FOR MEDICATION CLINICAL NOTES: 43-YEAR-OLD FEMALE IN FOR CHRONIC PAIN FOLLOW-UP. GIVEN PRESENTING SYMPTOMS AND RESULTS OF PHYSICAL EXAMINATION RECOMMENDED REFERRAL TO PALLIATIVE CARE FOR MEDICATION MANAGEMENT. PATIENT HAS EXPRESSED UNDERSTANDING OF AND WAS IN AGREEMENT WITH TREATMENT PLAN. GIVEN TIME TO ASK QUESTIONS AND EXPRESS CONCERNS., ISTOP REGISTRY REVIEWED AND DEMONSTRATES COMPLLIANCE. (REF # [id number] ) BRINGS IN MEDICATIONS WHICH IS APPROPRIATE FOR WHAT WAS DISPENSED. RECENT URINE TOXICOLOGY REVIEWED. NO UNAUTHORIZED MEDICATIONS. NO ILLICIT SUBSTANCES AND PRESCRIBED MEDICATIONS WERE PRESENT. [facility] REASON:MEDICATION MANAGMENT CHRONIC MIGRAINE W/O AURA W/O STATUS MIGRAINOSUS, NOT INTRACTABLE REFILL FIORICET TABLET, 325-50-40 MG, 1 TABLET NEEDED, ORALLY, EVERY 6 HRS PRN MIGRAINE MDD=2, 30 DAY(S), 30, REFILLS 0 REFILL MAXALT TABLET, 10 MG, 1 TABLET, ORALLY, BID FOR MIGRAINE MAX 10 MIGRAINE DAIS PER MONTH MDD=2, 30 DAY(S), 20, REFILLS 2 PROCEDURE CODES FA211 ESTABILISHED PATIENT [facility] FACILITY CHARGE DISPOSITION & COMMUNICATION FOLLOW UP 3 MONTHS (REASON: CHRONIC PAIN ) ELECTRONICALLY SIGNED BY VIDAL WEBER ON 01/02/2019 AT 10:35 AM EDT DISCLAIMER : THIS IS A VISIT SUMMARY EXTRACTED FROM THE [employer] CHART. IT IS NOT A COPY OF THE [employer] PROGRESS NOTE. TASHA
== END ==
LOC: M PAIN 11:30
PROVIDERS: ATTEND Family Medicine
DX: M51.16 Intervertebral disc disorders with radiculopathy, lumbar region (principal); G43.709 Chronic migraine without aura, not intractable, without status migrainosus; G89.29 Other chronic pain; Z86.59 Personal history of other mental and behavioral disorders; Z98.84 Bariatric surgery status; Z88.1 Allergy status to other antibiotic agents; Z88.5 Allergy status to narcotic agent; Z88.8 Allergy status to other drugs, medicaments and biological substances; Z79.891 Long term (current) use of opiate analgesic; Z79.899 Other long term (current) drug therapy

== ENCOUNTER → 2019-03-01 | Outpatient (CLI) | payer OTHER, MEDICAID ==
--- NOTE | 2019-03-03 00:15 | ECWPNPC ---
PATIENT NAME: STEPHANIE BOLANOS : 1975 GENDER: FEMALE VISIT DATE: 03/01/2019 DISCHARGE DATE: 03/01/19 0958 VISIT LOCKED DATE TIME: PHYSICIAN: RICH BOBO RESOURCE: RICH BOBO REASON FOR APPOINTMENT 1. MEDS, [place] HISTORY OF PRESENT ILLNESS HISTORY OF PRESENT ILLNESS: PAIN THE PATIENT DESCRIBES THE PAIN... 41-YEAR-OLD FEMALE IN FOR CHRONIC PAIN FOLLOW-UP. SHE RATES HER PAIN CURRENTLY AT A 5 OUT OF 10 AND DESCRIBES IT SHARP, STABBING, SHOOTING, AND TENDER. SHE FEELS HER MEDICATIONS ARE NO LONGER EFFECTIVE. SHE DENIES MED SIDE EFFECTS AT THIS TIME. FALL RISK SCREENING: SCREENING :NO FALLS REPORTED IN THE LAST YEAR CURRENT MEDICATIONS TAKING SOMA 350 MG TABLET 1 TABLET BID NEEDED ORALLY EVERY 12 HRS NEEDED, NOTES: PATIENT TO PAY JULIAN FOR MEDICATION TAKING FIORICET 325-50-40 MG TABLET 1 TABLET NEEDED ORALLY EVERY 6 HRS PRN MIGRAINE MDD=2 TAKING MAXALT 10 MG TABLET 1 TABLET ORALLY BID FOR MIGRAINE MAX 10 MIGRAINE DAIS PER MONTH MDD=2 TAKING OXYCODONE HCL 15 MG TABLET 1 TABLET ORALLY Q8H TID MDD3 TAKING PERCOCET 5-325 MG TABLET TAKE 2 TAB ORALLY Q8H PRN MDD6 NOT-TAKING ROBAXIN-750 750 MG TABLET 1 TABLET ORALLY EVERY 4 HRS NOT-TAKING OXYBUTYNIN CHLORIDE 5 MG TABLET 1 TABLET ORALLY THREE TIMES DAILY NEEDED NOT-TAKING KEFLEX 500 MG CAPSULE 1 CAPSULE ORALLY EVERY 12 HRS NOT-TAKING KEFLEX 500 MG CAPSULE 1 CAPSULE ORALLY EVERY 12 HRS MEDICATION LIST REVIEWED AND RECONCILED WITH THE PATIENT PAST MEDICAL HISTORY MIGRAINES BACK PAIN RECURRENT SPONTANEOUS MISCARRAIGES DEPRESSIVE DISORDER CERVICAL NEURALGIA GALL STONES KIDNEY STONES ALLERGIES CIPRO: RASH - ALLERGY AMOXICILLIN: NAUSEA/VOMITING - ALLERGY HYDROCODONE-IBUPROFEN: NAUSEA/VOMITING - SIDE EFFECTS IMITREX: SUNBURN-LIKE RASH ON FACE - ALLERGY MAGNESIUM OXIDE: SUNBURN-LIKE RASH ON FACE - ALLERGY BUSPIRONE: HIVES - ALLERGY NUCYNTA: HIVES - ALLERGY CYMBALTA: RASH - ALLERGY TRAMADOL HCL: RASH - ALLERGY HYDROMORPHONE HCL: ITCHING - ALLERGY NEURONTIN: CHEST PAIN - ALLERGY SURGICAL HISTORY BACK SURGERY DORSAL COLUMN STIMULATER 2011 DORSAL COLUMN REMOVED JUNE 2017 CHOLECYSTECTOMY 11/09/18 TONSILLECTOMY STENT PLACEMENT IN [facility] Nov GASTRIC SLEEVE FOR WEIGHT LOSS CYSTOSCOPY, RIGHT URETEROSCOPY WITH LASER LITHOTRIPSY AND BASKET 12/16/2018 CYSTOSCOPY WITH RIGHT STENT REMOVAL 12/28/2018 CHOLECYSTECTOMY IN [place] 11/08/18 FAMILY HISTORY FATHER: ALIVE, NO KNOWN MEDICAL PROBLEMS MOTHER: ALIVE, NO KNOWN MEDICAL PROBLEMS 2 SON(S) , 2 DAUGHTER(S) - HEALTHY. SOCIAL HISTORY GENERAL: TOBACCO USE ARE YOU A:: NEVER SMOKER , ARE YOU A: NONSMOKER. DIET: REGULAR. LANGUAGE LANGUAGES SPOKEN:MONGOLIAN DOMESTIC VIOLENCE DO YOU FEEL SAFE IN YOUR ENVIRONMENT?YES RECREATIONAL DRUG USE DRUG USE? NO. EXERCISE: DAILY. LEARNING BARRIERS / SPECIAL NEEDS ABILITY TO UNDERSTAND VERBAL INSTRUCTIONS AVERAGE, ABILITY TO UNDERSTAND WRITTEN INSTRUCTIONS AVERAGE, KNOWLEDGE OF EDUCATIONAL NEEDS/TREATMENT PLAN AVERAGE, SIKH? NO, LEARNING PREFERENCE NO PREFERENCE, ORIENTED TO PLAN OF CARE: PATIENT, TEACHING MATERIALS DEMONSTRATION/VERBAL INSTRUCTION, RESPONSE TO EDUCATION EXPLAINES ACCURATELY/VERBALIZES UNDERSTANDING, PAIN MANAGEMENT PATIENT, TEACHING MATERIALS DEMONSTRATION/VERBAL INSTRUCTION, RESPONSE TO EDUCATION EXPLAINS ACCURATELY/VERBALIZES UNDERSTANDING. PAIN CLINIC PFS, CLERGY, PUBLIC HEALTH REFERRALS WAS THE PROVIDER NOTIFIED OF ANY PERTINENT INFO?YES HAS THE PATIENT BEEN EDUCATED REGARDING HIS/HER PLAN OF CARE?YES HAS THE PATIENT BEEN EDUCATED REGARDING PAIN, THE RISK FOR PAIN, THE IMPORTANCE OF EFFECTIVE PAIN MANAGEMENT, AND THE PAIN ASSESSMENT PROCESS?YES LATEX QUESTIONNAIRE LATEX ALLERGY : HAVE YOU EVER DEVELOPED ANY TYPE OF REACTION AFTER HANDLING LATEX PRODUCTS SUCH RUBBER GLOVES, CONDOMS, DIAPHRAGMS, BALLOONS, SOCKS, OR UNDERWEAR?NO LATEX ALLERGY : HAVE YOU EVER DEVELOPED ANY TYPE OF REACTION DURING OR AFTER DENTAL APPOINTMENT, VAGINAL/RECTAL EXAMINATION, SURGICAL PROCEDURE, OR ANY OTHER EXPOSURE?NO DATE ASKED : 12/30/2018 LATEX RISK : HAVE YOU EVER HAD ANY DIFFICULTY BREATHING OR HIVES AFTER EATING OR HANDLING ANY FRUITS, OR VEGETABLES; SUCH KIWI, BANANAS, STONE FRUITS, OR CHESTNUTSNO LATEX RISK : DO YOU HAVE A PREVIOUS PERSONAL HISTORY OF MORE THAN NINE SURGERIES, SPINA BIFIDA, OR REPEATED CATHERIZATIONS? NO LATEX RISK : ARE YOU FREQUENTLY EXPOSED TO LATEX PRODUCTS IN YOUR OCCUPATION?NO CAFFEINE CAFFEINE USE?YES HOW OFTEN AND HOW MUCH? CUP OF COFFE EVERY MORNING ADVANCE DIRECTIVE ADVANCE DIRECTIVE DISCUSSED WITH PATIENT:YES PT DOES NOT HAVE ANY ADVANCED DIRECTIVES AND SHE DECLINES INFORMATION ON HCP AT THIS TIME. BAHAI NO SIKH BELIEFS THAT WOULD IMPACT HEALTH CARE, NO PREFERENCE. MARITAL STATUS: .. 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 JAMES WITH PATIENT 03/01/19 0942 NLJ. HOSPITALIZATION/MAJOR DIAGNOSTIC PROCEDURE SEE ABOVE CERVICAL NEURALGIA/MIGRAINES 02/2017 MISPLACED KIDNEY STENT, KIDNEY INFECTION 12/2018 REVIEW OF SYSTEMS REVIEWED BY: PROVIDER: OLE US . CONSTITUTIONAL: ANY CHANGE IN YOUR MEDICAL CONDITION? NO . CHILLS NO . FEVER NO . INFECTION: DO YOU HAVE NEW INFECTIONS? NO . DO YOU HAVE HISTORY OF MRSA? NO . MUSCULOSKELETAL: ANY NEW PATTERNS OF PAIN OR NUMBNESS? STATES SHE CONTINUES TO HAVE BACK SPASMS AND LEFT HIP PAIN SINCE KIDNEY STONE ISSUES . GASTROENTEROLOGY: ANY NEW CHANGE IN BOWEL CONTROL? NO . GENITOURINARY: ANY NEW CHANGE IN BLADDER CONTROL? NO . IS THERE A CHANCE YOU COULD BE ? NO . HEMATOLOGY/LYMPH: DO YOU TAKE ANY BLOOD THINNERS? (FOR EXAMPLE- COUMADIN, PLAVIX, AGGRENOX, PLATEL, PRADAXA, OR XARELTO) NO . WHEN WAS YOUR LAST DOSE? DATE: TIME: . NEUROLOGY: HAVE YOU FALLEN IN THE PAST 12 MONTHS? NO . ANY NEW EXTREMITY NUMBNESS OR WEAKNESS? YES- STATES LEFT HIP AND LEG . CARDIOLOGY: DO YOU HAVE A PACEMAKER OR DEFIBRILLATOR? NO . RESPIRATORY: HAVE YOU BEEN SICK IN THE PAST WEEK? NO . FEVER NO . FLU LIKE SYMPTOMS? NO . COUGH NO . INTEGUMENTARY: DO YOU HAVE ANY RASHES OR OPEN SORES? NO . ALLERGIC/IMMUNO: ARE YOU ALLERGIC TO IV DYE? NO . ANY NEW ALLERGIES? NO . PSYCHIATRIC: DO YOU HAVE THOUGHTS OF HURTING YOURSELF OR SOMEONE ELSE? NO . ARE YOU ABUSED, NEGLECTED, OR IN AN UNSAFE ENVIRONMENT? NO . ENDOCRINOLOGY: ARE YOU DIABETIC? NO . OTHER: DO YOU NEED ANY PRESCRIPTIONS? YES . IF YES, PLEASE LIST: STATES SHE WILL NEED ALL MEDS REFILLED BY THE END OF THE MONTH . ANY NEW PROBLEMS WITH YOUR MEDICATIONS? YES- STATES HER MEDS DO NOT WORK WEEL ANYMORE, STATES SHE FEELS LIKE SHE NEEDS TO TAKE MORE THAN PERSCRIBED AND SHE KNOWS SHE IS NOT SUPPOSED TO . WHEN DID YOU LAST EAT? ____ . WHEN DID YOU LAST DRINK? ____ . WHAT DID YOU LAST DRINK? ____ . NAME OF PERSON DRIVING YOU HOME? ____ . DO YOU HAVE ANY OTHER QUESTIONS OR CONCERNS HAD HER FLU SHOT IN JANUARY, STATES HER MEDS DO NOT WORK WELL ANY MORE . VITAL SIGNS WT 149.6 LBS, HT 62.5 IN, BMI 26.92 INDEX, BP 108/69 MM HG, HR 74 /MIN, RR 18 /MIN, TEMP 97.8 F, OXYGEN SAT % 100%, SAFE IN ENV? (Y/N) YES, REVIEWED BY: HELEN. EXAMINATION GENERAL EXAMINATION: GENERALNO ACUTE DISTRESS, WELL NOURISHED AND HYDRATED. PSYCHAPPROPRIATE MOOD AND AFFECT . LUNGS:CLEAR TO AUSCULTATION BILATERALLY, NO WHEEZES, RHONCHI, RALES. HEART:NO MURMURS, REGULAR RATE AND RHYTHM. ASSESSMENTS INTERVERTEBRAL DISC DISORDER WITH RADICULOPATHY OF LUMBAR REGION - M51.16 (PRIMARY) TREATMENT INTERVERTEBRAL DISC DISORDER WITH RADICULOPATHY OF LUMBAR REGION START MORPHINE SULFATE ER TABLET EXTENDED RELEASE, 15 MG, 1 TABLET, ORALLY, EVERY 12 HRS, 14 DAYS, 28 TABLET STOP OXYCODONE HCL TABLET, 15 MG, 1 TABLET, ORALLY, Q8H TID MDD3 CLINICAL NOTES: 43-YEAR-OLD FEMALE PATIENT IN FOR CHRONIC PAIN FOLLOW-UP. GIVEN PRESENTING SYMPTOMS AND RESULTS OF PHYSICAL EXAMINATION WELL CONSULT WITH DR. ARIAS RECOMMENDED STOPPING OXYCODONE 15 MG AND STARTING MORPHINE ER 15 MG TWICE A DAY NEEDED FOR PAIN. FURTHER RECOMMENDED FOLLOW-UP IN 2 WEEKS TO DETERMINE EFFICACY TREATMENT. PATIENT HAS EXPRESSED UNDERSTANDING OF AND WAS IN AGREEMENT WITH TREATMENT PLAN. GIVEN TIME TO ASK QUESTIONS AND EXPRESS CONCERNS., ISTOP REGISTRY REVIEWED AND DEMONSTRATES COMPLLIANCE. (REF # [id number] ) BRINGS IN MEDICATIONS WHICH IS APPROPRIATE FOR WHAT WAS DISPENSED. RECENT URINE TOXICOLOGY REVIEWED. NO UNAUTHORIZED MEDICATIONS. NO ILLICIT SUBSTANCES AND PRESCRIBED MEDICATIONS WERE PRESENT. PREVENTIVE MEDICINE PAIN CLINIC TEACHING: MEDICATIONS MORPHINE MEDICATION INFORMATION SHEETS PRINTED AND REVIEWED WITH PATIENT. PT ALSO EDUCATED ON DISCONTINUING OXYCODONE 15MG TABS AND BRINGING PILLS TO FOLLOW UP APPOINTMENT IN 2 WEEKS FOR PILL DESTRUCTION. 03/01/19 0953 HELEN. PROCEDURE CODES FA211 ESTABILISHED PATIENT [facility] CHARGE DISPOSITION & COMMUNICATION FOLLOW UP 2 WEEKS (REASON: MEDICATION ADJUSTMENT FOR LOW BACK PAIN WITH RADICULOPATHY) ELECTRONICALLY SIGNED BY VIDAL WEBER ON 03/02/2019 AT 10:00 AM EST DISCLAIMER : THIS IS A VISIT SUMMARY EXTRACTED FROM THE [employer] CHART. IT IS NOT A COPY OF THE [employer] PROGRESS NOTE. TASHA
== END ==
LOC: M PAIN 09:00
PROVIDERS: ATTEND Family Medicine
DX: M51.16 Intervertebral disc disorders with radiculopathy, lumbar region (principal); G89.29 Other chronic pain; G43.909 Migraine, unspecified, not intractable, without status migrainosus; Z86.59 Personal history of other mental and behavioral disorders; Z98.84 Bariatric surgery status; Z88.1 Allergy status to other antibiotic agents; Z88.5 Allergy status to narcotic agent; Z88.8 Allergy status to other drugs, medicaments and biological substances; Z79.891 Long term (current) use of opiate analgesic; Z79.899 Other long term (current) drug therapy

== ENCOUNTER → 2019-03-15 | Outpatient (CLI) | payer OTHER, MEDICAID ==
--- NOTE | 2019-03-17 00:45 | ECWPNPC ---
PATIENT NAME: STEPHANIE BOLANOS : 1975 GENDER: FEMALE VISIT DATE: 03/15/2019 DISCHARGE DATE: 03/15/19 1540 VISIT LOCKED DATE TIME: PHYSICIAN: RICH BOBO RESOURCE: RICH BOBO REASON FOR APPOINTMENT 1. MEDS HISTORY OF PRESENT ILLNESS HISTORY OF PRESENT ILLNESS: PAIN THE PATIENT DESCRIBES THE PAIN... 43-YEAR-OLD FEMALE IN FOR CHRONIC PAIN FOLLOW-UP. AT LAST CLINIC VISIT SHE WAS STARTED ON MORPHINE AND HER OXYCODONE WAS STOPPED. IN CLINIC TODAY THE PATIENT ADMITS THE MORPHINE HAS BEEN INEFFECTIVE IN MANAGING HER PAIN PATIENT RATES HER PAIN CURRENTLY AT A 6 OUT OF 10 AND DESCRIBES IT SHARP, STABBING, AND SHOOTING. FALL RISK SCREENING: SCREENING :NO FALLS REPORTED IN THE LAST YEAR CURRENT MEDICATIONS TAKING FIORICET 325-50-40 MG TABLET 1 TABLET NEEDED ORALLY EVERY 6 HRS PRN MIGRAINE MDD=2 TAKING MORPHINE SULFATE ER 15 MG TABLET EXTENDED RELEASE 1 TABLET ORALLY EVERY 12 HRS TAKING SOMA 350 MG TABLET 1 TABLET BID NEEDED ORALLY EVERY 12 HRS NEEDED, NOTES: PATIENT TO PAY JULIAN FOR MEDICATION TAKING PERCOCET 5-325 MG TABLET TAKE 2 TAB ORALLY Q8H PRN MDD6 TAKING MAXALT 10 MG TABLET 1 TABLET ORALLY BID FOR MIGRAINE MAX 10 MIGRAINE DAIS PER MONTH MDD=2 NOT-TAKING ROBAXIN-750 750 MG TABLET 1 TABLET ORALLY EVERY 4 HRS NOT-TAKING OXYBUTYNIN CHLORIDE 5 MG TABLET 1 TABLET ORALLY THREE TIMES DAILY NEEDED NOT-TAKING KEFLEX 500 MG CAPSULE 1 CAPSULE ORALLY EVERY 12 HRS NOT-TAKING KEFLEX 500 MG CAPSULE 1 CAPSULE ORALLY EVERY 12 HRS MEDICATION LIST REVIEWED AND RECONCILED WITH THE PATIENT PAST MEDICAL HISTORY MIGRAINES BACK PAIN RECURRENT SPONTANEOUS MISCARRAIGES DEPRESSIVE DISORDER CERVICAL NEURALGIA GALL STONES KIDNEY STONES ALLERGIES CIPRO: RASH - ALLERGY AMOXICILLIN: NAUSEA/VOMITING HYDROCODONE-IBUPROFEN: NAUSEA/VOMITING - SIDE EFFECTS IMITREX: SUNBURN-LIKE RASH ON FACE - ALLERGY MAGNESIUM OXIDE: SUNBURN-LIKE RASH ON FACE - ALLERGY BUSPIRONE: HIVES - ALLERGY NUCYNTA: RASH - ALLERGY CYMBALTA: RASH - ALLERGY TRAMADOL HCL: RASH - ALLERGY HYDROMORPHONE HCL: ITCHING - ALLERGY NEURONTIN: CHEST PAIN - ALLERGY SURGICAL HISTORY BACK SURGERY DORSAL COLUMN STIMULATER 2011 DORSAL COLUMN REMOVED JUNE 2017 CHOLECYSTECTOMY 11/09/18 TONSILLECTOMY STENT PLACEMENT IN [facility] Nov GASTRIC SLEEVE FOR WEIGHT LOSS CYSTOSCOPY, RIGHT URETEROSCOPY WITH LASER LITHOTRIPSY AND BASKET 12/16/2018 CYSTOSCOPY WITH RIGHT STENT REMOVAL 12/28/2018 FAMILY HISTORY FATHER: ALIVE, NO KNOWN MEDICAL PROBLEMS MOTHER: ALIVE, NO KNOWN MEDICAL PROBLEMS 2 SON(S) , 2 DAUGHTER(S) - HEALTHY. SOCIAL HISTORY GENERAL: TOBACCO USE ARE YOU A:: NEVER SMOKER , ARE YOU A: NONSMOKER. DIET: REGULAR. LANGUAGE LANGUAGES SPOKEN:KHMER DOMESTIC VIOLENCE DO YOU FEEL SAFE IN YOUR ENVIRONMENT?YES RECREATIONAL DRUG USE DRUG USE? NO. EXERCISE: DAILY. LEARNING BARRIERS / SPECIAL NEEDS ABILITY TO UNDERSTAND VERBAL INSTRUCTIONS AVERAGE, ABILITY TO UNDERSTAND WRITTEN INSTRUCTIONS AVERAGE, KNOWLEDGE OF EDUCATIONAL NEEDS/TREATMENT PLAN AVERAGE, SCIENTOLOGIST? NO, LEARNING PREFERENCE NO PREFERENCE, ORIENTED TO PLAN OF CARE: PATIENT, TEACHING MATERIALS DEMONSTRATION/VERBAL INSTRUCTION, RESPONSE TO EDUCATION EXPLAINES ACCURATELY/VERBALIZES UNDERSTANDING, PAIN MANAGEMENT PATIENT, TEACHING MATERIALS DEMONSTRATION/VERBAL INSTRUCTION, RESPONSE TO EDUCATION EXPLAINS ACCURATELY/VERBALIZES UNDERSTANDING. PAIN CLINIC PFS, CLERGY, PUBLIC HEALTH REFERRALS HAS THE PATIENT BEEN EDUCATED REGARDING HIS/HER PLAN OF CARE?YES HAS THE PATIENT BEEN EDUCATED REGARDING PAIN, THE RISK FOR PAIN, THE IMPORTANCE OF EFFECTIVE PAIN MANAGEMENT, AND THE PAIN ASSESSMENT PROCESS?YES LATEX QUESTIONNAIRE LATEX ALLERGY : HAVE YOU EVER DEVELOPED ANY TYPE OF REACTION AFTER HANDLING LATEX PRODUCTS SUCH RUBBER GLOVES, CONDOMS, DIAPHRAGMS, BALLOONS, SOCKS, OR UNDERWEAR?NO LATEX ALLERGY : HAVE YOU EVER DEVELOPED ANY TYPE OF REACTION DURING OR AFTER DENTAL APPOINTMENT, VAGINAL/RECTAL EXAMINATION, SURGICAL PROCEDURE, OR ANY OTHER EXPOSURE?NO LATEX RISK : HAVE YOU EVER HAD ANY DIFFICULTY BREATHING OR HIVES AFTER EATING OR HANDLING ANY FRUITS, OR VEGETABLES; SUCH KIWI, BANANAS, STONE FRUITS, OR CHESTNUTSNO LATEX RISK : DO YOU HAVE A PREVIOUS PERSONAL HISTORY OF MORE THAN NINE SURGERIES, SPINA BIFIDA, OR REPEATED CATHERIZATIONS? YES - PLEASE INDICATE : > 9 SURGERIES LATEX RISK : ARE YOU FREQUENTLY EXPOSED TO LATEX PRODUCTS IN YOUR OCCUPATION?NO DATE ASKED : 12/30/2018 CAFFEINE CAFFEINE USE?YES HOW OFTEN AND HOW MUCH? CUP OF COFFE EVERY MORNING ADVANCE DIRECTIVE ADVANCE DIRECTIVE DISCUSSED WITH PATIENT:YES 03/15/19 PT. DOES NOT HAVE ANY ADVANCED DIRECTIVES AND SHE DECLINES INFORMATION ON HCP AT THIS TIME. AD ZOROASTRIAN NO SCIENTOLOGIST BELIEFS THAT WOULD IMPACT HEALTH CARE, NO PREFERENCE. MARITAL STATUS: .. 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 HOSPITALIZATION/MAJOR DIAGNOSTIC PROCEDURE SEE ABOVE CERVICAL NEURALGIA/MIGRAINES 02/2017 MISPLACED KIDNEY STENT, KIDNEY INFECTION 12/2018 REVIEW OF SYSTEMS REVIEWED BY: PROVIDER: OLE DRAKE-C . CONSTITUTIONAL: ANY CHANGE IN YOUR MEDICAL CONDITION? NO . CHILLS NO . FEVER NO . INFECTION: DO YOU HAVE NEW INFECTIONS? NO . DO YOU HAVE HISTORY OF MRSA? NO . MUSCULOSKELETAL: ANY NEW PATTERNS OF PAIN OR NUMBNESS? YES, PAIN IN BACK, LEFT HIP AND LEG HAS INCREASED OVER THE PAST 2 WEEKS SINCE CHANING TO MORPHINE . GASTROENTEROLOGY: ANY NEW CHANGE IN BOWEL CONTROL? NO . GENITOURINARY: ANY NEW CHANGE IN BLADDER CONTROL? NO . IS THERE A CHANCE YOU COULD BE ? NO . HEMATOLOGY/LYMPH: DO YOU TAKE ANY BLOOD THINNERS? (FOR EXAMPLE- COUMADIN, PLAVIX, AGGRENOX, PLATEL, PRADAXA, OR XARELTO) NO . WHEN WAS YOUR LAST DOSE? DATE: TIME: . NEUROLOGY: HAVE YOU FALLEN IN THE PAST 12 MONTHS? NO . ANY NEW EXTREMITY NUMBNESS OR WEAKNESS? NO . CARDIOLOGY: DO YOU HAVE A PACEMAKER OR DEFIBRILLATOR? NO . RESPIRATORY: HAVE YOU BEEN SICK IN THE PAST WEEK? NO . FEVER NO . FLU LIKE SYMPTOMS? NO . COUGH NO . INTEGUMENTARY: DO YOU HAVE ANY RASHES OR OPEN SORES? NO . ALLERGIC/IMMUNO: ARE YOU ALLERGIC TO IV DYE? NO . ANY NEW ALLERGIES? NO . PSYCHIATRIC: DO YOU HAVE THOUGHTS OF HURTING YOURSELF OR SOMEONE ELSE? NO . ARE YOU ABUSED, NEGLECTED, OR IN AN UNSAFE ENVIRONMENT? NO . ENDOCRINOLOGY: ARE YOU DIABETIC? NO . OTHER: DO YOU NEED ANY PRESCRIPTIONS? NO . IF YES, PLEASE LIST: ____ . ANY NEW PROBLEMS WITH YOUR MEDICATIONS? YES, THE MORPHINE ISN'T EFFECTIVE . WHEN DID YOU LAST EAT? ____ . WHEN DID YOU LAST DRINK? ____ . WHAT DID YOU LAST DRINK? ____ . NAME OF PERSON DRIVING YOU HOME? ____ . DO YOU HAVE ANY OTHER QUESTIONS OR CONCERNS PAIN NOT CONTROLLED . VITAL SIGNS WT 145.0 LBS, HT 62.5 IN, BMI 26.10 INDEX, BP 144/66 MM HG, HR 104 /MIN, RR 18 /MIN, TEMP 98.0 F, OXYGEN SAT % 98%, SAFE IN ENV? (Y/N) Y, NA INITIALS AW 1501, REVIEWED BY: CARMELITA. EXAMINATION GENERAL EXAMINATION: GENERALNO ACUTE DISTRESS, WELL NOURISHED AND HYDRATED. PSYCHAPPROPRIATE MOOD AND AFFECT . LUNGS:CLEAR TO AUSCULTATION BILATERALLY, NO WHEEZES, RHONCHI, RALES. HEART:NO MURMURS, REGULAR RATE AND RHYTHM. ASSESSMENTS INTERVERTEBRAL DISC DISORDER WITH RADICULOPATHY OF LUMBAR REGION - M51.16 (PRIMARY) TREATMENT INTERVERTEBRAL DISC DISORDER WITH RADICULOPATHY OF LUMBAR REGION STOP MORPHINE SULFATE ER TABLET EXTENDED RELEASE, 15 MG, 1 TABLET, ORALLY, EVERY 12 HRS CONTINUE OXYCODONE HCL TABLET, 15 MG, 1 TABLET, ORALLY, Q8H TID MDD3, 30 DAYS, 90 CLINICAL NOTES: 43-YEAR-OLD FEMALE IN FOR CHRONIC PAIN FOLLOW-UP. PATIENT STATES MORPHINE IS INEFFECTIVE IN MANAGING HER PAIN THIS WEB WEAVER RECOMMENDED STOPPING MORPHINE AND GOING BACK TO OXYCODONE 15 MG 3 TIMES A DAY NEEDED AND HAVING PATIENT FOLLOW-UP WITH PALLIATIVE CARE ON THE OF THIS MONTH. PATIENT HAS EXPRESSED UNDERSTANDING OF AND WAS IN AGREEMENT WITH TREATMENT PLAN. GIVEN TIME TO ASK QUESTIONS AND EXPRESS CONCERNS., ISTOP REGISTRY REVIEWED AND DEMONSTRATES COMPLLIANCE. (REF # [id number] ) BRINGS IN MEDICATIONS WHICH IS APPROPRIATE FOR WHAT WAS DISPENSED. RECENT URINE TOXICOLOGY REVIEWED. NO UNAUTHORIZED MEDICATIONS. NO ILLICIT SUBSTANCES AND PRESCRIBED MEDICATIONS WERE PRESENT. PROCEDURE CODES FA211 ESTABILISHED PATIENT [facility] CHARGE DISPOSITION & COMMUNICATION FOLLOW UP NEEDED FOR PROCEDURES ELECTRONICALLY SIGNED BY VIDAL WEBER ON 03/16/2019 AT 01:27 PM EST DISCLAIMER : THIS IS A VISIT SUMMARY EXTRACTED FROM THE [employer] CHART. IT IS NOT A COPY OF THE [employer] PROGRESS NOTE. MTDD
== END ==
LOC: M PAIN 14:45
PROVIDERS: ATTEND Family Medicine
DX: M51.16 Intervertebral disc disorders with radiculopathy, lumbar region (principal); G89.29 Other chronic pain; G43.909 Migraine, unspecified, not intractable, without status migrainosus; Z86.59 Personal history of other mental and behavioral disorders; Z98.84 Bariatric surgery status; Z88.1 Allergy status to other antibiotic agents; Z88.5 Allergy status to narcotic agent; Z88.8 Allergy status to other drugs, medicaments and biological substances; Z79.891 Long term (current) use of opiate analgesic; Z79.899 Other long term (current) drug therapy

== ENCOUNTER → 2019-09-13 | Outpatient (REF) | payer OTHER ==
[~2019-09-13] MED LIST changes: +CYCL-707; -CYCL10TA; +OXYC-1 PO; -OXYC15TA76 PO
[2019-09-13 17:18] LABS: FOLATE 3.1 NG/ML
== END ==
LOC: M LAB REF 16:21
PROVIDERS: ATTEND Internal Medicine
DX: Z98.84 Bariatric surgery status (principal)

== ENCOUNTER → 2019-09-27 | Outpatient (REF) | payer MEDICAID, OTHER ==
[~2019-09-27] MED LIST changes: +BUPR-69 PO; -BUPR50TA PO; +KETO10TAB PO
[2019-09-27 17:53] LABS: AMORPHOUS SEDIMENT SMALL (NEGATIVE); BACTERIA, URINE AUTO 1+ (NEGATIVE); MUCUS, URINE SMALL (NEGATIVE); RBC, URINE AUTO 84 /HPF (0-3); SQUAMOUS EPITHELIAL CELL UR AU 19 /HPF (0-6); WBC, URINE AUTO 22 /HPF (0-3)
== END ==
LOC: M LAB REF 16:58
PROVIDERS: ATTEND Physician Assistant Medical
DX: R31.9 Hematuria, unspecified (principal)

== ENCOUNTER 2019-11-06 09:10 | Emergency (ER) | payer OTHER ==
[~2019-11-06 09:10] MED LIST changes: -KETO10TAB PO
[2019-11-06] MEDS ORDERED: MECLIZINE 25 MG TABLET ONE (09:54)
[2019-11-06] MEDS ORDERED: ONDANSETRON 4MG/2ML VIAL ONE (09:54)
[2019-11-06] MEDS ORDERED: ACETAMINOPHEN TAB 650MG DOSE (2X325MG) ONE (09:54)
[2019-12-03 14:13] LABS: ALBUMIN 3.3 GM/DL (3.2-5.2); ALT/SGPT 24 U/L (12-78); BILIRUBIN,DIRECT < 0.1 MG/DL (0.0-0.2); BILIRUBIN,TOTAL 0.3 MG/DL (0.2-1.0); BLOOD UREA NITROGEN 8 MG/DL (7-18); CARBON DIOXIDE LEVEL 32 MEQ/L (21-32); CHLORIDE LEVEL 105 MEQ/L (98-107); CREATININE FOR GFR 0.95 MG/DL (0.55-1.30); FREE T4 0.93 NG/DL (0.76-1.46); GLOMERULAR FILTRATION RATE > 60.0 (>58); GLUCOSE, FASTING 67 MG/DL (70-100); LIPASE 86 U/L (73-393); POTASSIUM SERUM 3.9 MEQ/L (3.5-5.1); SODIUM LEVEL 142 MEQ/L (136-145); TOTAL PROTEIN 6.4 GM/DL (6.4-8.2)
[2019-12-03 14:18] LABS: HCG, SERUM QUALITATIVE NEGATIVE (NEGATIVE)
[2019-12-10 10:51] LABS: BASO # 0.1 10^3/uL (0.0-0.2); BASO % 0.7 % (0.0-1.0); EOS # 0.3 10^3/uL (0.0-0.5); EOS % 3.6 % (0.0-3.0); HEMATOCRIT 39.6 % (36.0-47.0); HEMOGLOBIN 13.1 g/dl (12.0-15.5); LYMPH # 1.8 10^3/uL (1.5-5.0); LYMPH % 25.2 % (24.0-44.0); MEAN CORPUSCULAR HEMOGLOBIN 29.7 pg (27.0-33.0); MEAN CORPUSCULAR HGB CONC 33.1 g/dl (32.0-36.5); MEAN CORPUSCULAR VOLUME 89.8 fl (80.0-96.0); MONO # 0.4 10^3/uL (0.0-0.8); MONO % 5.2 % (0.0-5.0); NEUTROPHILS # 4.7 10^3/uL (1.5-8.5); NEUTROPHILS % 64.9 % (36.0-66.0); PLATELET COUNT, AUTOMATED 176 10^3/uL (150-450); RED BLOOD COUNT 4.41 10^6/uL (4.00-5.40); WHITE BLOOD COUNT 7.3 10^3/uL (4.0-10.0)
--- NOTE | 2019-12-29 16:02 | ECGEPIP ---
SINUS BRADYCARDIA BORDERLINE ECG NONSPECIFIC ST & T CHANGE DELAYED R WAVE PROGRESSION NO PRIOR DUE TO DOWNTIME SEE SCANNED DOWNTIME REPORT MTDD
--- NOTE | 2020-01-01 08:03 | REP ---
CT OF THE HEAD WITHOUT CONTRAST: HISTORY: Dizziness. TECHNIQUE: Axial noncontrast images from the skull base to the vertex with coronal reformations. FINDINGS: No acute intracranial hemorrhage, mass or mass effect. The ventricles, sulci and cisterns are symmetric and normal. Hernandez-white differentiation is maintained. No extra-axial fluid collection. The calvarium is intact. The paranasal sinuses and mastoid air cells are clear. IMPRESSION: Negative noncontrast head CT. No evidence for acute intracranial pathology or trauma/injury. MTDD
== END 2019-11-06 15:35 | disposition home or self-care (01) ==
LOC: M ED 09:10
DX: I95.1 Orthostatic hypotension (principal); R19.7 Diarrhea, unspecified; R00.1 Bradycardia, unspecified; R51 Headache; Z88.0 Allergy status to penicillin; Z88.1 Allergy status to other antibiotic agents
CPT/HCPCS: 70450; 71045; 71046; 80048; 80076; 83690; 84439; 84443; 84703; 85025; 93005; 96361; 96374; 96375; 99283; J2405

== ENCOUNTER → 2019-12-28 | Outpatient (REF) | payer OTHER, MEDICAID ==
[~2019-12-28] MED LIST changes: +KETO10TAB PO
[2019-12-28 17:36] LABS: PERCENT SATURATION 14.9 % (13.2-45.0)
== END ==
LOC: M LAB REF 16:09
PROVIDERS: ATTEND Internal Medicine
DX: R30.0 Dysuria (principal); Z98.84 Bariatric surgery status

== ENCOUNTER 2020-01-24 10:45 | Emergency (ER) | payer MEDICAID, OTHER ==
[~2020-01-24] VITALS: Ht 162.6 cm; Wt 59.3 kg
[2020-01-24 10:45] VITALS: BP 121/67
[~2020-01-24 10:45] MED LIST changes: -KETO10TAB PO
[2020-01-24] MEDS ORDERED: CLINDAMYCIN 150MG CAPSULE PO ONE (11:15)
[2020-01-24] MEDS ORDERED: KETO10TAB PO (11:16)
[2020-01-24] MEDS ORDERED: CLIN150C14 PO (11:16)
[2020-01-24] MEDS ORDERED: KETOROLAC 60MG 2ML VIAL IM ONE (11:30)
== END 2020-01-24 11:54 | disposition home or self-care (01) ==
LOC: M ED 10:45
DX: K08.89 Other specified disorders of teeth and supporting structures (principal); Z79.891 Long term (current) use of opiate analgesic; Z79.899 Other long term (current) drug therapy; Z88.1 Allergy status to other antibiotic agents; Z88.8 Allergy status to other drugs, medicaments and biological substances; Z88.6 Allergy status to analgesic agent; Z91.09 Other allergy status, other than to drugs and biological substances
CPT/HCPCS: 84702; 96372; 99282; J1885

== ENCOUNTER 2020-03-13 22:00 | Emergency (ER) | payer OTHER ==
[~2020-03-13] VITALS: Ht 162.6 cm; Wt 60.4 kg
[~2020-03-13 22:00] MED LIST changes: +KETO10TAB PO
[2020-03-14] MEDS ORDERED: NS 1,000 ML IV ONE (00:30)
[2020-03-14] MEDS ORDERED: ONDANSETRON 4MG/2ML VIAL IV ONE (00:30)
[2020-03-14] MEDS ORDERED: KETOROLAC 30 MG/ML 1ML VIAL IV ONE (00:30)
[2020-03-14 00:44] LABS: BASO # 0.1 10^3/uL (0.0-0.2); BASO % 0.6 % (0.0-1.0); EOS # 0.2 10^3/uL (0.0-0.5); EOS % 2.2 % (0.0-3.0); HEMOGLOBIN 12.3 g/dl (12.0-15.5); LYMPH # 2.5 10^3/uL (1.5-5.0); LYMPH % 30.5 % (24.0-44.0); MEAN CORPUSCULAR HGB CONC 32.4 g/dl (32.0-36.5); MEAN CORPUSCULAR VOLUME 89.6 fl (80.0-96.0); MONO # 0.6 10^3/uL (0.0-0.8); MONO % 7.7 % (0.0-5.0); NEUTROPHILS # 4.8 10^3/uL (1.5-8.5); NEUTROPHILS % 58.9 % (36.0-66.0); PLATELET COUNT, AUTOMATED 227 10^3/uL (150-450); RED BLOOD COUNT 4.24 10^6/uL (4.00-5.40); WHITE BLOOD COUNT 8.2 10^3/uL (4.0-10.0)
[2020-03-14 00:52] LABS: BLOOD UREA NITROGEN 7 MG/DL (7-18); CALCIUM LEVEL 8.4 MG/DL (8.5-10.1); CARBON DIOXIDE LEVEL 31 MEQ/L (21-32); CHLORIDE LEVEL 106 MEQ/L (98-107); CREATININE FOR GFR 0.72 MG/DL (0.55-1.30); GLOMERULAR FILTRATION RATE > 60.0 (>58); GLUCOSE, FASTING 86 MG/DL (70-100); POTASSIUM SERUM 4.1 MEQ/L (3.5-5.1); SODIUM LEVEL 139 MEQ/L (136-145)
[2020-03-14 00:53] LABS: HCG, SERUM QUALITATIVE NEGATIVE (NEGATIVE)
--- NOTE | 2020-03-14 00:57 | REPVR ---
PROCEDURE INFORMATION: Exam: XR Right Shoulder Exam date and time: 03/14/2020 12:49 AM Age: 44 years old Clinical indication: Pain; Shoulder; Right; Additional info: Pulled by dog TECHNIQUE: Imaging protocol: XR Right shoulder. Views: 2 or more views. COMPARISON: No relevant prior studies available. FINDINGS: Bones/joints: Joint spaces are normal. No fracture or malalignment. Soft tissues: Normal. IMPRESSION: No fracture or malalignment. Electronically signed by: Silvestre Clemons On 03/14/2020 00:57:51 AM
[2020-03-14] MEDS ORDERED: HALOPERIDOL 5MG/ML VIAL (J1630 PER 1) IV ONE (01:00)
[2020-03-14 02:09] VITALS: BP 123/62
[2020-03-14] MEDS ORDERED: BACT800T5 PO (02:20)
== END 2020-03-14 02:28 | disposition home or self-care (01) ==
LOC: M ED 22:00
DX: R51.9 Headache, unspecified (principal); S46.911A Strain of unspecified muscle, fascia and tendon at shoulder and upper arm level, right arm, initial encounter; S61.210A Laceration without foreign body of right index finger without damage to nail, initial encounter; S61.212A Laceration without foreign body of right middle finger without damage to nail, initial encounter; W26.8XXA Contact with other sharp object(s), not elsewhere classified, initial encounter; Y92.89 Other specified places as the place of occurrence of the external cause; I10 Essential (primary) hypertension; J45.909 Unspecified asthma, uncomplicated; F33.9 Major depressive disorder, recurrent, unspecified; F41.9 Anxiety disorder, unspecified; Z98.84 Bariatric surgery status; Z79.899 Other long term (current) drug therapy; Z88.0 Allergy status to penicillin; Z88.5 Allergy status to narcotic agent; Z88.8 Allergy status to other drugs, medicaments and biological substances; Z91.048 Other nonmedicinal substance allergy status
CPT/HCPCS: 73030; 80048; 84703; 85025; 96361; 96374; 96375; 99283; J1630; J1885; J2405

== ENCOUNTER 2020-05-13 14:42 | Emergency (ER) | payer OTHER ==
[~2020-05-13] VITALS: Ht 162.6 cm; Wt 60.6 kg
[~2020-05-13 14:42] MED LIST changes: -OXYC30TA; -VENL-37; -ZOFR4TAB16 PO
--- OUTSIDE RECORDS SUMMARY | 2020-05-13 14:49 | CCD | Continuity of Care Document ---
Author Author Yomaira HOUSTON DO Organization Unknown Address [address] [facility] [address] [place] [address] Phone [phone] Care Team Providers Care Boat Captain Name Role Phone Alix PeckGROUP CONTRACT ANALYST AUTM [phone] Michelle Houston DO AUTM Unavailable Lalita Forte GROUP CONTRACT ANALYST AUTM [phone] [facility] Radiology AUTM [phone] [facility] - Cardiology AUTM Problems Active Problems Provider Date Depressive disorder Michelle Houston DO Onset: 10/20/2011 Chronic pain Michelle Houston DO Onset: 10/20/2011 Migraine Michelle Houston DO Onset: 10/20/2011 Social History Type Date Description Comments Sex Unknown ETOH Use Denies alcohol use Tobacco Use Start: Unknown Patient has never smoked Allergies, Adverse Reactions, Alerts Active Allergies Reaction Severity Comments Date Vicodin HEADACHE 08/22/2009 Amoxicillin Rash, Diff breathing 018 Magnesium Rash 06/17/2017 Nucynta Rash 06/17/2017 NSAIDS Had Gastric Bypass 8 Imitrex burning rash 02/10/2018 Medications Active Medications SIG Qnty Indications Ordering Provide r Date Venlafaxine HCL 75mg Tablets 1 by mouth every day 30tabs Michelle Houston DO 01/19/2020 Ferrous Gluconate 324(38Fe) mg Tab lets 1 by mouth every other day 30tabs Michelle Houston DO 020 Alprazolam 0.5mg Tablets take one tablet by mouth once or twice daily as needed only for severe anxiety. 60tabs Michelle Houston DO 12/28/2019 Trazodone HCL 50mg Tablets take one tablet by mouth at bedtime 30tabs Michelle Houston, 12/11/2019 Welchol 625mg Tablets 1-2/day w/food 60tabs Jessica Velasquez M.D. 09/13/2019 Carisoprodol 350mg Tablets tid prn 90tabs Jessica Velasquez M.D. 09/13/2019 Maxalt 10mg Tablets 1 tab by mouth for migraine, may repeat in 2 hours x1 if needed 12tabs Flor Houston, 06/17/2017 Gabapentin 300mg Capsules 1 by mouth three times a day Unknown Megestrol Acetate 20mg Tablets 1 by mouth four times a day before meals as needed appetite Unknown Midodrine HCL 10mg Tablets 1 tab by mouth 3 times/day Unknown Omeprazole 40mg Capsules DR 1 by mouth every day Unknown Vitamin D3 Ultra Potency 1.25mg (39887 Ut) Tablets 1 tablet once a week Unknown Misoprostol 200mcg Tablets 1 by mouth four times a day Unknown Sucralfate 1gm Tablets take one tablet by mouth one hour before meals three times a day and at bedtime Unknown Ondansetron HCL 4mg Tablets 1 tablet every 6 hours as needed for nausea or vomiting Unknown Cholestyramine 4gm Packet mix 1 packet with beverage of choice and drink twice daily Un known Oxycontin 40mg Tab ER 12H Abuse-De t one pill po every 8 hrs Unknown Multivitamin Women Tablets 1 by mouth every day Unknown History Medications Venlafaxine HCL ER 150mg Caps ER 2 4HR 1 by mouth every day 30caprola Velasquez M.D. 10/24/19 - 01/19/2020 Venlafaxine HCL ER 150mg Caps ER 2 4HR 1 by mouth every day 30michael Velasquez M.D. 10/11/19 - 10/24/2019 Levofloxacin 500mg Tablets 1 by mouth every day x 7 days 7tabs MAN Stubbs JR 09/10 - 2019 Ciprofloxacin HCL 500mg Tablets 1 by mouth twice a day 14tabs MAN Stubbs JR 020 - 09/29/2019 Vitamin D 2000Unit Tablets 1 by mouth every day Jessica Velasquez M.D. 09/15/19 20 - 12/11/2019 Immunizations CPT Code Status Date Vaccine Lot # [id number] Given 01/08/2011 Fluvirin Virus Vaccine Vital Signs Date Vital Result Comment 12/28/2019 1:58pm BP Systolic 102 mmHg BP Diastolic 68 mmHg BP Systolic Lying Down 118 mmHg BP Diastolic Lying Down 88 mmHg BP Systolic Sitting 110 mmHg BP Diastolic Sitting 80 mmHg BP Systolic Standing 102 mmHg BP Diastolic Standing 75 mmHg Heart Rate 87 /min Weight 124.00 lb 10/30/2019 10:28am BP Systolic 92 mmHg BP Diastolic 60 mmHg Heart Rate 87 /min Weight 123.00 lb O2 % BldC Oximetry 96 % RM Air Results Test Acquired Date Facility Test Result H/L Range Note CBC With Differential 03/13/2020 [place] [id number] [phone] White Blood Count 8.2 10 Normal 4.0-10.0 Red Blood Count 4.24 10 Normal 4.00-5.40 Hemoglobin 12.3 g/dL Normal 12.0-15.5 Hematocrit 38.0 % Normal 36.0-47.0 Mean Corpuscular Volume 89.6 fl Normal 80.0-96.0 Mean Corpuscular Hemoglobin 29.0 pg Normal 27.0-33.0 Mean Corpuscular HGB Conc 32.4 g/dL Normal 32.0-36.5 Red Cell Distribution Width 12.2 % Normal 11.5-14.5 Platelet Count, Automated 227 10 Normal 150-450 Neutrophils % 58.9 % Normal 36.0-66.0 Lymph % 30.5 % Normal 24.0-44.0 Trigg % 7.7 % High 0.0-5.0 Eos % 2.2 % Normal 0.0-3.0 Baso % 0.6 % Normal 0.0-1.0 Immature Granulocyte % 0.1 % Normal 0-3.0 Nucleated Red Blood Cell % 0.0 % Normal 0-0 Neutrophils # 4.8 10 Normal 1.5-8.5 Lymph # 2.5 10 Normal 1.5-5.0 Trigg # 0.6 10 Normal 0.0-0.8 Eos # 0.2 10 Normal 0.0-0.5 Baso # 0.1 10 Normal 0.0-0.2 Basic Metabolic Profile 03/13/[address] [id number] [phone] Glucose, Fasting 86 mg/dL Normal 70-100 Blood Urea Nitrogen 7 mg/dL Normal 7-18 Creatinine For GFR 0.72 mg/dL Normal 0.55-1.30 Glomerular Filtration Rate > 60.0 Normal >58 1 Sodium Level 139 mEq/L Normal 136-145 Potassium Serum 4.1 mEq/L Normal 3.5-5.1 Chloride Level 106 mEq/L Normal 98-107 Carbon Dioxide Level 31 mEq/L Normal 21-32 Anion Gap 2 mEq/L Low 8-16 Calcium Level 8.4 mg/dL Low 8.5-10.1 Laboratory test finding 03/13/2020 [place] [id number] [phone] HCG Serum Qualitative NEGATIVE Normal Negative Laboratory test finding 01/24/[address] [address] [phone] iSTAT B-hCG < 5.0 Normal 2 Total Iron Binding Capacit 12/28/[address] [address] [phone] Iron (Fe) 53 g/dL Normal 50-170 Total Iron Binding Capacity 356 g/dL Normal 250-450 Percent Saturation 14.9 % Normal 13.2-45.0 Laboratory test finding 12/28/[address] [address] [phone] Ferritin 30 NG/ML Normal 8-252 Vitamin B12 Level 271 pg/mL Normal 247-911 3 Urine Culture FULL REPORT IN L <SEE NOTE> Normal 4 Laboratory test finding 12/28/2019 [facility] [employer] sophia rodriguez Licensed Psychologist Manager: [place] [address] [phone] Magnesium 1.8 mg/dL 1.8 - 2.4 Thyroid Stimulating Hormone 1.34 uIU/mL 0.36 - 3.74 Ua Dipstick Only 12/28/2019 [facility] , Licensed Psychologist Manager: [place] [address] [phone] Urine Color DARK YELLOW Abnormal Yellow Urine Appearance SL. HAZY Abnormal Clear Urine PH 6.0 units 5.0 - 9.0 Urine Specific [place] 1.030 1.005 - 1.030 Urine Leukocytes TRACE Abnormal Negative Urine Blood NEGATIVE Negative Urine Protein TRACE Negative -Trace Urine Glucose NEGATIVE mg/dL Negative Urine Nitrite NEGATIVE Negative Urine Ketone NEGATIVE mg/dL Negative Urine Bilirubin NEGATIVE Negative Urine Urobilinogen 0.2 mg/dL 0.2 - 1.0 Ua Dipstick Only 10/30/2019 [facility] , Licensed Psychologist Manager: [place] [address] [phone] Urine Color YELLOW Yellow Urine Appearance CLEAR Clear Urine PH 7.5 units 5.0 - 9.0 Urine Specific [place] 1.005 1.005 - 1.030 Urine Leukocytes NEGATIVE Negative Urine Blood NEGATIVE Negative Urine Protein NEGATIVE Negative -Trace Urine Glucose NEGATIVE mg/dL Negative Urine Nitrite NEGATIVE Negative Urine Ketone NEGATIVE mg/dL Negative Urine Bilirubin NEGATIVE Negative Urine Urobilinogen 0.2 mg/dL 0.2 - 1.0 Basic Metabolic Panel 10/30/2019 [facility], Licensed Psychologist Manager: [place] [address] [phone] Glucose 79 mg/dL 74 - 99 5 BUN 9 mg/dL 7 - 18 Creatinine 0.9 mg/dL 0.6 - 1.3 Sodium 141 mEq/L 136 - 145 Potassium 4.2 mEq/L 3.5 - 5.1 Chloride 103 mEq/L 98 - 107 Carbon Dioxide 32 mEq/L 21 - 32 Calcium 8.3 mg/dL Low 8.5 - 10.1 6 GFR >= 60 mL/min >60 GFR >= 60 mL/min >60 7 Complete Blood Count 10/30/2019 [facility] [employer] , Licensed Psychologist Manager: [place] [address] [phone] WBC 8.0 x10*3/UL 4.1 - 10.9 RBC 4.63 x10*6/UL 4.20 - 6.30 Hemoglobin 13.8 g/dL 12.0 - 18.0 Hematocrit 39.9 % 37.0 - 51.0 MCV 86.2 fL 80.0 - 97.0 MCH 29.8 pg 26.0 - 32.0 MCHC 34.6 g/dL 31.0 - 38.0 RDW 13.2 % 11.6 - 13.7 PLT 238 x10*3/UL 140 - 440 MPV 9.7 FL 7.8 - 11.0 Lymph % 30.4 % 10.0 - 58.5 Mid % 8.1 % 1.7 - 9.3 Neut % 61.5 % 37.0 - 92.0 Lymph # 2.4 x10*3/UL 0.6 - 4.1 Mid # 0.7 x10*3/UL High 0.1 - 0.6 Neut # 4.9 x10*3/UL 2.0 - 7.8 Laboratory test finding 10/30/2019 [facility] [place] [address] [place] [address] [phone] Urine Culture FULL REPORT IN L <SEE NOTE> Normal 8 C Reactive Protein Quantitativ < 0.30 mg/dL Normal 0.00-0.30 Ua Dipstick Only 2019 [facility] Licensed Psychologist Manager: [place] [address] [phone] Urine Color YELLOW Yellow Urine Appearance SL. HAZY Abnormal Clear Urine PH 7.0 units 5.0 - 9.0 Urine Specific [place] 1.010 1.005 - 1.030 Urine Leukocytes TRACE Abnormal Negative Urine Blood NEGATIVE Negative Urine Protein TRACE Negative -Trace Urine Glucose NEGATIVE mg/dL Negative Urine Nitrite NEGATIVE Negative Urine Ketone NEGATIVE mg/dL Negative Urine Bilirubin NEGATIVE Negative Urine Urobilinogen 0.2 mg/dL 0.2 - 1.0 Xray 2019 [facility] [address] [place] [address] [phone] CT Abd/Pelvis Contrast Only NO SHOW Microscopic, Urine 09/27/2019 [facility] [address] [place] [address] [phone] WBC, Urine Auto 22 /HPF High 0-3 RBC, Urine Auto 84 /HPF High 0-3 Bacteria, Urine Auto 1+ High Negative Squamous Epithelial Cell Ur AU 19 /HPF Normal 0-6 Mucus, Urine SMALL Normal Negative Hyaline Cast, Urine Auto 0 /LPF Normal 0-1 Amorphous Sediment SMALL High Negative Laboratory test finding 09/27/2019 [facility] [place] [address] [place] [address] [phone] Urine Culture FULL REPORT IN L <SEE NOTE> Normal 9 Ua Dipstick Only 09/27/2019 [facility] Licensed Psychologist Manager: Dr Umberto Foster [place], [place] [id number] [phone] Urine Color RED Abnormal Yellow Urine Appearance SL. HAZY Abnormal Clear Urine PH 6.5 units 5.0 - 9.0 Urine Specific [place] 1.015 1.005 - 1.030 Urine Leukocytes LARGE Abnormal Negative Urine Blood LARGE Abnormal Negative Urine Protein 4+ Abnormal Negative -Trace Urine Glucose NEGATIVE mg/dL Negative Urine Nitrite NEGATIVE Negative Urine Ketone NEGATIVE mg/dL Negative Urine Bilirubin NEGATIVE Negative Urine Urobilinogen 0.2 mg/dL 0.2 - 1.0 1 Units are mL/min/1.73 m2 Chronic Kidney Disease Staging per NKF: Stage I & II GFR >=60 Normal to Mildly Decreased Stage III GFR 30-59 Moderately Decreased Stage IV GFR 15-29 Severely Decreased Stage V GFR <15 Very Little GFR Left ESRD GFR <15 on MECHANISM ASSEMBLER 2 QUANTITATIVE RESULT QUALITATIVE INTERPRETATION <5.0 IU/L NEGATIVE 5.0 - 25.0 IU/L INDETER MINATE >25.0 IU/L POSITIVE 3 VITAMIN B12 NORMAL RANGE NORMAL 247 - 911 PG/ML INDETERMINATE 211 - 246 PG/ML DEFICIENT LESS THAN 211 PG/ML 4 FULL REPORT IN LAB NOTES ([facility]). NO GROWTH CLINICAL SIGNIFICANCE 1 ORGANISM 5 100-125 mg/dL PRE-DIABET ES/FASTING >126 mg/dL DIABETES/FASTING 6 NOTE: RESULT VERIFIED. 7 CHRONIC KIDNEY DISEASE STAGI NG PER NKF STAGE I & II GFR >= 60 NORMAL TO MILDLY DECREASED STAGE III GFR 30-59 MODERATELY DECREASED STAGE IV GFR 15-29 SEVERELY DECREASED STAGE V GFR <15 VERY LITTLE GFR LEFT ESRD GFR <15 ON MECHANISM ASSEMBLER 8 FULL REPORT IN LAB NOTES ([facility]). NO GROWTH CLINICAL SIGNIFICANCE 1 ORGANISM 9 FULL REPORT IN LAB NOTES ([facility]). ORGANISM 1: STREP AGALACTIAE GROUP B COLONY COUNT 100,000 ORGANISM 1: STREP AGALACTIAE GROUP B STREP AGALACTIAE GROUP B: REACTION ICR (INDUCIBLE CC RESISTANCE) IV ICR TEST RESULT TETRACYCLINE PO 250 mg qid >=16 R PENICILLIN G IV 1 mu q6h <=0.06 S PENICILLIN G PO 250mg q6h fasting <=0.06 S AMPICILLIN IV 500mg q6h <=0.25 S AMPICILLIN PO 500mg q6h fasting <=0.25 S ERYTHROMYCIN IV 500mg q6h >=8 R ERYTHROMYCIN PO 500mg q6h >=8 R LEVOFLOXACIN IV 500mg qd 0.5 S LEVOFLOXACIN PO 250mg qd 0.5 S LEVOFLOXACIN PO 500mg qd 0.5 S VANCOMYCIN IV 500mg q8h 0.5 S MOXIFLOXACIN (AVELOX) IV 400MG QD 0.12 S MOXIFLOXACIN (AVELOX) PO 400MG QD 0.12 S CEFTRIAXONE IV 1gm q24h <=0.12 S CEFOTAXIME IV 1gm q8h <=0.12 S An isolate with a (+) POSITIVE ICR test is considered CLINDAMYCIN RESISTANT; however, clindamycin may still be effective in some patients. An isolate with a (-) NEGATIVE ICR test is considered CLIDAMYCIN SENSITIVE. Procedures Description No Information Available Medical Devices Description No Information Available Encounters Type Date Location Provider Dx Diagnosis Office Visit 12/28/2019 1:45p [facility] I95.1 Orthostatic hypotension R53.83 Other fatigue R23.1 Pallor R30.0 Dysuria G43.909 Migraine, unsp, not intracta ble, without status migrainosus G89.4 Chronic pain syndrome R19.7 Diarrhea, unspecified Z98.84 Bariatric surgery status F33.1 Major depressive disorder, r ecurrent, moderate F41.9 Anxiety disorder, unspecifie d Office Visit 10/30/2019 10:20a [facility] DO R30.0 Dysuria N20.0 Calculus of kidney G43.909 Migraine, unsp, not intracta ble, without status migrainosus F33.1 Major depressive disorder, r ecurrent, moderate Office Visit 2019 9:45a [facility] F32.89 Other specified depressive e pisodes R10.9 Unspecified abdominal pain G89.4 Chronic pain syndrome G43.909 Migraine, unsp, not intracta ble, without status migrainosus R19.7 Diarrhea, unspecified N20.0 Calculus of kidney Z98.84 Bariatric surgery status Office Visit 09/27/2019 11:00a [facility] Morrison JR, [place] R10.9 Unspecified abdominal pain R31.9 Hematuria, unspecified R30.0 Dysuria Assessments Date Code Description Provider 12/28/2019 I95.1 Orthostatic hypotension Michelle Yuri ggs,DO 12/28/2019 R53.83 Other fatigue Michelle Shena,DO 12/28/2019 R23.1 Pallor Michelle Shena,DO 12/28/2019 R30.0 Dysuria Michelle Shena,DO 12/28/2019 G43.909 Migraine, unspecified, not intra ctable, without status migra Michelle Shena,DO 12/28/2019 G89.4 Chronic pain syndrome Michelle Bogg s,DO 12/28/2019 R19.7 Diarrhea, unspecified Michelle Bogg s,DO 12/28/2019 Z98.84 Bariatric surgery status Michelle B oggs,DO 12/28/2019 F33.1 Major depressive disorder, recur rent, moderate Michelle Shena,DO 12/28/2019 F41.9 Anxiety disorder, unspecified La ura Shena,DO 10/30/2019 R30.0 Dysuria Michelle Shena,DO 10/30/2019 N20.0 Calculus of kidney Michelle Houston,D O 10/30/2019 G43.909 Migraine, unspecified, not intra ctable, without status migra Michelle Shena,DO 10/30/2019 F33.1 Major depressive disorder, recur rent, moderate Michelle Shena,DO 2019 F32.89 Other specified depressive episo andre Jessica Velasquez M.D. 2019 R10.9 Unspecified abdominal pain Jessica Velasquez M.D. 2019 G89.4 Chronic pain syndrome Jessica faust M.D. 2019 G43.909 Migraine, unspecified, not intra ctable, without status migra Jessica Velasquez M.D. 2019 R19.7 Diarrhea, unspecified Jessica faust M.D. 2019 N20.0 Calculus of kidney Jessica weston M.D. 2019 Z98.84 Bariatric surgery status Jessica Velasquez M.D. 09/27/2019 R10.9 Unspecified abdominal pain Geovani Morrison JR, MAN 09/27/2019 R31.9 Hematuria, unspecified MAN Stubbs JR 09/27/2019 R30.0 Dysuria Tony delacruz JR PA Plan of Treatment Future Appointment(s):* 03/15/2020 1:00 pm - Michelle Houston DO at [facility] 12/28/2019 - Michelle Houston DO* I95.1 Orthostatic hypotension * R53.83 Other fatigue * R23.1 Pallor * R30.0 Dysuria * G43.909 Migraine, unspecified, not intractable, without status migra * G89.4 Chronic pain syndrome * R19.7 Diarrhea, unspecified * Z98.84 Bariatric surgery status * F33.1 Major depressive disorder, recurrent, moderate * F41.9 Anxiety disorder, unspecified * All * New Medication:* Alprazolam 0.5 mg - take one tablet by mouth once or twice daily as needed only for severe anxiety. Functional Status Description No Information Available Mental Status Description No Information Available Referrals Refer to Reason for Referral Status Appt Date Trace Valdes MD CARDIOLOGY CONSULT FOR ORTHOSTATIC HYPOT ENSION Patient Notified 01/18/2020 [facility] [address], [place] [address] [phone] Ileana Malcolm MD CONSULT FOR MIGRAINES Sent 0 [address] [place] [address] [phone]
[2020-05-13] MEDS ORDERED: CYCL-707 (14:51)
[2020-05-13] MEDS ORDERED: VENL-37 (14:51)
[2020-05-13] MEDS ORDERED: OXYC30TA (14:51)
--- OUTSIDE RECORDS SUMMARY | 2020-05-13 14:51 | CCD ---
Author Author [facility] Address Unknown Phone Unavailable Care Team Providers Care Administrative Hearing Officer Name Role Phone Celso, Danielle DO Unavailable Unavailable Celso, Danielle DO Unavailable Unavailable Celso, Danielle DO Unavailable Unavailable Celso, Danielle DO Unavailable Unavailable Celso, Danielle DO Unavailable Unavailable Celso, Danielle DO Unavailable Unavailable Celso, Danielle DO Unavailable Unavailable Celso, Danielle DO Unavailable Unavailable Celso, Danielle DO Unavailable Unavailable Celso, Danielle DO Unavailable Unavailable Celso, Danielle DO Unavailable Unavailable Celso, Danielle DO Unavailable Unavailable Celso, Danielle DO Unavailable Unavailable Celso, Danielle DO Unavailable Unavailable Celso, Danielle DO Unavailable Unavailable Celso, Danielle DO Unavailable Unavailable Celso, Danielle DO Unavailable Unavailable Celso, Danielle DO Unavailable Unavailable Celso, Danielle DO Unavailable Unavailable Celso, Danielle DO Unavailable Unavailable Celso, Danielle DO Unavailable Unavailable Celso, Danielle DO Unavailable Unavailable Celso, Danielle DO Unavailable Unavailable Celso, Danielle DO Unavailable Unavailable Celso, Danielle DO Unavailable Unavailable Celso, Danielle DO Unavailable Unavailable Celso, Danielle DO Unavailable Unavailable Celso, Danielle DO Unavailable Unavailable Celso, Danielle DO Unavailable Unavailable Celso, Danielle DO Unavailable Unavailable Celso, Danielle DO Unavailable Unavailable Celso, Danielle DO Unavailable Unavailable Celso, Danielle DO Unavailable Unavailable Celso, Danielle DO Unavailable Unavailable Celso, Danielle DO Unavailable Unavailable Celso, Danielle DO Unavailable Unavailable Celso, Danielle DO Unavailable Unavailable Celso, Danielle DO Unavailable Unavailable Celso, Danielle DO Unavailable Unavailable Celso, Danielle DO Unavailable Unavailable Celso, Danielle DO Unavailable Unavailable Celso, Danielle DO Unavailable Unavailable Celso, Danielle DO Unavailable Unavailable Celso, Danielle DO Unavailable Unavailable Celso, Danielle DO Unavailable Unavailable Celso, Danielle DO Unavailable Unavailable Celso, Danielle DO Unavailable Unavailable Celso, Danielle DO Unavailable Unavailable Celso, Danielle DO Unavailable Unavailable Celso, Danielle DO Unavailable Unavailable Celso, Danielle DO Unavailable Unavailable Celso, Danielle DO Unavailable Unavailable Celso, Danielle DO Unavailable Unavailable Celso, Danielle DO Unavailable Unavailable Celso, Danielle DO Unavailable Unavailable Celso, Danielle DO Unavailable Unavailable Celso, Danielle DO Unavailable Unavailable Celso, Danielle DO Unavailable Unavailable Celso, Danielle DO Unavailable Unavailable Celso, Danielle DO Unavailable Unavailable Celso, Danielle DO Unavailable Unavailable Celso, Danielle DO Unavailable Unavailable Celso, Danielle DO Unavailable Unavailable Celso, Danielle DO Unavailable Unavailable Celso, Danielle DO Unavailable Unavailable Celso, Danielle DO Unavailable Unavailable Celso, Danielle DO Unavailable Unavailable Celso, Danielle DO Unavailable Unavailable Celso, Danielle DO Unavailable Unavailable Celso, Danielle DO Unavailable Unavailable Celso, Danielle DO Unavailable Unavailable Celso, Danielle DO Unavailable Unavailable Houppert, Miranda Unavailable Unavailable Paul Velasquez MD Unavailable Unavailable Paul Velasquez MD Unavailable Unavailable Paul Velasquez MD Unavailable Unavailable Paul Velasquez MD Unavailable Unavailable Paul Velasquez MD Unavailable Unavailable RonPaul MD Unavailable Unavailable RonPaul MD Unavailable Unavailable RonPaul MD Unavailable Unavailable RonPaul MD Unavailable Unavailable RonPaul MD Unavailable Unavailable RonPaul MD Unavailable Unavailable RonPaul MD Unavailable Unavailable RonPaul austin MD Unavailable Unavailable RonPaul MD Unavailable Unavailable Paul Velasquez MD Unavailable Unavailable RonPaul MD Unavailable Unavailable RonPaul MD Unavailable Unavailable RonPaul MD Unavailable Unavailable RonPaul MD Unavailable Unavailable RonPaul MD Unavailable Unavailable RonPaul MD Unavailable Unavailable RonPaul MD Unavailable Unavailable RonPaul patel MD Unavailable Unavailable RonPaul MD Unavailable Unavailable RonPaul MD Unavailable Unavailable Paul Velasquez MD Unavailable Unavailable Paul Velasquez MD Unavailable Unavailable Paul Velasquez MD Unavailable Unavailable Paul Velasquez MD Unavailable Unavailable Paul Velasquez MD Unavailable Unavailable Paul Velasquez MD Unavailable Unavailable Paul Velasquez MD Unavailable Unavailable Paul Velasquez MD Unavailable Unavailable Paul Velasquez MD Unavailable Unavailable Paul Velasquez MD Unavailable Unavailable Paul Velasquez MD Unavailable Unavailable Paul Velasquez MD Unavailable Unavailable Paul Velasquez MD Unavailable Unavailable Paul Velasquez MD Unavailable Unavailable Paul Velasquez MD Unavailable Unavailable Paul Velasquez MD Unavailable Unavailable Paul Velasquez MD Unavailable Unavailable Paul Velasquez MD Unavailable Unavailable Paul Velasquez MD Unavailable Unavailable Paul Velasquez MD Unavailable Unavailable Paul Velasquez MD Unavailable Unavailable Paul Velasquez MD Unavailable Unavailable Paul Velasquez MD Unavailable Unavailable Paul Velasquez MD Unavailable Unavailable Paul Velasquez MD Unavailable Unavailable Paul Velasquez MD Unavailable Unavailable Paul Velasquez MD Unavailable Unavailable Paul Velasquez MD Unavailable Unavailable Paul Velasquez MD Unavailable Unavailable RonPaul patel MD Unavailable Unavailable RonPaulie MD Unavailable Unavailable Paul Velasquez MD Unavailable Unavailable Paul Velasquez MD Unavailable Unavailable Paul Velasquez MD Unavailable Unavailable Paul Velasquez MD Unavailable Unavailable Paul Velasquez MD Unavailable Unavailable Paul Velasquez MD Unavailable Unavailable Paul Velasquez MD Unavailable Unavailable Paul Velasquez MD Unavailable Unavailable Paul Velasquez MD Unavailable Unavailable Paul Velasquez MD Unavailable Unavailable Paul Velasquez MD Unavailable Unavailable Paul Velasquez MD Unavailable Unavailable Paul Velasquez MD Unavailable Unavailable Paul Velasquez MD Unavailable Unavailable Paul Velasquez MD Unavailable Unavailable Paul Velasquez MD Unavailable Unavailable Paul Velasquez MD Unavailable Unavailable Paul Velasquez MD Unavailable Unavailable Paul Velasquez MD Unavailable Unavailable Paul Velasquez MD Unavailable Unavailable Paul Velasquez MD Unavailable Unavailable Paul Velasquez MD Unavailable Unavailable PICKERAL JR, J KALYN PA-C Unavailable Unavailable PICKERAL JR, J KALYN PA-C Unavailable Unavailable PICKERAL JR, J KALYN PA-C Unavailable Unavailable PICKERAL JR, J KALYN PA-C Unavailable Unavailable PICKERAL JR, J KALYN PA-C Unavailable Unavailable PICKERAL JR, J KALYN PA-C Unavailable Unavailable PICKERAL JR, J KALYN PA-C Unavailable Unavailable PICKERAL JR, J KALYN PA-C Unavailable Unavailable PICKERAL JR, J KALYN PA-C Unavailable Unavailable PICKERAL JR, J KALYN PA-C Unavailable Unavailable PICKERAL JR, J KALYN PA-C Unavailable Unavailable PICKERAL JR, J KALYN PA-C Unavailable Unavailable PICKERAL JR, J KALYN PA-C Unavailable Unavailable PICKERAL JR, J KALYN PA-C Unavailable Unavailable PICKERAL JR, J KALYN PA-C Unavailable Unavailable PICKERAL JR, J KALYN PA-C Unavailable Unavailable PICKERAL JR, J KALYN PA-C Unavailable Unavailable PICKERAL JR, J KALYN PA-C Unavailable Unavailable PICKERAL JR, J KALYN PA-C Unavailable Unavailable PICKERAL JR, J KALYN PA-C Unavailable Unavailable MANJINDER BALTAZAR Unavailable Unavailable LETTIERE, A SHASHANK PA Unavailable Unavailable LETTIERE, A SHASHANK PA Unavailable Unavailable LETTIERE, A SHASHANK PA Unavailable Unavailable LETTIERE, A SHASHANK PA Unavailable Unavailable LETTIERE, A SHASHANK PA Unavailable Unavailable LETTIERE, A SHASHANK PA Unavailable Unavailable LETTIERE, A SHASHANK PA Unavailable Unavailable LETTIERE, A SHASHANK PA Unavailable Unavailable LETTIERE, A SHASHANK PA Unavailable Unavailable LETTIERE, A SHASHANK PA Unavailable Unavailable LETTIERE, A SHASHANK PA Unavailable Unavailable LETTIERE, A SHASHANK PA Unavailable Unavailable LETTIERE, A SHASHANK PA Unavailable Unavailable LETTIERE, A SHASHANK PA Unavailable Unavailable LETTIERE, A SHASHANK PA Unavailable Unavailable LETTIERE, A SHASHANK PA Unavailable Unavailable LETTIERE, A SHASHANK PA Unavailable Unavailable LETTIERE, A SHASHANK PA Unavailable Unavailable LETTIERE, A SHASHANK PA Unavailable Unavailable LETTIERE, A SHASHANK PA Unavailable Unavailable LETTIERE, A SHASHANK PA Unavailable Unavailable LETTIERE, A SHASHANK PA Unavailable Unavailable LETTIERE, A SHASHANK PA Unavailable Unavailable LETTIERE, A SHASHANK PA Unavailable Unavailable LETTIERE, A SHASHANK PA Unavailable Unavailable LETTIERE, A SHASHANK PA Unavailable Unavailable LETTIERE, A SHASHANK PA Unavailable Unavailable LETTIERE, A SHASHANK PA Unavailable Unavailable LETTIERE, A SHASHANK PA Unavailable Unavailable Paul Velasquez MD Unavailable Unavailable Paul Velasquez MD Unavailable Unavailable Paul Velasquez MD Unavailable Unavailable Paul Velasquez MD Unavailable Unavailable Paul Velasquez MD Unavailable Unavailable Paul Velasquez MD Unavailable Unavailable Paul Velasquez MD Unavailable Unavailable Paul Velasquez MD Unavailable Unavailable Paul Velasquez MD Unavailable Unavailable Paul Velasquez MD Unavailable Unavailable Paul Velasquez MD Unavailable Unavailable Paul Velasquez MD Unavailable Unavailable Paul Velasquez MD Unavailable Unavailable Paul Velasquez MD Unavailable Unavailable Paul Vleasquez MD Unavailable Unavailable Paul Velasquez MD Unavailable Unavailable Paul Velasquez MD Unavailable Unavailable Paul Velasquez MD Unavailable Unavailable Paul Velasquez MD Unavailable Unavailable Paul Velasquez MD Unavailable Unavailable Paul Velasquez MD Unavailable Unavailable Paul Velasquez MD Unavailable Unavailable Paul Velasquez MD Unavailable Unavailable Paul Velasquez MD Unavailable Unavailable Paul Velasquez MD Unavailable Unavailable Paul Velasquez MD Unavailable Unavailable Paul Velasquez MD Unavailable Unavailable Paul Velasquez MD Unavailable Unavailable RonPaul MD Unavailable Unavailable RonPaul MD Unavailable Unavailable RonPaul MD Unavailable Unavailable RonPaul MD Unavailable Unavailable RonPaul MD Unavailable Unavailable RonPaul MD Unavailable Unavailable RonPaul MD Unavailable Unavailable RonPaul MD Unavailable Unavailable RonPaul MD Unavailable Unavailable Paul Velasquez MD Unavailable Unavailable RonPaul MD Unavailable Unavailable RnoPaul MD Unavailable Unavailable RonPaul MD Unavailable Unavailable RonPaul MD Unavailable Unavailable RonPaul MD Unavailable Unavailable RonPaul MD Unavailable Unavailable RonPaul MD Unavailable Unavailable RonPaul MD Unavailable Unavailable RonPaul MD Unavailable Unavailable RonPaul MD Unavailable Unavailable Paul Velasquez MD Unavailable Unavailable Paul Velasquez MD Unavailable Unavailable Paul Velasquez MD Unavailable Unavailable Paul Velasquez MD Unavailable Unavailable Paul Velasquez MD Unavailable Unavailable Paul Velasquez MD Unavailable Unavailable Paul Velasquez MD Unavailable Unavailable Paul Velasquez MD Unavailable Unavailable Paul Velasquez MD Unavailable Unavailable Paul Velasquez MD Unavailable Unavailable Paul Velasquez MD Unavailable Unavailable Paul Velasquez MD Unavailable Unavailable Paul Velasquez MD Unavailable Unavailable Paul Velasquez MD Unavailable Unavailable Paul Velasquez MD Unavailable Unavailable Paul Velasquez MD Unavailable Unavailable Paul Velasquez MD Unavailable Unavailable Paul Velasquez MD Unavailable Unavailable Paul Velasquez MD Unavailable Unavailable Paul Velasquez MD Unavailable Unavailable Paul Velasquez MD Unavailable Unavailable Paul Velasquez MD Unavailable Unavailable Paul Velasquez MD Unavailable Unavailable Paul Velasquez MD Unavailable Unavailable Paul Velasquez MD Unavailable Unavailable Paul Velasquez MD Unavailable Unavailable Paul Velasquez MD Unavailable Unavailable Paul Velasquez MD Unavailable Unavailable Paul Velasquez MD Unavailable Unavailable Paul Velasquez MD Unavailable Unavailable CristianDaysi MD Unavailable Unavailable BeaumontDaysi MD Unavailable Unavailable BeaumontDaysi MD Unavailable Unavailable CristianDaysi MD Unavailable Unavailable BeaumontDaysi MD Unavailable Unavailable BeaumontDaysi MD Unavailable Unavailable BeaumontDaysi MD Unavailable Unavailable BeaumontDaysi MD Unavailable Unavailable CristianDaysi MD Unavailable Unavailable BeaumontDaysi MD Unavailable Unavailable CristianDaysi MD Unavailable Unavailable CristianDaysi MD Unavailable Unavailable BeaumontaDysi MD Unavailable Unavailable CristianDaysi MD Unavailable Unavailable BeaumontDaysi MD Unavailable Unavailable BeaumontDaysi MD Unavailable Unavailable BeaumontDaysi MD Unavailable Unavailable CristianDaysi MD Unavailable Unavailable BeaumontDaysi MD Unavailable Unavailable CristianDaysi MD Unavailable Unavailable BeaumontDaysi MD Unavailable Unavailable BeaumontDaysi MD Unavailable Unavailable BeaumontDaysi MD Unavailable Unavailable CristianDaysi MD Unavailable Unavailable BeaumontDaysi MD Unavailable Unavailable BeaumontDaysi MD Unavailable Unavailable BeaumontDaysi MD Unavailable Unavailable CristianDaysi MD Unavailable Unavailable BeaumontDaysi MD Unavailable Unavailable BeaumontDaysi MD Unavailable Unavailable CristianDaysi MD Unavailable Unavailable CristianDaysi MD Unavailable Unavailable CristianDaysi MD Unavailable Unavailable BeaumontDaysi MD Unavailable Unavailable CristianDaysi MD Unavailable Unavailable CristianDaysi MD Unavailable Unavailable BeaumontDaysi MD Unavailable Unavailable CristianDaysi MD Unavailable Unavailable BeaumontDaysi MD Unavailable Unavailable CristianDaysi MD Unavailable Unavailable BeaumontDaysi MD Unavailable Unavailable BeaumontDaysi MD Unavailable Unavailable BeaumontDaysi MD Unavailable Unavailable CristianDaysi MD Unavailable Unavailable CristianDaysi MD Unavailable Unavailable RcistianDaysi MD Unavailable Unavailable CristianDaysi MD Unavailable Unavailable BeaumontDaysi MD Unavailable Unavailable BeaumontDaysi MD Unavailable Unavailable CristianDaysi MD Unavailable Unavailable BeaumontDaysi MD Unavailable Unavailable CristianDaysi MD Unavailable Unavailable BeaumontDaysi MD Unavailable Unavailable BeaumontDaysi MD Unavailable Unavailable BeaumontDaysi MD Unavailable Unavailable CristianDaysi MD Unavailable Unavailable BeaumontDaysi MD Unavailable Unavailable BeaumontDaysi MD Unavailable Unavailable CristianDaysi MD Unavailable Unavailable CristianDaysi MD Unavailable Unavailable CristianDaysi MD Unavailable Unavailable CristianDaysi MD Unavailable Unavailable CristianDaysi MD Unavailable Unavailable BeaumontDaysi MD Unavailable Unavailable BeaumontDaysi MD Unavailable Unavailable BeaumontDaysi MD Unavailable Unavailable CristianDaysi MD Unavailable Unavailable BeaumontDaysi MD Unavailable Unavailable CristianDaysi MD Unavailable Unavailable BeaumontDaysi MD Unavailable Unavailable BeaumontDaysi MD Unavailable Unavailable BeaumontDaysi MD Unavailable Unavailable CristianDaysi MD Unavailable Unavailable BeaumontDaysi MD Unavailable Unavailable BeaumontDaysi MD Unavailable Unavailable CristianDaysi MD Unavailable Unavailable CristianDaysi MD Unavailable Unavailable BeaumontDaysi MD Unavailable Unavailable BeaumontDaysi MD Unavailable Unavailable CristianDaysi MD Unavailable Unavailable BeaumontDaysi MD Unavailable Unavailable BeaumontDaysi MD Unavailable Unavailable BeaumontDaysi MD Unavailable Unavailable BeaumontDaysi MD Unavailable Unavailable CristianDaysi MD Unavailable Unavailable BeaumontDaysi MD Unavailable Unavailable ANTECOL, Enmanuel SINHA MD Unavailable Unavailable ANTECOL, Enmanuel SINHA MD Unavailable Unavailable ANTECOL, Enmanuel SINHA MD Unavailable Unavailable ANTECOL, Enmanuel SINHA MD Unavailable Unavailable ANTECOL, Enmanuel SINHA MD Unavailable Unavailable ANTECOL, Enmanuel SINHA MD Unavailable Unavailable ANTECOL, Enmanuel SINHA MD Unavailable Unavailable ANTECOL, Enmanuel SINHA MD Unavailable Unavailable ANTECOL, Enmanuel SINHA MD Unavailable Unavailable ANTECOL, Enmanuel SINHA MD Unavailable Unavailable ANTECOL, Enmanuel SINHA MD Unavailable Unavailable ANTECOL, Enmanuel SINHA MD Unavailable Unavailable ANTECOL, Enmanuel SINHA MD Unavailable Unavailable ANTECOL, Enmanuel SINHA MD Unavailable Unavailable ANTECOL, Enmanuel SINHA MD Unavailable Unavailable ANTECOL, Enmanuel SINHA MD Unavailable Unavailable ANTECOL, Enmanuel SINHA MD Unavailable Unavailable ANTECOL, Enmanuel SINHA MD Unavailable Unavailable ANTECOL, Enmanuel SINHA MD Unavailable Unavailable ANTECOL, Enmanuel SINHA MD Unavailable Unavailable ANTECOL, Enmanuel SINHA MD Unavailable Unavailable ANTECOL, Enmanuel SINHA MD Unavailable Unavailable ANTECOL, Enmanuel SINHA MD Unavailable Unavailable ANTECOL, Enmanuel SINHA MD Unavailable Unavailable ANTECOL, Enmanuel SINHA MD Unavailable Unavailable ANTECOL, Enmanuel SINHA MD Unavailable Unavailable ANTECOL, Enmanuel SINHA MD Unavailable Unavailable ANTECOL, Enmanuel SINHA MD Unavailable Unavailable ANTECOL, Enmanuel SINHA MD Unavailable Unavailable ANTECOL, Enmanuel SINHA MD Unavailable Unavailable ANTECOL, Enmanuel SINHA MD Unavailable Unavailable ANTECOL, Enmanuel SINHA MD Unavailable Unavailable ANTECOL, Enmanuel SINHA MD Unavailable Unavailable ANTECOL, Enmanuel SINHA MD Unavailable Unavailable ANTECOL, Enmanuel SINHA MD Unavailable Unavailable ANTECOL, Enmanuel SINHA MD Unavailable Unavailable ANTECOL, Enmanuel SINHA MD Unavailable Unavailable ANTECOL, Enmanuel SINHA MD Unavailable Unavailable ANTECOL, Enmanuel SINHA MD Unavailable Unavailable ANTECOL, Enmanuel SINHA MD Unavailable Unavailable ANTECOL, Enmanuel SINHA MD Unavailable Unavailable ANTECOL, Enmanuel SINHA MD Unavailable Unavailable ANTECOL, Enmanuel SINHA MD Unavailable Unavailable ANTECOL, Enmanuel SINHA MD Unavailable Unavailable ANTECOL, Enmanuel SINHA MD Unavailable Unavailable ANTECOL, Enmanuel SINHA MD Unavailable Unavailable ANTECOL, Enmanuel SINHA MD Unavailable Unavailable ANTECOL, Enmanuel SINHA MD Unavailable Unavailable ANTECOL, Enmanuel SINHA MD Unavailable Unavailable ANTECOL, Enmanuel SINHA MD Unavailable Unavailable ANTECOL, Enmanuel SINHA MD Unavailable Unavailable ANTECOL, Enmanuel SNIHA MD Unavailable Unavailable ANTECOL, Enmanuel SINHA MD Unavailable Unavailable ANTECOL, Enmanuel SINHA MD Unavailable Unavailable ANTECOL, Enmanuel SINHA MD Unavailable Unavailable MANJINDER BALTAZAR Unavailable Unavailable LAPOINT, L CHRISTOPHER PA Unavailable Unavailable LAPOINT, L CHRISTOPHER PA Unavailable Unavailable LAPOINT, L CHRISTOPHER PA Unavailable Unavailable LAPOINT, L CHRISTOPHER PA Unavailable Unavailable LAPOINT, L CHRISTOPHER PA Unavailable Unavailable LAPOINT, L CHRISTOPHER PA Unavailable Unavailable LAPOINT, L CHRISTOPHER PA Unavailable Unavailable LAPOINT, L CHRISTOPHER PA Unavailable Unavailable LAPOINT, L CHRISTOPHER PA Unavailable Unavailable LAPOINT, L CHRISTOPHER PA Unavailable Unavailable LAPOINT, L CHRISTOPHER PA Unavailable Unavailable LAPOINT, L CHRISTOPHER PA Unavailable Unavailable LAPOINT, L CHRISTOPHER PA Unavailable Unavailable LAPOINT, L CHRISTOPHER PA Unavailable Unavailable LAPOINT, L CHRISTOPHER PA Unavailable Unavailable LAPOINT, L CHRISTOPHER PA Unavailable Unavailable LAPOINT, L CHRISTOPHER PA Unavailable Unavailable LAPOINT, L CHRISTOPHER PA Unavailable Unavailable LAPOINT, L CHRISTOPHER PA Unavailable Unavailable LAPOINT, L CHRISTOPHER PA Unavailable Unavailable LAPOINT, L CHRISTOPHER PA Unavailable Unavailable LAPOINT, L CHRISTOPHER PA Unavailable Unavailable LAPOINT, L CHRISTOPHER PA Unavailable Unavailable LAPOINT, L CHRISTOPHER PA Unavailable Unavailable LAPOINT, L CHRISTOPHER PA Unavailable Unavailable LAPOINT, L CHRISTOPHER PA Unavailable Unavailable LAPOINT, L CHRISTOPHER PA Unavailable Unavailable LAPOINT, L CHRISTOPHER PA Unavailable Unavailable LAPOINT, L CHRISTOPHER PA Unavailable Unavailable LAPOINT, L CHRISTOPHER PA Unavailable Unavailable LAPOINT, L CHRISTOPHER PA Unavailable Unavailable LAPOINT, L CHRISTOPHER PA Unavailable Unavailable LAPOINT, L CHRISTOPHER PA Unavailable Unavailable Celso, Danielle DO Unavailable Unavailable Celso, Danielle DO Unavailable Unavailable Celso, Danielle DO Unavailable Unavailable Celso, Danielle DO Unavailable Unavailable Celso, Danielle DO Unavailable Unavailable Celso, Danielle DO Unavailable Unavailable Celso, Danielle DO Unavailable Unavailable Celso, Danielle DO Unavailable Unavailable Celso, Danielle DO Unavailable Unavailable Celso, Danielle DO Unavailable Unavailable Celso, Danielle DO Unavailable Unavailable Celso, Danielle DO Unavailable Unavailable Celso, Danielle DO Unavailable Unavailable Celso, Danielle DO Unavailable Unavailable Celso, Danielle DO Unavailable Unavailable Celso, Danielle DO Unavailable Unavailable Celso, Danielle DO Unavailable Unavailable Celso, Danielle DO Unavailable Unavailable Celso, Danielle DO Unavailable Unavailable Celso, Danielle DO Unavailable Unavailable Celso, Danielle DO Unavailable Unavailable Celso, Danielle DO Unavailable Unavailable Celso, Danielle DO Unavailable Unavailable Celso, Danielle DO Unavailable Unavailable Celso, Danielle DO Unavailable Unavailable Celso, Danielle DO Unavailable Unavailable Celso, Danielle DO Unavailable Unavailable Celso, Danielle DO Unavailable Unavailable Celso, Danielle DO Unavailable Unavailable Celso, Danielle DO Unavailable Unavailable Celso, Danielle DO Unavailable Unavailable Celso, Danielle DO Unavailable Unavailable Celso, Danielle DO Unavailable Unavailable Celso, Danielle DO Unavailable Unavailable Celso, Danielle DO Unavailable Unavailable Celso, Danielle DO Unavailable Unavailable Celso, Danielle DO Unavailable Unavailable Celso, Danielle DO Unavailable Unavailable Celso, Danielle DO Unavailable Unavailable Celso, Danielle DO Unavailable Unavailable Celso, Danielle DO Unavailable Unavailable Celso, Danielle DO Unavailable Unavailable Celso, Danielle DO Unavailable Unavailable Celso, Danielle DO Unavailable Unavailable Celso, Danielle DO Unavailable Unavailable Celso, Danielle DO Unavailable Unavailable Celso, Danielle DO Unavailable Unavailable Celso, Danielle DO Unavailable Unavailable Celso, Danielle DO Unavailable Unavailable Celso, Danielle DO Unavailable Unavailable Celso, Danielle DO Unavailable Unavailable Celso, Danielle DO Unavailable Unavailable Celso, Danielle DO Unavailable Unavailable Celso, Danielle DO Unavailable Unavailable Celso, Danielle DO Unavailable Unavailable Celso, Danielle DO Unavailable Unavailable Celso, Danielle DO Unavailable Unavailable Celso, Danielle DO Unavailable Unavailable Celso, Danielle DO Unavailable Unavailable Celso, Danielle DO Unavailable Unavailable Celso, Danielle DO Unavailable Unavailable Celso, Danielle DO Unavailable Unavailable Celso, Danielle DO Unavailable Unavailable Celso, Danielle DO Unavailable Unavailable Celso, Danielle DO Unavailable Unavailable Celso, Danielle DO Unavailable Unavailable Celso, Danielle DO Unavailable Unavailable Celso, Danielle DO Unavailable Unavailable Celso, Danielle DO Unavailable Unavailable Celso, Danielle DO Unavailable Unavailable Celso, Danielle DO Unavailable Unavailable Celso, Danielle DO Unavailable Unavailable Jolene, O Samah Unavailable Unavailable Jolene, O Samah Unavailable Unavailable Jolene, O Samah Unavailable Unavailable Jolene, O Samah Unavailable Unavailable Jolene, O Samah Unavailable Unavailable Jolene, O Samah Unavailable Unavailable Jolene, O Samah Unavailable Unavailable Jolene, O Samah Unavailable Unavailable Jolene, O Samah Unavailable Unavailable Jolene, O Samah Unavailable Unavailable Jolene, O Samah Unavailable Unavailable Jolene, O Samah Unavailable Unavailable Jolene, O Samah Unavailable Unavailable Jolene, O Samah Unavailable Unavailable Jolene, O Samah Unavailable Unavailable Jolene, O Samah Unavailable Unavailable Jolene, O Samah Unavailable Unavailable Jolene, O Samah Unavailable Unavailable Jolene, O Samah Unavailable Unavailable Jolene, O Samah Unavailable Unavailable Jolene, O Samah Unavailable Unavailable Jolene, O Samah Unavailable Unavailable Jolene, O Samah Unavailable Unavailable Jolene, O Samah Unavailable Unavailable Jolene, O Samah Unavailable Unavailable Jolene, O Samah Unavailable Unavailable Jolene, O Samah Unavailable Unavailable Jolene, O Samah Unavailable Unavailable Jolene, O Samah Unavailable Unavailable Jolene, O Samah Unavailable Unavailable Jolene, O Samah Unavailable Unavailable Jolene, O Samah Unavailable Unavailable Jolene, O Samah Unavailable Unavailable Jolene, O Nelsy RODRIGUEZ Unavailable Unavailable Viraj Fernández Samankur RODRIGUEZ Unavailable Unavailable Viraj Fernández Samankur RODRIGUEZ Unavailable Unavailable Viraj Fernández Samankur RODRIGUEZ Unavailable Unavailable Viraj Fernández Samankur RODRIGUEZ Unavailable Unavailable Viraj Fernández Samankur RODRIGUEZ Unavailable Unavailable Viraj Fernández Samankur RODRIGUEZ Unavailable Unavailable Viraj Fernández Samankur RODRIGUEZ Unavailable Unavailable Jolene, O Samah Unavailable Unavailable Viraj Fernández Samankur RODRIGUEZ Unavailable Unavailable Viraj Fernández Samaknur RODRIGUEZ Unavailable Unavailable Viraj Fernández Samankur RODRIGUEZ Unavailable Unavailable Viraj Fernández Samankur RODRIGUEZ Unavailable Unavailable Viraj Fernández MD Unavailable Unavailable Viraj Fernández Samah Unavailable Unavailable Viraj Fernández MD Unavailable Unavailable Viraj Fernández MD Unavailable Unavailable Viraj Fernández MD Unavailable Unavailable Viraj Fernández MD Unavailable Unavailable Viraj Fernández MD Unavailable Unavailable Viraj Fernández MD Unavailable Unavailable Viraj Fernández MD Unavailable Unavailable Viraj Fernández MD Unavailable Unavailable Viraj Fernández MD Unavailable Unavailable Viraj Fernández MD Unavailable Unavailable Viraj Fernández MD Unavailable Unavailable Viraj Fernández MD Unavailable Unavailable Viraj Fernández MD Unavailable Unavailable Viraj Fernández MD Unavailable Unavailable Viraj Fernández MD Unavailable Unavailable Viraj Fernández MD Unavailable Unavailable Viraj Fernández MD Unavailable Unavailable Viraj Fernández MD Unavailable Unavailable Viraj Fernández MD Unavailable Unavailable Viraj Fernández MD Unavailable Unavailable Viraj Fernández MD Unavailable Unavailable Viraj Fernández Samankur RODRIGUEZ Unavailable Unavailable Viraj Fernández Samankur RODRIGUEZ Unavailable Unavailable Viraj Fernández MD Unavailable Unavailable Viraj Fernández MD Unavailable Unavailable Viraj Fernández Samankur RODRIGUEZ Unavailable Unavailable Viraj Fernández Samankur RODRIGUEZ Unavailable Unavailable Viraj Fernández Samankur RODRIGUEZ Unavailable Unavailable Re-disclosure Warning The records that you are about to access may contain information from federally-assisted alcohol or drug abuse programs. If such information is present, then the following federally mandated warning applies: This information has been disclosed to you from records protected by federal confidentiality rules (42 CFR part 2). The federal rules prohibit you from making any further disclosure of this information unless further disclosure is expressly permitted by the written consent of the person to whom it pertains or as otherwise permitted by 42 CFR part 2. A general authorization for the release of medical or other information is NOT sufficient for this purpose. The Federal rules restrict any use of the information to criminally investigate or prosecute any alcohol or drug abuse patient.The records that you are about to access may contain highly sensitive health information, the redisclosure of which is protected by Article 27-F of the [facility] Public Health law. If you continue you may have access to information: Regarding HIV / AIDS; Provided by facilities licensed or operated by the [facility] Office of Mental Health; or Provided by the [facility] Office for People With Developmental Disabilities. If such information is present, then the following [facility] mandated warning applies: This information has been disclosed to you from confidential records which are protected by state law. State law prohibits you from making any further disclosure of this information without the specific written consent of the person to whom it pertains, or as otherwise permitted by law. Any unauthorized further disclosure in violation of state law may result in a fine or shelter sentence or both. A general authorization for the release of medical or other information is NOT sufficient authorization for further disc losure. Allergies and Adverse Reactions Type Description Substance Reaction Status Data Source(s ) BRANDNAME IMITREX IMITREX [facility] BRANDNAME NUCYNTA NUCYNTA [facility] BRANDNAME VICODIN VICODIN [facility] Drug allergy MAGNESIUM MAGNESIUM [facility] CLASS NSAID NSAID [facility] Nucynta Nucynta Nucynta Rash Active eCW1 ([facility]) Tramadol HCl Tramadol HCl Tramadol HCl Rash Active eCW1 ([facility]) Cymbalta Cymbalta duloxetine 30 MG Delayed Release Oral Capsule [Cymbalta] Rash Active eCW1 ([facility]) Hydrocodone-Ibuprofen Hydrocodone-Ibuprofen Hydrocodone Crissy rtrate 10 MG / Ibuprofen 200 MG Oral Tablet Nausea/Vomiting Active eCW1 ([facility]) Hydromorphone HCl Hydromorphone HCl Hydromorphone HCl Itching Acti ve eCW1 ([facility]) Imitrex Imitrex 0.5 ML Sumatriptan 12 MG/ML Inje ction [Imitrex] sunburn-like rash on face Active eCW1 ([facility]) Magnesium Oxide Magnesium Oxide Magnesium Oxide 250 MG Oral Tabl et sunburn-like rash on face Active eCW1 ([facility]) buspirone buspirone buspirone hydrochloride 10 MG Oral Tablet hives Active eCW1 ([facility]) Neurontin Neurontin gabapentin 50 MG/ML Oral Solution [Neuron tin] chest pain Active eCW1 ([facility]) Amoxicillin Amoxicillin Amoxicillin 80 MG/ML Oral Suspension Naus ea/Vomiting Active eCW1 ([facility]) Cipro Cipro Ciprofloxacin 100 MG/ML Oral Suspension [Cipro] Rash Active eCW1 ([facility]) Family History Family Member Name Family Member Gender Family Member Status Date o f Status Description Data Source(s) Unknown Unknown Problem MEDENT ([facility]) Unknown Unknown Problem MEDENT ([facility]) Unknown Unknown Problem MEDENT ([facility]) Unknown Female Problem MEDENT ([facility]) Encounters Encounter Providers Location Date Indications Data Source(s ) Outpatient Attender: BHARATH BLANC MD Main Office 01/18/2020 01:30:00 PM EDT MEDENT ([facility]) Outpatient Attender: Nelsy Fernández MD Main office - [facility] 01/02/2020 08:00:00 AM EDT MEDENT ([facility]) Outpatient Attender: Danielle Shannon 12/27 01:45:00 PM EDT MEDENT ([facility] ) Outpatient Referrer: MANJINDER GLOVER-JEREMIAH 2019 09:59:16 AM EDT - 12/08/2019 09:59:[address] [facility] Outpatient Attender: MANJINDER Hoffman carmen: MANJINDER BALTAZARAdmitter: MANJINDER BALTAZAR [id number] 12/05/2019 12:08:39 PM EDT - 12/13/2019 10:52:00 AM EDT [facility] Patient discharged. Outpatient Attender: Miranda SAENZ 12/01/2019 04:03:00 PM EDT [facility] Outpatient Attender: OLE SOLIS PAConsultant: Jose Miguel Chatterjee DO 11/20/2019 02:59:00 PM EDT - 11/20/2019 03:59:00 PM EDT [facility] Outpatient Attender: Danielle Shannon 10/29 10:20:00 AM EDT MEDENT ([facility] ) Outpatient Referrer: Jessica Velasquez MD 10/12/2019 07:02:00 AM EDT [facility] Outpatient Referrer: Jessica Velasquez MD 2019 12:09:00 PM EDT [facility] Outpatient Referrer: Jessica Velasquez MD 2019 10:48:00 AM EDT [facility] Outpatient Referrer: Umberto Foster MD 2019 10:47:0 0 AM EDT [facility] Outpatient Referrer: Umberto Foster MD 2019 10:47:0 0 AM EDT [facility] Outpatient Attender: Jessica Barraza 09:45:00 AM EDT MEDENT ([facility] ) Outpatient Referrer: Umberto Foster MD 2019 05:26:0 0 AM EDT [facility] Outpatient Referrer: Umberto Foster MD 10/03/2019 03:00:0 0 PM EDT [facility] Outpatient Referrer: Umberto Foster MD 10/03/2019 02:59:0 0 PM EDT [facility] Outpatient Referrer: Umberto Foster MD 10/03/2019 02:57:0 0 PM EDT [facility] Outpatient Attender: KALYN Barraza 0 09/27/2019 11:00:00 AM EDT MEDENT ([facility] ) Outpatient Attender: Jessica Barraza 01:15:00 PM EDT MEDENT ([facility] ) Outpatient Attender: SHASHANK leyva 08/02/2019 01:45:00 PM EDT MEDENT ([facility] [address] [place] [address] 03/31/2019 12:00:00 AM EST eCW1 ([facility]) [facility] [address] [place] [id number] 03/15/2019 12:00:00 AM EST eCW1 ([facility]) Medications Medication Brand Name Start Date Product Form Dose Route Admi nistrative Instructions Pharmacy Instructions Status Indications Reaction Description Data Source(s) Oxycodone Hydrochloride 30 MG Oral Tablet OXYCODONE HCL 04/29/2020 12:00:00 AM EST tablet 180 TAKE ONE TABLET BY MOUTH EVERY 4 HOURS NEEDED FOR PAIN * MAXIMUM DAILY DOSE = 6 TAKE ONE TABLET BY MOUTH EVERY 4 HOURS A S NEEDED FOR PAIN * MAXIMUM DAILY DOSE = 6 SOLD: 05/01/2020 [facility] 30 mg 03/31/2020 12:00:00 AM EST tablet,oral only,ext.re l.12 hr 90 TAKE ONE TABLET BY MOUTH EVERY 8 HOURS, MAXIMUM DAILY DOSE = THREE TABLETS TAKE ONE TABLET BY MOUTH EVERY 8 HOURS, MAXIMUM DAILY DOSE = THREE TABLETS SOLD: 04/10/2020 [facility] Cyclobenzaprine hydrochloride 10 MG Oral Tablet CYCLOBENZAPR INE HCL 03/28/2020 12:00:00 AM EST tablet 90 TAKE ONE TABLET BY MOUTH THREE TIMES A DAY NEEDED FOR SPASM TAKE ONE TABLET BY MOUTH THREE TIMES A DAY NEEDED F OR SPASM SOLD: 03/28/2020 [facility] Oxycodone Hydrochloride 30 MG Oral Tablet OXYCODONE HCL 03/28/2020 12:00:00 AM EST tablet 180 TAKE ONE TABLET BY MOUTH EVERY 4 HOURS NEEDED FOR PAIN, MAXIMUM DAILY DOSE = SIX TABLETS TAKE ONE TABLET BY MOUTH EVERY 4 HOURS A S NEEDED FOR PAIN, MAXIMUM DAILY DOSE = SIX TABLETS SOLD: 03/28/2020 [facility] Alprazolam 0.5 MG Oral Tablet ALPRAZOLAM 03/14/2020 12:00:00 AM EST ta blet 60 TAKE 1 TABLET BY MOUTH 1 TO 2 TIMES A DAY NEEDED FOR SEVERE ANXIETY, MAXIMUM DAILY DOSE = TWO TABLETS TAKE 1 TABLET BY MOUTH 1 TO 2 TIMES A DA Y NEEDED FOR SEVERE ANXIETY, MAXIMUM DAILY DOSE = TWO TABLETS SOLD: 03/20/2020 [facility] Sulfamethoxazole 800 MG / Trimethoprim 160 MG Oral Tab let 800-160 mg SULFAMETHOXAZOLE/TRIMETHOPRIM 03/14/2020 12:00:00 AM EST tablet 20 TAKE ONE TABLET BY MOUTH EVERY 12 HOURS TAKE ONE TABLET BY MOUTH EVERY 12 HOURS SOLD: 03/14/2020 [facility] 30 mg 03/01/2020 12:00:00 AM EST tablet,oral only,ext.re l.12 hr 90 TAKE ONE TABLET BY MOUTH EVERY 8 HOURS, MAXIMUM DAILY DOSE = THREE TABLETS TAKE ONE TABLET BY MOUTH EVERY 8 HOURS, MAXIMUM DAILY DOSE = THREE TABLETS SOLD: 03/02/2020 [facility] 30 mg 02/15/2020 12:00:00 AM EST tablet 180 TAKE ONE TABLET BY MOUTH EVERY 4 HOURS NEEDED FOR PAIN, MAXIMUM DAILY DOSE = SIX TABLETS TAKE ONE TABLET BY MOUTH EVERY 4 HOURS NEEDED FOR PAIN, MAXIMUM DAILY DOSE = SIX TABLETS SOLD: 02/16/2020 [facility] zolmitriptan 2.5 MG Oral Tablet ZOLMITRIPTAN 02/03/2020 12:00:00 AM EDT tablet 6 TAKE 1 TABLET BY MOUTH AT ON SET OF HEADACHE; MAY REPEAT DOSE IN 1 HOUR; MAX OF 2 TABLETS IN 24 HOURS, 4 TABLETS IN 7 DAYS TAKE 1 TABLET BY MOUTH AT ONSET OF HEADACHE; MAY REPEAT DOSE IN 1 HOUR; MAX OF 2 TABLETS IN 24 HOURS, 4 TABLETS IN 7 DAYS SOLD: 03/14/2020 [facility] zolmitriptan 2.5 MG Oral Tablet ZOLMITRIPTAN 02/03/2020 12:00:00 AM EDT tablet 6 TAKE 1 TABLET BY MOUTH AT ON SET OF HEADACHE; MAY REPEAT DOSE IN 1 HOUR; MAX OF 2 TABLETS IN 24 HOURS, 4 TABLETS IN 7 DAYS TAKE 1 TABLET BY MOUTH AT ONSET OF HEADACHE; MAY REPEAT DOSE IN 1 HOUR; MAX OF 2 TABLETS IN 24 HOURS, 4 TABLETS IN 7 DAYS SOLD: 02/04/2020 [facility] 50 mg 02/02/2020 12:00:00 AM EDT tablet 45 TAKE ONE TABLET BY MOUTH EVERY DAY AT BEDTIME FOR 14 DAYS, THEN INCREASE TO 1 & 1/2 TABLETS TAKE ONE TABLET BY MOUTH EVERY DAY AT BEDTIME FOR 14 DAYS, THEN INCREASE TO 1 & 1/2 TABLETS SOLD: 02/04/2020 [facility] 20 mg 02/02/2020 12:00:00 AM EDT tablet 13 TAKE 3 TABLETS BY MOUTH FOR 2 DAYS THEN 2 TABLETS FOR 2 DAYS THEN 1 TABLET FOR 2 DAYS THEN 1/2 TABLET FOR 2 DAYS THEN STOP TAKE 3 TABLETS BY MOUTH FOR 2 DAYS THEN 2 TABLETS FOR 2 DAYS THEN 1 TABLET FOR 2 DAYS THEN 1/2 TABLET FOR 2 DAYS THEN STOP SOLD: 02/04/2020 [facility] 50 mg 02/02/2020 12:00:00 AM EDT tablet 45 TAKE ONE TABLET BY MOUTH EVERY DAY AT BEDTIME FOR 14 DAYS, THEN INCREASE TO 1 & 1/2 TABLETS TAKE ONE TABLET BY MOUTH EVERY DAY AT BEDTIME FOR 14 DAYS, THEN INCREASE TO 1 & 1/2 TABLETS SOLD: 04/21/2020 [facility] 50 mg 02/02/2020 12:00:00 AM EDT tablet 45 TAKE ONE TABLET BY MOUTH EVERY DAY AT BEDTIME FOR 14 DAYS, THEN INCREASE TO 1 & 1/2 TABLETS TAKE ONE TABLET BY MOUTH EVERY DAY AT BEDTIME FOR 14 DAYS, THEN INCREASE TO 1 & 1/2 TABLETS SOLD: 03/14/2020 [facility] 30 mg 01/29/2020 12:00:00 AM EDT tablet,oral only,ext.re l.12 hr 81 TAKE ONE TABLET BY MOUTH EVERY 8 HOURS, MAXIMUM DAILY DOSE = THREE TABLETS TAKE ONE TABLET BY MOUTH EVERY 8 HOURS, MAXIMUM DAILY DOSE = THREE TABLETS SOLD: 02/04/2020 [facility] venlafaxine 75 MG Oral Tablet VENLAFAXINE HCL 01/26/2020 12:00:00 A M EDT tablet 30 TAKE ONE TABLET BY MOUTH EVERY DAY TAKE ONE TABL ET BY MOUTH EVERY DAY SOLD: 03/14/2020 [facility] venlafaxine 75 MG Oral Tablet VENLAFAXINE HCL 01/26/2020 12:00:00 A M EDT tablet 30 TAKE ONE TABLET BY MOUTH EVERY DAY TAKE ONE TABL ET BY MOUTH EVERY DAY SOLD: 01/27/2020 [facility] Alprazolam 0.5 MG Oral Tablet ALPRAZOLAM 01/26/2020 12:00:00 AM EDT ta blet 60 TAKE ONE TABLET BY MOUTH ONE TO TWO TIMES A DAY NEEDED FOR SEVERE ANXIETY, MAXIMUM DAILY DOSE = TWO TABLETS TAKE ONE TABLET BY MOUTH ONE TO TWO TIME S A DAY NEEDED FOR SEVERE ANXIETY, MAXIMUM DAILY DOSE = TWO TABLETS SOLD: 01/27/2020 [facility] 10 mg 01/24/2020 12:00:00 AM EDT tablet 12 TAKE ONE TABLET BY MOUTH EVERY 6 HOURS NEEDED FOR PAIN TAKE ONE TABLET BY MOUTH EVERY 6 HOURS A S NEEDED FOR PAIN SOLD: 01/24/2020 [facility] Clindamycin 150 MG Oral Capsule CLINDAMYCIN HCL 01/24/2020 12:00 :00 AM EDT capsule 60 TAKE TWO CAPSULES BY MOUTH THREE TIMES A DAY FOR 10 DAYS TAKE TWO CAPSULES BY MOUTH THREE TIMES A DAY FOR 10 DAYS SOLD: 01/24/2020 [facility] venlafaxine 75 MG Oral Tablet Venlafaxine HCL 01/19/2020 12:00:00 AM EDT ORAL active MEDENT ([facility]) 0.1 mg 01/19/2020 12:00:00 AM EDT tablet 30 TAKE ONE TABLET BY MOUTH EVERY DAY TAKE ONE TABLET BY MOUTH EVERY DAY SOLD: 03/14/2020 [facility] 75 mg 01/19/2020 12:00:00 AM EDT capsule,extended releas e 24hr 30 TAKE ONE CAPSULE BY MOUTH EVERY DAY TAKE ONE CAPSULE BY MOUTH EVERY DAY SOLD: 01/23/2020 [facility] 0.1 mg 01/19/2020 12:00:00 AM EDT tablet 30 TAKE ONE TABLET BY MOUTH EVERY DAY TAKE ONE TABLET BY MOUTH EVERY DAY SOLD: 01/23/2020 [facility] 24 HR venlafaxine 75 MG Extended Release Oral Tablet Venlafa xine HCL ER 01/18/2020 12:00:00 AM EDT ORAL active MEDENT ([facility]) Fludrocortisone 0.1 MG Oral Tablet Fludrocortisone Acetate 1 12:00:00 AM EDT ORAL active [facility] ([facility]) gabapentin 300 MG Oral Capsule Gabapentin 01/17/2020 12:00:00 AM EDT ORAL active [facility] ([facility]) Carisoprodol 350 MG Oral Tablet Carisoprodol 01/17/2020 12:00:00 AM E DT ORAL active [facility] ([facility]) Multi Vitamin 01/17/2020 12:00:00 AM EDT ORAL acti ve MEDENT ([facility]) Oxycodone Hydrochloride 20 MG Oral Tablet Oxycodone HCL 01/17/2020 12:00:00 AM EDT ORAL active [facility] ([facility]) 24 HR venlafaxine 150 MG Extended Release Oral Capsule Venla faxine HCL ER 01/17/2020 12:00:00 AM EDT ORAL completed MEDENT ([facility]) Nurtec Nurtec 01/17/2020 12:00:00 AM EDT active MEDENT ([facility]) Megestrol Acetate 125 MG/ML Oral Suspension Megestrol Acetat e 01/17/2020 12:00:00 AM EDT ORAL active M EDENT ([facility]) Trazodone Hydrochloride 50 MG Oral Tablet Trazodone HCL 01/17/2020 12:00:00 AM EDT ORAL active [facility] ([facility]) Alprazolam 0.5 MG Oral Tablet Alprazolam 01/17/2020 12:00:00 AM EDT active MED[facility] ([facility]) midodrine hydrochloride 10 MG Oral Tablet Midodrine HCL 01/17/2020 12:00:00 AM EDT ORAL active [facility] ([facility]) rizatriptan 10 MG Disintegrating Oral Tablet Rizatriptan Cal zoate 01/17/2020 12:00:00 AM EDT active M EDENT ([facility]) Amitriptyline Hydrochloride 25 MG Oral Tablet Amitriptyline HCL 01/17/2020 12:00:00 AM EDT ORAL active M EDENT ([facility]) 75 mg 01/15/2020 12:00:00 AM EDT tablet,disintegrating 8 TAKE ONE TABLET BY MOUTH AT THE IMMEDIATE ONSET OF MIGRAINE TAKE ONE TABLET BY MOUTH AT THE IMMEDIATE ONSET OF MIGRAINE SOLD: 03/14/2020 [facility] 75 mg 01/15/2020 12:00:00 AM EDT tablet,disintegrating 8 TAKE ONE TABLET BY MOUTH AT THE IMMEDIATE ONSET OF MIGRAINE TAKE ONE TABLET BY MOUTH AT THE IMMEDIATE ONSET OF MIGRAINE SOLD: 01/16/2020 [facility] 300 mg 01/12/2020 12:00:00 AM EDT capsule 150 TAKE ONE CAPSULE BY MOUTH TWICE A DAY AND TAKE THREE CAPSULES BY MOUTH AT BEDTIME ,MAXIMUM DAILY DOSE = 5 CAPSULES TAKE ONE CAPSULE BY MOUTH TWICE A DAY AN D TAKE THREE CAPSULES BY MOUTH AT BEDTIME ,MAXIMUM DAILY DOSE = 5 CAPSULES SOLD: 04/21/2020 [facility] 300 mg 01/12/2020 12:00:00 AM EDT capsule 150 TAKE ONE CAPSULE BY MOUTH TWICE A DAY AND TAKE THREE CAPSULES BY MOUTH AT BEDTIME ,MAXIMUM DAILY DOSE = 5 CAPSULES TAKE ONE CAPSULE BY MOUTH TWICE A DAY AN D TAKE THREE CAPSULES BY MOUTH AT BEDTIME ,MAXIMUM DAILY DOSE = 5 CAPSULES SOLD: 02/08/2020 [facility] 300 mg 01/12/2020 12:00:00 AM EDT capsule 150 TAKE ONE CAPSULE BY MOUTH TWICE A DAY AND TAKE THREE CAPSULES BY MOUTH AT BEDTIME ,MAXIMUM DAILY DOSE = 5 CAPSULES TAKE ONE CAPSULE BY MOUTH TWICE A DAY AN D TAKE THREE CAPSULES BY MOUTH AT BEDTIME ,MAXIMUM DAILY DOSE = 5 CAPSULES SOLD: 01/12/2020 [facility] 300 mg 01/12/2020 12:00:00 AM EDT capsule 150 TAKE ONE CAPSULE BY MOUTH TWICE A DAY AND TAKE THREE CAPSULES BY MOUTH AT BEDTIME ,MAXIMUM DAILY DOSE = 5 CAPSULES TAKE ONE CAPSULE BY MOUTH TWICE A DAY AN D TAKE THREE CAPSULES BY MOUTH AT BEDTIME ,MAXIMUM DAILY DOSE = 5 CAPSULES SOLD: 03/14/2020 [facility] 20 mg 01/02/2020 12:00:00 AM EDT tablet 13 TAKE 3 TABLETS BY MOUTH FOR 2 DAYS, THEN 2 TABLETS FOR 2 DAYS, THEN 1 TABLET FOR 2 DAYS, AND THEN 1/2 TABLET FOR 2 DAYS THEN STOP TAKE 3 TABLETS BY MOUTH FOR 2 DAYS, THEN 2 TABLETS FOR 2 DAYS, THEN 1 TABLET FOR 2 DAYS, AND THEN 1/2 TABLET FOR 2 DAYS THEN STOP SOLD: 01/02/2020 [facility] 4 mg 01/02/2020 12:00:00 AM EDT tablet,disintegrating 3 0 TAKE 1 TABLET BY MOUTH EVERY 8 HOURS NEEDED FOR MIGRAINE AND OR NAUSEA AND VOMITING TAKE 1 TABLET BY MOUTH EVERY 8 HOURS NEEDED FOR MIGRAINE AND OR NAUSEA AND VOMITING SOLD: 01/02/2020 [facility] Amitriptyline Hydrochloride 25 MG Oral Tablet AMITRIPTYLINE HCL 01/02/2020 12:00:00 AM EDT tablet 30 TAKE ONE TABLET BY MOUTH AT BEDTIME TAKE ONE TABLET BY MOUTH AT BEDTIME SOLD: 01/02/2020 [facility] Ondansetron 4 MG Disintegrating Oral Tablet Ondansetron 01/02/2020 12:00:00 AM EDT active MED[facility] ([facility]) Prednisone 20 MG Oral Tablet Prednisone 01/02/2020 12:00:00 AM EDT active MEDENT ([facility]) 4 mg 01/02/2020 12:00:00 AM EDT tablet,disintegrating 3 0 TAKE 1 TABLET BY MOUTH EVERY 8 HOURS NEEDED FOR MIGRAINE AND OR NAUSEA AND VOMITING TAKE 1 TABLET BY MOUTH EVERY 8 HOURS NEEDED FOR MIGRAINE AND OR NAUSEA AND VOMITING SOLD: 03/14/2020 [facility] Amitriptyline Hydrochloride 25 MG Oral Tablet Amitriptyline HCL 01/02/2020 12:00:00 AM EDT active M EDENT ([facility]) Nurtec Nurtec 01/02/2020 12:00:00 AM EDT active MEDENT ([facility] ) 324 mg (38 mg iron) 01/01/2020 12:00:00 AM EDT tablet 15 TAKE ONE TABLET BY MOUTH EVERY OTHER DAY TAKE ONE TABLET BY MOUTH EVERY OTHER DAY SOLD: 01/02/2020 [facility] ferrous gluconate 324 MG Oral Tablet Ferrous Gluconate 12:00:00 AM EDT ORAL active MEDENT ([facility]) 324 mg (38 mg iron) 01/01/2020 12:00:00 AM EDT tablet 15 TAKE ONE TABLET BY MOUTH EVERY OTHER DAY TAKE ONE TABLET BY MOUTH EVERY OTHER DAY SOLD: 03/14/2020 [facility] Alprazolam 0.5 MG Oral Tablet Alprazolam 12/28/2019 12:00:00 AM EDT ORAL active MEDENT ([facility]) 350 mg 12/28/2019 12:00:00 AM EDT tablet 90 TAKE ONE TABLET BY MOUTH THREE TIMES A DAY NEEDED FOR SPASMS, MAXIMUM DAILY DOSE = THREE TABLETS TAKE ONE TABLET BY MOUTH THREE TIMES A DAY NEEDED FOR SPASMS, MAXIMUM DAILY DOSE = THREE TABLETS SOLD: 01/01/2020 [facility] 350 mg 12/28/2019 12:00:00 AM EDT tablet 90 TAKE ONE TABLET BY MOUTH THREE TIMES A DAY NEEDED FOR SPASMS, MAXIMUM DAILY DOSE = THREE TABLETS TAKE ONE TABLET BY MOUTH THREE TIMES A DAY NEEDED FOR SPASMS, MAXIMUM DAILY DOSE = THREE TABLETS SOLD: 03/14/2020 [facility] 350 mg 12/28/2019 12:00:00 AM EDT tablet 90 TAKE ONE TABLET BY MOUTH THREE TIMES A DAY NEEDED FOR SPASMS, MAXIMUM DAILY DOSE = THREE TABLETS TAKE ONE TABLET BY MOUTH THREE TIMES A DAY NEEDED FOR SPASMS, MAXIMUM DAILY DOSE = THREE TABLETS SOLD: 02/08/2020 [facility] Alprazolam 0.5 MG Oral Tablet ALPRAZOLAM 12/28/2019 12:00:00 AM EDT ta blet 30 TAKE ONE TABLET BY MOUTH ONCE OR TWICE DAILY NEEDED, ONLY FOR SEVERE ANXIETY MAXIMUM DAILY DOSE = TWO TABLETS TAKE ONE TABLET BY MOUTH ONCE OR TWICE D AILY NEEDED, ONLY FOR SEVERE ANXIETY MAXIMUM DAILY DOSE = TWO TABLETS SOLD: 12/28/2019 [facility] 30 mg 12/27/2019 12:00:00 AM EDT tablet,oral only,ext.re l.12 hr 90 TAKE ONE TABLET BY MOUTH EVERY 8 HOURS, MAXIMUM DAILY DOSE = THREE TABLETS TAKE ONE TABLET BY MOUTH EVERY 8 HOURS, MAXIMUM DAILY DOSE = THREE TABLETS SOLD: 12/27/2019 [facility] 30 mg 12/27/2019 12:00:00 AM EDT tablet 180 TAKE ONE TABLET BY MOUTH EVERY 4 HOURS NEEDED FOR PAIN, MAXIMUM DAILY DOSE = SIX TABLETS TAKE ONE TABLET BY MOUTH EVERY 4 HOURS NEEDED FOR PAIN, MAXIMUM DAILY DOSE = SIX TABLETS SOLD: 12/27/2019 [facility] Magnesium Chloride 0.30415 MEQ/ML / Pota ssium Chloride 0.0497 MEQ/ML / Sodium Acetate 0.0163 MEQ/ML / Sodium Chloride 0.0899 MEQ/ML / Sodium gluconate 5.02 MG/ML Injectable Solution [Normosol-R] electrolyte-R (NORMOSOL-R/PLASMALYTE-R) solution electrolyte-R (NORMOSOL-R/PLASMALYTE-R) solution 12/12 11:00:00 AM EDT Intravenous active at 1 00 mL/hr, Intravenous, Continuous, Starting Wed12/13/19 at 1100, Pre-op
FOR DIABETIC PATIENTS: If blood glucose > 120 mg/dL, start IV of Normosol-R @100 mL/hr.
[facility] Medication administered onsite Magnesium Chloride 0.96294 MEQ/ML / Pota ssium Chloride 0.0497 MEQ/ML / Sodium Acetate 0.0163 MEQ/ML / Sodium Chloride 0.0899 MEQ/ML / Sodium gluconate 5.02 MG/ML Injectable Solution [Normosol-R] electrolyte-R (NORMOSOL-R/PLASMALYTE-R) solution electrolyte-R (NORMOSOL-R/PLASMALYTE-R) solution 12/12 09:00:00 AM EDT Intravenous active at 1 00 mL/hr, Intravenous, Continuous, Starting Wed12/13/19 at 0900, Pre-op [facility] Medication administered onsite 50 mg 12/12/2019 12:00:00 AM EDT tablet 30 TAKE ONE TABLET BY MOUTH EVERY DAY AT BEDTIME TAKE ONE TABLET BY MOUTH EVERY DAY AT BEDTIME SOLD: 12/12/2019 [facility] 50 mg 12/12/2019 12:00:00 AM EDT tablet 30 TAKE ONE TABLET BY MOUTH EVERY DAY AT BEDTIME TAKE ONE TABLET BY MOUTH EVERY DAY AT BEDTIME SOLD: 02/04/2020 [facility] 50 mg 12/12/2019 12:00:00 AM EDT tablet 30 TAKE ONE TABLET BY MOUTH EVERY DAY AT BEDTIME TAKE ONE TABLET BY MOUTH EVERY DAY AT BEDTIME SOLD: 01/05/2020 [facility] 50 mg 12/12/2019 12:00:00 AM EDT tablet 30 TAKE ONE TABLET BY MOUTH EVERY DAY AT BEDTIME TAKE ONE TABLET BY MOUTH EVERY DAY AT BEDTIME SOLD: 03/14/2020 [facility] Trazodone Hydrochloride 50 MG Oral Tablet Trazodone HCL 12/11/2019 12:00:00 AM EDT ORAL active [facility] ([facility]) 300 mg 12/09/2019 12:00:00 AM EDT capsule 120 TAKE ONE CAPSULE BY MOUTH TWICE A DAY AND TWO AT BEDTIME TAKE ONE CAPSULE BY MOUTH TWICE A DAY AN D TWO AT BEDTIME SOLD: 12/09/2019 [facility] 5 mg 12/07/2019 12:00:00 AM EDT tablet 15 TAKE ONE TABLET BY MOUTH THREE TIMES A DAY NEEDED FOR SPASM , MAXIMUM DAILY DOSE = 3 TABLETS TAKE ONE TABLET BY MOUTH THREE TIMES A DAY NEEDED FOR SPASM , MAXIMUM DAILY DOSE = 3 TABLETS SOLD: 12/07/2019 [facility] 40 mg 11/30/2019 12:00:00 AM EDT tablet,oral only,ext.re l.12 hr 86 TAKE ONE TABLET BY MOUTH EVERY 8 HOURS, MAXIMUM DAILY DOSE = THREE TABLETS TAKE ONE TABLET BY MOUTH EVERY 8 HOURS, MAXIMUM DAILY DOSE = THREE TABLETS SOLD: 12/02/2019 [facility] 400 mg/10 mL (40 mg/mL) 11/29/2019 12:00:00 AM EDT suspensio n 60 TAKE 10ML BY MOUTH ONCE DAILY TAKE 10ML BY MOUTH ONCE DAILY SOLD: 11/29/2019 [facility] Megestrol Acetate 40 MG/ML Oral Suspension 400 mg/10 m L (40 mg/mL) MEGESTROL ACETATE 11/29/2019 12:00:00 AM EDT suspension 240 T MARLENA 10ML BY MOUTH ONCE DAILY TAKE 10ML BY MOUTH ONCE DAILY SOLD: 11/30/2019 [facility] 30 mg 11/22/2019 12:00:00 AM EDT tablet 180 TAKE 1-2 TABLETS BY MOUTH EVERY 4 HOURS NEEDED FOR PAIN, MAXIMUM DAILY DOSE = 6 TAKE 1-2 TABLETS BY MOUTH EVERY 4 HOURS NEEDED FOR PAIN, MAXIMUM DAILY DOSE = 6 SOLD: 11/22/2019 [facility] 1,250 mcg (50,000 unit) 11/21/2019 12:00:00 AM EDT capsule 4 TAKE ONE CAPSULE BY MOUTH ONCE WEEKLY TAKE ONE CAPSULE BY MOUTH ONCE WEEKLY SOLD: 11/21/2019 [facility] 10 mg 11/21/2019 12:00:00 AM EDT tablet 90 TAKE ONE TABLET BY MOUTH THREE TIMES A DAY TAKE ONE TABLET BY MOUTH THREE TIMES A DAY SOLD: 11/22/2019 [facility] 4 mg 11/14/2019 12:00:00 AM EDT tablet,disintegrating 3 0 DISSOLVE ONE TABLET ON TONGUE EVERY 6 HOURS NEEDED FOR NAUSEA DISSOLVE ONE TABLET ON TONGUE EVERY 6 HOURS NEEDED FOR NAUSEA SOLD: 11/20/2019 [facility] 10 mg 11/10/2019 12:00:00 AM EDT tablet 20 TAKE ONE TABLET BY MOUTH TWICE A DAY FOR MIGRAINE, MAX 10 DAYS PER MONTH, MAXIMUM DAILY DOSE = TWO TABLETS TAKE ONE TABLET BY MOUTH TWICE A DAY FOR MIGRAINE, MAX 10 DAYS PER MONTH, MAXIMUM DAILY DOSE = TWO TABLETS SOLD: 12/12/2019 [facility] 10 mg 11/10/2019 12:00:00 AM EDT tablet 20 TAKE ONE TABLET BY MOUTH TWICE A DAY FOR MIGRAINE, MAX 10 DAYS PER MONTH, MAXIMUM DAILY DOSE = TWO TABLETS TAKE ONE TABLET BY MOUTH TWICE A DAY FOR MIGRAINE, MAX 10 DAYS PER MONTH, MAXIMUM DAILY DOSE = TWO TABLETS SOLD: 11/13/2019 [facility] 10 mg 11/10/2019 12:00:00 AM EDT tablet 20 TAKE ONE TABLET BY MOUTH TWICE A DAY FOR MIGRAINE, MAX 10 DAYS PER MONTH, MAXIMUM DAILY DOSE = TWO TABLETS TAKE ONE TABLET BY MOUTH TWICE A DAY FOR MIGRAINE, MAX 10 DAYS PER MONTH, MAXIMUM DAILY DOSE = TWO TABLETS SOLD: 01/01/2020 [facility] 5 mg 11/08/2019 12:00:00 AM EDT tablet 81 TAKE ONE TABLET BY MOUTH THREE TIMES A DAY TAKE ONE TABLET BY MOUTH THREE TIMES A DAY SOLD: 11/13/2019 [facility] 4 gram 11/08/2019 12:00:00 AM EDT powder in packet 60 TAKE 1 PACKET (4 GRAMS) BY MOUTH TWO TIMES A DAY MIXED WITH WATER OR NON-CARBONATED DRINK TAKE 1 PACKET (4 GRAMS) BY MOUTH TWO TIMES A DAY MIXED WITH WATER OR NON-CARBONATED DRINK SOLD: 11/08/2019 [facility] 40 mg 10/26/2019 12:00:00 AM EDT tablet,oral only,ext.re l.12 hr 90 TAKE ONE TABLET BY MOUTH EVERY 8 HOURS MAXIMUM DAILY DOSE = THREE TABLETS TAKE ONE TABLET BY MOUTH EVERY 8 HOURS MAXIMUM DAILY DOSE = THREE TABLETS SOLD: 10/26/2019 [facility] 30 mg 10/24/2019 12:00:00 AM EDT tablet 180 TAKE 1-2 TABLETS BY MOUTH EVERY 4 HOURS FOR PAIN NOT CONTROLLED WITH LONG ACTING OXYCODONE MAXIMUM DAILY DOSE = 6 TABLETS TAKE 1-2 TABLETS BY MOUTH EVERY 4 HOURS FOR PAIN NOT CONTROLLED WITH LONG ACTING OXYCODONE MAXIMUM DAILY DOSE = 6 TABLETS SOLD: 10/24/2019 [facility] 24 HR venlafaxine 150 MG Extended Release Oral Capsule Venla faxine HCL ER 10/24/2019 12:00:00 AM EDT ORAL completed [facility] ([facility]) 30 mg 10/17/2019 12:00:00 AM EDT tablet 42 TAKE 1-2 TABLETS BY MOUTH EVERY 4 HOURS FOR PAIN NOT CONTROLLED WITH LONG ACTING OXYCONTIN MAXIMUM DAILY DOSE = 6 TABLETS TAKE 1-2 TABLETS BY MOUTH EVERY 4 HOURS FOR PAIN NOT CONTROLLED WITH LONG ACTING OXYCONTIN MAXIMUM DAILY DOSE = 6 TABLETS SOLD: 10/18/2019 [facility] 150 mg 10/17/2019 12:00:00 AM EDT capsule,extended releas e 24hr 30 TAKE ONE CAPSULE BY MOUTH EVERY DAY TAKE ONE CAPSULE BY MOUTH EVERY DAY SOLD: 01/01/2020 [facility] 150 mg 10/17/2019 12:00:00 AM EDT capsule,extended releas e 24hr 30 TAKE ONE CAPSULE BY MOUTH EVERY DAY TAKE ONE CAPSULE BY MOUTH EVERY DAY SOLD: 10/18/2019 [facility] 150 mg 10/17/2019 12:00:00 AM EDT capsule,extended releas e 24hr 30 TAKE ONE CAPSULE BY MOUTH EVERY DAY TAKE ONE CAPSULE BY MOUTH EVERY DAY SOLD: 11/24/2019 [facility] 500 mg 10/17/2019 12:00:00 AM EDT tablet 7 TAKE ONE TABLET BY MOUTH EVERY DAY FOR 7 DAYS TAKE ONE TABLET BY MOUTH EVERY DAY FOR 7 DAYS SOLD: 10/18/2019 [facility] 24 HR venlafaxine 150 MG Extended Release Oral Capsule Venla faxine HCL ER 2019 12:00:00 AM EDT ORAL completed [facility] ([facility]) Levofloxacin 500 MG Oral Tablet Levofloxacin 09/29/2019 12:00:00 AM E DT ORAL completed [facility] ([facility]) Ciprofloxacin 500 MG Oral Tablet Ciprofloxacin HCL 09/27/2019 12:00 :00 AM EDT ORAL completed [facility] ([facility]) 500 mg 09/27/2019 12:00:00 AM EDT tablet 14 TAKE ONE TABLET BY MOUTH TWO TIMES A DAY TAKE ONE TABLET BY MOUTH TWO TIMES A DAY SOLD: 09/27/2019 [facility] 40 mg 09/23/2019 12:00:00 AM EDT capsule,delayed release (DR/EC) 30 TAKE ONE CAPSULE BY MOUTH EVERY DAY TAKE ONE CAPSULE BY MOUTH EVERY DAY SOLD: 09/27/2019 [facility] 1 gram 09/23/2019 12:00:00 AM EDT tablet 120 TAKE ONE TABLET (MAY DISSOLVE IN 15-30MLS WATER) BY MOUTH FOUR TIMES A DAY BEFORE MEALS AT BEDTIME TAKE ONE TABLET (MAY DISSOLVE IN 15-30MLS WATER) BY MOUTH FOUR TIMES A DAY BEFORE MEALS AT BEDTIME SOLD: 09/27/2019 [facility] 200 mcg 09/23/2019 12:00:00 AM EDT tablet 120 TAKE ONE TABLET BY MOUTH FOUR TIMES A DAY BEFORE MEALS AT BEDTIME TAKE ONE TABLET BY MOUTH FOUR TIMES A DA Y BEFORE MEALS AT BEDTIME SOLD: 09/27/2019 [facility] 40 mg 09/19/2019 12:00:00 AM EDT tablet,oral only,ext.re l.12 hr 90 TAKE ONE TABLET BY MOUTH EVERY 8 HOURS, MAXIMUM DAILY DOSE = THREE TABLETS TAKE ONE TABLET BY MOUTH EVERY 8 HOURS, MAXIMUM DAILY DOSE = THREE TABLETS SOLD: 09/19/2019 [facility] Cholecalciferol 2000 UNT Oral Tablet Vitamin D 09/15/2019 12:00:00 A M EDT ORAL completed [facility] ([facility]) 625 mg 09/14/2019 12:00:00 AM EDT tablet 60 TAKE 1 TO 2 TABLET ONCE DAILY WITH FOOD TAKE 1 TO 2 TABLET ONCE DAILY WITH FOOD SOLD: 09/14/2019 [facility] 75 mg 09/14/2019 12:00:00 AM EDT tablet extended release 24hr 30 TAKE ONE TABLET BY MOUTH EVERY DAY TAKE ONE TABLET BY MOUTH EVERY DAY SOLD: 09/14/2019 [facility] 24 HR venlafaxine 75 MG Extended Release Oral Tablet Venlafa xine HCL ER 09/13/2019 12:00:00 AM EDT ORAL completed [facility] ([facility]) Oxycodone Hydrochloride 30 MG Oral Tablet Oxycodone HCL 09/13/2019 12:00:00 AM EDT completed [facility] ([facility]) Carisoprodol 350 MG Oral Tablet Carisoprodol 09/13/2019 12:00:00 AM EDT active [facility] ([facility]) Oxycodone HCL ER Oxycodone HCL ER 09/13/2019 12:00:00 AM EDT completed [facility] ([facility]) Colesevelam hydrochloride 625 MG Oral Tablet [Welchol] [facility] 09/13/2019 12:00:00 AM EDT active M [facility]ENT ([facility]) 24 HR venlafaxine 75 MG Extended Release Oral Tablet Venlafa xine HCL ER 09/13/2019 12:00:00 AM EDT ORAL active [facility] ([facility] ) Colesevelam hydrochloride 625 MG Oral Tablet [Welchol] [facility] 09/13/2019 12:00:00 AM EDT active M EDENT ([facility] ) Carisoprodol 350 MG Oral Tablet Carisoprodol 09/13/2019 12:00:00 AM EDT active [facility] ([facility] ) Oxycodone HCL ER Oxycodone HCL ER 09/13/2019 12:00:00 AM EDT active [facility] ([facility]) Oxycodone Hydrochloride 30 MG Oral Tablet Oxycodone HCL 09/13/2019 12:00:00 AM EDT active [facility] ([facility]) 30 mg 09/12/2019 12:00:00 AM EDT tablet 180 TAKE 1 & 1/2 TABLET BY MOUTH EVERY 4 HOURS NEEDED FOR PAIN, MAXIMUM DAILY DOSE = SIX TABLETS TAKE 1 & 1/2 TABLET BY MOUTH EVERY 4 HOURS NEEDED FOR PAIN, MAXIMUM DAILY DOSE = SIX TABLETS SOLD: 09/13/2019 [facility] 350 mg 09/11/2019 12:00:00 AM EDT tablet 90 TAKE ONE TABLET BY MOUTH THREE TIMES A DAY NEEDED FOR SPASMS, MAXIMUM DAILY DOSE = THREE TABLETS TAKE ONE TABLET BY MOUTH THREE TIMES A DAY NEEDED FOR SPASMS, MAXIMUM DAILY DOSE = THREE TABLETS SOLD: 11/24/2019 [facility] 350 mg 09/11/2019 12:00:00 AM EDT tablet 90 TAKE ONE TABLET BY MOUTH THREE TIMES A DAY NEEDED FOR SPASMS, MAXIMUM DAILY DOSE = THREE TABLETS TAKE ONE TABLET BY MOUTH THREE TIMES A DAY NEEDED FOR SPASMS, MAXIMUM DAILY DOSE = THREE TABLETS SOLD: 09/11/2019 [facility] 30 mg 09/11/2019 12:00:00 AM EDT tablet,oral only,ext.re l.12 hr 15 TAKE ONE TABLET BY MOUTH EVERY 8 HOURS, MAXIMUM DAILY DOSE = THREE TABLETS TAKE ONE TABLET BY MOUTH EVERY 8 HOURS, MAXIMUM DAILY DOSE = THREE TABLETS SOLD: 09/11/2019 [facility] 350 mg 09/11/2019 12:00:00 AM EDT tablet 90 TAKE ONE TABLET BY MOUTH THREE TIMES A DAY NEEDED FOR SPASMS, MAXIMUM DAILY DOSE = THREE TABLETS TAKE ONE TABLET BY MOUTH THREE TIMES A DAY NEEDED FOR SPASMS, MAXIMUM DAILY DOSE = THREE TABLETS SOLD: 10/25/2019 [facility] 5 mg 09/06/2019 12:00:00 AM EDT tablet 6 TAKE ONE TABLET BY MOUTH TWICE A DAY FOR 1 DAY, THEN TAKE ONE TABLET BY MOUTH EVERY DAY FOR 4 DAYS, THEN STOP MAXIMUM DAILY DOSE = TWO TABLETS TAKE ONE TABLET BY MOUTH TWICE A DAY FOR 1 DAY, THEN TAKE ONE TABLET BY MOUTH EVERY DAY FOR 4 DAYS, THEN STOP MAXIMUM DAILY DOSE = TWO TABLETS SOLD: 09/09/2019 [facility] 30 mg 08/14/2019 12:00:00 AM EDT tablet 180 TAKE 1 TO 1 & 1/2 TABLET BY MOUTH EVERY 4 HOURS NEEDED FOR PAIN, MAXIMUM DAILY DOSE = SIX TABLETS TAKE 1 TO 1 & 1/2 TABLET BY MOUTH EVERY 4 HOURS NEEDED FOR PAIN, MAXIMUM DAILY DOSE = SIX TABLETS SOLD: 08/14/2019 [facility] 350 mg 08/02/2019 12:00:00 AM EDT tablet 60 TAKE ONE TABLET BY MOUTH TWICE A DAY. MAXIMUM DAILY DOSE = 2 TABLETS TAKE ONE TABLET BY MOUTH TWICE A DAY. MAXIMUM DAILY DOSE = 2 TABLETS SOLD: 08/02/2019 [facility] Amoxicillin 875 MG Oral Tablet Amoxicillin 08/02/2019 12:00:00 AM EDT active [facility] ([facility]) 875 mg 08/02/2019 12:00:00 AM EDT tablet 20 TAKE ONE TABLET BY MOUTH EVERY 12 HOURS FOR 10 DAYS TAKE ONE TABLET BY MOUTH EVERY 12 HOURS FOR 10 DAYS SO LD: 08/02/2019 [facility] 5 mg 07/31/2019 12:00:00 AM EDT tablet 11 TAKE ONE TABLET BY MOUTH THREE TIMES A DAY, MAXIMUM DAILY DOSE = THREE TABLETS TAKE ONE TABLET BY MOUTH THREE TIMES A DAY, MAXIMUM DAILY DOSE = THREE TABLETS SOLD: 07/31/2019 [facility] 5 mg 07/31/2019 12:00:00 AM EDT tablet 79 TAKE ONE TABLET BY MOUTH THREE TIMES A DAY, MAXIMUM DAILY DOSE = THREE TABLETS TAKE ONE TABLET BY MOUTH THREE TIMES A DAY, MAXIMUM DAILY DOSE = THREE TABLETS SOLD: 08/02/2019 [facility] 500 mg 07/13/2019 12:00:00 AM EDT tablet 14 TAKE ONE TABLET BY MOUTH TWICE A DAY FOR 7 DAYS TAKE ONE TABLET BY MOUTH TWICE A DAY FOR 7 DAYS SOLD: 07/13/2019 [facility] buspirone hydrochloride 10 MG Oral Tablet BUSPIRONE HCL 07/07/2019 12:00:00 AM EDT tablet 120 TAKE TWO TABLETS BY MOUTH TW ICE A DAY TAKE TWO TABLETS BY MOUTH TWICE A DAY SOLD: 07/07/2019 [facility] buspirone hydrochloride 10 MG Oral Tablet Buspirone HCL 07/06/2019 12:00:00 AM EDT ORAL completed [facility] ([facility]) 30 mg 07/03/2019 12:00:00 AM EDT tablet 180 TAKE ONE TO ONE AND ONE-HALF TABLETS BY MOUTH EVERY 4 HOURS MAXIMUM DAILY DOSE = SIX TABLETS TAKE ONE TO ONE AND ONE-HALF TABLETS BY MOUTH EVERY 4 HOURS MAXIMUM DAILY DOSE = SIX TABLETS SOLD: 07/05/2019 [facility] 5 mg 06/28/2019 12:00:00 AM EDT tablet 60 TAKE ONE TABLET BY MOUTH TWICE A DAY FOR 5 DAYS THEN TAKE ONE TABLET BY MOUTH EVERY 8 HOURS FOR PAIN , MAXIMUM DAILY DOSE = 3 TABLETS TAKE ONE TABLET BY MOUTH TWICE A DAY FOR 5 DAYS THEN TAKE ONE TABLET BY MOUTH EVERY 8 HOURS FOR PAIN , MAXIMUM DAILY DOSE = 3 TABLETS SOLD: 06/28/2019 [facility] 30 mg 06/12/2019 12:00:00 AM EST tablet 120 TAKE 1/2 TO 1 TABLET BY MOUTH FOUR TIMES A DAY, MAXIMUM DAILY DOSE = FOUR TABLETS TAKE 1/2 TO 1 TABLET BY MOUTH FOUR TIMES A DAY, MAXIMUM DAILY DOSE = FOUR TABLETS SOLD: 06/12/2019 [facility] 10 mg 06/07/2019 12:00:00 AM EST tablet 20 TAKE ONE-HALF TO ONE TABLET BY MOUTH FOUR TIMES A DAY NEEDED FOR PAIN MAXIMUM DAILY DOSE = FOUR TABLETS TAKE ONE-HALF TO ONE TABLET BY MOUTH FOUR TIMES A DAY NEEDED FOR PAIN MAXIMUM DAILY DOSE = FOUR TABLETS SOLD: 06/07/2019 [facility] 5-325 mg 05/07/2019 12:00:00 AM EST tablet 180 TAKE 1 TO 2 TABLETS BY MOUTH THREE TIMES A DAY NEEDED FOR PAIN, MAXIMUM DAILY DOSE = SIX TABLETS TAKE 1 TO 2 TABLETS BY MOUTH THREE TIMES A DAY NEEDED FOR PAIN, MAXIMUM DAILY DOSE = SIX TABLETS SOLD: 05/07/2019 [facility] 15 mg 05/05/2019 12:00:00 AM EST tablet 120 TAKE ONE TABLET BY MOUTH EVERY 6 HOURS NEEDED FOR PAIN, MAXIMUM DAILY DOSE = FOUR TABLETS TAKE ONE TABLET BY MOUTH EVERY 6 HOURS NEEDED FOR PAIN, MAXIMUM DAILY DOSE = FOUR TABLETS SOLD: 05/05/2019 [facility] Ciprofloxacin 500 MG Oral Tablet Ciprofloxacin HCL 04/26/2019 12:00 :00 AM EST ORAL completed [facility] ([facility]) 500 mg 04/26/2019 12:00:00 AM EST tablet 10 TAKE ONE TABLET BY MOUTH TWICE A DAY FOR 5 DAYS TAKE ONE TABLET BY MOUTH TWICE A DAY FOR 5 DAYS SOLD: 04/27/2019 [facility] 5-325 mg 04/08/2019 12:00:00 AM EST tablet 180 TAKE ONE TO TWO TABLETS BY MOUTH THREE TIMES A DAY NEEDED FOR PAIN MAXIMUM DAILY DOSE = SIX TABLETS TAKE ONE TO TWO TABLETS BY MOUTH THREE TIMES A DAY NEEDED FOR PAIN MAXIMUM DAILY DOSE = SIX TABLETS SOLD: 04/08/2019 [facility] 15 mg 04/06/2019 12:00:00 AM EST tablet 120 TAKE ONE TABLET BY MOUTH EVERY 6 HOURS NEEDED FOR PAIN , MAXIMUM DAILY DOSE = 4 TABLETS TAKE ONE TABLET BY MOUTH EVERY 6 HOURS NEEDED FOR PAIN , MAXIMUM DAILY DOSE = 4 TABLETS SOLD: 04/06/2019 [facility] 50 mg 03/24/2019 12:00:00 AM EST tablet 180 TAKE ONE TO TWO TABLETS BY MOUTH FOUR TIMES A DAY NEEDED FOR PAIN MAXIMUM DAILY DOSE = SIX TABLETS TAKE ONE TO TWO TABLETS BY MOUTH FOUR TIMES A DAY NEEDED FOR PAIN MAXIMUM DAILY DOSE = SIX TABLETS SOLD: 03/24/2019 [facility] Oxycodone Hydrochloride 15 MG Oral Tablet Oxycodone HC l 15 MG Oxycodone HCl 15 MG 03/15/2019 12:00:00 AM EST active 1 tablet [id number] ([facility]) 15 mg 03/15/2019 12:00:00 AM EST tablet 90 TAKE ONE TABLET EVERY 8 HOURS THREE TIMES A DAY MAXIMUM DAILY DOSE = 3 TABLETS TAKE ONE TABLET EVERY 8 HOURS THREE TIMES A DAY MAXIMUM DAILY DOSE = 3 TABLETS SOLD: 03/16/2019 [facility] 10 mg 03/08/2019 12:00:00 AM EST tablet 20 TAKE ONE TABLET BY MOUTH TWO TIMES A DAY FOR MIGRAINE - MAX 10 MIGRAINE DAYS PER MONTH , MAXIMUM DAILY DOSE = 2 TABLETS TAKE ONE TABLET BY MOUTH TWO TIMES A DAY FOR MIGRAINE - MAX 10 MIGRAINE DAYS PER MONTH , MAXIMUM DAILY DOSE = 2 TABLETS SOLD: 05/03/2019 [facility] 10 mg 03/08/2019 12:00:00 AM EST tablet 9 TAKE ONE TABLET BY MOUTH TWO TIMES A DAY FOR MIGRAINE - MAX 10 MIGRAINE DAYS PER MONTH , MAXIMUM DAILY DOSE = 2 TABLETS TAKE ONE TABLET BY MOUTH TWO TIMES A DAY FOR MIGRAINE - MAX 10 MIGRAINE DAYS PER MONTH , MAXIMUM DAILY DOSE = 2 TABLETS SOLD: 03/14/2019 [facility] 10 mg 03/08/2019 12:00:00 AM EST tablet 9 TAKE ONE TABLET BY MOUTH TWO TIMES A DAY FOR MIGRAINE - MAX 10 MIGRAINE DAYS PER MONTH , MAXIMUM DAILY DOSE = 2 TABLETS TAKE ONE TABLET BY MOUTH TWO TIMES A DAY FOR MIGRAINE - MAX 10 MIGRAINE DAYS PER MONTH , MAXIMUM DAILY DOSE = 2 TABLETS SOLD: 04/20/2019 [facility] 10 mg 03/08/2019 12:00:00 AM EST tablet 9 TAKE ONE TABLET BY MOUTH TWO TIMES A DAY FOR MIGRAINE - MAX 10 MIGRAINE DAYS PER MONTH , MAXIMUM DAILY DOSE = 2 TABLETS TAKE ONE TABLET BY MOUTH TWO TIMES A DAY FOR MIGRAINE - MAX 10 MIGRAINE DAYS PER MONTH , MAXIMUM DAILY DOSE = 2 TABLETS SOLD: 04/01/2019 [facility] 10 mg 02/07/2019 12:00:00 AM EDT tablet 9 TAKE ONE TABLET BY MOUTH TWICE A DAY FOR MIGRAINE FOR A MAX OF 10 MIGRAINE DAYS PER MONTH , MAXIMUM DAILY DOSE = 2 TABLET TAKE ONE TABLET BY MOUTH TWICE A DAY FOR MIGRAINE FOR A MAX OF 10 MIGRAINE DAYS PER MONTH , MAXIMUM DAILY DOSE = 2 TABLET SOLD: 07/28/2019 [facility] 10 mg 02/07/2019 12:00:00 AM EDT tablet 9 TAKE ONE TABLET BY MOUTH TWICE A DAY FOR MIGRAINE FOR A MAX OF 10 MIGRAINE DAYS PER MONTH , MAXIMUM DAILY DOSE = 2 TABLET TAKE ONE TABLET BY MOUTH TWICE A DAY FOR MIGRAINE FOR A MAX OF 10 MIGRAINE DAYS PER MONTH , MAXIMUM DAILY DOSE = 2 TABLET SOLD: 07/08/2019 [facility] 10 mg 02/07/2019 12:00:00 AM EDT tablet 9 TAKE ONE TABLET BY MOUTH TWICE A DAY FOR MIGRAINE FOR A MAX OF 10 MIGRAINE DAYS PER MONTH , MAXIMUM DAILY DOSE = 2 TABLET TAKE ONE TABLET BY MOUTH TWICE A DAY FOR MIGRAINE FOR A MAX OF 10 MIGRAINE DAYS PER MONTH , MAXIMUM DAILY DOSE = 2 TABLET SOLD: 09/09/2019 [facility] 10 mg 02/07/2019 12:00:00 AM EDT tablet 9 TAKE ONE TABLET BY MOUTH TWICE A DAY FOR MIGRAINE FOR A MAX OF 10 MIGRAINE DAYS PER MONTH , MAXIMUM DAILY DOSE = 2 TABLET TAKE ONE TABLET BY MOUTH TWICE A DAY FOR MIGRAINE FOR A MAX OF 10 MIGRAINE DAYS PER MONTH , MAXIMUM DAILY DOSE = 2 TABLET SOLD: 10/22/2019 [facility] 10 mg 02/07/2019 12:00:00 AM EDT tablet 9 TAKE ONE TABLET BY MOUTH TWICE A DAY FOR MIGRAINE FOR A MAX OF 10 MIGRAINE DAYS PER MONTH , MAXIMUM DAILY DOSE = 2 TABLET TAKE ONE TABLET BY MOUTH TWICE A DAY FOR MIGRAINE FOR A MAX OF 10 MIGRAINE DAYS PER MONTH , MAXIMUM DAILY DOSE = 2 TABLET SOLD: 08/25/2019 [facility] 10 mg 01/02/2019 12:00:00 AM EDT tablet 9 TAKE ONE TABLET BY MOUTH TWICE A DAY FOR MIGRAINE MAX 10 MIGRAINE DAYS PER MONTH , MAXIMUM DAILY DOSE = 2 TABLETS TAKE ONE TABLET BY MOUTH TWICE A DAY FOR MIGRAINE MAX 10 MIGRAINE DAYS PER MONTH , MAXIMUM DAILY DOSE = 2 TABLETS SOLD: 06/07/2019 [facility] 10 mg 01/02/2019 12:00:00 AM EDT tablet 9 TAKE ONE TABLET BY MOUTH TWICE A DAY FOR MIGRAINE MAX 10 MIGRAINE DAYS PER MONTH , MAXIMUM DAILY DOSE = 2 TABLETS TAKE ONE TABLET BY MOUTH TWICE A DAY FOR MIGRAINE MAX 10 MIGRAINE DAYS PER MONTH , MAXIMUM DAILY DOSE = 2 TABLETS SOLD: 06/28/2019 [facility] 10 mg 01/02/2019 12:00:00 AM EDT tablet 9 TAKE ONE TABLET BY MOUTH TWICE A DAY FOR MIGRAINE MAX 10 MIGRAINE DAYS PER MONTH , MAXIMUM DAILY DOSE = 2 TABLETS TAKE ONE TABLET BY MOUTH TWICE A DAY FOR MIGRAINE MAX 10 MIGRAINE DAYS PER MONTH , MAXIMUM DAILY DOSE = 2 TABLETS SOLD: 05/28/2019 [facility] 150 mg 11/24/2018 12:00:00 AM EDT tablet 2 TAKE ONE TABLET BY MOUTH & REPEAT IN 3 DAYS TAKE ONE TABLET BY MOUTH & REPEAT IN 3 DAYS SOLD: 03/23/2019 [facility] Acetaminophen 325 MG / butalbital 50 MG / Caffeine 40 MG Oral Tablet ahdrbnzjgv-lgjvccvrcfuhn-zqiqtipd (FIORICET, ESGIC) 50-325-40 MG per tablet esyeojqazo-gvkzxjhkblcqx-xolocdkl (FIORICET, ESGIC) 50-325-40 MG per tablet 1 {tbl} Oral aborted Take 1 tab let by mouth every 6 (six) hours as needed for headaches [facility] Diazepam 5 MG Oral Tablet diazepam (VALIUM) 5 MG table t diazepam (VALIUM) 5 MG tablet 5 mg Oral aborted Take 5 mg by mouth every 6 (six) hours as needed for anxiety [facility] Diphenhydramine Hydrochloride 25 MG Oral Tablet diphenhydrAMINE (BENADRYL) 25 MG tablet diphenhydrAMINE (BENADRYL) 25 MG tablet 25 mg Oral aborted Take 25 mg by mouth every 8 (eight) hours as needed [facility] tizanidine 4 MG Oral Tablet tiZANidine (ZANAFLEX) 4 MG tablet tiZANidine (ZANAFLEX) 4 MG tablet 4 mg Oral aborted Take 4 mg by mouth every 4 (four) hours as needed (for muscle spasm) [facility] pantoprazole 40 MG Delayed Release Oral Tablet pantoprazole (PROTONIX) 40 MG tablet pantoprazole (PROTONIX) 40 MG tablet 40 mg Oral aborted Take 40 mg by mouth daily [facility] Hydromorphone Hydrochloride 4 MG Oral Ta blet HYDROmorphone (DILAUDID) 4 MG tablet HYDROmorphone (DILAUDID) 4 MG tablet 4 mg Oral aborted Take 4 mg by mouth every 4 (four) hours as needed for pain [facility] Insurance Providers Payer name Policy type / Coverage type Policy ID Covered green party ID Covered green party's relationship to iqbal Policy Iqbal Plan Information DEEJAY [id number] SP [id number] [place] [id number] S [id number] [place] [id number] SP [id number] [facility] [id number] SP [id number] [employer] MANAG[employer] [place] [id number] SP [id number] DEEJAY MEDICAID [id number] Marilin 7 [id number] DEEJAY MEDICAID [id number] INSURANCE COVID-19 COVID Marilin C OVID INSURANCE COVID-19 [id number] 2 [id number] [facility] P [id number] S [id number] [place] [id number] 18 [id number] P[place]NA[place] [facility] [id number] SP [id number] [facility] I [id number] Self [id number] [facility] I [id number] Self [id number] O UNAVAILABLE UNAVAILA BLE [facility]) O [id number] S [id number] MEDICAID [id number] SP [id number] [facility] [id number] SP [id number] P[employer]NA[employer] [place] [facility] [id number] SP [id number] [employer] COMM[employer]ITY PLAN XIX [id number] 18 [id number] [employer] COMMUNITY PLAN MCDO [id number] SP [id number] ANSI-Commercial [id number] ANSI-Medicaid [id number] ANSI-Commercial [id number] ANSI-Medicaid [id number] ANSI-Commercial [id number] [facility]-Medicaid [id number] [facility]-Medicaid [id number] ANSI-Commercial [id number] [facility]-Medicaid [id number] ANSI-Commercial [id number] [facility]-Medicaid [id number] ANSI-[employer] [id number] [employer] [id number] [employer] [facility] [id number] [employer] [id number] [employer] [id number] [employer] [id number] ANSI-Medicaid [id number] [employer] [id number] [employer] [id number] [employer] [id number] ANSI-Medicaid [id number] Medicaid Medigap Part B [id number] Self [id number] [place] Claims DPT Commercial [id number] Family Depe ndent [id number] P[place] Workers Compensation [id number] Self [id number] [facility] [place] PLS Commercial [id number] Self [id number] DO Not Use (Now #114) Commercial [id number] Family Dependent [id number] [facility] [place] PLS Commercial [id number] Self [id number] [facility] [place] PLS Commercial [id number] Self [id number] ANSI-Commercial [id number] ANSI-Medicaid [id number] Medicaid Medigap Part B [id number] Self [id number] [place] Claims DPT Commercial [id number] Family Depe ndent [id number] [place] Workers Compensation [id number] Self [id number] [facility] [place] PLS Commercial [id number] Self [id number] ANSI-Commercial [id number] ANSI-Medicaid [id number] [facility] Health Maintenance Organization (HMO) [id number] Self [id number] ANSI-Medicaid [id number] ANSI-Commercial [id number] ANSI-Medicaid [id number] ANSI-Medicaid [id number] ANSI-Medicaid [id number] ANSI-Medicaid [id number] ANSI-Medicaid [id number] ANSI-Medicaid [id number] ANSI-Medicaid [id number] ANSI-Medicaid [id number] [facility] Health Maintenance Organization (HMO) [id number] Self [id number] Medicaid Medigap Part B [id number] Self [id number] [place] Claims DPT Commercial [id number] Family Depe ndent [id number] Pma Workers Compensation [id number] Self [id number] [facility] [place] PLS Commercial [id number] Self [id number] ANSI-Medicaid [id number] ANSI-Medicaid [id number] ANSI-Medicaid [id number] ANSI-Medicaid [id number] ANSI-Medicaid [id number] ANSI-Medicaid [id number] PMA MANAGEMENT [place] [facility] [id number] SP [id number] [facility] Health Maintenance Organization (HMO) [id number] Self [id number] [employer] Net Federal [facility] Health Maintenance Organization (HMO) [id number] Family Dependent [id number] [facility] Health Maintenance Organization (HMO) [id number] Self [id number] Pma Ins (WC) Workers Compensation [id number] Self [id number] [facility] Federal Service Medigap Part B [id number] Family De pendent [id number] [place]ig[place] Part [place] [id number] Self [id number] Pma Ins (WC) Workers Compensation [id number] Self [id number] [employer] MANAGEMENT O [id number] S [id number] ANSI-Medicaid [id number] ANSI-Medicaid [id number] ANSI-Medicaid [id number] ANSI-Medicaid [id number] P[place] [facility] [place] [id number] S [id number] ANSI-Medicaid [id number] ANSI-Medicaid [id number] PMA MANAGEMENT [place] [facility] [id number] ANSI-Medicaid [id number] ANSI-Medicaid [id number] ANSI-Medicaid [id number] ANSI-Medicaid [id number] ANSI-Medicaid [id number] ANSI-Medicaid [id number] ANSI-Medicaid [id number] ANSI-Medicaid [id number] ANSI-Medicaid [id number] ANSI-Medicaid [id number] ANSI-Medicaid [id number] ANSI-Medicaid [id number] ANSI-Medicaid [id number] ANSI-Medicaid [id number] ANSI-Medicaid [id number] ANSI-Medicaid [id number] ANSI-Medicaid [id number] ANSI-Medicaid [id number] ANSI-Medicaid [id number] ANSI-Medicaid [id number] Medicaid Medigap Part B [id number] Self [id number] [place] Claims DPT Commercial [id number] Family Depe ndent [id number] Pma Workers Compensation [id number] Self [id number] [facility] [place] PLS Commercial [id number] Self [id number] ANSI-Medicaid [id number] ANSI-Medicaid [id number] ANSI-Medicaid [id number] ANSI-Medicaid [id number] [facility] MANAGEMENT [place] [facility] [id number] ANSI-Medicaid [id number] ANSI-Medicaid [id number] ANSI-Medicaid [id number] ANSI-Medicaid [id number] ANSI-Medicaid [id number] ANSI-Medicaid [id number] ANSI-Medicaid [id number] ANSI-Medicaid [id number] ANSI-Medicaid [id number] ANSI-Medicaid [id number] ANSI-Medicaid [id number] ANSI-Medicaid [id number] ANSI-Medicaid [id number] ANSI-Medicaid [id number] ANSI-Medicaid [id number] ANSI-Medicaid [id number] Pma Ins (WC) Workers Compensation [id number] Self [id number] [facility] Medigap Part B [id number] Family De pendent [id number] Medicaid [place] Medig[place] Part B [id number] Self [id number] ANSI-Medicaid [id number] ANSI-Medicaid [id number] ANSI-Medicaid [id number] ANSI-Medicaid [id number] ANSI-Medicaid [id number] ANSI-Medicaid [id number] ANSI-Medicaid [id number] ANSI-Medicaid [id number] ANSI-Medicaid [id number] ANSI-Medicaid [id number] Medicaid Medigap Part B [id number] Self [id number] [place] Claims DPT Commercial [id number] Family Depe ndent [id number] Pma Workers Compensation [id number] Self [id number] [facility] Community [place] PLS Commercial [id number] Self [id number] ANSI-Medicaid [id number] ANSI-Medicaid [id number] PMA MANAGEMENT [facility] [id number] SP [id number] ANSI-Medicaid [id number] ANSI-Medicaid [id number] Pma Ins (WC) Workers Compensation [id number] Self [id number] [employer] [place] Federal Service Medigap Part B [id number] Family De pendent [id number] [place] [id number] Self [id number] Medicaid Medigap Part B [id number] Self [id number] [place] Claims DPT Commercial [id number] Family Depe ndent [id number] Pma Workers Compensation [id number] Self [id number] [facility] Community [place] PLS Commercial [id number] Self [id number] MEDICAID M [id number] S [id number] [facility] Community Plan Commercial [id number] Self [id number] United Healthcare Commercial [id number] Self [id number] [facility] Community Plan Commercial [id number] Self [id number] UNAVAILABLE [place] BLE MEDICAID GME [id number] S [id number] UNITED HEALTHCARE HEA [id number] S [id number] UNHC COMMUNITY PLAN MCDHMO [id number] SP [id number] UNHC COMMUNITY PLAN MCDHMO [id number] SP [id number] SELF PAY ONLY [id number] SP [id number] [place] [id number] Self [id number] [place] [id number] Self [id number] [facility] U [id number] Se lf [id number] United Healthcare Commercial [id number] Self [id number] [facility] MEDICAID [id number] Marilin [id number] Medicaid Medigap Part B [id number] Self [id number] [place] Claims DPT Commercial [id number] Family Depe ndent [id number] Pma Workers Compensation [id number] Self [id number] [facility] [place] PLS Commercial [id number] Self [id number] [employer] Commercial [id number] Family Dependent [id number] [facility] MEDICAID PI PI Medicaid Medigap Part B [id number] Self [id number] [id number] [place] Claims DPT Commercial [id number] Family Depe ndent [id number] Pma Workers Compensation [id number] Self [id number] [facility] [place] PLS Commercial [id number] Self [id number] MEDICAID [id number] Mar[place] [id number] UNHC COMMUNITY PLAN MCDHMO [id number] SP [id number] [facility] Health Maintenance Organization (HMO) [id number] Self [id number] [employer] Health Maintenance Organization (HMO) [id number] Family Dependent [id number] [facility] [place] Health Maintenance Organization (HMO) [id number] Self [id number] UNHC COMMUNITY PLAN MCDHMO [id number] SP [id number] UNHC COMMUNITY PLAN MCDHMO [id number] SP [id number] [facility] Community [place] PLS Commercial [id number] Self [id number] [place] Claims DPT Commercial Family Depend ent Pma Workers Compensation Self Medicaid Medigap Part B 1 1 Self 1 1 [employer] Commercial Family Dependent SELF PAY ONLY [id number] SP [id number] SELF PAY ONLY [id number] SP [id number] UNHC COMMUNITY PLAN MCDHMO [id number] SP [id number] [place] Medig[place] Part B Self [employer] Federal Service Commercial Family Depend ent [facility] [place] [id number] HU2 [id number] [employer] [place] O [id number] S [id number] Prime Commercial Family Dependent [place] [employer] NO FAULT CL # [id number] SP CL # [id number] PMA MANAGEMENT [facility] [id number] HU2 [id number] [facility] [id number] SP [id number] D [employer] Program O [id number] S [id number] D S [id number] S [id number] Medicaid Dental O [id number] S [id number] D [employer] [facility] [place] O [id number] O [id number] HEALTHNET/ AD P UNAVAILABLE P UNAVAILABLE SELF PAY 2 UNAVAILABLE 1 UNAVAILA BLE US FAMILY HLTH PLAN 2 [id number] 2 [id number] Problems, Conditions, and Diagnoses Code Display Name Description Problem Type Effective Dates Data Source(s) 97927282 Precordial pain Precordial pain Problem 01/18/2020 12:0 0:00 AM EDT [facility] ([facility]) [id number] Palpitations Palpitations Problem 01/18/2020 12:00:00 A M EDT [facility] ([facility]) [id number] Dyspnea Dyspnea Problem 01/18/2020 12:00:00 AM ED T [facility] ([facility]) [id number] Orthostatic hypotension Orthostatic hypotension Proble m 01/18/2020 12:00:00 AM EDT [facility] ([facility]) 120095679 Syncope and collapse Syncope and collapse Problem 01/02/2020 12:00:00 AM EDT [facility] ([facility] ) [id number] Migraine Migraine Problem 01/02/2020 12:00:00 AM ED T [facility] ([facility] ) R10.9 Unspecified abdominal pain Unspecified abdominal pain Diagnosis 12/13/2019 07:32:00 AM EDT [facility] J98.8 Other specified respiratory disorders Ot her specified respiratory disorders Diagnosis 12/08/2019 09:59:16 AM EDT [facility] U07.1 COVID-19 COVID-19 Diagnosis 12/08/2019 09:59:16 AM ED T [facility] R935 Abnormal findings on diagnos tic imaging of other abdominal regions, including retroperitoneum Abnormal findings on diagnostic imaging of other abdominal regions, including retroperitoneum Diagnosis 0 02:59:00 PM EDT [facility] K760 Fatty (change of) liver, not elsewhere c lassified Fatty (change of) liver, not elsewhere classified Diagnosis 11/20/2019 02:59:00 PM EDT [facility] [id number] Unspecified ovarian cyst, left side Unspecified ovarian cyst, left side Diagnosis 11/20/2019 02:59:00 PM EDT [facility] R109 Unspecified abdominal pain Unspecified abdominal pain Diagnosis 11/20/2019 02:59:00 PM EDT [facility] Surgeries/Procedures Procedure Description Date Indications Data Source(s) ECG ROUTINE ECG W/LEAST 12 LDS W/I&R 01/18/2020 12:00: 00 AM EDT [facility] ([facility]) Needle electromyography, each extremity, with related paraspinal areas, when performed, done with nerve conduction, amplitude and latency/velocity study; complete, five or more muscles studied, innervated by three or more nerves or four or more spinal levels (list separately in addition to the code for primary procedure). 01/17/2020 12:00:00 AM EDT [facility] ([facility], ) 62923 Nerve conduction studies 7-8 studies NEW 201201/17/2020 12:00:00 AM EDT [facility] ([facility] ) Inj, Anesth Agent, Trigeminal 01/15/2020 12:00:00 AM E DT [facility] ([facility] ) Injection For Nerve Block, Greater Occipital Nerve 01/15/2020 12:00:00 AM EDT [facility] ([facility] ) INJECTION ANES OTHER PERIPHERAL NERVE/BRANCH 0 12:00:00 AM EDT [facility] ([facility] ) POCT I-STAT BETA HCG POCT I-STAT BETA HCG Routine 12/13/2019 7:59 AM EDT 12/13/2019 11:59:00 AM EDT [facility] ESTABILISHED PATIENT [facility] 019 12:00:00 AM EST eCW1 ([facility]) Results ID Date Data Source [id number] 03/13/2020 11:17:00 PM EST [facility] ([facility]) Name Value Range Interpretation Code Description Data Monserrat rce(s) Supporting Document(s) HCG Serum Qualitative Laboratory test result [facility] ([facility]) ID Date Data Source [id number] 03/13/2020 11:17:00 PM EST [facility] ([facility]) Name Value Range Interpretation Code Description Data Monserrat rce(s) Supporting Document(s) Blood Urea Nitrogen 7 mg/dL 7-18 [facility] ([facility]) Glucose, Fasting 86 mg/dL 70-100 [facility] ([facility]) Glomerular Filtration Rate Laboratory test result [facility] ([facility]) <content>Units are mL/min/1.73 m2</content>
<content></content>
<content>Chronic Kidney Disease Staging per NKF:</content>
<content></content>
<content>Stage I & II GFR >=60 Normal to Mildly Decreased</content>
<content>Stage III GFR 30- 59 Moderately Decreased</content>
<content>Stage IV GFR 15-29 Severely Decreased</content>
<content>Stage V GFR <15 Very Little GFR Left</content>
<content>ESRD GFR <15 on BISQUE PLACER</content>
<content></content> Creatinine For GFR 0.72 mg/dL 0.55-1.30 [facility] ([facility]) Potassium Serum 4.1 meq/L 3.5-5.1 [facility] ([facility]) Sodium Level 139 meq/L 136-145 [facility] ([facility]) Chloride Level 106 meq/L 98-107 [facility] ([facility]) Calcium Level 8.4 mg/dL 8.5-10.1 [facility] ([facility]) Carbon Dioxide Level 31 meq/L 21-32 [facility] Anion Gap 2 meq/L 8-16 [facility]) ID Date Data Source [id number] 03/13/2020 11:17:00 PM EST [facility] ([facility]) Name Value Range Interpretation Code Description Data Monserrat rce(s) Supporting Document(s) White Blood Count 8.2 10 4.0-10.0 [facility] ([facility]) Red Blood Count 4.24 10 4.00-5.40 [facility] ([facility]) Hemoglobin 12.3 g/dL 12.0-15.5 [facility]) Hematocrit 38.0 % 36.0-47.0 [facility] Mean Corpuscular HGB Conc 32.4 g/dL 32.0-36.5 MEDE NT ([facility]) Mean Corpuscular Hemoglobin 29.0 pg 27.0-33.0 [place] DENT ([facility]) Mean Corpuscular Volume 89.6 fl 80.0-96.0 [facility] ([facility]) Platelet Count, Automated 227 10 150-450 MEDE NT ([facility]) Red Cell Distribution Width 12.2 % 11.5-14.5 ME DENT ([facility]) Neutrophils % 58.9 % 36.0-66.0 [facility] ([facility]) Lymph % 30.5 % 24.0-44.0 [facility] [place] % 7.7 % 0.0-5.0 [facility] Eos % 2.2 % 0.0-3.0 [facility] Nucleated Red Blood Cell % 0.0 % 0-0 MED ENT ([facility]) Immature Granulocyte % 0.1 % 0-3.0 [facility] ([facility]) Baso % 0.6 % 0.0-1.0 [facility]) [place] # 0.6 10 0.0-0.8 [facility] Lymph # 2.5 10 1.5-5.0 [facility] Neutrophils # 4.8 10 1.5-8.5 [facility] ([facility]) Baso # 0.1 10 0.0-0.2 [facility] Eos # 0.2 10 0.0-0.5 [facility] ID Date Data Source [id number] 01/24/2020 11:15:00 AM EDT [facility] ([facility]) Name Value Range Interpretation Code Description Data Monserrat rce(s) Supporting Document(s) Choriogonadotropin.beta subunit [Moles/volume] in Seru m or Plasma Laboratory test result [facility] ([facility] ) <content>QUANTITATIVE RESULT QU ALITATIVE INTERPRETATION</content>
<content> </content>
<content><5.0 IU/L NEGATIVE</content>
<content>5.0 - 25.0 IU/L INDETERMINATE</content>
<content>>25.0 IU/L POSITIVE</content>
<content></content> ID Date Data Source [id number] 12/28/2019 02:37:00 PM EDT [facility] ([facility]) Name Value Range Interpretation Code Description Data Monserrat rce(s) Supporting Document(s) Cobalamin (Vitamin B12) [Mass/volume] in Serum or Plasma 271 pg/mL 2 47-911 [facility] ([facility]) VITAMIN B12 NORMAL RANGE NORMAL 247 - 911 PG/ML INDETERMINATE 211 - 246 PG/ML DEFICIENT LESS THAN 211 PG/ML Ferritin [Mass/volume] in Serum or Plasma 30 ng/mL 8-252 [facility] ([facility]) Bacteria identified in Urine by Culture Laboratory test result [facility] ([facility]) FULL REPORT IN LAB NOTES (eCW and [facility] ). NO GROWTH CLINICAL SIGNIFICANCE 1 ORGANISM ID Date Data Source [id number] 12/28/2019 02:37:00 PM EDT [facility] ([facility]) Name Value Range Interpretation Code Description Data Monserrat rce(s) Supporting Document(s) Iron (Fe) 53 ug/dL 50-170 [facility] Percent Saturation 14.9 % 13.2-45.0 [facility] ([facility]) Total Iron Binding Capacity 356 ug/dL 250-450 ME DENT ([facility]) ID Date Data Source [id number] 12/28/2019 02:37:00 PM EDT [facility] ([facility]) Name Value Range Interpretation Code Description Data Monserrat rce(s) Supporting Document(s) Percent Saturation 14.9 % 13.2-45.0 [facility] ([facility]) Total Iron Binding Capacity 356 ug/dL 250-450 [facility] ([facility]) Iron (Fe) 53 ug/dL 50-170 [facility] ID Date Data Source [id number] 12/28/2019 02:35:00 PM EDT [facility] ([facility]) Name Value Range Interpretation Code Description Data Monserrat rce(s) Supporting Document(s) Urine Color Laboratory test result Abnormal (applies to non-numeric results) [facility] ([facility]) Urine PH 6.0 units 5.0-9.0 [facility] Urine Appearance Laboratory test result Abnormal (applies to non-numeric results) [facility] ([facility]) Urine Blood Laboratory [facility] Specific gravity of Urine 1.030 1.005-1.030 ME DENT ([facility]) Urine Leukocytes Laboratory test result Abnormal (applies to non-numeric results) [facility] ([facility]) Glucose [Presence] in Urine Laboratory [facility] Urine Nitrite Laboratory test result MED ENT ([facility]) Urine Protein Laboratory test result 0-0 MED [facility]NT ([facility]) Urine Ketone Laboratory test result MEDE NT ([facility]) Bilirubin.total [Mass/volume] in Serum or Plasma Laboratory test resu lt [facility] ([facility]) Urine Urobilinogen 0.2 mg/dL 0.2-1.0 [facility] ([facility]) ID Date Data Source [id number] 12/28/2019 02:35:00 PM EDT [facility] ([facility]) Name Value Range Interpretation Code Description Data Monserrat rce(s) Supporting Document(s) Magnesium 1.8 mg/dL 1.8-2.4 [facility] ([facility] Thyrotropin [Units/volume] in Serum or Plasma by Detec tion limit <= 0.05 mIU/L 1.34 uIU/mL 0.36-3.74 [facility] ([facility] ) ID Date Data Source [id number] 12/28/2019 02:35:00 PM EDT [facility] ([facility]) Name Value Range Interpretation Code Description Data Monserrat rce(s) Supporting Document(s) Thyrotropin [Units/volume] in Serum or Plasma by Detec tion limit <= 0.05 mIU/L 1.34 uIU/mL 0.36-3.74 [facility] ([facility]) Magnesium 1.8 mg/dL 1.8-2.4 [facility] ([facility]) Urine Color Laboratory test result Abnormal (applies to non-numeric results) [facility] ([facility]) Specific gravity of Urine 1.030 1.005-1.030 [facility] ([facility]) Urine Appearance Laboratory test result Abnormal (applies to non-numeric results) [facility] ([facility]) pH of Urine 6.0 units 5.0-9.0 [facility] ([facility]) Urine Leukocytes Laboratory test result Abnormal (applies to non-numeric results) [facility] ([facility]) Glucose [Presence] in Urine Laboratory test result [facility] ([facility]) Urine Blood Laboratory test result MEDEN T ([facility]) Urine Protein Laboratory test result 0-0 [facility] ([facility]) Urine Nitrite Laboratory test result [facility] ([facility]) Urine Ketone Laboratory test result MEDE NT ([facility]) Bilirubin.total [Mass/volume] in Serum or Plasma Laboratory test resu lt [facility] ([facility]) Urine Urobilinogen 0.2 mg/dL 0.2-1.0 [facility] ([facility]) ID Date Data Source [id number] 12/15/2019 10:33:15 AM EDT [facility] [place] [facility] [address] [address]Fyp# Surgical Pathology ReportAccession #:[id number](s) ReceivedA: Small bowel biopsy (for celiac disease)B: Antrum biopsy (for H. pylori)Clinical Diagnosis and HistoryAbdominal pain DIAGNOSISA. SMALL BOWEL, BIOPSY: NORMAL SMALL INTESTINAL MUCOSA. NEGATIVE FOR CELIAC SPRUE. B. STOMACH, ANTRUM, BIOPSY: NORMAL GASTRIC MUCOSA. NEGATIVE FOR HELICOBACTER PYLORI BY IMMUNOSTAIN. Gross DescriptionPart A. Received in formalin labeled "small bowel biopsy for celiacdisease" are multiple pruitt-pink irregular fragments of tissue ranging from0.4 to 0.5 cm. Entirely submitted as A1. 1 + 1. Part B. Received in formalin labeled "antrum biopsy for H. pylori" is a0.4 cm pruitt-pink irregular fragment of tissue. Entirely submitted as B1. Multilevel. jglallen/jjf Reported: 12/15/2019Electronically Signed Out By Arash Gordon MD [facility], [place] [address]afmAwfkdqgsm component performed at [facility], [facility], [address] [place] [address], [id number].Reported at [facility], [address] [place] [address], [address]. This report may includeimmunohistochemical or in-situ hybridization results. Testing wasdeveloped and the performance characteristics determined by [employer] as required by CLIA '88. The FDA hasdetermined that approval for specific use is no t necessary for clinicaluse. The quality of Hematoxylin and Eosin stains and as applicable, forall immunohistochemical and/or special stains, including positive andnegative controls, were reviewed and considered appropriate.ICD codes R10.9CPT codesA: 88545OI: 36847F, 66474h Name Value Range Interpretation Code Description Data Monserrat rce(s) Supporting Document(s) ID Date Data Source [id number] 12/13/2019 09:33:09 AM EDT [facility] INFORMATIONPatient MRN Name Date of Age Gend*PT [id number] Yomaira Kaba 1975 44 years F OPPT Location Admission Date/Time Visit ID Attending ProviderEndo [place] 12/13/19 0732 --- Manjinder Baltazar MD([id number]) EPI ID CSN Admitting Provider [id number] Manjinder Baltazar MD([id number])Endoscopic Gastrojejunoscopy Procedure NotePatient: Yomaira KabaMRN: [id number] Date: 12/13/2019Surgeon(s):JHON Aaronre- operative Diagnosis:Abdominal pain [R10.9]Post-Op Diagnosis Codes: * Abdominal pain [R10.9]Procedure: 1) EsophagogastrojejunoscopyAnesthesia/Sedation: Monitored Anesthesia Care (MAC) (see anesthesia report).Findings: Esophagus: NormalGE Junction: Normal and Z line regular at 38cm from incisors. No hiatal herniaBody: Normal post sleeve anatomy. Appropriate sized and linear tube. Bile in thesleeveAntrum: Gastritis. Biopsy for H. pyloriPylorus: NormalDuodenum Bulb: NormalDuodenum 2nd Portion: Normal and mucosal biopsy to rule out CeliacSpecimens:ID Type Source Tests Collected by TimeA : SMALL BOWEL BIOPSY ( FOR CELIAC DISEASE) Tissue Tissue SURGICAL PATHOLOGYEXAM Manjinder Baltazar MD 12/13/2019 0913B : ANTRUM BIOPSY (FOR H-PYLORI) Tissue Tissue SURGICAL PATHOLOGY EXAM MD Ines 12/13/201913Estimated Blood Loss: minimalComplications: None; patient tolerated the procedure well.Disposition: Stable to recovery room.Indications for Procedure/Consent: This is a 44 years female 4 years statuspost a gastric sleeve. She presented with abdominal pain, diarrhea and excessweight loss. An upper endoscopy was indicated to assess the cause of thepatient's symptoms. After obtaining history and performing the physicalexamination, the procedure, indications, potential complications, including butnot limited to bleeding, perforation, infection, adverse medication reaction,and alternatives were explained to the patient. Patient appeared to u nderstandthe benefits and risks of this procedure. Informed consent was obtained fromthe patient after providing opportunity for questions.Procedure Details:The gastroscope was inserted into the mouth and advanced under directvisualization to second portion of the duodenum. A careful inspection was madeas the gastroscope was withdrawn, findings and interventions are describedabove. After completion of the examination, the patient was transferred to therecovery room.Implants: NoneImpression:Esophagus: NormalGE Junction: Normal and Z line regular at 38cm from incisors. No hiatal herniaBody: Normal po st sleeve anatomy. Appropriate sized and linear tube. Bile in thesleeveAntrum: Gastritis. Biopsy for H. pyloriDuodenum 2nd Portion: Normal and mucosal biopsy to rule out CeliacRecommendations:-Continue acid suppression.-Await pathology for celiac.-Await antrum result and treat for Helicobacter pylori if positive.- Continue cholestyramine for [id number]-Mdcunf-xf as scheduledSignature: AMANDA Aaronate: December 13, 2019Time: 9:24 AMCC: Manjinder Baltazar [facility]: DANIELLE CHATTERJEE MD Name Value Range Interpretation Code Description Data Monserrat rce(s) Supporting Document(s) ID Date Data Source [id number] 12/13/2019 08:53:23 AM EDT [facility]PAT[facility] NT INFORMATIONPatient MRN Name Date of Age Gend*PT [id number] Yomaira Kaba 1975 44 years F OPPT Location Admission Date/Time Visit ID [facility] [place] [facility]/13[facility]19 0732 --- Manjinder Baltazar MD([id number]) EPI ID CSN Admitting Provider [id number] Manjinder Baltazar MD([id number])H&P reviewed. The patient was examined and there are no changes to the H&P.The H&P that is being updated is available for review and was brought in Deidra Baltazar MD8:53 AM Name Value Range Interpretation Code Description Data Monserrat rce(s) Supporting Document(s) ID Date Data Source [id number] 12/13/2019 08:17:26 AM EDT [facility] [place] [facility] Name Value Range Interpretation Code Description Data Monserrat rce(s) Supporting Document(s) POC [facility] <5.0 IU/L [facility] [place] [facility] INTERPRETATION:<5.0 NEGATIVE5.0- 25.0 INDETERMINATE>25.0 POSITIVELEVELS BETWEEN 5 AND 25 IU/L MAY INDICATEEARLY AND SHOULD BE REPEATED CARMEN BLOOD SAMPLE AFTER 48 HOURS.PERFORMED BY [facility] CLINICAL STAFF ID Date Data Source [id number] 12/08/2019 09:35:00 AM EDT [facility] Name Value Range Interpretation Code Description Data Monserrat rce(s) Supporting Document(s) SARS coronavirus 2 RNA [facility] This lab was ordered by [facility] [place] [facility] [place] and reported by [facility]. ID Date Data Source [id number] 12/09/2019 01:07:16 PM EDT [facility] [place] [facility] Name Value Range Interpretation Code Description Data Monserrat rce(s) Supporting Document(s) SARS-COV-2 JESSIE [facility] [place] [facility] Not DetectedReference range: Not Detecte d This test was developed and its performance characteristics determined by [facility]. This test has not been FDA cleared or approved. This test has been authorized by FDA under an Emergency Use Authorization (EUA). This test is only authorized for the duration of time the declaration that circumstances exist justifying the authorization of the emergency use of in vitro diagnostic tests for detection of SARS-CoV-2 virus and/or diagnosis of COVID-19 infection under section 564(b)(1) of the Act, 21 U.S.C. 360bbb-3(b)(1), unless the authorization is terminated or revoked sooner. When diagnostic testing is negative, the possibility of a false negative result should be considered in the context of a patient's recent exposures and the presence of clinical signs and symptoms consistent with COVID-19. An individual without symptoms of COVID-19 and who is not shedding SARS-CoV-2 virus would expect to have a negative (not detected) result in this assay. Performed At: [facility] Zuleta [address] [id number] Etienne Montenegro MD Ph:[phone] ID Date Data Source [id number] 11/23/2019 11:41:00 [place] [address] PHONE: [phone] FAX: [phone] Name .................. : [facility] : [id number] ROOM. ................. : MR Number ................... : [id number] Stay type ............. : O/P Discharge Date......... ... : 11/20/19 Admit Date ......... : 11/20/19 Admit Phys .................... : [facility] Date of ....... : 1975 Family Phys ................... : CELSO MANZO Phone .................. : [phone] Age ................................ : 44 Film# .................. .:[id number] Sex ................................. : F Unsigned transcriptions are preliminary reports and do not represent a medical or legal document CT ABD & PELVIS W/ IV ONLY [id number] COMPLETE:11/20/19 16:46 [facility] [id number] (REASON FOR ABDOMEN: ABDOMINAL PAIN CT OF THE ABDOMEN AND PELVIS WITH CONTRAST: COMPARISON: 12/10/18 FINDINGS: Decreased density to the liver suggests fatty infiltration. No masses are seen. The gallbladder has been removed. The spleen and pancreas are intact. The kidneys demonstrate no evidence for masses or obstruction. No lymphadenopathy is seen. No ascites is noted. An IUD is noted in the central uterus. There is a 4.2 cm left ovarian cyst. The margins of the uterus are somewhat ill-defined. Is there any evidence to suggest pelvic inflammatory disease? The bladder and distal ureters are normal. There is disc space narrowing at L5-S1. There is a small spur disc complex at L4-5. IMPRESSION: 4.2 cm left ovarian cyst. Fatty infiltration of the liver. Ill-defined margins of the uterus which might suggest pelvic inflammatory disease. Correlation requested. Page 1 of 2 [facility] [address] [place] [address] PHONE: [phone] FAX: [phone] Name .................. : CICI Miller Acct Number.................. : [id number] ROOM. ................. : MR Number ................... : [id number] Stay type ............. : O/P Discharge Date......... ... : 11/20/19 Admit Date ......... : 11/20/19 Admit Phys .................... : WILL CARDONA Date of ....... : 1975 Family Phys ................... : CELSO JOSE MIGUEL Phone .................. : [phone] Age ................................ : 44 Film# .................. .:[id number] Sex ................................. : F Unsigned transcriptions are preliminary reports and do not represent a medical or legal document CT ABD & PELVIS W/ IV ONLY [id number] COMPLETE:11/20/19 16:46 [facility] [address] (REASON FOR ABDOMEN: ABDOMINAL PAIN While performing the above CT examination, radiation dose reduction was accomplished utilizing automated exposure control, adjusting of the mA and kV based on the patient's body size and/or the use of imperative reconstructive techniques. CT dose: 420.4 mGycm Contrast agent in mL: 75 Isovue 370 Method of administration: Intravenous Electronically Reviewed and Signed By Shashank Cantu MD , 11/23/19 11:41, MRA Transcribe Initials: JIN , Transcribe Date: 11/20/19 19:24, Dictation Date: Copy for: WILL HANDY Copy for: [facility] REC Page 2 of 2 Name Value Range Interpretation Code Description Data Monserrat rce(s) Supporting Document(s) ID Date Data Source [id number] 11/15/2019 08:06:00 AM EDT [facility] Name Value Range Interpretation Code Description Data Monserrat rce(s) Supporting Document(s) Iron Bind.Cap.(TIBC) 233 ug/dL 250-450 Below low normal [facility] UIBC 161 ug/dL 131-425 [facility] Iron 72 ug/dL 27-159 [facility] Iron Saturation 31 % 15-55 [facility] ID Date Data Source [id number] 11/16/2019 08:06:00 AM EDT [facility] Name Value Range Interpretation Code Description Data Monserrat rce(s) Supporting Document(s) Folate, Hemolysate 244.0 ng/mL Not Estab. [facility] Hematocrit 39.0 % 34.0-46.6 [facility] Folate, RBC 626 ng/mL >498 [facility] ID Date Data Source [id number] 11/15/2019 08:06:00 AM EDT [facility] Name Value Range Interpretation Code Description Data Monserrat rce(s) Supporting Document(s) Hemoglobin A1c 5.4 % 4.8-5.6 [facility] Prediabetes: 5.7 - 6.4 Diabetes: >6.4 Glycemic control for adults with diabetes: <7.0 Estim. Avg Glu (eAG) 108 mg/dL [facility] ID Date Data Source [id number] 11/15/2019 08:06:00 AM EDT [facility] Name Value Range Interpretation Code Description Data Monserrat rce(s) Supporting Document(s) Vitamin D, 25-Hydroxy 20.2 ng/mL 30.0-100.0 Below low normal [facility] Vitamin D deficiency has been defined by the [place] of[employer] and an Endocrine Society practice guideline as alevel of serum 25-OH vitamin D less than 20 ng/mL (1,2).The Endocrine Society went on to further define vitamin Dinsufficiency as a level between 21 and 29 ng/mL (2).1. IOM ([place] [employer]). 2010. Dietary reference intakes for calcium and D. [place]: The National Academies Press.2. Sohan DESAI, Andrew KUMAR, Robert PONCE, et al. Evaluation, treatment, and prevention of vitamin D deficiency: an Endocrine Society clinical practice guideline. JCEM. 2010; 96(7):1911-30. ID Date Data Source [id number] 11/15/2019 08:06:00 AM EDT [facility] Name Value Range Interpretation Code Description Data Monserrat rce(s) Supporting Document(s) Phosphorus 3.8 mg/dL 3.0-4.3 [facility] ID Date Data Source [id number] 11/15/2019 08:06:00 AM EDT [facility] Name Value Range Interpretation Code Description Data Monserrat rce(s) Supporting Document(s) Vitamin B12 382 pg/mL [id number] [facility] ID Date Data Source [id number] 11/15/2019 08:06:00 AM EDT [facility] Name Value Range Interpretation Code Description Data Monserrat rce(s) Supporting Document(s) Magnesium 2.0 mg/dL 1.6-2.3 [facility] ID Date Data Source [id number] 11/15/2019 08:06:00 AM EDT [facility] Name Value Range Interpretation Code Description Data Monserrat rce(s) Supporting Document(s) Ferritin, Serum 78 ng/mL 15-150 [facility] ID Date Data Source [id number] 10/30/2019 10:48:00 AM EDT [facility] Name Value Range Interpretation Code Description Data Monserrat rce(s) Supporting Document(s) C reactive protein [Mass/volume] in Serum or Plasma by High sensitivity method Laboratory test result 0.00-0.30 [facility] Bacteria identified in Urine by Culture Laboratory test result [facility] ([facility]) FULL REPORT IN LAB NOTES (eCW and [facility] ). NO GROWTH CLINICAL SIGNIFICANCE 1 ORGANISM ID Date Data Source [id number] 10/30/2019 10:47:00 AM EDT [facility] ([facility]) Name Value Range Interpretation Code Description Data Monserrat rce(s) Supporting Document(s) Hemoglobin [Mass/volume] in Blood 13.8 g/dL 12.0-18.0 [facility] ([facility]) Erythrocytes [#/volume] in Blood by Automated count 4.63 x10*6/UL 4.2 0-6.30 [facility] Leukocytes [#/volume] in Blood by Automated count 8.0 x10*3/UL 4.1-[address] [facility] ([facility]) Hematocrit [Volume Fraction] of Blood by Automated count 39.9 % 3 7.0-51.0 [facility] ([facility]) MCV 86.2 fL 80.0-97.0 [facility] Erythrocyte distribution width [Ratio] by Automated count 13.2 % 11.6-13.7 [facility] ([facility]) MCHC 34.6 g/dL 31.0-38.0 [facility] MCH 29.8 pg 26.0-32.0 [facility] Lymph % 30.4 % 10.0-58.5 [facility] Platelets [#/volume] in Blood by Automated count 238 x10*3/UL 140-440 [facility] ([facility]) MPV 9.7 FL 7.8-11.0 [facility] Neut % 61.5 % 37.0-92.0 [facility] Mid % 8.1 % 1.7-9.3 [facility] Lymph # 2.4 x10*3/UL 0.6-4.1 [facility] ([facility]) Mid # 0.7 x10*3/UL 0.1-0.6 [facility] ([facility]) Neut # 4.9 x10*3/UL 2.0-7.8 [facility] ([facility]) ID Date Data Source [id number] 10/30/2019 10:47:00 AM EDT [facility] ([facility]) Name Value Range Interpretation Code Description Data Monserrat rce(s) Supporting Document(s) Glucose [Mass/volume] in Serum or Plasma 79 mg/dL 74-99 [facility] ([facility]) 100-125 mg/dL PRE-DIABETES/FASTING >126 mg/dL DIABETES/FASTING Creatinine 0.9 mg/dL 0.6-1.3 [facility] ([facility]) Urea nitrogen [Mass/volume] in Serum or Plasma 9 mg/dL 7-18 [facility] ([facility]) Sodium [Moles/volume] in Serum or Plasma 141 meq/L 136-145 [facility] ([facility]) Potassium [Moles/volume] in Serum or Plasma 4.2 meq/L 3.5-5.1 [facility] ([facility]) Calcium [Mass/volume] in Serum or Plasma 8.3 mg/dL 8.5-10.1 [facility] NOTE: RESULT VERIFIED. Chloride [Moles/volume] in Serum or Plasma 103 meq/L 98-107 [facility] ([facility]) Carbon dioxide, total [Moles/volume] in Serum or Plasma 32 meq/L 21 -32 [facility] Glomerular filtration rate/1.73 sq M pre dicted among non-blacks [Volume Rate/Area] in Serum or Plasma by Creatinine-based formula (MDRD) Laboratory test result [facility] Glomerular filtration rate/1.73 sq M pre dicted among blacks [Volume Rate/Area] in Serum or Plasma by Creatinine-based formula (MDRD) Laboratory test result [facility] <content>CHRONIC KIDNEY DISEASE STAGING PER NKF</content>
<content></content>
<content>STAGE I & II GFR >= 60 NORMAL TO MILDLY DECREASED</content>
<content>STAGE III GFR 30-59 MODERATELY DECREASED</content>
<content>STAGE IV GFR 15-29 SEVERELY DECREASED</content>
<content>STAGE V GFR <15 VERY LITTLE GFR LEFT</content>
<content>ESRD GFR <15 ON BISQUE PLACER</content>
<content></content> ID Date Data Source [id number] 10/30/2019 10:47:[address] [facility] ([facility]) Name Value Range Interpretation Code Description Data Monserrat rce(s) Supporting Document(s) Urine Color Laboratory test result [facility] ([facility]) Urine PH 7.5 units 5.0-9.0 [facility] Urine Appearance Laboratory test result [facility] ([facility]) Urine Leukocytes Laboratory test result [facility] Specific gravity of Urine 1.005 1.005-1.030 [facility] ([facility]) Glucose [Presence] in Urine Laboratory test result [facility] Urine Blood Laboratory test result [facility] Urine Protein Laboratory test result 0-0 [facility] ([facility]) Urine Ketone Laboratory test result [facility] ([facility]) Urine Nitrite Laboratory test result [facility] ([facility]) Bilirubin.total [Mass/volume] in Serum or Plasma Laboratory test resu lt [facility] Urine Urobilinogen 0.2 mg/dL 0.2-1.0 [facility] ID Date Data Source [id number] 10/30/2019 10:47:00 AM EDT [facility] ([facility]) Name Value Range Interpretation Code Description Data Monserrat rce(s) Supporting Document(s) Glucose [Mass/volume] in Serum or Plasma 79 mg/dL 74-99 [facility] ([facility]) 100-125 mg/dL PRE-DIABETES/FASTING >126 mg/dL DIABETES/FASTING Urea nitrogen [Mass/volume] in Serum or Plasma 9 mg/dL 7-18 [facility] ([facility]) Creatinine 0.9 mg/dL 0.6-1.3 [facility] ([facility]) Chloride [Moles/volume] in Serum or Plasma 103 meq/L 98-107 [facility] ([facility]) Potassium [Moles/volume] in Serum or Plasma 4.2 meq/L 3.5-5.1 [facility] ([facility]) Carbon dioxide, total [Moles/volume] in Serum or Plasma 32 meq/L 21 -32 [facility] ([facility]) Sodium [Moles/volume] in Serum or Plasma 141 meq/L 136-145 [facility] ([facility]) Glomerular filtration rate/1.73 sq M pre dicted among blacks [Volume Rate/Area] in Serum or Plasma by Creatinine-based formula (MDRD) Laboratory test result [facility] ([facility]) <content>CHRONIC KIDNEY DISEASE STAGING PER NKF</content>
<content></content>
<content>STAGE I & II GFR >= 60 NORMAL TO MILDLY DECREASED</content>
<content>STAGE III GFR 30-59 MODERATELY DECREASED</content>
<content>STAGE IV GFR 15-29 SEVERELY DECREASED</content>
<content>STAGE V GFR <15 VERY LITTLE GFR LEFT</content>
<content>ESRD GFR <15 ON BISQUE PLACER</content>
<content></content>
<content></content> Calcium [Mass/volume] in Serum or Plasma 8.3 mg/dL 8.5-10.1 [facility] ([facility]) NOTE: RESULT VERIFIED. Glomerular filtration rate/1.73 sq M pre dicted among non-blacks [Volume Rate/Area] in Serum or Plasma by Creatinine-based formula (MDRD) Laboratory test result [facility] ([facility]) pH of Urine 7.5 units 5.0-9.0 [facility] ([facility]) Urine Color Laboratory test result [facility] ([facility]) Urine Appearance Laboratory test result [facility] ([facility]) Urine Protein Laboratory test result 0-0 [facility] ([facility]) Specific gravity of Urine 1.005 1.005-1.030 [facility] ([facility]) Urine Blood Laboratory test result [facility] ([facility]) Urine Leukocytes Laboratory test result [facility] ([facility] [facility]) Urine Ketone Laboratory test result MEDE NT ([facility]) Glucose [Presence] in Urine Laboratory test result MEDENT ([facility]) Urine Nitrite Laboratory test result MEDENT ([facility]) Urine Urobilinogen 0.2 mg/dL 0.2-1.0 MED[facility] ([facility]) Bilirubin.total [Mass/volume] in Serum or Plasma Laboratory test resu lt MEDENT ([facility]) ID Date Data Source [id number] 10/30/2019 10:47:00 AM EDT MEDENT ([facility]) Name Value Range Interpretation Code Description Data Monserrat rce(s) Supporting Document(s) Erythrocytes [#/volume] in Blood by Automated count 4.63 x10*6/UL 4.2 0-6.30 MEDENT ([facility]) Leukocytes [#/volume] in Blood by Automated count 8.0 x10*3/UL 4.1-10 .9 MED[facility] ([facility]) Hemoglobin [Mass/volume] in Blood 13.8 g/dL 12.0-18.0 MEDENT ([facility]) MCH 29.8 pg 26.0-32.0 MEDENT ([facility]) MCV 86.2 fL 80.0-97.0 MEDENT ([facility]) Hematocrit [Volume Fraction] of Blood by Automated count 39.9 % 3 7.0-51.0 MEDENT ([facility]) Erythrocyte distribution width [Ratio] by Automated count 13.2 % 11.6-13.7 MEDENT ([facility]) Platelet mean volume [Entitic volume] in Blood by Esteban 9.7 FL 7.8-11.0 MEDENT ([facility]) MCHC 34.6 g/dL 31.0-38.0 MEDENT ([facility]) Platelets [#/volume] in Blood by Automated count 238 x10*3/UL 140-440 MEDENT ([facility]) Neut % 61.5 % 37.0-92.0 MEDENT ([facility]) Mid % 8.1 % 1.7-9.3 MEDENT ([facility]) Lymphocytes/100 leukocytes in Blood by Automated count 30.4 % 10. 0-58.5 MEDENT ([facility]) Mid # 0.7 x10*3/UL 0.1-0.6 MEDENT ([facility]) Neutrophils [#/volume] in Semen by Manual count 4.9 x10*3/UL 2.0-7.8 MEDENT ([facility]) Lymph # 2.4 x10*3/UL 0.6-4.1 MEDENT ([facility]) ID Date Data Source [id number] 2019 10:51:00 AM EDT MEDENT ([facility]) Name Value Range Interpretation Code Description Data Monserrat rce(s) Supporting Document(s) Laboratory test finding (navigational concept) Laboratory test result MEDENT ([facility]) ID Date Data Source [id number] 2019 10:40:00 AM EDT [facility] Name Value Range Interpretation Code Description Data Monserrat rce(s) Supporting Document(s) Urine Appearance Laboratory test result Abnormal (applies to non-numeric results) MEDENT ([facility]) Urine Color Laboratory test result MEDEN T ([facility]) Urine PH 7.0 units 5.0-9.0 [facility]) Specific gravity of Urine 1.010 1.005-1.030 ME DENT ([facility]) Urine Leukocytes Laboratory test result Abnormal (applies to non-numeric results) MEDENT ([facility]) Glucose [Presence] in Urine Laboratory test result MEDENT ([facility]) Urine Protein Laboratory test result 0-0 MED ENT ([facility]) Urine Blood Laboratory test result MEDEN T ([facility]) Urine Ketone Laboratory test result MEDE NT ([facility]) Urine Nitrite Laboratory test result MED ENT ([facility]) Urine Urobilinogen 0.2 mg/dL 0.2-1.0 MEDENT ([facility]) Bilirubin.total [Mass/volume] in Serum or Plasma [facility]) ID Date Data Source [id number] 10/03/2019 12:00:00 AM EDT [facility] Imaging Umberto Foster Jr, MD Patient Name: LULA [id number] [facility] Date of : 1975[place] [address] Date of Exam: 10/03/2019#: Fax: [phone] EXAM: ABDOMEN AP (KUB) X-RAYCLINICAL INFORMATION: Lower abdominal pain.COMPARISON: 12/13/2018A T-shaped radiodensity is again seen in the pelvis consistent with an IUD.The intestinal gas pattern is nonspecific. There is a surgical staple linein the left upper quadrant status quo. The osseous structures are withinnormal limits.IMPRESSION:Nonspecific exam with findings as described above.LEON Cristobal/Ace araujo for referring YOMAIRA KABA to our office. Electronically Signed - MAGGY TORRES DO 10/04/19 15:40 Name Value Range Interpretation Code Description Data Monserrat rce(s) Supporting Document(s) ID Date Data Source [id number] 09/27/2019 11:37:00 AM EDT MEDENT ([facility]) Name Value Range Interpretation Code Description Data Monserrat rce(s) Supporting Document(s) Bacteria identified in Urine by Culture Laboratory test result MEDENT ([facility]) <content>FULL REPORT IN LAB NOTES ([facility] a nd Medent).</content>
<content></content>
<content>ORGANISM 1: STREP AGALACTIAE GROUP B</content>
<content></content>
<content>COLONY COUNT 100,000</content>
<content></content>
<content></content>
<content>O RGANISM 1: STREP AGALACTIAE GROUP B</content>
<content></content>
<content>STREP AGALACTIAE GROUP B: REACTION</content>
<content>ICR (INDUCIBLE CC RESISTANCE) IV ICR TEST RESULT</content>
<content>TETRACYCLINE PO 250 mg qid >=16 R</content>
<content>PENICILLIN G IV 1 mu q6h <=0.06 S</content>
<content>PENICILLIN G PO 250mg q6h fasting <=0.06 S</content>
<content>AMPICILLIN IV 500mg q6h <=0.25 S</content>
<content>AMPICILLIN PO 500mg q6h fasting <=0.25 S</content>
<content>ERYTHROMYCIN IV 500mg q6h >=8 R</content>
<content>ERYTHROMYCIN PO 500mg q6h >=8 R</content>
<content>LEVOFLOXACIN IV 500mg qd 0.5 S</content>
<content>LEVOFLOXACIN PO 250mg qd 0.5 S</content>
<content>LEVOFLOXACIN PO 500mg qd 0.5 S</content>
<content>VANCOMYCIN IV 500mg q8h 0.5 S</content>
<content>MOXIFLOXACIN (AVELOX) IV 400MG QD 0.12 S</content>
<content>MOXIFLOXACIN (AVELOX) PO 400MG QD 0.12 S</content>
<content> CEFTRIAXONE IV 1gm q24h <=0.12 S</content>
<content>CEFOTAXIME IV 1gm q8h <=0.12 S</content>
<content>An isolate with a (+) POSITIVE ICR test is considered</content>
<content>CLINDAMYCIN RESISTANT; however, clindamycin may still</content>
<content>be effective in some patients.</content>
< content>An isolate with a (-) NEGATIVE ICR test is considered</content>
<content>CLIDAMYCIN SENSITIVE.</content>
<content></content> ID Date Data Source [id number] 09/27/2019 11:37:00 AM EDT MEDENT ([facility]) Name Value Range Interpretation Code Description Data Monserrat rce(s) Supporting Document(s) WBC, Urine Auto 22 /HPF 0-3 MEDENT ([facility]) RBC, Urine Auto 84 /HPF 0-3 MEDENT ([facility]) Bacteria, Urine Auto Laboratory test result MEDENT ([facility]) Squamous Epithelial Cell Ur AU 19 /HPF 0-6 MEDENT ([facility]) Mucus, Urine Laboratory test result [facility] NT [facility] Amorphous Sediment Laboratory test result [facility] Hyaline Cast, Urine Auto 0 /LPF 0-1 MEDEN T [facility] ID Date Data Source [id number] 09/27/2019 11:03:[address] [facility] Name Value Range Interpretation Code Description Data Monserrat rce(s) Supporting Document(s) Urine Appearance Laboratory test result Abnormal (applies to non-numeric results) [facility] ([facility]) Urine PH 6.5 units 5.0-9.0 [facility] Urine Color Laboratory test result Abnormal (applies to non-numeric results) MEDENT ([facility]) Urine Blood Laboratory test result Abnormal (applies to non-numeric results) [facility] ([facility]) Urine Leukocytes Laboratory test result Abnormal (applies to non-numeric results) [facility] Specific gravity of Urine 1.015 1.005-1.030 ME [facility]ENT [facility] Urine Protein Laboratory test result 0-0 Abnormal (applies to non-numeric results) [facility] ([facility]) Glucose [Presence] in Urine Laboratory test result [facility] Bilirubin.total [Mass/volume] in Serum or Plasma Laboratory test resu lt MEDENT ([facility]) Urine Nitrite Laboratory test result MED ENT ([facility]) Urine Ketone Laboratory test result [facility]E NT [facility] Urine Urobilinogen 0.2 mg/dL 0.2-1.0 MEDENT ([facility]) ID Date Data Source [id number] 09/13/2019 01:45:00 PM EDT [facility] Name Value Range Interpretation Code Description Data Monserrat rce(s) Supporting Document(s) Ferritin [Mass/volume] in Serum or Plasma 16 ng/mL 8-252 [facility] ([facility]) ID Date Data Source [id number] 09/13/2019 01:45:00 PM EDT [facility] ([facility]) Name Value Range Interpretation Code Description Data Monserrat rce(s) Supporting Document(s) Folate 3.1 ng/mL MEDENT ([facility] [place] FOLATE NORMAL RANGE NORMAL GREATER THAN 5.4 NG/ML INDETERMINATE 3.4-5.4 NG/ML DEFICIENT LESS THAN 3.4 NG/ML Vitamin B12 Level 607 pg/mL MEDENT ([facility]) VITAMIN B12 NORMAL RANGE NORMAL 247 - 911 PG/ML INDETERMINATE 211 - 246 PG/ML DEFICIENT LESS THAN 211 PG/ML ID Date Data Source [id number] 09/13/2019 01:44:00 PM EDT MEDENT ([facility]) Name Value Range Interpretation Code Description Data Monserrat rce(s) Supporting Document(s) Calcidiol [Mass/volume] in Serum or Plasma 22.6 24.0-80.0 MEDENT ([facility]) This test was performed using [employer] I P Vitamin D immunoassay kit. Values obtained with different assay methods should not be used interchangeably. ID Date Data Source [id number] 09/13/2019 01:44:00 PM EDT MEDENT ([facility]) Name Value Range Interpretation Code Description Data Monserrat rce(s) Supporting Document(s) Thyrotropin [Units/volume] in Serum or Plasma by Detec tion limit <= 0.05 mIU/L 0.95 uIU/mL 0.36-3.74 [facility] ([facility] ) ID Date Data Source [id number] 09/13/2019 01:44:00 PM EDT [facility] ([facility]) Name Value Range Interpretation Code Description Data Monserrat rce(s) Supporting Document(s) Creatinine 0.8 mg/dL 0.6-1.3 [facility] ([facility]) Glucose [Mass/volume] in Serum or Plasma 76 mg/dL 74-99 MEDENT ([facility]) 100-125 mg/dL PRE-DIABETES/FASTING >126 mg/dL DIABETES/FASTING Urea nitrogen [Mass/volume] in Serum or Plasma 9 mg/dL 7-18 MEDENT ([facility]) Sodium [Moles/volume] in Serum or Plasma 142 meq/L 136-145 MEDENT ([facility]) Potassium [Moles/volume] in Serum or Plasma 4.0 meq/L 3.5-5.1 MED[facility] ([facility]) Chloride [Moles/volume] in Serum or Plasma 105 meq/L 98-107 MED[facility] ([facility]) Total Bilirubin 0.2 mg/dL 0.2-1.0 MEDENT ([facility]) Alkaline phosphatase isoenzyme [Units/volume] in Serum or Pl asma 79 mg/dL 46-116 MED[facility] ([facility]) Calcium [Mass/volume] in Serum or Plasma 7.9 mg/dL 8.5-10.1 MEDENT ([facility]) NOTE: RESULT VERIFIED. Carbon dioxide, total [Moles/volume] in Serum or Plasma 31 meq/L 21 -32 [facility] Alanine aminotransferase [Enzymatic activity/volume] in Seru m or Plasma 24 U/L 12-78 [facility] Albumin [Mass/volume] in Serum or Plasma 3.7 g/dL 3.4-5.0 MED[facility] ([facility]) Aspartate aminotransferase [Enzymatic activity/volume] in Serum or Plasma 20 U/L 15-37 MED[facility] ([facility] ) A/G Ratio 1.09 CALC 1.00-1.90 [facility] ([facility]) Proteinase 3 Ab [Units/volume] in Serum 7.1 g/dL 6.4-8.2 [facility] Glomerular filtration rate/1.73 sq M pre dicted among non-blacks [Volume Rate/Area] in Serum or Plasma by Creatinine-based formula (MDRD) Laboratory test result [facility] Glomerular filtration rate/1.73 sq M pre dicted among blacks [Volume Rate/Area] in Serum or Plasma by Creatinine-based formula (MDRD) Laboratory test result [facility] <content>CHRONIC KIDNEY DISEASE STAGING PER NKF</content>
<content></content>
<content>STAGE I & II GFR >= 60 NORMAL TO MILDLY DECREASED</content>
<content>STAGE III GFR 30-59 MODERATELY DECREASED</content>
<content>STAGE IV GFR 15-29 SEVERELY DECREASED</content>
<content>STAGE V GFR <15 VERY LITTLE GFR LEFT</content>
<content>ESRD GFR <15 ON BISQUE PLACER</content>
<content></content> ID Date Data Source [id number] 09/13/2019 01:44:00 PM EDT MEDENT ([facility]) Name Value Range Interpretation Code Description Data Monserrat rce(s) Supporting Document(s) Leukocytes [#/volume] in Blood by Automated count 9.9 x10*3/UL 4.1-10 .9 [facility] Hematocrit [Volume Fraction] of Blood by Automated count 38.9 % 3 7.0-51.0 MED[facility] ([facility]) Hemoglobin [Mass/volume] in Blood 13.1 g/dL 12.0-18.0 [facility] ([facility]) Erythrocytes [#/volume] in Blood by Automated count 4.43 x10*6/UL 4.2 0-6.30 [facility] ([facility]) MCV 87.8 fL 80.0-97.0 [facility]) Erythrocyte distribution width [Ratio] by Automated count 13.6 % 11.6-13.7 [facility] ([facility]) MCHC 33.6 g/dL 31.0-38.0 [facility] MCH 29.5 pg 26.0-32.0 [facility]) Platelets [#/volume] in Blood by Automated count 254 x10*3/UL 140-440 MED[facility] ([facility]) MPV 9.5 FL 7.8-11.0 [facility] Lymph % 28.9 % 10.0-58.5 [facility] ([facility]) Mid % 7.4 % 1.7-9.3 [facility] Lymph # 2.8 x10*3/UL 0.6-4.1 [facility] ([facility]) Neut % 63.7 % 37.0-92.0 [facility]) Neut # 6.3 x10*3/UL 2.0-7.8 [facility] ([facility]) Mid # 0.8 x10*3/UL 0.1-0.6 MED[facility] ([facility]) Procedure Social History Code Duration Value Status Description Data Source(s ) Smoking 01/18/2020 12:00:00 AM EDT Patient has never smoked co mpleted Patient has never smoked MED[facility] ([facility]) Alcohol intake 12/13/2019 12:00:00 AM EDT Not Currently completed [facility] Smoking 12/13/2019 12:00:00 AM EDT Never smoker completed Never s moker [facility] Vital Signs ID Date Data Source [id number] Name Value Range Interpretation Code Description Data Source(s) Diastolic blood pressure--standing 61 mm[Hg] 6 1 mm[Hg] MEDENT ([facility]) [place], adult cuff/Ra: 81 bpm Systolic blood pressure--standing 105 mm[Hg] 10 5 mm[Hg] MED[facility] ([facility]) [place], adult cuff/Ra: 81 bpm Diastolic blood pressure--supine 72 mm[Hg] 72 mm[Hg] [facility] ([facility]) [place], adult cuff/Ra: 68 bpm Systolic blood pressure--supine 123 mm[Hg] 123 mm[Hg] MED[facility] ([facility]) [place], adult cuff/Ra: 68 bpm Diastolic blood pressure--sitting 78 mm[Hg] 78 mm[Hg] [facility] ([facility]) [place], adult cuff/Ra: 74 bpm Systolic blood pressure--sitting 125 mm[Hg] 125 mm[Hg] [facility] ([facility]) [place], adult cuff/Ra: 74 bpm Heart rate 74 /min 74 /min MED[facility] ([facility]) Body mass index (BMI) [Ratio] 22.5 kg/m2 22.5 k g/m2 MEDENT ([facility]) Body height 64 [in_i] 64 [in_i] [facility] 5'4" Body weight 131.00 [lb_av] 131.00 [lb_av] MEDEN T ([facility]) [place] body weight 120 [lb_av] 120 [lb_av] MEDEN T ([facility]) Body mass index (BMI) [Ratio] 20.4 kg/m2 20.4 k g/m2 MEDENT ([facility]) Body weight 119.00 [lb_av] 119.00 [lb_av] MEDEN T ([facility]) Body height 64 [in_i] 64 [in_i] MEDENT ([facility]) 5'4" Respiratory rate 12 /min 12 /min MEDENT ( [facility]) Body weight 124.00 [lb_av] 124.00 [lb_av] MEDEN T ([facility]) Heart rate 87 /min 87 /min MEDENT ([facility]) Diastolic blood pressure--standing 75 mm[Hg] 7 5 mm[Hg] [facility] ([facility]) Systolic blood pressure--standing 102 mm[Hg] 10 2 mm[Hg] [facility] ([facility]) Diastolic blood pressure--sitting 80 mm[Hg] 80 mm[Hg] [facility] ([facility]) Systolic blood pressure--sitting 110 mm[Hg] 110 mm[Hg] [facility] ([facility]) Diastolic blood pressure--supine 88 mm[Hg] 88 mm[Hg] [facility] ([facility]) Systolic blood pressure--supine 118 mm[Hg] 118 mm[Hg] [facility] ([facility]) Diastolic blood pressure 68 mm[Hg] 68 mm[Hg] [facility] ([facility]) Systolic blood pressure 102 mm[Hg] 102 mm[Hg] [facility] ([facility]) Oxygen saturation in Arterial blood by Pulse oximetry 100 % 100 % [facility] Respiratory rate 18 /min 18 /min [facility] Heart rate 64 /min 64 /min [facility] Diastolic blood pressure 64 mm[Hg] 64 mm[Hg] [facility] Systolic blood pressure 136 mm[Hg] 136 mm[Hg] [facility] Body temperature 36.61 Courtney 36.61 Courtney [facility] Body mass index (BMI) [Ratio] 20.43 kg/m2 20.43 kg/m2 [facility] Body weight 53.978 kg 53.978 kg [facility] Body height 162.6 cm 162.6 cm [facility] Oxygen saturation in Arterial blood by Pulse oximetry 96 % 96 % [facility] ([facility]) Air Body weight 123.00 [lb_av] 123.00 [lb_av] MEDEN T ([facility]) Heart rate 87 /min 87 /min [facility] Diastolic blood pressure 60 mm[Hg] 60 mm[Hg] [facility] ([facility]) Systolic blood pressure 92 mm[Hg] 92 mm[Hg] [facility] ([facility]) Oxygen saturation in Arterial blood by Pulse oximetry 98 % 98 % [facility] ([facility]) Body weight 128.00 [lb_av] 128.00 [lb_av] MEDEN T ([facility]) Heart rate 68 /min 68 /min [facility] ([facility]) Diastolic blood pressure 60 mm[Hg] 60 mm[Hg] [facility] ([facility]) Systolic blood pressure 100 mm[Hg] 100 mm[Hg] [facility] ([facility]) Body weight 128.00 [lb_av] 128.00 [lb_av] MEDEN T ([facility]) Body temperature 100.0 [degF] 100.0 [degF] MEDE NT ([facility]) Heart rate 82 /min 82 /min [facility] ([facility]) Diastolic blood pressure 56 mm[Hg] 56 mm[Hg] [facility] ([facility]) Systolic blood pressure 92 mm[Hg] 92 mm[Hg] [facility] ([facility]) Oxygen saturation in Arterial blood by Pulse oximetry 98 % 98 % [facility] ([facility]) Body weight 127.00 [lb_av] 127.00 [lb_av] MEDEN T ([facility]) Body temperature 100.2 [degF] 100.2 [degF] MEDE NT ([facility]) Heart rate 79 /min 79 /min [facility] ([facility]) Diastolic blood pressure 60 mm[Hg] 60 mm[Hg] [facility] ([facility]) Systolic blood pressure 98 mm[Hg] 98 mm[facility]Hg] [facility] Oxygen saturation in Arterial blood by Pulse oximetry 98 % 98 % [facility] ([facility] ) Body mass index (BMI) [Ratio] 22.5 kg/m2 22.5 k g/m2 [facility] Body weight 131.00 [lb_av] 131.00 [lb_av] MEDEN T [facility] Body height 64 [in_i] 64 [in_i] [facility] ([facility] ) Heart rate 85 /min 85 /min [facility] ([facility] ) Diastolic blood pressure 60 mm[Hg] 60 mm[Hg] [facility] Systolic blood pressure 102 mm[Hg] 102 mm[Hg] [facility] Body mass index (BMI) [Ratio] 22.5 kg/m2 22.5 k g/m2 [facility] ([facility]) Oxygen saturation in Arterial blood by Pulse oximetry 98 % 98 % [facility] ([facility]) Air Body weight 131.00 [lb_av] 131.00 [lb_av] MEDEN T ([facility]) Body height 64 [in_i] 64 [in_i] MEDENT ([facility]) 5'4" Heart rate 85 /min 85 /min MED[facility] ([facility]) Diastolic blood pressure 60 mm[Hg] 60 mm[Hg] [facility] ([facility]) Systolic blood pressure 102 mm[Hg] 102 mm[facility]Hg] [facility] Body mass index (BMI) [Ratio] 24.4 kg/m2 24.4 k g/m2 MED[facility] ([facility]) Body height 64 [in_i] 64 [in_i] MED[facility] ([facility]) 5'4" Body weight 142.00 [lb_av] 142.00 [lb_av] MEDEN T ([facility], [facility]) Body temperature 98.3 [degF] 98.3 [degF] MEDENT ([facility]) Oxygen saturation in Arterial blood by Pulse oximetry 97 % 97 % [facility] ([facility]) Respiratory rate 16 /min 16 /min MED[facility] ( [facility], [facility]) Heart rate 96 /min 96 /min [facility] ([facility]) Diastolic blood pressure 80 mm[Hg] 80 mm[Hg] MED[facility] ([facility]) Systolic blood pressure 115 mm[Hg] 115 mm[Hg] M EDENT ([facility], [facility]) Diastolic blood pressure 66 mm[Hg] 66 mm[Hg] eCW1 ([facility]) Systolic blood pressure 144 mm[Hg] 144 mm[Hg] e CW1 ([facility]) Body temperature 98.0 [degF] 98.0 [degF] eCW1 ( [facility]) Respiratory rate 18 /min 18 /min eCW1 ([facility]) Heart rate 104 /min 104 /min eCW1 ([facility]) Body mass index (BMI) [Ratio] 26.10 kg/m2 26.10 kg/m2 eCW1 ([facility]) Body height 62.5 [in_us] 62.5 [in_us] eCW1 ([facility]) Body weight Measured 145.0 [lb_av] 145.0 [lb_av ] eCW1 ([facility]) Patient Treatment Plan of Care Planned Activity Planned Date Details Description Data Source (s) Oxycodone Hydrochloride 15 MG Oral Tablet 03/15/2019 12:00:00 AM ES T eCW1 ([facility]) tizanidine 4 MG Oral Tablet [facility] Diphenhydramine Hydrochloride 25 MG Oral Tablet [facility] pantoprazole 40 MG Delayed Release Oral Tablet [facility] Hydromorphone Hydrochloride 4 MG Oral Tablet [facility] Acetaminophen 325 MG / butalbital 50 MG / Caffeine 40 MG Oral Table t [facility] Diazepam 5 MG Oral Tablet French [id number]
[2020-05-13] MEDS ORDERED: METOCLOPRAMIDE INJ 10MG/2ML VIAL (J2765 PER 1) IV ONE (15:30)
[2020-05-13] MEDS ORDERED: NS 1,000 ML IV ONE (15:30)
--- OUTSIDE RECORDS SUMMARY | 2020-05-13 16:14 | CCD ---
Author Author [facility] Address Unknown Phone Unavailable Care Team Providers Care Grain Sacker Name Role Phone Celso, Danielle DO Unavailable [...] Unavailable Paul Velasquez MD Unavailable Unavailable Paul Velsaquez MD Unavailable Unavailable Paul Velasquez MD Unavailable [...] Unavailable Paul Velasquez MD Unavailable Unavailable Paul Velaqsuez MD Unavailable Unavailable Paul Velasquez MD Unavailable [...] MD Unavailable Unavailable CristianDaysi MD Unavailable Unavailable ZephyrhillsDaysi MD Unavailable Unavailable ZephyrhillsDaysi MD Unavailable Unavailable CristianDaysi MD Unavailable Unavailable ZephyrhillsDaysi MD Unavailable Unavailable ZephyrhillsDaysi MD Unavailable Unavailable ZephyrhillsDaysi MD Unavailable Unavailable ZephyrhillsDaysi MD Unavailable Unavailable CristianDaysi MD Unavailable Unavailable ZephyrhillsDaysi MD Unavailable Unavailable CristianDaysi MD Unavailable Unavailable CristianDaysi MD Unavailable Unavailable ZephyrhillsDaysi MD Unavailable Unavailable CristianDaysi MD Unavailable Unavailable ZephyrhillsDaysi MD Unavailable Unavailable ZephyrhillsDaysi MD Unavailable Unavailable ZephyrhillsDaysi MD Unavailable Unavailable CristianDaysi MD Unavailable Unavailable ZephyrhillsDaysi MD Unavailable Unavailable CristianDaysi MD Unavailable Unavailable ZephyrhillsDaysi MD Unavailable Unavailable ZephyrhillsDaysi MD Unavailable Unavailable ZephyrhillsDaysi MD Unavailable Unavailable CristianDaysi MD Unavailable Unavailable ZephyrhillsDaysi MD Unavailable Unavailable ZephyrhillsDaysi MD Unavailable Unavailable ZephyrhillsDaysi MD Unavailable Unavailable CristianDaysi MD Unavailable Unavailable ZephyrhillsDaysi MD Unavailable Unavailable ZephyrhillsDaysi MD Unavailable Unavailable CristianDaysi MD Unavailable Unavailable CristianDaysi MD Unavailable Unavailable CristianDaysi MD Unavailable Unavailable ZephyrhillsDaysi MD Unavailable Unavailable CristianDaysi MD Unavailable Unavailable CristianDaysi MD Unavailable Unavailable ZephyrhillsDaysi MD Unavailable Unavailable CristianDaysi MD Unavailable Unavailable ZephyrhillsDaysi MD Unavailable Unavailable CristianDaysi MD Unavailable Unavailable ZephyrhillsDaysi MD Unavailable Unavailable ZephyrhillsDaysi MD Unavailable Unavailable ZephyrhillsDaysi MD Unavailable Unavailable CristianDaysi MD Unavailable Unavailable CristianDaysi MD Unavailable Unavailable CristianDaysi MD Unavailable Unavailable CristianDaysi MD Unavailable Unavailable ZephyrhillsDaysi MD Unavailable Unavailable ZephyrhillsDaysi MD Unavailable Unavailable CristianDaysi MD Unavailable Unavailable ZephyrhillsDaysi MD Unavailable Unavailable CristianDaysi MD Unavailable Unavailable ZephyrhillsDaysi MD Unavailable Unavailable ZephyrhillsDaysi MD Unavailable Unavailable ZephyrhillsDaysi MD Unavailable Unavailable CristianDaysi MD Unavailable Unavailable ZephyrhillsDaysi MD Unavailable Unavailable ZephyrhillsDaysi MD Unavailable Unavailable CristianDaysi MD Unavailable Unavailable CristianDaysi MD Unavailable Unavailable CristianDaysi MD Unavailable Unavailable CristianDaysi MD Unavailable Unavailable CristianDaysi MD Unavailable Unavailable ZephyrhillsDaysi MD Unavailable Unavailable ZephyrhillsDaysi MD Unavailable Unavailable ZephyrhillsDaysi MD Unavailable Unavailable CristianDaysi MD Unavailable Unavailable ZephyrhillsDaysi MD Unavailable Unavailable CristianDaysi MD Unavailable Unavailable ZephyrhillsDaysi MD Unavailable Unavailable ZephyrhillsDaysi MD Unavailable Unavailable ZephyrhillsDaysi MD Unavailable Unavailable CristianDaysi MD Unavailable Unavailable ZephyrhillsDaysi MD Unavailable Unavailable ZephyrhillsDaysi MD Unavailable Unavailable CristianDaysi MD Unavailable Unavailable CristianDaysi MD Unavailable Unavailable ZephyrhillsDaysi MD Unavailable Unavailable ZephyrhillsDaysi MD Unavailable Unavailable CristianDaysi MD Unavailable Unavailable ZephyrhillsDaysi MD Unavailable Unavailable ZephyrhillsDaysi MD Unavailable Unavailable ZephyrhillsDaysi MD Unavailable Unavailable ZephyrhillsDaysi MD Unavailable Unavailable CristianDaysi MD Unavailable Unavailable ZephyrhillsDaysi MD Unavailable Unavailable ANTECOL, Enmanuel SINHA MD [...] Unavailable Unavailable Celso, Danielle DO Unavailable Unavailable Cleso, Danielle DO Unavailable Unavailable Celso, Danielle DO [...] Unavailable Celso, Danielle DO Unavailable Unavailable Celso, Dnaielle DO Unavailable Unavailable Celso, Danielle DO Unavailable [...] is protected by Article 27-F of the [facility] Public Health law. If you continue you may have access to information: Regarding HIV / AIDS; Provided by facilities licensed or operated by the [facility] Office of Mental Health; or Provided by the [facility] Office for People With Developmental Disabilities. If such information is present, then the following [facility] mandated warning applies: This information has [...] law may result in a fine or care home sentence or both. A general authorization for the release of medical or other information is NOT sufficient authorization for further disc losure. Allergies and Adverse Reactions Type Description Substance Reaction Status Data Source(s ) BRANDNAME IMITREX IMITREX [facility] BRANDNAME NUCYNTA NUCYNTA [facility] BRANDNAME VICODIN VICODIN [facility] Drug allergy MAGNESIUM MAGNESIUM [facility] CLASS NSAID NSAID [facility] Nucynta Nucynta Nucynta Rash Active eCW1 ([facility]) Tramadol HCl Tramadol HCl Tramadol HCl Rash Active eCW1 ([facility]) Cymbalta Cymbalta duloxetine 30 MG Delayed Release Oral Capsule [Cymbalta] Rash Active eCW1 ([facility]) Hydrocodone-Ibuprofen Hydrocodone-Ibuprofen Hydrocodone Crissy rtrate 10 MG / Ibuprofen 200 MG Oral Tablet Nausea/Vomiting Active eCW1 ([facility]) Hydromorphone HCl Hydromorphone HCl Hydromorphone HCl Itching Acti ve eCW1 ([facility]) Imitrex Imitrex 0.5 ML Sumatriptan 12 MG/ML Inje ction [Imitrex] sunburn-like rash on face Active eCW1 ([facility]) Magnesium Oxide Magnesium Oxide Magnesium Oxide 250 MG Oral Tabl et sunburn-like rash on face Active eCW1 ([facility]) buspirone buspirone buspirone hydrochloride 10 MG Oral Tablet hives Active eCW1 ([facility]) Neurontin Neurontin gabapentin 50 MG/ML Oral Solution [Neuron tin] chest pain Active eCW1 ([facility]) Amoxicillin Amoxicillin Amoxicillin 80 MG/ML Oral Suspension Naus ea/Vomiting Active eCW1 ([facility]) Cipro Cipro Ciprofloxacin 100 MG/ML Oral Suspension [Cipro] Rash Active eCW1 ([facility]) Family History Family Member Name Family Member Gender Family Member Status Date o f Status Description Data Source(s) Unknown Unknown Problem MEDENT ([facility]) Unknown Unknown Problem [facility] ([facility]) Unknown Unknown Problem MED[facility] ([facility]) Unknown Female Problem MEDENT ([facility]) Encounters Encounter Providers Location Date Indications Data Source(s ) Outpatient Attender: BHARATH BLANC MD Main Office 01/18/2020 01:30:00 PM EDT MED[facility] ([facility]) Outpatient Attender: Nelsy Fernández MD Main office - [facility] 01/02/2020 08:00:00 AM EDT MEDENT ([facility]) Outpatient Attender: Danielle Shannon 12/27 01:45:00 PM EDT MEDENT ([facility] ) Outpatient Referrer: MANJINDER GLOVER-JEREMIAH 2019 09:59:16 AM EDT - 12/08/2019 09:59:20 AM EDT [facility] Outpatient Attender: MANJINDER Hoffman carmen: MANJINDER BALTAZARAdmitter: MANJINDER BALTAZAR [email or web address] 12/05/2019 12:08:39 PM EDT - 12/13/2019 10:52:00 AM EDT [facility] Patient discharged. Outpatient Attender: Miranda SAENZ 12/01/2019 04:03:00 PM EDT [facility] Outpatient Attender: OLE SOLIS PAConsultant: Jose Miguel Chatterjee DO 11/20/2019 02:59:00 PM EDT - 11/20/2019 03:59:00 PM EDT [facility] Outpatient Attender: Danielle Shannon 10/29 10:20:00 AM EDT MEDENT ([facility] ) Outpatient Referrer: Jessica Velasquez MD [...] Attender: Jessica Barraza 09:45:00 AM EDT MEDENT ([facility] ) Outpatient Referrer: Umberto Foster MD [...] Barraza 0 09/27/2019 11:00:00 AM EDT MEDENT ([facility] ) Outpatient Attender: Jessica Barraza 01:15:00 PM EDT MEDENT ([facility] ) Outpatient Attender: SHASHANK leyva 08/02/2019 01:45:00 PM EDT MED[facility] ([facility] [address] [place] [address] 03/31/2019 12:00:00 AM EST eCW1 ([facility]) [facility] [address] [place] [phone] 03/15/2019 12:00:00 AM EST eCW1 ([facility]) Medications Medication Brand Name Start Date Product [...] DAILY DOSE = SIX TABLETS SOLD: 02/16/2020 [facility] zolmitriptan 2.5 MG Oral Tablet ZOLMITRIPTAN [...] 4 TABLETS IN 7 DAYS SOLD: 03/14/2020 [facility] zolmitriptan 2.5 MG Oral Tablet [...] 4 TABLETS IN 7 DAYS SOLD: 02/04/2020 [facility] 50 mg 02/02/2020 12:00:00 AM [...] 01/19/2020 12:00:00 AM EDT ORAL active MEDENT ([facility]) 0.1 mg 01/19/2020 12:00:00 AM EDT [...] AM EDT ORAL active MEDENT ([facility]) Fludrocortisone 0.1 MG Oral Tablet Fludrocortisone Acetate 1 12:00:00 AM EDT ORAL active [facility] ([facility] gabapentin 300 MG Oral Capsule Gabapentin 01/17/2020 12:00:00 AM EDT ORAL active [facility] ([facility]) Carisoprodol 350 MG Oral Tablet Carisoprodol 01/17/2020 12:00:00 AM E DT ORAL active [facility] ([facility] Multi Vitamin 01/17/2020 12:00:00 AM EDT ORAL acti ve MEDENT ([facility]) Oxycodone Hydrochloride 20 MG Oral Tablet Oxycodone HCL 01/17/2020 12:00:00 AM EDT ORAL active [facility] ([facility]) 24 HR venlafaxine 150 MG Extended Release Oral Capsule Venla faxine HCL ER 01/17/2020 12:00:00 AM EDT ORAL completed MED[facility] ([facility]) Nurtec Nurtec 01/17/2020 12:00:00 AM EDT active MEDENT ([facility]) Megestrol Acetate 125 MG/ML Oral Suspension Megestrol Acetat e 01/17/2020 12:00:00 AM EDT ORAL active M EDENT ([facility]) Trazodone Hydrochloride 50 MG Oral Tablet Trazodone HCL 01/17/2020 12:00:00 AM EDT ORAL active [facility] ([facility] Alprazolam 0.5 MG Oral Tablet Alprazolam 01/17/2020 12:00:00 AM EDT active [facility] ([facility]) midodrine hydrochloride 10 MG Oral Tablet Midodrine HCL 01/17/2020 12:00:00 AM EDT ORAL active [facility] ([facility]) rizatriptan 10 MG Disintegrating Oral Tablet Rizatriptan Cal zoate 01/17/2020 12:00:00 AM EDT active M EDENT ([facility]) Amitriptyline Hydrochloride 25 MG Oral Tablet Amitriptyline HCL 01/17/2020 12:00:00 AM EDT ORAL active M EDENT ([facility]) 75 mg 01/15/2020 12:00:00 AM EDT tablet,disintegrating [...] Prednisone 01/02/2020 12:00:00 AM EDT active MEDENT ([facility]) 4 mg 01/02/2020 12:00:00 AM EDT tablet,disintegrating 3 0 TAKE 1 TABLET BY MOUTH EVERY 8 HOURS NEEDED FOR MIGRAINE AND OR NAUSEA AND VOMITING TAKE 1 TABLET BY MOUTH EVERY 8 HOURS NEEDED FOR MIGRAINE AND OR NAUSEA AND VOMITING SOLD: 03/14/2020 [facility] Amitriptyline Hydrochloride 25 MG Oral Tablet Amitriptyline HCL 01/02/2020 12:00:00 AM EDT active M EDENT ([facility]) Nurtec Nurtec 01/02/2020 12:00:00 AM EDT active MEDENT ([facility] ) 324 mg (38 mg iron) [...] TABLETS SOLD: 12/27/2019 [facility] Magnesium Chloride 0.21485 MEQ/ML / Pota ssium Chloride 0.0497 MEQ/ML / Sodium Acetate 0.0163 MEQ/ML / Sodium Chloride 0.0899 MEQ/ML / Sodium gluconate 5.02 MG/ML Injectable Solution [Normosol-R] electrolyte-R (NORMOSOL-R/PLASMALYTE-R) solution electrolyte-R (NORMOSOL-R/PLASMALYTE-R) solution 12/12 11:00:00 AM EDT Intravenous active at 1 00 mL/hr, Intravenous, Continuous, Starting Wed12/13/19 at 1100, Pre-op
FOR DIABETIC PATIENTS: If blood glucose > 120 mg/dL, start IV of Normosol-R @100 mL/hr.
[facility] Medication administered onsite Magnesium Chloride 0.89405 MEQ/ML / Pota ssium Chloride 0.0497 MEQ/ML / Sodium Acetate 0.0163 MEQ/ML / Sodium Chloride 0.0899 MEQ/ML / Sodium gluconate 5.02 MG/ML Injectable Solution [Normosol-R] electrolyte-R (NORMOSOL-R/PLASMALYTE-R) solution electrolyte-R (NORMOSOL-R/PLASMALYTE-R) solution 12/12 09:00:00 AM EDT Intravenous active at 1 00 mL/hr, Intravenous, Continuous, Starting Wed12/13/19 at 0900, Pre-op [facility] Medication administered onsite 50 mg 12/12/2019 12:00:00 [...] 12/11/2019 12:00:00 AM EDT ORAL active MEDENT ([facility]) 300 mg 12/09/2019 12:00:00 AM EDT [...] WITH WATER OR NON-CARBONATED DRINK SOLD: 11/08/2019 [facility] 40 mg 10/26/2019 12:00:00 AM EDT tablet,oral only,ext.re l.12 hr 90 TAKE ONE TABLET BY MOUTH EVERY 8 HOURS MAXIMUM DAILY DOSE = THREE TABLETS TAKE ONE TABLET BY MOUTH EVERY 8 HOURS MAXIMUM DAILY DOSE = THREE TABLETS SOLD: 10/26/2019 [facility] 30 mg 10/24/2019 12:00:00 AM EDT tablet 180 TAKE 1-2 TABLETS BY MOUTH EVERY 4 HOURS FOR PAIN NOT CONTROLLED WITH LONG ACTING OXYCODONE MAXIMUM DAILY DOSE = 6 TABLETS TAKE 1-2 TABLETS BY MOUTH EVERY 4 HOURS FOR PAIN NOT CONTROLLED WITH LONG ACTING OXYCODONE MAXIMUM DAILY DOSE = 6 TABLETS SOLD: 10/24/2019 [facility] 24 HR venlafaxine 150 MG Extended Release Oral Capsule Venla faxine HCL ER 10/24/2019 12:00:00 AM EDT ORAL completed MEDENT ([facility]) 30 mg 10/17/2019 12:00:00 AM EDT tablet 42 TAKE 1-2 TABLETS BY MOUTH EVERY 4 HOURS FOR PAIN NOT CONTROLLED WITH LONG ACTING OXYCONTIN MAXIMUM DAILY DOSE = 6 TABLETS TAKE 1-2 TABLETS BY MOUTH EVERY 4 HOURS FOR PAIN NOT CONTROLLED WITH LONG ACTING OXYCONTIN MAXIMUM DAILY DOSE = 6 TABLETS SOLD: 10/18/2019 [facility] 150 mg 10/17/2019 12:00:00 AM EDT [...] 2019 12:00:00 AM EDT ORAL completed MEDENT ([facility]) Levofloxacin 500 MG Oral Tablet Levofloxacin 09/29/2019 12:00:00 AM E DT ORAL completed MEDENT ([facility]) Ciprofloxacin 500 MG Oral Tablet Ciprofloxacin HCL 09/27/2019 12:00 :00 AM EDT ORAL completed MED[facility] ([facility]) 500 mg 09/27/2019 12:00:00 AM [...] 12:00:00 A M EDT ORAL completed MEDENT ([facility]) 625 mg 09/14/2019 12:00:00 AM EDT [...] 09/13/2019 12:00:00 AM EDT ORAL completed MED[facility] ([facility]) Oxycodone Hydrochloride 30 MG Oral Tablet Oxycodone HCL 09/13/2019 12:00:00 AM EDT completed MED[facility] ([facility]) Carisoprodol 350 MG Oral Tablet Carisoprodol 09/13/2019 12:00:00 AM EDT active MEDENT ([facility]) Oxycodone HCL ER Oxycodone HCL ER 09/13/2019 12:00:00 AM EDT completed MEDENT ([facility]) Colesevelam hydrochloride 625 MG Oral Tablet [Welchol] Miller ol 09/13/2019 12:00:00 AM EDT active M EDENT ([facility]) 24 HR venlafaxine 75 MG Extended Release Oral Tablet Venlafa xine HCL ER 09/13/2019 12:00:00 AM EDT ORAL active MEDENT ([facility] ) Colesevelam hydrochloride 625 MG Oral Tablet [Welchol] Miller ol 09/13/2019 12:00:00 AM EDT active M EDENT ([facility] ) Carisoprodol 350 MG Oral Tablet Carisoprodol 09/13/2019 12:00:00 AM EDT active MEDENT ([facility] ) Oxycodone HCL ER Oxycodone HCL ER 09/13/2019 12:00:00 AM EDT active MEDENT ([facility]) Oxycodone Hydrochloride 30 MG Oral Tablet Oxycodone HCL 09/13/2019 12:00:00 AM EDT active MEDENT ([facility]) 30 mg 09/12/2019 12:00:00 AM [...] Amoxicillin 08/02/2019 12:00:00 AM EDT active MEDENT ([facility]) 875 mg 08/02/2019 12:00:00 AM EDT [...] 07/06/2019 12:00:00 AM EDT ORAL completed MEDENT ([facility]) 30 mg 07/03/2019 12:00:00 AM EDT [...] 12:00 :00 AM EST ORAL completed MEDENT ([facility]) 500 mg 04/26/2019 12:00:00 AM [...] 12:00:00 AM EST active 1 tablet eCW1 ([facility]) 15 mg 03/15/2019 12:00:00 AM [...] MG / Caffeine 40 MG Oral Tablet mkzrapaziw-ickwdjyvaslkr-qkypupmf (FIORICET, ESGIC) 50-325-40 MG per tablet zvqiwuizen-quwaexkrdiiwu-zagcwsyk (FIORICET, ESGIC) 50-325-40 MG per tablet 1 {tbl} Oral aborted Take 1 tab let by mouth every 6 (six) hours as needed for headaches [facility] Diazepam 5 MG Oral Tablet diazepam (VALIUM) 5 MG table t diazepam (VALIUM) 5 MG tablet 5 mg Oral aborted Take 5 mg by mouth every 6 (six) hours as needed for anxiety [facility] Diphenhydramine Hydrochloride 25 MG Oral Tablet diphenhydrAMINE (BENADRYL) 25 MG tablet diphenhydrAMINE (BENADRYL) 25 MG tablet 25 mg Oral aborted Take 25 mg by mouth every 8 (eight) hours as needed [facility] tizanidine 4 MG Oral Tablet tiZANidine (ZANAFLEX) 4 MG tablet tiZANidine (ZANAFLEX) 4 MG tablet 4 mg Oral aborted Take 4 mg by mouth every 4 (four) hours as needed (for muscle spasm) [facility] pantoprazole 40 MG Delayed Release Oral Tablet pantoprazole (PROTONIX) 40 MG tablet pantoprazole (PROTONIX) 40 MG tablet 40 mg Oral aborted Take 40 mg by mouth daily [facility] Hydromorphone Hydrochloride 4 MG Oral Ta blet HYDROmorphone (DILAUDID) 4 MG tablet HYDROmorphone (DILAUDID) 4 MG tablet 4 mg Oral aborted Take 4 mg by mouth every 4 (four) hours as needed for pain [facility] Insurance Providers Payer name Policy type / Coverage type Policy ID Covered constitution party ID Covered constitution party's relationship to iqbal Policy Iqbal Plan Information DEEJAY [id number] SP [id number] [place] O [id number] S [id number] EMED[place] [id number] SP [id number] UN COMMUNITY [facility] [id number] SP [id number] PMA MANAGEMENT [place] [id number] SP [id number] DEEJAY MEDICAID [id number] Marilin 7 [id number] DEEJAY MEDICAID [id number] INSURANCE COVID-19 COVID Marilin C OVID INSURANCE COVID-19 [id number] [facility] P [id number] S [id number] [place] [id number] 18 [id number] PMA MANAGEMENT [facility] [id number] SP [id number] [facility] I [id number] Self [id number] [facility] I [id number] Self [id number] UNAVAILABLE UNAVAILA BLE [facility](MCAID) O [id number] S [id number] MEDICAID [id number] SP [id number] [facility] [id number] SP [id number] [facility] [id number] SP [id number] UNHC COMMUNITY PLAN XIX [id number] 18 [id number] UNHC COMMUNITY PLAN MCDO [id number] SP [id number] ANSI-Commercial [id number] ANSI-Medicaid [id number] ANSI-Commercial [id number] ANSI-Medicaid [id number] ANSI-Commercial [id number] [facility]-Medicaid [id number] [facility]-Medicaid [id number] ANSI-Commercial [id number] [facility]-Medicaid [id number] ANSI-Commercial [id number] [facility]-Medicaid [id number] ANSI-[employer] [id number] [employer] [id number] [employer]-Medicaid [id number] [employer] [id number] [employer]-Medicaid [id number] [employer] [id number] ANSI-Medicaid [id number] [employer] [id number] [employer]-Medicaid [id number] [facility] [id number] ANSI-Medicaid [id number] Medicaid Medigap Part B [id number] Self [id number] [place] Claims DPT Commercial [id number] Family Depe ndent [id number] [place] Workers Compensation [id number] Self [id number] [facility] [place]/Ess PLS Commercial [id number] Self [id number] DO Not Use (Now #114) Commercial [id number] Family Dependent [id number] [facility] [place]/Ess PLS Commercial [id number] Self [id number] [facility] [place]/Ess PLS Commercial [id number] Self [id number] ANSI-Commercial [id number] ANSI-Medicaid [id number] Medicaid Medigap Part B [id number] Self [id number] [place] Claims DPT Commercial [id number] Family Depe ndent [id number] [place] Workers Compensation [id number] Self [id number] [facility] [place]/Ess PLS Commercial [id number] Self [id number] ANSI-Commercial [id number] ANSI-Medicaid [id number] [facility] Health Maintenance Organization (HMO) [id number] Self [id number] ANSI-Medicaid [id number] ANSI-Commercial [id number] ANSI-Medicaid [id number] ANSI-Medicaid [id number] ANSI-Medicaid [id number] ANSI-Medicaid [id number] ANSI-Medicaid [id number] ANSI-Medicaid [id number] ANSI-Medicaid [id number] ANSI-Medicaid [id number] [facility] Health Maintenance Organization (HMO) [id number] Self [id number] Medicaid Medigap Part B [id number] Self [id number] [place] Claims DPT Commercial [id number] Family Depe ndent [id number] Pma Workers Compensation [id number] Self [id number] [facility] Community [place]/Ess PLS Commercial [id number] Self [id number] ANSI-Medicaid [id number] ANSI-Medicaid [id number] ANSI-Medicaid [id number] ANSI-Medicaid [id number] ANSI-Medicaid [id number] ANSI-Medicaid [id number] PMA MANAGEMENT [facility] [id number] SP [id number] [facility] Health Maintenance Organization (HMO) [id number] Self [id number] Health Net Federal [facility] Health Maintenance Organization (HMO) [id number] Family Dependent [id number] [facility] Health Maintenance Organization (HMO) [id number] Self [id number] Pma Ins (WC) Workers Compensation [id number] Self [id number] [facility] Federal Service Medigap Part B [id number] Family De pendent [id number] [place] [id number] Self [id number] Pma Ins (WC) Workers Compensation [id number] Self [id number] [employer] MANAGEMENT O [id number] S [id number] ANSI-Medicaid [id number] ANSI-Medicaid [id number] ANSI-Medicaid [id number] ANSI-Medicaid [id number] PMA MANAGEMENT [facility] [id number] S [id number] ANSI-Medicaid [id number] ANSI-Medicaid [id number] PMA MANAGEMENT [facility] [id number] ANSI-Medicaid [id number] ANSI-Medicaid [id number] ANSI-Medicaid [id number] ANSI-Medicaid [id number] ANSI-Medicaid [id number] ANSI-Medicaid [id number] ANSI-Medicaid [id number] ANSI-Medicaid [id number] ANSI-Medicaid [id number] ANSI-Medicaid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 [facility] Folate, RBC 626 ng/mL >498 [facility] ID Date Data Source [id number] 11/15/2019 08:06:00 AM EDT [facility] Name Value Range Interpretation Code Description Data Monserrat rce(s) Supporting Document(s) Hemoglobin A1c 5.4 % 4.8-5.6 [facility] Prediabetes: 5.7 - 6.4 Diabetes: >6.4 Glycemic control for adults with diabetes: <7.0 Estim. Avg Glu (eAG) 108 mg/dL [facility] ID Date Data Source [id number] 11/15/2019 08:06:00 AM EDT [facility] Name Value Range Interpretation Code Description Data Monserrat rce(s) Supporting Document(s) Vitamin D, 25-Hydroxy 20.2 ng/mL 30.0-100.0 Below low normal [facility] Vitamin D deficiency has been defined by the [place] and an Endocrine Society practice guideline as alevel of serum 25-OH vitamin D less than 20 ng/mL (1,2).The Endocrine Society went on to further define vitamin Dinsufficiency as a level between 21 and 29 ng/mL (2).1. IOM ([place] [employer]). 2010. Dietary reference intakes for calcium and D. [place]: The National Academies Press.2. Sohan DESAI, Andrew KUMAR, Robert PONCE, et al. Evaluation, treatment, and prevention of vitamin D deficiency: an Endocrine Society clinical practice guideline. JCEM. 2010; 96(7):1911-30. ID Date Data Source [id number] 11/15/2019 08:06:00 AM EDT [facility] Name Value Range Interpretation Code Description Data Monserrta rce(s) Supporting Document(s) Phosphorus 3.8 mg/dL 3.0-4.3 [facility] ID Date Data Source [id number] 11/15/2019 08:06:00 AM EDT [facility] Name Value Range Interpretation Code Description Data Monserrat rce(s) Supporting Document(s) Vitamin B12 382 pg/mL 232-1245 [facility] ID Date Data Source [id number] 11/15/2019 08:06:00 AM EDT [facility] Name Value Range Interpretation Code Description Data Monserrat rce(s) Supporting Document(s) Magnesium 2.0 mg/dL 1.6-2.3 [facility] ID Date Data Source [id number] 11/15/2019 08:06:00 AM EDT [facility] Name Value Range Interpretation Code Description Data Monserrat rce(s) Supporting Document(s) Ferritin, Serum 78 ng/mL 15-150 [facility] ID Date Data Source [id number] 10/30/2019 10:48:00 AM EDT [facility] ([facility]) Name Value Range Interpretation Code Description Data Monserrat rce(s) Supporting Document(s) C reactive protein [Mass/volume] in Serum or Plasma by High sensitivity method Laboratory test result 0.00-0.30 [facility] ([facility]) Bacteria identified in Urine by Culture Laboratory test result [facility] ([facility]) FULL REPORT IN LAB NOTES ([facility] ). NO GROWTH CLINICAL SIGNIFICANCE 1 ORGANISM ID Date Data Source [id number] 10/30/2019 10:47:00 AM EDT [facility] ([facility]) Name Value Range Interpretation Code Description Data Monserrat rce(s) Supporting Document(s) Hemoglobin [Mass/volume] in Blood 13.8 g/dL 12.0-18.0 [facility] ([facility]) Erythrocytes [#/volume] in Blood by Automated count 4.63 x10*6/UL 4.2 0-6.30 [facility] ([facility]) Leukocytes [#/volume] in Blood by Automated count 8.0 x10*3/UL 4.1-10 .9 [facility] ([facility]) Hematocrit [Volume Fraction] of Blood by Automated count 39.9 % 3 7.0-51.0 [facility] ([facility]) MCV 86.2 fL 80.0-97.0 [facility] ([facility]) Erythrocyte distribution width [Ratio] by Automated count 13.2 % 11.6-13.7 [facility] ([facility]) MCHC 34.6 g/dL 31.0-38.0 [facility] ([facility]) MCH 29.8 pg 26.0-32.0 [facility] ([facility]) Lymph % 30.4 % 10.0-58.5 [facility] ([facility]) Platelets [#/volume] in Blood by Automated count 238 x10*3/UL 140-440 [facility] ([facility]) MPV 9.7 FL 7.8-11.0 [facility] ([facility]) Neut % 61.5 % 37.0-92.0 [facility] ([facility]) Mid % 8.1 % 1.7-9.3 [facility] ([facility]) Lymph # 2.4 x10*3/UL 0.6-4.1 [facility] ([facility]) Mid # 0.7 x10*3/UL 0.1-0.6 [facility] ([facility]) Neut # 4.9 x10*3/UL 2.0-7.8 [facility] ([facility]) ID Date Data Source [id number] 10/30/2019 10:47:00 AM EDT [facility] ([facility]) Name Value Range Interpretation Code Description Data Monserrat rce(s) Supporting Document(s) Glucose [Mass/volume] in Serum or Plasma 79 mg/dL 74-99 [facility] ([facility]) 100-125 mg/dL PRE-DIABETES/FASTING >126 mg/dL DIABETES/FASTING Creatinine 0.9 mg/dL 0.6-1.3 [facility] ([facility]) Urea nitrogen [Mass/volume] in Serum or Plasma 9 mg/dL 7-18 [facility] ([facility]) Sodium [Moles/volume] in Serum or Plasma 141 meq/L 136-145 [facility] ([facility]) Potassium [Moles/volume] in Serum or Plasma 4.2 meq/L 3.5-5.1 [facility] ([facility]) Calcium [Mass/volume] in Serum or Plasma 8.3 mg/dL 8[facility]5-10.1 [facility] NOTE: RESULT VERIFIED. Chloride [Moles/volume] in Serum or Plasma 103 meq/L 98-107 [facility] ([facility]) Carbon dioxide, total [Moles/volume] in Serum or Plasma 32 meq/L 21 -32 [facility] ([facility]) Glomerular filtration rate/1.73 sq M pre dicted among non-blacks [Volume Rate/Area] in Serum or Plasma by Creatinine-based formula (MDRD) Laboratory test result [facility] ([facility] ) Glomerular filtration rate/1.73 sq M pre dicted among blacks [Volume Rate/Area] in Serum or Plasma by Creatinine-based formula (MDRD) Laboratory test result [facility] ([facility]) <content>CHRONIC KIDNEY DISEASE STAGING PER NKF</content>
<content></content>
<content>STAGE I & II GFR >= 60 NORMAL TO MILDLY DECREASED</content>
<content>STAGE III GFR 30-59 MODERATELY DECREASED</content>
<content>STAGE IV GFR 15-29 SEVERELY DECREASED</content>
<content>STAGE V GFR <15 VERY LITTLE GFR LEFT</content>
<content>ESRD GFR <15 ON SEWING TEACHER</content>
<content></content> ID Date Data Source [id number] 10/30/2019 10:47:00 AM EDT [facility] ([facility]) Name Value Range Interpretation Code Description Data Monserrat rce(s) Supporting Document(s) Urine Color Laboratory test result [facility] ([facility]) Urine PH 7.5 units 5.0-9.0 [facility] ([facility]) Urine Appearance Laboratory test result [facility] ([facility]) Urine Leukocytes Laboratory test result [facility] ([facility]) Specific gravity of Urine 1.005 1.005-1.030 [facility] ([facility]) Glucose [Presence] in Urine Laboratory test result [facility] ([facility]) Urine Blood Laboratory test result [facility] ([facility] Urine Protein Laboratory test result 0-0 [facility] ([facility]) Urine Ketone Laboratory test result [facility] ([facility]) Urine Nitrite Laboratory test result [facility] ([facility]) Bilirubin.total [Mass/volume] in Serum or Plasma Laboratory test resu lt [facility] ([facility]) Urine Urobilinogen 0.2 mg/dL 0.2-1.0 [facility] ([facility]) ID Date Data Source [id number] 10/30/2019 10:47:00 AM EDT [facility] ([facility]) Name Value Range Interpretation Code Description Data Monserrat rce(s) Supporting Document(s) Glucose [Mass/volume] in Serum or Plasma 79 mg/dL 74-99 [facility] ([facility]) 100-125 mg/dL PRE-DIABETES/FASTING >126 mg/dL DIABETES/FASTING Urea nitrogen [Mass/volume] in Serum or Plasma 9 mg/dL 7-18 [facility] ([facility]) Creatinine 0.9 mg/dL 0.6-1.3 [facility] ([facility]) Chloride [Moles/volume] in Serum or Plasma 103 meq/L 98-107 [facility] ([facility]) Potassium [Moles/volume] in Serum or Plasma 4.2 meq/L 3.5-5.1 [facility] ([facility]) Carbon dioxide, total [Moles/volume] in Serum or Plasma 32 meq/L 21 -32 [facility] ([facility]) Sodium [Moles/volume] in Serum or Plasma 141 meq/L 136-145 [facility] ([facility]) Glomerular filtration rate/1.73 sq M pre dicted among blacks [Volume Rate/Area] in Serum or Plasma by Creatinine-based formula (MDRD) Laboratory test result [facility] ([facility]) <content>CHRONIC KIDNEY DISEASE STAGING PER NKF</content>
<content></content>
<content>STAGE I & II GFR >= 60 NORMAL TO MILDLY DECREASED</content>
<content>STAGE III GFR 30-59 MODERATELY DECREASED</content>
<content>STAGE IV GFR 15-29 SEVERELY DECREASED</content>
<content>STAGE V GFR <15 VERY LITTLE GFR LEFT</content>
<content>ESRD GFR <15 ON SEWING TEACHER</content>
<content></content>
<content></content> Calcium [Mass/volume] in Serum or Plasma 8.3 mg/dL 8.5-10.1 [facility] ([facility]) NOTE: RESULT VERIFIED. Glomerular filtration rate/1.73 sq M pre dicted among non-blacks [Volume Rate/Area] in Serum or Plasma by Creatinine-based formula (MDRD) Laboratory test result [facility] ([facility]) pH of Urine 7.5 units 5.0-9.0 [facility] ([facility]) Urine Color Laboratory test result [facility] ([facility]) Urine Appearance Laboratory test result [facility] ([facility]) Urine Protein Laboratory test result 0-0 [facility] ([facility]) Specific gravity of Urine 1.005 1.005-1.030 [facility] ([facility]) Urine Blood Laboratory test result [facility] ([facility]) Urine Leukocytes Laboratory test result [facility] ([facility]) Urine Ketone Laboratory test result [facility] ([facility]) Glucose [Presence] in Urine Laboratory test result [facility] ([facility]) Urine Nitrite Laboratory test result [facility] ([facility]) Urine Urobilinogen 0.2 mg/dL 0.2-1.0 [facility] ([facility]) Bilirubin.total [Mass/volume] in Serum or Plasma Laboratory test resu lt [facility] ([facility]) ID Date Data Source [id number] 10/30/2019 10:47:00 AM EDT [facility] ([facility]) Name Value Range Interpretation Code Description Data Monserrat rce(s) Supporting Document(s) Erythrocytes [#/volume] in Blood by Automated count 4.63 x10*6/UL 4.2 0-6.30 [facility] ([facility]) Leukocytes [#/volume] in Blood by Automated count 8.0 x10*3/UL 4.1-10 .9 [facility] ([facility]) Hemoglobin [Mass/volume] in Blood 13.8 g/dL 12.0-18.0 [facility] ([facility]) MCH 29.8 pg 26.0-32.0 [facility] ([facility]) MCV 86.2 fL 80.0-97.0 [facility] ([facility]) Hematocrit [Volume Fraction] of Blood by Automated count 39.9 % 3 7.0-51.0 [facility] ([facility]) Erythrocyte distribution width [Ratio] by Automated count 13.2 % 11.6-13.7 [facility] ([facility]) Platelet mean volume [Entitic volume] in Blood by Esteban 9.7 FL 7.8-11.0 [facility] ([facility]) MCHC 34.6 g/dL 31.0-38.0 [facility] ([facility]) Platelets [#/volume] in Blood by Automated count 238 x10*3/UL 140-440 [facility] ([facility]) Neut % 61.5 % 37.0-92.0 [facility] ([facility]) Mid % 8.1 % 1.7-9.3 [facility] ([facility]) Lymphocytes/100 leukocytes in Blood by Automated count 30.4 % 10. 0-58.5 [facility] ([facility]) Mid # 0.7 x10*3/UL 0.1-0.6 [facility] ([facility]) Neutrophils [#/volume] in Semen by Manual count 4.9 x10*3/UL 2.0-7.8 [facility] ([facility]) Lymph # 2.4 x10*3/UL 0.6-4.1 [facility] ([facility]) ID Date Data Source [id number] 2019 10:51:00 AM EDT [facility] ([facility]) Name Value Range Interpretation Code Description Data Monserrat rce(s) Supporting Document(s) Laboratory test finding (navigational concept) Laboratory test result [facility] ([facility]) ID Date Data Source [id number] 2019 10:40:00 AM EDT [facility] ([facility] Name Value Range Interpretation Code Description Data Monserrat rce(s) Supporting Document(s) Urine Appearance Laboratory test result Abnormal (applies to non-numeric results) [facility] ([facility]) Urine Color Laboratory test result [facility] ([facility]) Urine PH 7.0 units 5.0-9.0 [facility]) Specific gravity of Urine 1.010 1.005-1.030 [facility] ([facility]) Urine Leukocytes Laboratory test result Abnormal (applies to non-numeric results) [facility] ([facility]) Glucose [Presence] in Urine Laboratory test result [facility] ([facility]) Urine Protein Laboratory test result 0-0 [facility] ([facility]) Urine Blood Laboratory test result [facility] ([facility]) Urine Ketone Laboratory test result [facility] ([facility]) Urine Nitrite Laboratory test result [facility] ([facility]) Urine Urobilinogen 0.2 mg/dL 0.2-1.0 [facility] ([facility]) Bilirubin.total [Mass/volume] in Serum or Plasma Laboratory [facility] lt [facility] ID Date Data Source [id number] 10/03/2019 12:00:00 AM EDT [facility] Umberto Foster Jr, MD Patient Name: LULA [id number] [facility] Date of : 1975[place] [address] Date of Exam: 10/03/2019#: Fax: [phone] EXAM: [...] rce(s) Supporting Document(s) ID Date Data Source [id number] 09/27/2019 11:37:00 AM EDT [facility] ([facility]) Name Value Range Interpretation Code Description Data Monserrat rce(s) Supporting Document(s) Bacteria identified in Urine by Culture Laboratory test result [facility] ([facility]) <content>FULL REPORT IN LAB NOTES ([facility]).</content>
<content></content>
<content>ORGANISM 1: STREP [...]
<content>CLIDAMYCIN SENSITIVE.</content>
<content></content> ID Date Data Source [id number] 09/27/2019 11:37:00 AM EDT [facility] ([facility]) Name Value Range Interpretation Code Description Data Monserrat rce(s) Supporting Document(s) WBC, Urine Auto 22 /HPF 0-3 [facility] ([facility]) RBC, Urine Auto 84 /HPF 0-3 [facility] ([facility]) Bacteria, Urine Auto Laboratory test result [facility] ([facility]) Squamous Epithelial Cell Ur AU 19 /HPF 0-6 [facility] ([facility]) Mucus, Urine Laboratory test result [facility] ([facility] Amorphous Sediment Laboratory test result [facility] ([facility]) Hyaline Cast, Urine Auto 0 /LPF 0-1 [facility] ([facility]) ID Date Data Source [id number] 09/27/2019 11:03:00 AM EDT [facility] ([facility]) Name Value Range Interpretation Code Description Data Monserrat rce(s) Supporting Document(s) Urine Appearance Laboratory test result Abnormal (applies to non-numeric results) [facility] Urine PH 6.5 units 5.0-9.0 [facility] Urine Color Laboratory test result Abnormal (applies to non-numeric results) [facility] ([facility]) Urine Blood Laboratory test result Abnormal (applies to non-numeric results) [facility] ([facility]) Urine Leukocytes Laboratory test result Abnormal (applies to non-numeric results) [facility]) Specific gravity of Urine 1.015 1.005-1.030 [facility] ([facility]) Urine Protein Laboratory test result 0-0 Abnormal (applies to non-numeric results) [facility] Glucose [Presence] in Urine Laboratory test result [facility] ([facility]) Bilirubin.total [Mass/volume] in Serum or Plasma Laboratory test resu lt [facility] ([facility]) Urine Nitrite Laboratory test result [facility] ([facility]) Urine Ketone Laboratory test result [facility] ([facility]) Urine Urobilinogen 0.2 mg/dL 0.2-1.0 [facility] ([facility]) ID Date Data Source [id number] 09/13/2019 01:45:00 PM EDT [facility] Name Value Range Interpretation Code Description Data Monserrat rce(s) Supporting Document(s) Ferritin [Mass/volume] in Serum or Plasma 16 ng/mL 8-252 [facility] ID Date Data Source [id number] 09/13/2019 01:45:00 PM EDT [facility] Name Value Range Interpretation Code Description Data Monserrat rce(s) Supporting Document(s) Folate 3.1 ng/mL [facility] ([facility]) FOLATE NORMAL RANGE NORMAL GREATER THAN 5.4 NG/ML INDETERMINATE 3.4-5.4 NG/ML DEFICIENT LESS THAN 3.4 NG/ML Vitamin B12 Level 607 pg/mL MED[facility] ([facility]) VITAMIN B12 NORMAL RANGE NORMAL 247 - 911 PG/ML INDETERMINATE 211 - 246 PG/ML DEFICIENT LESS THAN 211 PG/ML ID Date Data Source [id number] 09/13/2019 01:44:00 PM EDT [facility] ([facility]) Name Value Range Interpretation Code Description Data Monserrat rce(s) Supporting Document(s) Calcidiol [Mass/volume] in Serum or Plasma 22.6 24.0-80.0 [facility] ([facility]) This test was performed using FastPack I P Vitamin D immunoassay kit. Values obtained with different assay methods should not be used interchangeably. ID Date Data Source [id number] 09/13/2019 01:44:00 PM EDT [facility] ([facility]) Name Value Range Interpretation Code Description Data Monserrat rce(s) Supporting Document(s) Thyrotropin [Units/volume] in Serum or Plasma by Detec tion limit <= 0.05 mIU/L 0.95 uIU/mL 0.36-3.74 [facility] ID Date Data Source [id number] 09/13/2019 01:44:00 PM EDT [facility] Name Value Range Interpretation Code Description Data Monserrat rce(s) Supporting Document(s) Creatinine 0.8 mg/dL 0.6-1.3 [facility] ([facility]) Glucose [Mass/volume] in Serum or Plasma 76 mg/dL 74-99 [facility] ([facility]) 100-125 mg/dL PRE-DIABETES/FASTING >126 mg/dL DIABETES/FASTING Urea nitrogen [Mass/volume] in Serum or Plasma 9 mg/dL 7-18 [facility] ([facility]) Sodium [Moles/volume] in Serum or Plasma 142 meq/L 136-145 [facility] ([facility]) Potassium [Moles/volume] in Serum or Plasma 4.0 meq/L 3.5-5.1 [facility] ([facility]) Chloride [Moles/volume] in Serum or Plasma 105 meq/L 98-107 [facility] ([facility]) Total Bilirubin 0.2 mg/dL 0.2-1.0 [facility] ([facility]) Alkaline phosphatase isoenzyme [Units/volume] in Serum or Pl asma 79 mg/dL 46-116 [facility] ([facility]) Calcium [Mass/volume] in Serum or Plasma 7.9 mg/dL 8.5-10.1 [facility] ([facility]) NOTE: RESULT VERIFIED. Carbon dioxide, total [Moles/volume] in Serum or Plasma 31 meq/L 21 -32 [facility] Alanine aminotransferase [Enzymatic activity/volume] in Seru m or Plasma 24 U/L 12-78 [facility] Albumin [Mass/volume] in Serum or Plasma 3.7 g/dL 3.4-5.0 [facility] ([facility]) Aspartate aminotransferase [Enzymatic activity/volume] in Serum or Plasma 20 U/L 15-37 [facility] ([facility] ) A/G Ratio 1.09 CALC 1.00-1.90 [facility] ([facility]) Proteinase 3 Ab [Units/volume] in Serum 7.1 g/dL 6.4-8.2 [facility] ([facility] Glomerular filtration rate/1.73 sq M pre dicted among non-blacks [Volume Rate/Area] in Serum or Plasma by Creatinine-based formula (MDRD) Laboratory test result [facility] ([facility] Glomerular filtration rate/1.73 sq M pre dicted among blacks [Volume Rate/Area] in Serum or Plasma by Creatinine-based formula (MDRD) Laboratory test result [facility] ([facility]) <content>CHRONIC KIDNEY DISEASE STAGING PER NKF</content>
<content></content>
<content>STAGE I & II GFR >= 60 NORMAL TO MILDLY DECREASED</content>
<content>STAGE III GFR 30-59 MODERATELY DECREASED</content>
<content>STAGE IV GFR 15-29 SEVERELY DECREASED</content>
<content>STAGE V GFR <15 VERY LITTLE GFR LEFT</content>
<content>ESRD GFR <15 ON SEWING TEACHER</content>
<content></content> ID Date Data Source [id number] 09/13/2019 01:44:00 PM EDT [facility] ([facility]) Name Value Range Interpretation Code Description Data Monserrat rce(s) Supporting Document(s) Leukocytes [#/volume] in Blood by Automated count 9.9 x10*3/UL 4.1-10 .9 [facility] ([facility] Hematocrit [Volume Fraction] of Blood by Automated count 38.9 % 3 7.0-51.0 [facility] ([facility]) Hemoglobin [Mass/volume] in Blood 13.1 g/dL 12.0-18.0 [facility] ([facility]) Erythrocytes [#/volume] in Blood by Automated count 4.43 x10*6/UL 4.2 0-6.30 [facility] ([facility]) MCV 87.8 fL 80.0-97.0 [facility]) Erythrocyte distribution width [Ratio] by Automated count 13.6 % 11.6-13.7 [facility] ([facility]) MCHC 33.6 g/dL 31.0-38.0 [facility] MCH 29.5 pg 26.0-32.0 [facility] ([facility]) Platelets [#/volume] in Blood by Automated count 254 x10*3/UL 140-440 [facility] ([facility]) MPV 9.5 FL 7.8-11.0 [facility] Lymph % 28.9 % 10.0-58.5 [facility] ([facility]) Mid % 7.4 % 1.7-9.3 [facility]) Lymph # 2.8 x10*3/UL 0.6-4.1 [facility] ([facility]) Neut % 63.7 % 37.0-92.0 [facility] ([facility]) Neut # 6.3 x10*3/UL 2.0-7.8 [facility] ([facility]) Mid # 0.8 x10*3/UL 0.1-0.6 [facility] ([facility]) Procedure Social History Code Duration Value Status Description Data Source(s ) Smoking 01/18/2020 12:00:00 AM EDT Patient has never smoked co mpleted Patient has never smoked [facility] ([facility]) Alcohol intake 12/13/2019 12:00:00 AM EDT Not Currently completed [facility] Smoking 12/13/2019 12:00:00 AM EDT Never smoker completed Never s moker [facility] Vital Signs ID Date Data Source UNK Name Value Range Interpretation Code Description Data Source(s) Diastolic blood pressure--standing 61 mm[Hg] 6 1 mm[Hg] [facility] ([facility]) [place], adult cuff/Ra: 81 bpm Systolic blood pressure--standing 105 mm[Hg] 10 5 mm[Hg] [facility] ([facility]) [place], adult cuff/Ra: 81 bpm Diastolic blood pressure--supine 72 mm[Hg] 72 mm[Hg] [facility] ([facility]) [place], adult cuff/Ra: 68 bpm Systolic blood pressure--supine 123 mm[Hg] 123 mm[Hg] [facility] ([facility]) [place], adult cuff/Ra: 68 bpm Diastolic blood pressure--sitting 78 mm[Hg] 78 mm[Hg] [facility] ([facility]) [place], adult cuff/Ra: 74 bpm Systolic blood pressure--sitting 125 mm[Hg] 125 mm[Hg] [facility] ([facility]) [place], adult cuff/Ra: 74 bpm Heart rate 74 /min 74 /min [facility] ([facility]) Body mass index (BMI) [Ratio] 22.5 kg/m2 22.5 k g/m2 [facility] ([facility]) Body height 64 [in_i] 64 [in_i] [facility] 5'4" Body weight 131.00 [lb_av] 131.00 [lb_av] MEDEN T ([facility]) [place] body weight 120 [lb_av] 120 [lb_av] MEDEN T ([facility]) Body mass index (BMI) [Ratio] 20.4 kg/m2 20.4 k g/m2 [facility] ([facility]) Body weight 119.00 [lb_av] 119.00 [lb_av] MEDEN T ([facility]) Body height 64 [in_i] 64 [in_i] [facility] ([facility]) 5'4" Respiratory rate 12 /min 12 /min [facility] ( [facility]) Body weight 124.00 [lb_av] 124.00 [lb_av] MEDEN T ([facility]) Heart rate 87 /min 87 /min [facility] ([facility]) Diastolic blood pressure--standing 75 mm[Hg] 7 5 mm[Hg] [facility] ([facility]) Systolic blood pressure--standing 102 mm[Hg] 10 2 mm[Hg] [facility] ([facility]) Diastolic blood pressure--sitting 80 mm[Hg] 80 mm[Hg] [facility] Systolic blood pressure--sitting 110 mm[Hg] 110 mm[Hg] [facility] ([facility]) Diastolic blood pressure--supine 88 mm[Hg] 88 mm[Hg] [facility] ([facility]) Systolic blood pressure--supine 118 mm[Hg] 118 mm[Hg] [facility] ([facility]) Diastolic blood pressure 68 mm[Hg] 68 mm[Hg] [facility] ([facility]) Systolic blood pressure 102 mm[Hg] 102 mm[Hg] RONDA ([facility]) Oxygen saturation in Arterial blood by Pulse oximetry 100 % 100 % [facility] Respiratory rate 18 /min 18 /min [facility] Heart rate 64 /min 64 /min [facility] Diastolic blood pressure 64 mm[Hg] 64 mm[Hg] [facility] Systolic blood pressure 136 mm[Hg] 136 mm[Hg] [facility] Body temperature 36.61 Courtney 36.61 Courtney [facility] Body mass index (BMI) [Ratio] 20.43 kg/m2 20.43 kg/m2 [facility] Body weight 53.978 kg 53.978 kg [facility] Body height 162.6 cm 162.6 cm [facility] Oxygen saturation in Arterial blood by Pulse oximetry 96 % 96 % [facility] ([facility]) Air Body weight 123.00 [lb_av] 123.00 [lb_av] MEDEN T ([facility]) Heart rate 87 /min 87 /min [facility] Diastolic blood pressure 60 mm[Hg] 60 mm[Hg] [facility] ([facility]) Systolic blood pressure 92 mm[Hg] 92 mm[Hg] [facility] ([facility]) Oxygen saturation in Arterial blood by Pulse oximetry 98 % 98 % [facility] ([facility]) Body weight 128.00 [lb_av] 128.00 [lb_av] MEDEN T ([facility]) Heart rate 68 /min 68 /min [facility] ([facility]) Diastolic blood pressure 60 mm[Hg] 60 mm[Hg] [facility] ([facility]) Systolic blood pressure 100 mm[Hg] 100 mm[Hg] [facility] ([facility]) Body weight 128.00 [lb_av] 128.00 [lb_av] MEDEN T ([facility]) Body temperature 100.0 [degF] 100.0 [degF] MEDE NT ([facility]) Heart rate 82 /min 82 /min [facility] ([facility]) Diastolic blood pressure 56 mm[Hg] 56 mm[Hg] [facility] ([facility]) Systolic blood pressure 92 mm[Hg] 92 mm[Hg] [facility] ([facility]) Oxygen saturation in Arterial blood by Pulse oximetry 98 % 98 % [facility] ([facility]) Body weight 127.00 [lb_av] 127.00 [lb_av] MED[facility] T ([facility]) Body temperature 100.2 [degF] 100.2 [degF] MEDE NT ([facility]) Heart rate 79 /min 79 /min [facility] ([facility]) Diastolic blood pressure 60 mm[Hg] 60 mm[Hg] [facility] ([facility]) Systolic blood pressure 98 mm[Hg] 98 mm[Hg] [facility] Oxygen saturation in Arterial blood by Pulse oximetry 98 % 98 % [facility] ) Body mass index (BMI) [Ratio] 22.5 kg/m2 22.5 k g/m2 [facility] Body weight 131.00 [lb_av] 131.00 [lb_av] [facility] T [facility] Body height 64 [in_i] 64 [in_i] [facility] ) Heart rate 85 /min 85 /min [facility] ) Diastolic blood pressure 60 mm[Hg] 60 mm[Hg] [facility] Systolic blood pressure 102 mm[Hg] 102 mm[Hg] [facility] Body mass index (BMI) [Ratio] 22.5 kg/m2 22.5 k g/m2 [facility]) Oxygen saturation in Arterial blood by Pulse oximetry 98 % 98 % [facility] Air Body weight 131.00 [lb_av] 131.00 [lb_av] MEDEN T ([facility]) Body height 64 [in_i] 64 [in_i] [facility] ([facility]) 5'4" Heart rate 85 /min 85 /min [facility] ([facility]) Diastolic blood pressure 60 mm[Hg] 60 mm[Hg] [facility] ([facility]) Systolic blood pressure 102 mm[Hg] 102 mm[Hg] [facility] Body mass index (BMI) [Ratio] 24.4 kg/m2 24.4 k g/m2 [facility] ([facility], [facility]) Body height 64 [in_i] 64 [in_i] [facility] ([facility], [facility]) 5'4" Body weight 142.00 [lb_av] 142.00 [lb_av] MEDEN T ([facility], [facility]) Body temperature 98.3 [degF] 98.3 [degF] [facility] ([facility]) Oxygen saturation in Arterial blood by Pulse oximetry 97 % 97 % [facility] ([facility]) Respiratory rate 16 /min 16 /min [facility] ( [facility], [facility]) Heart rate 96 /min 96 /min [facility] ([facility]) Diastolic blood pressure 80 mm[Hg] 80 mm[Hg] [facility] ([facility]) Systolic blood pressure 115 mm[Hg] 115 mm[Hg] M EDENT ([facility], [facility]) Diastolic blood pressure 66 mm[Hg] 66 mm[Hg] eCW1 ([facility]) Systolic blood pressure 144 mm[Hg] 144 mm[Hg] e CW1 ([facility]) Body temperature 98.0 [degF] 98.0 [degF] eCW1 ( [facility]) Respiratory rate 18 /min 18 /min eCW1 ([facility]) Heart rate 104 /min 104 /min eCW1 ([facility]) Body mass index (BMI) [Ratio] 26.10 kg/m2 26.10 kg/m2 eCW1 ([facility]) Body height 62.5 [in_us] 62.5 [in_us] eCW1 ([facility]) Body weight Measured 145.0 [lb_av] 145.0 [lb_av ] eCW1 ([facility]) Patient Treatment Plan of Care Planned Activity Planned Date Details Description Data Source (s) Oxycodone Hydrochloride 15 MG Oral Tablet 03/15/2019 12:00:00 AM ES T eCW1 ([facility]) tizanidine 4 MG Oral Tablet [facility] Diphenhydramine Hydrochloride 25 MG Oral Tablet [facility] pantoprazole 40 MG Delayed Release Oral Tablet [facility] Hydromorphone Hydrochloride 4 MG Oral Tablet [facility] Acetaminophen 325 MG / butalbital 50 MG / Caffeine 40 MG Oral Table t [facility] Diazepam 5 MG Oral Tablet [facility]
[2020-05-13 16:22] LABS: BASO # 0.1 10^3/uL (0.0-0.2); BASO % 0.6 % (0.0-1.0); EOS % 0.4 % (0.0-3.0); HEMATOCRIT 42.9 % (36.0-47.0); HEMOGLOBIN 14.3 g/dl (12.0-15.5); LYMPH # 3.1 10^3/uL (1.5-5.0); LYMPH % 34.4 % (24.0-44.0); MEAN CORPUSCULAR HEMOGLOBIN 28.9 pg (27.0-33.0); MEAN CORPUSCULAR HGB CONC 33.3 g/dl (32.0-36.5); MEAN CORPUSCULAR VOLUME 86.8 fl (80.0-96.0); MONO # 0.5 10^3/uL (0.0-0.8); NEUTROPHILS # 5.2 10^3/uL (1.5-8.5); NEUTROPHILS % 58.4 % (36.0-66.0); PLATELET COUNT, AUTOMATED 302 10^3/uL (150-450); RED BLOOD COUNT 4.94 10^6/uL (4.00-5.40)
[2020-05-13 17:03] LABS: ALBUMIN 4.1 GM/DL (3.2-5.2); ALT/SGPT 22 U/L (12-78); BILIRUBIN,DIRECT 0.1 MG/DL (0.0-0.2); BILIRUBIN,TOTAL 0.3 MG/DL (0.2-1.0); BLOOD UREA NITROGEN 9 MG/DL (7-18); CALCIUM LEVEL 9.2 MG/DL (8.5-10.1); CARBON DIOXIDE LEVEL 28 MEQ/L (21-32); CHLORIDE LEVEL 102 MEQ/L (98-107); CREATININE FOR GFR 0.86 MG/DL (0.55-1.30); FREE T4 0.95 NG/DL (0.76-1.46); GLOMERULAR FILTRATION RATE > 60.0 (>58); GLUCOSE, FASTING 84 MG/DL (70-100); LIPASE 70 U/L (73-393); POTASSIUM SERUM 3.6 MEQ/L (3.5-5.1); SODIUM LEVEL 137 MEQ/L (136-145); TOTAL PROTEIN 7.9 GM/DL (6.4-8.2)
[2020-05-13 17:11] LABS: HCG, SERUM QUALITATIVE NEGATIVE (NEGATIVE)
[2020-05-13 17:15] VITALS: BP 136/90
--- NOTE | 2020-05-13 17:29 | REPVR ---
PROCEDURE INFORMATION: Exam: CT Head Without Contrast Exam date and time: 05/13/2020 3:21 PM Age: 44 years old Clinical indication: Pain; Headache; Additional info: Headache, vomiting TECHNIQUE: Imaging protocol: Computed tomography of the head without contrast. Radiation optimization: All CT scans at this facility use at least one of these dose optimization techniques: automated exposure control; mA and/or kV adjustment per patient size (includes targeted exams where dose is matched to clinical indication); or iterative reconstruction. COMPARISON: CT Head without contrast 11/06/2019 1:30 PM FINDINGS: Brain: No acute intracranial hemorrhage, cerebral edema, or midline shift. Cerebral ventricles: No hydrocephalus. Bones/joints: No acute fracture. Paranasal sinuses: There is no acute sinusitis. Mastoid air cells: Visualized mastoid air cells are well aerated. Orbital cavity: Unremarkable as visualized. Soft tissues: Unremarkable. IMPRESSION: No acute intracranial abnormality. Electronically signed by: Torin Hernández On 05/13/2020 17:28:28 PM
--- NOTE | 2020-05-13 17:30 | REP ---
INDICATION: CHEST PAIN. COMPARISON: 11/06/2019. TECHNIQUE: SINGLE PORTABLE AP VIEW OF THE CHEST WAS PERFORMED. FINDINGS: THERE IS NO ACUTE INFILTRATE OR PULMONARY EDEMA. LUNGS ARE CLEAR. HEART IS NOT SIGNIFICANTLY ENLARGED. MEDIASTINAL SILHOUETTE IS UNREMARKABLE. THE VISUALIZED OSSEOUS STRUCTURES ARE INTACT. IMPRESSION: NO ACUTE PULMONARY DISEASE. <Electronically signed by Ernesto Hernandez > 05/13/20 [id number]
[2020-05-13] MEDS ORDERED: ZOFR4TAB16 PO (17:39)
[2020-05-13 18:37] VITALS: O2SAT 98
== END 2020-05-13 18:42 | disposition home or self-care (01) ==
LOC: M ED 14:42
DX: R51.9 Headache, unspecified (principal); J02.9 Acute pharyngitis, unspecified; R11.10 Vomiting, unspecified; F33.9 Major depressive disorder, recurrent, unspecified; F41.9 Anxiety disorder, unspecified; Z79.899 Other long term (current) drug therapy; Z88.0 Allergy status to penicillin; Z88.5 Allergy status to narcotic agent; Z88.8 Allergy status to other drugs, medicaments and biological substances; Z91.048 Other nonmedicinal substance allergy status
CPT/HCPCS: 70450; 71045; 80048; 80076; 81001; 83690; 84439; 84443; 84703; 85025; 87086; 87804; 87880; 93041; 94760; 96361; 96374; 99285; J2765; U0003

== ENCOUNTER → 2020-05-13 | Outpatient (REF) | payer OTHER ==
[~2020-05-13] MED LIST changes: +BACT800T5 PO; -CLIN150C14 PO; +CLIN150C15 PO; +OXYC30TA; +VENL-37; +ZOFR4TAB16 PO
[2020-05-13 19:00] LABS: C REACTIVE PROTEIN QUANTITATIV < 0.30 MG/DL (0.00-0.30); RHEUMATOID FACTOR QUANT < 10.0 IU/ML (<15.0)
[2020-05-16 01:07] LABS: ANTINUCLEAR ANTIBODIES DIRECT Negative (Negative); CYCLIC CITRULLINATED PEPTIDE 3 units (0-19); Lyme Disease IgG/IgM Antibodie <0.91 ISR (0.00-0.90); Lyme Disease IgM Ab Quantitati <0.80 index (0.00-0.79)
== END ==
LOC: M LAB REF 16:14
PROVIDERS: ATTEND Internal Medicine
DX: M25.50 Pain in unspecified joint (principal)

== ENCOUNTER → 2020-06-10 | Outpatient (REF) ==
[~2020-06-10] MED LIST changes: +ISOS1TAB36 PO; -ISOS60TA2 PO; +METH-1165 PO; -METH750T2 PO; +OXYC30TA; +VENL-37; +ZOFR4TAB16 PO
== END ==
LOC: M LABSMTC 13:51
PROVIDERS: ATTEND Pediatrics
DX: Z11.52 Encounter for screening for COVID-19 (principal)

== ENCOUNTER 2020-06-17 17:21 | Emergency (ER) | payer OTHER ==
[~2020-06-17] VITALS: Ht 162.6 cm; Wt 63.5 kg
[2020-06-17] MEDS ORDERED: AMIT50TA (17:33)
[2020-06-17] MEDS ORDERED: PREG150C (17:33)
[2020-06-17] MEDS ORDERED: CLINDAMYCIN 150MG CAPSULE PO ONE (18:35)
[2020-06-17] MEDS ORDERED: MAGIC MOUTHWASH SUSPENSION BTL SSP STA (18:35)
[2020-06-17] MEDS ORDERED: CLEO300C2 PO (18:43)
[2020-06-17] MEDS ORDERED: MAGICMW SSP (18:43)
[2020-06-17] MEDS ORDERED: PRED20TA PO (18:43)
[2020-06-17] MEDS ORDERED: predniSONE 20 MG TAB PO ONE (18:50)
[2020-06-17 19:00] VITALS: BP 166/90
== END 2020-06-17 19:05 | disposition home or self-care (01) ==
LOC: M ED 17:21
DX: K02.9 Dental caries, unspecified (principal); R22.0 Localized swelling, mass and lump, head; Z79.899 Other long term (current) drug therapy; Z88.0 Allergy status to penicillin; Z88.5 Allergy status to narcotic agent; Z88.8 Allergy status to other drugs, medicaments and biological substances; Z91.048 Other nonmedicinal substance allergy status

== ENCOUNTER → 2020-07-30 | Outpatient (CLI) | payer OTHER ==
[~2020-07-30] MED LIST changes: +AMIT50TA; +CLEO300C2 PO; +MAGICMW SSP; +PRED20TA PO; +PREG150C
--- NOTE | 2020-07-30 12:09 | REP ---
INDICATION: CHEST CONGESTION AND LEFT WRIST PAIN COMPARISON: None. TECHNIQUE: AP, lateral, bilateral oblique views left wrist. FINDINGS: The carpal bones, surrounding osseous structures, soft tissues, and joint spaces are normal. There is no evidence for acute fracture or dislocation. No subcutaneous emphysema or radiodense foreign body. IMPRESSION: Normal wrist series. No acute fracture or dislocation. <Electronically signed by Oracio Barboza > 07/30/20 [id number]
--- NOTE | 2020-07-30 12:10 | REP ---
INDICATION: CHEST CONGESTION AND LEFT WRIST PAIN COMPARISON: None. TECHNIQUE: PA and lateral. FINDINGS: The mediastinum and cardiac silhouette are normal. The lung fay are clear and without acute consolidation, effusion, or pneumothorax. The skeletal structures are intact and normal. IMPRESSION: No acute cardiopulmonary process. <Electronically signed by Oracio Barboza > 07/30/20 [id number]
== END ==
LOC: M WUC 11:12
PROVIDERS: ATTEND Internal Medicine
DX: R09.89 Other specified symptoms and signs involving the circulatory and respiratory systems (principal); M25.532 Pain in left wrist

== ENCOUNTER → 2021-02-07 | Outpatient (CLI) | payer OTHER ==
[~2021-02-07] MED LIST changes: -BANO25CA PO; -CLIN150C15 PO; +CLIN150C17 PO; +DIPH-319 PO; +GABA-283 PO; -GABA-845 PO
--- NOTE | 2021-02-07 14:16 | REP ---
INDICATION: LATERAL EPICONDYLITIS. COMPARISON: None. TECHNIQUE: AP and lateral views FINDINGS: Two limited views showing no evidence of an osseous abnormality or joint effusion. IMPRESSION: Negative limited exam. <Electronically signed by Mario Meehan > 02/07/21 [id number]
== END ==
LOC: M SOG 13:35
PROVIDERS: ATTEND Orthopaedic Surgery Sports Medicine
DX: M77.12 Lateral epicondylitis, left elbow (principal)

== ENCOUNTER 2021-02-25 12:44 | Outpatient (RCR) | payer OTHER ==
[~2021-02-25 12:44] MED LIST changes: -OXYC30TA; +OXYC30TA PO
[2021-04-25] MEDS ORDERED: NORT10CA2 PO (03:39)
[2021-04-25] MEDS ORDERED: OXYC30TA72 PO (13:23)
== END 2021-03-11 ==
LOC: M PT 12:44
PROVIDERS: ATTEND Physician Assistant
DX: S50.02XA Contusion of left elbow, initial encounter (principal)

== ENCOUNTER → 2021-03-03 | Outpatient (CLI) | payer OTHER ==
[~2021-03-03] MED LIST changes: +OXYC30TA; -OXYC30TA PO
--- NOTE | 2021-03-03 15:27 | REP ---
INDICATION: LEFT FOREARM PAIN. COMPARISON: None. TECHNIQUE: 3T multiplanar MRI imaging of the left forearm was obtained using various sequences. FINDINGS: There is very subtle T2 and particularly STIR hyper signal in the proximal and mid radial diaphysis. The cortex is intact. There is no abnormal periosteal thickening or signal. There is no evidence of an elbow or wrist joint effusion. All imaged flexor and extensor tendons are intact and of normal appearing low signal throughout. There is no abnormal intracompartmental or extra compartmental fluid. There is no mass or mass effect. IMPRESSION: There is subtle radial marrow edema as described above consistent with an osseous contusion. <Electronically signed by Mario Meehan > 03/03/21 [id number]
== END ==
LOC: M PLAIMG 14:06
PROVIDERS: ATTEND Physician Assistant
DX: M79.632 Pain in left forearm (principal)

== ENCOUNTER → 2021-04-18 | Outpatient (CLI) | payer OTHER | LOC: M LABSMTC 13:29 | PROVIDERS: ATTEND Pediatrics | DX: Z20.822 Contact with and (suspected) exposure to COVID-19 (principal) ==

== ENCOUNTER → 2021-04-23 | Outpatient (REF) ==
[~2021-04-23] MED LIST changes: +NORT10CA2 PO
== END ==
LOC: M LABSMTC 11:52
PROVIDERS: ATTEND Pediatrics
DX: Z11.52 Encounter for screening for COVID-19 (principal); Z20.822 Contact with and (suspected) exposure to COVID-19

== ENCOUNTER → 2021-05-08 | Outpatient (REF) ==
[~2021-05-08] MED LIST changes: -OXYC30TA; +OXYC30TA PO; +OXYC30TA72 PO
== END ==
LOC: M LABSMTC 10:07
PROVIDERS: ATTEND Family Medicine
DX: Z11.52 Encounter for screening for COVID-19 (principal); Z20.822 Contact with and (suspected) exposure to COVID-19

== ENCOUNTER → 2021-05-23 | Outpatient (REF) | payer OTHER | LOC: M LAB REF 12:01 | PROVIDERS: ATTEND Internal Medicine | DX: M79.7 Fibromyalgia (principal) ==

== ENCOUNTER 2021-06-02 15:50 | Emergency (ER) | payer OTHER ==
[~2021-06-02] VITALS: Ht 162.6 cm; Wt 57.7 kg
[2021-06-02] MEDS ORDERED: VITMTA PO (16:17)
[2021-06-02] MEDS ORDERED: SUCR1TAB56 (16:17)
[2021-06-02] MEDS ORDERED: CARI1TAB7 (16:17)
[2021-06-02] MEDS ORDERED: PROM25TA12 (16:17)
[2021-06-02] MEDS ORDERED: MAGN400T33 (16:17)
[2021-06-02] MEDS ORDERED: OMEP40CA5 (16:17)
[2021-06-02] MEDS ORDERED: TRAZ-189 (16:17)
[2021-06-02] MEDS ORDERED: PREG200C (16:17)
[2021-06-02] MEDS ORDERED: MEGE400S10 (16:17)
[2021-06-02 17:15] LABS: HCG, SERUM QUALITATIVE NEGATIVE (NEGATIVE)
[2021-06-02 17:16] LABS: ALBUMIN 3.5 GM/DL (3.2-5.2); ALT/SGPT 25 U/L (12-78); BILIRUBIN,DIRECT < 0.1 MG/DL (0.0-0.2); BILIRUBIN,TOTAL 0.3 MG/DL (0.2-1.0); BLOOD UREA NITROGEN 8 MG/DL (7-18); CALCIUM LEVEL 8.1 MG/DL (8.5-10.1); CARBON DIOXIDE LEVEL 28 MEQ/L (21-32); CHLORIDE LEVEL 108 MEQ/L (98-107); CREATININE FOR GFR 0.67 MG/DL (0.55-1.30); GLOMERULAR FILTRATION RATE > 60.0 (>58); GLUCOSE, FASTING 105 MG/DL (70-100); LIPASE 75 U/L (73-393); POTASSIUM SERUM 4.3 MEQ/L (3.5-5.1); SODIUM LEVEL 140 MEQ/L (136-145); TOTAL PROTEIN 6.5 GM/DL (6.4-8.2)
[2021-06-02 17:19] LABS: BASO % 0.3 % (0.0-1.0); EOS # 0.1 10^3/uL (0.0-0.5); EOS % 1.2 % (0.0-3.0); HEMATOCRIT 38.2 % (36.0-47.0); HEMOGLOBIN 12.4 g/dl (12.0-15.5); LYMPH # 2.6 10^3/uL (1.5-5.0); LYMPH % 34.8 % (24.0-44.0); MEAN CORPUSCULAR HEMOGLOBIN 29.2 pg (27.0-33.0); MEAN CORPUSCULAR HGB CONC 32.5 g/dl (32.0-36.5); MEAN CORPUSCULAR VOLUME 89.9 fl (80.0-96.0); MONO # 0.6 10^3/uL (0.0-0.8); MONO % 8.5 % (2.0-8.0); NEUTROPHILS # 4.1 10^3/uL (1.5-8.5); NEUTROPHILS % 54.9 % (36.0-66.0); PLATELET COUNT, AUTOMATED 204 10^3/uL (150-450); RED BLOOD COUNT 4.25 10^6/uL (4.00-5.40); WHITE BLOOD COUNT 7.5 10^3/uL (4.0-10.0)
[2021-06-02] MEDS ORDERED: ONDANSETRON 4MG/2ML VIAL IV ONE (19:40)
[2021-06-02] MEDS: HYDROMORPHONE HCL 0.5 MG/ 0.5 ML SYRINGE (J1170 PER 1) IV PRN ×2 (20:05→21:05)
[2021-06-02] MEDS: GASTROGRAFIN SOLUTION 30ML PO SCH ×2 (21:00→21:03)
[2021-06-02] MEDS ORDERED: ISOVUE-370 76% 100ML VIAL As Ordered ONE (22:02)
[2021-06-02] MEDS ORDERED: HYDROMORPHONE HCL 0.5 MG/ 0.5 ML SYRINGE (J1170 PER 1) IV PRN (23:25)
[2021-06-03] MEDS ORDERED: KETOROLAC 30 MG/ML 1ML VIAL IV ONE (02:30)
[2021-06-03 02:50] VITALS: BP 140/80
== END 2021-06-03 03:00 | disposition home or self-care (01) ==
LOC: M ED 15:50
DX: N83.202 Unspecified ovarian cyst, left side (principal); G89.29 Other chronic pain; M54.9 Dorsalgia, unspecified; Z97.5 Presence of (intrauterine) contraceptive device
CPT/HCPCS: 74177; 80048; 80076; 81001; 83690; 84703; 85025; 87086; 96374; 96375; 96376; 99285; J1170; J1885; J2405; Q9963; Q9967

== ENCOUNTER → 2021-06-06 | Outpatient (REF) | payer OTHER ==
[~2021-06-06] MED LIST changes: +CARI1TAB7; +MAGN400T33; +MEGE400S10; +OMEP40CA5; +PREG200C; +PROM25TA12; +SUCR1TAB56; +TRAZ-189
[2021-06-06 14:49] LABS: APPEARANCE, URINE MANUAL CLEAR (CLEAR); BILIRUBIN, URINE MANUAL NEGATIVE (NEGATIVE); COLOR, URINE MANUAL LT YELLOW (YELLOW); GLUCOSE, URINE (UA) MANUAL NEGATIVE (NEGATIVE); KETONE, URINE MANUAL NEGATIVE (NEGATIVE); PH,URINE MAN 6.5 UNITS (5.0 - 7.0); PROTEIN, URINE MANUAL TRACE mg/dL (NEGATIVE); UROBILINOGEN, URINE MANUAL NORMAL (NORMAL)
[2021-06-06 14:50] LABS: BLOOD URINE MANUAL POSITIVE (NEGATIVE); LEUKOCYTE ESTERASE, URINE MAN NEGATIVE (NEGATIVE); NITRITE, URINE MANUAL NEGATIVE (NEGATIVE)
[2021-06-06 15:09] LABS: SQUAMOUS EPITHELIAL CELL URINE SMALL AMOUNT /hpf (SMALL AMT)
[2021-06-06 15:10] LABS: BACTERIA, URINE NONE SEEN; HYALINE CAST, URINE NONE SEEN /lpf (0-1); WBC, URINE NONE SEEN /hpf (0-3)
== END ==
LOC: M SMT 12:55
PROVIDERS: ATTEND Nurse Practitioner Women's Health
DX: R31.9 Hematuria, unspecified (principal)

== ENCOUNTER → 2021-06-13 | Outpatient (CLI) | payer OTHER ==
[~2021-06-13] MED LIST changes: -CARI1TAB7; -OMEP40CA5; +OMEP40CA5 PO; -PROM25TA12; +PROM25TA12 PO; -SUCR1TAB56; +SUCR1TAB56 PO; -TRAZ-189; +TRAZ-189 PO
== END ==
LOC: M LABSMTC 10:12
PROVIDERS: ATTEND Anesthesiology
DX: Z11.52 Encounter for screening for COVID-19 (principal)

== ENCOUNTER → 2021-06-16 | Outpatient (CLI) | payer OTHER | LOC: M PAIN 09:00 | PROVIDERS: ATTEND Nurse Practitioner Family | DX: M96.1 Postlaminectomy syndrome, not elsewhere classified (principal); G43.909 Migraine, unspecified, not intractable, without status migrainosus; F32.A Depression, unspecified; R53.83 Other fatigue; I95.1 Orthostatic hypotension; Z98.84 Bariatric surgery status; Z79.891 Long term (current) use of opiate analgesic; Z88.0 Allergy status to penicillin; Z88.1 Allergy status to other antibiotic agents; Z88.5 Allergy status to narcotic agent; Z88.6 Allergy status to analgesic agent; Z88.8 Allergy status to other drugs, medicaments and biological substances ==

== ENCOUNTER 2021-06-18 12:27 | Day surgery (SDC) | payer OTHER ==
[~2021-06-18] VITALS: Ht 162.6 cm; Wt 56.2 kg
[~2021-06-18 12:27] MED LIST changes: +LR 1,000 ML IV SCH
[2021-06-18 14:22] LABS: HEMATOCRIT 31.9 % (36.0-47.0); HEMOGLOBIN 10.7 g/dl (12.0-15.5); MEAN CORPUSCULAR HEMOGLOBIN 29.6 pg (27.0-33.0); MEAN CORPUSCULAR HGB CONC 33.5 g/dl (32.0-36.5); MEAN CORPUSCULAR VOLUME 88.1 fl (80.0-96.0); PLATELET COUNT, AUTOMATED 195 10^3/uL (150-450); RED BLOOD COUNT 3.62 10^6/uL (4.00-5.40); WHITE BLOOD COUNT 4.3 10^3/uL (4.0-10.0)
[2021-06-18] MEDS ORDERED: ROCURONIUM BROMIDE 50 MG/5 ML VIAL As Ordered ONE (16:04)
[2021-06-18] MEDS ORDERED: dexameTHASONE 4 MG/ML 1ML VIAL (J1100 PER 1MG) As Ordered ONE (16:04)
[2021-06-18] MEDS ORDERED: ONDANSETRON 4MG/2ML VIAL As Ordered ONE (16:04)
[2021-06-18] MEDS ORDERED: fentaNYL 100 MCG/2 ML INJECTION As Ordered ONE ×2 (16:04→18:11)
[2021-06-18] MEDS ORDERED: MIDAZOLAM INJ 2MG/2ML VIAL (J2250 PER 1MG) As Ordered ONE (16:04)
[2021-06-18] MEDS ORDERED: METOCLOPRAMIDE INJ 10MG/2ML VIAL (J2765 PER 1) As Ordered ONE (16:04)
[2021-06-18] MEDS ORDERED: LIDOCAINE 2% 100MG/5ML SDV (FOR ANES.) As Ordered ONE (16:04)
[2021-06-18] MEDS ORDERED: propofoL 200 MG/20 ML VIAL As Ordered ONE (16:04)
[2021-06-18] MEDS ORDERED: BUPIVACAINE HCL 0.25% 30ML VIAL As Ordered ONE (16:37)
[2021-06-18] MEDS ORDERED: SUGAMMADEX SODIUM 500 MG/5 ML VIAL (BRIDION) As Ordered ONE (17:41)
[2021-06-18] MEDS ORDERED: LABETALOL 100MG/20ML VIAL As Ordered ONE (17:43)
[2021-06-18] MEDS ORDERED: LR 1,000 ML IV SCH ×2 (18:30→18:35)
[2021-06-18] MEDS ORDERED: ONDANSETRON 4MG/2ML VIAL IV PRN (18:30)
[2021-06-18] MEDS ORDERED: fentaNYL 100 MCG/2 ML INJECTION IV PRN (18:30)
[2021-06-18] MEDS ORDERED: MEPERIDINE INJ 25 MG/ML VIAL (J2175) IV PRN (18:30)
[2021-06-18] MEDS: oxyCODONE 5MG TAB PO PRN ×2 (18:35→19:07)
[2021-06-18] MEDS ORDERED: PERCOCET 5MG/325MG TAB PO PRN (18:35)
[2021-06-18 19:40] VITALS: BP 121/59
== END 2021-06-18 19:50 | disposition home or self-care (01) ==
LOC: M SDC 12:27
PROVIDERS: ATTEND Specialist
DX: D27.1 Benign neoplasm of left ovary (principal); Z30.432 Encounter for removal of intrauterine contraceptive device; R10.2 Pelvic and perineal pain; I10 Essential (primary) hypertension; R42 Dizziness and giddiness; M51.9 Unspecified thoracic, thoracolumbar and lumbosacral intervertebral disc disorder; F41.9 Anxiety disorder, unspecified; F32.9 Major depressive disorder, single episode, unspecified; G43.909 Migraine, unspecified, not intractable, without status migrainosus; F32.A Depression, unspecified; M54.9 Dorsalgia, unspecified; M25.50 Pain in unspecified joint; R53.83 Other fatigue; I95.1 Orthostatic hypotension; G62.9 Polyneuropathy, unspecified; Z79.899 Other long term (current) drug therapy; Z79.891 Long term (current) use of opiate analgesic; Z88.1 Allergy status to other antibiotic agents; Z88.0 Allergy status to penicillin; Z88.5 Allergy status to narcotic agent; Z88.8 Allergy status to other drugs, medicaments and biological substances; Z91.048 Other nonmedicinal substance allergy status; Z98.84 Bariatric surgery status
CPT/HCPCS: 36415; 58301; 58661; 81025; 85027; 88305; J1100; J2250; J2405; J2765; J3010

== ENCOUNTER → 2021-07-17 | Outpatient (CLI) | payer OTHER ==
[~2021-07-17] MED LIST changes: -LR 1,000 ML IV SCH
== END ==
LOC: M PAIN 14:00
PROVIDERS: ATTEND Nurse Practitioner Family
DX: M96.1 Postlaminectomy syndrome, not elsewhere classified (principal); G43.909 Migraine, unspecified, not intractable, without status migrainosus; F32.A Depression, unspecified; R53.83 Other fatigue; I95.9 Hypotension, unspecified; Z98.84 Bariatric surgery status; Z79.891 Long term (current) use of opiate analgesic; Z79.899 Other long term (current) drug therapy; Z88.0 Allergy status to penicillin; Z88.1 Allergy status to other antibiotic agents; Z88.5 Allergy status to narcotic agent; Z88.6 Allergy status to analgesic agent; Z88.8 Allergy status to other drugs, medicaments and biological substances

== ENCOUNTER 2021-08-26 12:09 | Observation (INO) | payer OTHER ==
[~2021-08-26] VITALS: Ht 162.6 cm; Wt 53.3 kg
[2021-08-26] MEDS ORDERED: METH-1164 (14:43)
[2021-08-26] MEDS ORDERED: NS 1,000 ML IV ONE (17:05)
[2021-08-26] MEDS ORDERED: KETOROLAC 30 MG/ML 1ML VIAL IV ONE (17:05)
[2021-08-26 17:39] LABS: BASO % 0.2 % (0.0-1.0); HEMATOCRIT 40.5 % (36.0-47.0); HEMOGLOBIN 13.7 g/dl (12.0-15.5); LYMPH # 2.5 10^3/uL (1.5-5.0); LYMPH % 16.9 % (24.0-44.0); MEAN CORPUSCULAR HEMOGLOBIN 29.1 pg (27.0-33.0); MEAN CORPUSCULAR HGB CONC 33.8 g/dl (32.0-36.5); MEAN CORPUSCULAR VOLUME 86.2 fl (80.0-96.0); MONO % 7.2 % (2.0-8.0); NEUTROPHILS # 10.9 10^3/uL (1.5-8.5); NEUTROPHILS % 75.4 % (36.0-66.0); PLATELET COUNT, AUTOMATED 246 10^3/uL (150-450); WHITE BLOOD COUNT 14.5 10^3/uL (4.0-10.0)
[2021-08-26 18:09] LABS: C REACTIVE PROTEIN QUANTITATIV < 0.30 MG/DL (0.00-0.30)
[2021-08-26 18:23] LABS: ERYTHROCYTE SEDIMENTATION RATE 5 mm/hr (0-20)
[2021-08-26] MEDS ORDERED: ONDANSETRON 4MG/2ML VIAL IV ONE (18:50)
[2021-08-26] MEDS ORDERED: MORPHINE 4 MG/ML 1ML VIAL/SYRINGE IV ONE ×2 (18:50→20:25)
[2021-08-26] MEDS ORDERED: ISOVUE-370 76% 100ML VIAL As Ordered ONE (18:51)
[2021-08-26] MEDS: GASTROGRAFIN SOLUTION 30ML PO SCH ×2 (19:44→20:14)
[2021-08-26 21:46] LABS: ALBUMIN 3.6 GM/DL (3.2-5.2); ALT/SGPT 18 U/L (12-78); BILIRUBIN,DIRECT 0.1 MG/DL (0.0-0.2); BILIRUBIN,TOTAL 0.5 MG/DL (0.2-1.0); LIPASE 92 U/L (73-393); TOTAL PROTEIN 6.9 GM/DL (6.4-8.2)
[2021-08-26] MEDS ORDERED: HYDROMORPHONE HCL 0.5 MG/ 0.5 ML SYRINGE (J1170 PER 1) IV ONE (23:00)
[2021-08-27] MEDS ORDERED: PREGABALIN 25 MG CAP (LYRICA) PO ONE (01:00)
[2021-08-27] MEDS ORDERED: KETOROLAC 30 MG/ML 1ML VIAL IV ONE (01:05)
[2021-08-27] MEDS: NS 1,000 ML IV SCH ×2 (01:40→03:07)
[2021-08-27] MEDS ORDERED: ACETAMINOPHEN TAB 650MG DOSE (2X325MG) PO PRN (01:40)
[2021-08-27] MEDS ORDERED: DULO30CA9 PO (02:09)
[2021-08-27] MEDS ORDERED: OXYC1TAB23 PO (02:09)
[2021-08-27] MEDS ORDERED: MULTCHW12 PO (02:09)
[2021-08-27] MEDS ORDERED: METH-1164 PO (02:09)
[2021-08-27] MEDS ORDERED: CVS2500C PO (02:09)
[2021-08-27] MEDS ORDERED: OXYC-403 PO (02:09)
[2021-08-27] MEDS ORDERED: VITA1TAB61 PO (02:09)
[2021-08-27] MEDS ORDERED: TRAZ-257 PO (02:09)
[2021-08-27] MEDS ORDERED: traZODone 100 MG TAB PO PRN (02:20)
[2021-08-27] MEDS ORDERED: RIZATRIPTAN BENZOATE 10 MG TAB PO PRN (02:20)
[2021-08-27] MEDS ORDERED: HOME MED LIST COMPLETE! XX SCH (02:20)
[2021-08-27] MEDS: oxyCODONE 5MG TAB PO PRN ×3 (03:04→19:50)
[2021-08-27] MEDS: ONDANSETRON 4MG/2ML VIAL IV PRN ×2 (03:04→11:15)
[2021-08-27] MEDS: methocarbamoL 500 MG TAB PO PRN (03:09)
[2021-08-27] MEDS: oxyCODONE 10 MG CR TAB PO SCH (08:01)
[2021-08-27] MEDS: DULoxetine 30MG CAPSULE (CYMBALTA) PO SCH (08:01)
[2021-08-27] MEDS ORDERED: LIDOCAINE 5% (LIDODERM) PATCH TD ONE (14:00)
[2021-08-27] MEDS: GABAPENTIN 100 MG CAP PO SCH ×2 (14:34→19:51)
[2021-08-27 15:10] VITALS: BP 127/82
[2021-08-27 22:00] VITALS: BP 122/79
[2021-08-28] MEDS ORDERED: **NOTE PATIENT COMMENT** MISC XX ONE (02:00)
[2021-08-28] MEDS: oxyCODONE 5MG TAB PO PRN ×2 (05:48→18:15)
[2021-08-28 06:52] LABS: BLOOD UREA NITROGEN 9 MG/DL (7-18); CALCIUM LEVEL 8.2 MG/DL (8.5-10.1); CARBON DIOXIDE LEVEL 29 MEQ/L (21-32); CHLORIDE LEVEL 109 MEQ/L (98-107); CREATININE FOR GFR 0.72 MG/DL (0.55-1.30); GLOMERULAR FILTRATION RATE > 60.0 (>58); GLUCOSE, FASTING 90 MG/DL (70-100); POTASSIUM SERUM 3.8 MEQ/L (3.5-5.1); SODIUM LEVEL 141 MEQ/L (136-145)
[2021-08-28] MEDS: GABAPENTIN 100 MG CAP PO SCH (09:00)
[2021-08-28] MEDS: DULoxetine 30MG CAPSULE (CYMBALTA) PO SCH (09:00)
[2021-08-28] MEDS: oxyCODONE 10 MG CR TAB PO SCH (09:01)
[2021-08-28] MEDS: methocarbamoL 500 MG TAB PO PRN ×2 (10:12→18:14)
[2021-08-28] MEDS ORDERED: PROHANCE 279.3MG/ML 5ML VIAL As Ordered ONE (10:58)
[2021-08-28] MEDS ORDERED: oxyCODONE 5MG TAB PO ONE (11:00)
[2021-08-28 14:00] VITALS: BP 137/72
[2021-08-28] MEDS ORDERED: GABA-1171 PO (15:31)
[2021-08-28] MEDS ORDERED: GABAPENTIN 100 MG CAP PO SCH (16:00)
[2021-08-29] MEDS ORDERED: OXYC-403 PO (13:39)
[2021-08-29] MEDS ORDERED: OXYC30TA PO (13:39)
== END 2021-08-28 18:20 | disposition home or self-care (01) ==
LOC: M ED 12:09 → M ED INP 12:10 → ENRESERV 08-27 05:22 → M MS5PR 08-27 06:00
PROVIDERS: ADMIT Internal Medicine; ATTEND Internal Medicine
DX: R10.30 Lower abdominal pain, unspecified (principal); Z98.890 Other specified postprocedural states; M54.42 Lumbago with sciatica, left side; G89.29 Other chronic pain; R11.0 Nausea; F11.20 Opioid dependence, uncomplicated; R51.9 Headache, unspecified; M51.14 Intervertebral disc disorders with radiculopathy, thoracic region; Z79.899 Other long term (current) drug therapy; Z88.0 Allergy status to penicillin; Z88.8 Allergy status to other drugs, medicaments and biological substances; Z91.048 Other nonmedicinal substance allergy status; Z98.84 Bariatric surgery status
CPT/HCPCS: 36415; 72157; 72158; 74176; 74177; 80047; 80048; 80076; 81001; 83605; 83690; 84702; 85025; 85652; 86140; 87426; 96361; 96374; 96375; 96376; 99284; A9576; J1170; J1885; J2270; J2405; Q9963; Q9967

== ENCOUNTER 2021-11-12 11:32 | Emergency (ER) | payer OTHER ==
[~2021-11-12] VITALS: Ht 162.6 cm; Wt 53.8 kg
[~2021-11-12 11:32] MED LIST changes: +CVS2500C PO; +DULO30CA9 PO; +GABA-1171 PO; +METH-1164; +METH-1164 PO; +MULTCHW12 PO; +OXYC-403 PO; +TRAZ-257 PO; +VITA1TAB61 PO
[2021-11-12 11:33] VITALS: BP 119/73
[2021-11-12] MEDS ORDERED: BUPR1FIL (11:44)
== END 2021-11-12 20:33 | disposition left against medical advice (07) ==
LOC: M ED 11:32
DX: R20.9 Unspecified disturbances of skin sensation (principal); R22.43 Localized swelling, mass and lump, lower limb, bilateral; M54.50 Low back pain, unspecified; I10 Essential (primary) hypertension; J45.909 Unspecified asthma, uncomplicated; F32.A Depression, unspecified; F41.9 Anxiety disorder, unspecified; F43.10 Post-traumatic stress disorder, unspecified; Z88.0 Allergy status to penicillin; Z88.5 Allergy status to narcotic agent; Z88.8 Allergy status to other drugs, medicaments and biological substances; Z91.048 Other nonmedicinal substance allergy status; Z79.899 Other long term (current) drug therapy

== ENCOUNTER → 2021-12-16 | Outpatient (CLI) | payer OTHER ==
[~2021-12-16] MED LIST changes: +BUPR1FIL
== END ==
LOC: M PAIN 09:45
PROVIDERS: ATTEND Nurse Practitioner Family
DX: M96.1 Postlaminectomy syndrome, not elsewhere classified (principal); G43.909 Migraine, unspecified, not intractable, without status migrainosus; F32.A Depression, unspecified; E04.1 Nontoxic single thyroid nodule; M25.50 Pain in unspecified joint; R53.83 Other fatigue; I95.1 Orthostatic hypotension; Z98.84 Bariatric surgery status; Z87.442 Personal history of urinary calculi; Z79.899 Other long term (current) drug therapy; Z88.1 Allergy status to other antibiotic agents; Z88.5 Allergy status to narcotic agent; Z88.8 Allergy status to other drugs, medicaments and biological substances; Z88.6 Allergy status to analgesic agent

== ENCOUNTER 2021-12-28 15:11 | Emergency (ER) | payer OTHER ==
[~2021-12-28] VITALS: Ht 162.6 cm; Wt 53.0 kg
[2021-12-28] MEDS ORDERED: KETOROLAC 30 MG/ML 1ML VIAL IV ONE (15:30)
[2021-12-28] MEDS ORDERED: diazePAM 10MG/2ML SYRINGE (J3360 PER 5MG) IV ONE (15:30)
[2021-12-28] MEDS ORDERED: LIDOCAINE 5% (LIDODERM) PATCH TD ONE (15:30)
[2021-12-28 18:45] VITALS: BP 135/83
[2021-12-28] MEDS ORDERED: **NOTE PATIENT COMMENT** MISC XX SCH (21:00)
== END 2021-12-28 19:00 | disposition home or self-care (01) ==
LOC: M ED 15:11 → EDBD 15:11 → M ED 19:00
DX: S30.0XXA Contusion of lower back and pelvis, initial encounter (principal); W10.8XXA Fall (on) (from) other stairs and steps, initial encounter; Y92.89 Other specified places as the place of occurrence of the external cause; G43.909 Migraine, unspecified, not intractable, without status migrainosus; M51.9 Unspecified thoracic, thoracolumbar and lumbosacral intervertebral disc disorder; Z79.899 Other long term (current) drug therapy; Z88.0 Allergy status to penicillin; Z88.5 Allergy status to narcotic agent; Z88.8 Allergy status to other drugs, medicaments and biological substances; Z91.048 Other nonmedicinal substance allergy status; F17.200 Nicotine dependence, unspecified, uncomplicated
CPT/HCPCS: 72131; 72192; 84702; 96374; 96375; 99284; J1885; J3360

== ENCOUNTER → 2021-12-30 | Outpatient (REF) | LOC: M PLAIMG 13:03 | PROVIDERS: ATTEND Internal Medicine | DX: M51.36 Other intervertebral disc degeneration, lumbar region (principal); M51.37 Other intervertebral disc degeneration, lumbosacral region ==

== ENCOUNTER → 2022-01-06 | Outpatient (CLI) | payer OTHER | LOC: M PAIN 08:30 | PROVIDERS: ATTEND Nurse Practitioner Family | DX: M96.1 Postlaminectomy syndrome, not elsewhere classified (principal); M79.10 Myalgia, unspecified site; G89.29 Other chronic pain; G43.909 Migraine, unspecified, not intractable, without status migrainosus; Z86.59 Personal history of other mental and behavioral disorders; Z88.1 Allergy status to other antibiotic agents; Z88.5 Allergy status to narcotic agent; Z88.6 Allergy status to analgesic agent; Z88.8 Allergy status to other drugs, medicaments and biological substances; Z79.899 Other long term (current) drug therapy ==

== ENCOUNTER → 2022-01-16 | Outpatient (CLI) | payer OTHER | LOC: M PLARAD 13:22 | PROVIDERS: ATTEND Family Medicine Addiction Medicine | DX: M47.817 Spondylosis without myelopathy or radiculopathy, lumbosacral region (principal) ==

== ENCOUNTER → 2022-02-09 | Outpatient (CLI) | payer OTHER | LOC: M PAIN 14:15 | PROVIDERS: ATTEND Anesthesiology | DX: M96.1 Postlaminectomy syndrome, not elsewhere classified (principal); G43.909 Migraine, unspecified, not intractable, without status migrainosus; F32.A Depression, unspecified; M79.2 Neuralgia and neuritis, unspecified; E04.1 Nontoxic single thyroid nodule; R53.83 Other fatigue; I95.1 Orthostatic hypotension; Z98.84 Bariatric surgery status; Z90.49 Acquired absence of other specified parts of digestive tract; Z87.442 Personal history of urinary calculi; Z79.899 Other long term (current) drug therapy; Z88.0 Allergy status to penicillin; Z88.1 Allergy status to other antibiotic agents; Z88.5 Allergy status to narcotic agent; Z88.6 Allergy status to analgesic agent; Z88.8 Allergy status to other drugs, medicaments and biological substances ==

== ENCOUNTER → 2022-03-04 | Outpatient (CLI) | payer OTHER | LOC: M PAIN 11:30 | PROVIDERS: ATTEND Anesthesiology | DX: M51.16 Intervertebral disc disorders with radiculopathy, lumbar region (principal); M96.1 Postlaminectomy syndrome, not elsewhere classified; G89.29 Other chronic pain; G43.909 Migraine, unspecified, not intractable, without status migrainosus; Z86.59 Personal history of other mental and behavioral disorders; Z88.1 Allergy status to other antibiotic agents; Z88.5 Allergy status to narcotic agent; Z88.6 Allergy status to analgesic agent; Z88.8 Allergy status to other drugs, medicaments and biological substances; Z79.899 Other long term (current) drug therapy ==

== ENCOUNTER → 2022-04-30 | Outpatient (CLI) | payer OTHER ==
[~2022-04-30] MED LIST changes: +DIPH-435 PO; -DIPH25CA32 PO
== END ==
LOC: M PAIN 07:45
PROVIDERS: ATTEND Anesthesiology
DX: M96.1 Postlaminectomy syndrome, not elsewhere classified (principal); M48.061 Spinal stenosis, lumbar region without neurogenic claudication; G89.29 Other chronic pain; G43.909 Migraine, unspecified, not intractable, without status migrainosus; Z86.59 Personal history of other mental and behavioral disorders; Z98.84 Bariatric surgery status; Z88.1 Allergy status to other antibiotic agents; Z88.5 Allergy status to narcotic agent; Z88.6 Allergy status to analgesic agent; Z88.8 Allergy status to other drugs, medicaments and biological substances; Z79.899 Other long term (current) drug therapy

== ENCOUNTER → 2022-05-13 | Outpatient (REF) | payer OTHER ==
[2022-05-13 17:54] LABS: BASO # 0.1 10^3/uL (0.0-0.2); BASO % 0.5 % (0.0-1.0); EOS # 0.1 10^3/uL (0.0-0.5); EOS % 0.7 % (0.0-3.0); HEMATOCRIT 40.6 % (36.0-47.0); LYMPH # 4.3 10^3/uL (1.5-5.0); LYMPH % 30.9 % (24.0-44.0); MEAN CORPUSCULAR HEMOGLOBIN 28.8 pg (27.0-33.0); MONO # 0.9 10^3/uL (0.0-0.8); MONO % 6.8 % (2.0-8.0); NEUTROPHILS # 8.4 10^3/uL (1.5-8.5); NEUTROPHILS % 60.8 % (36.0-66.0); PLATELET COUNT, AUTOMATED 271 10^3/uL (150-450); RED BLOOD COUNT 4.51 10^6/uL (4.00-5.40); WHITE BLOOD COUNT 13.8 10^3/uL (4.0-10.0)
[2022-05-13 18:16] LABS: ALBUMIN 3.8 G/DL (3.2-5.2); ALKALINE PHOSPHATASE 57 U/L (46-116); ALT/SGPT 16 U/L (7.0-40); AST/SGOT 21 U/L (<34); BILIRUBIN,TOTAL 0.2 MG/DL (0.3-1.2); BLOOD UREA NITROGEN 8 MG/DL (9-23); CALCIUM LEVEL 9.2 MG/DL (8.5-10.1); CARBON DIOXIDE LEVEL 32 MMOL/L (20-31); CHLORIDE LEVEL 104 MMOL/L (98-107); CPK CREATINE PHOSPHOKINASE 56 U/L (34-145); CREATININE FOR GFR 0.68 MG/DL (0.55-1.30); GLOMERULAR FILTRATION RATE > 60.0 (>58); GLUCOSE, FASTING 70 MG/DL (60-100); IRON (FE) 41 UG/DL (50-170); PERCENT SATURATION 10.2 % (13.2-45.0); POTASSIUM SERUM 5.2 MMOL/L (3.5-5.1); SODIUM LEVEL 139 MMOL/L (136-145); TOTAL IRON BINDING CAPACITY 403 UG/DL (250-425); TOTAL PROTEIN 6.8 G/DL (5.7-8.2)
[2022-05-13 18:24] LABS: CK-MB VALUE MASS < 1.0 NG/ML (<3.6); MB/CK RELATIVE INDEX 1.78 (< OR =4)
[2022-05-13 18:28] LABS: THYROID STIMULATING HORMONE 2.517 uIU/ML (0.55-4.78)
[2022-05-13 18:32] LABS: FOLATE 7.5 NG/ML (>5.4); TOTAL 25(OH) VITAMIN D 14.2 NG/ML (20.0-100.0)
[2022-05-13 18:33] LABS: VITAMIN B12 LEVEL 403 PG/ML (211-911)
== END ==
LOC: M SFHCPLAZ 17:12
PROVIDERS: ATTEND Physician Assistant
DX: R07.9 Chest pain, unspecified (principal); Z98.84 Bariatric surgery status

== ENCOUNTER → 2022-05-15 | Outpatient (CLI) | payer OTHER | LOC: M PLAIMG 09:37 | PROVIDERS: ATTEND Physician Assistant | DX: N83.291 Other ovarian cyst, right side (principal); M70.61 Trochanteric bursitis, right hip ==

== ENCOUNTER → 2022-05-29 | Outpatient (CLI) | payer OTHER ==
[~2022-05-29] MED LIST changes: -OXYC-403 PO; +OXYC-673 PO
== END ==
LOC: M PAIN 08:00
PROVIDERS: ATTEND Nurse Practitioner Family
DX: G43.709 Chronic migraine without aura, not intractable, without status migrainosus (principal); F32.A Depression, unspecified; R53.83 Other fatigue; Z98.84 Bariatric surgery status; Z87.442 Personal history of urinary calculi; M25.50 Pain in unspecified joint; Z79.891 Long term (current) use of opiate analgesic; Z79.899 Other long term (current) drug therapy; Z88.0 Allergy status to penicillin; Z88.1 Allergy status to other antibiotic agents; Z88.5 Allergy status to narcotic agent; Z88.6 Allergy status to analgesic agent; Z88.8 Allergy status to other drugs, medicaments and biological substances

== ENCOUNTER → 2022-05-29 | Outpatient (REF) | payer OTHER ==
[~2022-05-29] MED LIST changes: +OXYC-403 PO; -OXYC-673 PO
[2022-05-29 17:24] LABS: APPEARANCE, URINE CLEAR (CLEAR); BILIRUBIN, URINE AUTO NEGATIVE (NEGATIVE); BLOOD, URINE BLOOD NEGATIVE (NEGATIVE); COLOR, URINE YELLOW (YELLOW); GLUCOSE, URINE (UA) AUTO NEGATIVE (NEGATIVE); KETONE, URINE AUTO NEGATIVE (NEGATIVE); LEUKOCYTE ESTERASE, URINE AUTO NEGATIVE (NEGATIVE); NITRITE, URINE AUTO NEGATIVE (NEGATIVE); PROTEIN, URINE AUTO NEGATIVE (NEGATIVE); SPECIFIC GRAVITY URINE AUTO 1.006 (1.002-1.035); UROBILINOGEN, URINE AUTO 0.2 mg/dL (0.0-2.0)
[2022-05-29 17:27] LABS: BACTERIA, URINE AUTO 1+ (NEGATIVE); RBC, URINE AUTO 0 /HPF (0-3); SQUAMOUS EPITHELIAL CELL UR AU 0 /HPF (0-6); WBC, URINE AUTO 0 /HPF (0-3)
== END ==
LOC: M SFHCPLAZ 16:44
PROVIDERS: ATTEND Physician Assistant
DX: R10.2 Pelvic and perineal pain (principal)

== ENCOUNTER → 2022-06-18 | Outpatient (REF) | payer OTHER ==
[~2022-06-18] MED LIST changes: -OXYC-403 PO; +OXYC-673 PO
== END ==
LOC: M SFHCPLAZ 16:53
PROVIDERS: ATTEND Physician Assistant
DX: R39.9 Unspecified symptoms and signs involving the genitourinary system (principal)

== ENCOUNTER → 2022-06-25 | Outpatient (REF) | payer OTHER ==
[2022-06-25 14:47] LABS: APPEARANCE, URINE CLEAR (CLEAR); BACTERIA, URINE AUTO NEGATIVE (NEGATIVE); BILIRUBIN, URINE AUTO NEGATIVE (NEGATIVE); BLOOD, URINE BLOOD NEGATIVE (NEGATIVE); COLOR, URINE YELLOW (YELLOW); GLUCOSE, URINE (UA) AUTO NEGATIVE (NEGATIVE); KETONE, URINE AUTO NEGATIVE (NEGATIVE); LEUKOCYTE ESTERASE, URINE AUTO NEGATIVE (NEGATIVE); NITRITE, URINE AUTO NEGATIVE (NEGATIVE); PROTEIN, URINE AUTO NEGATIVE (NEGATIVE); RBC, URINE AUTO 0 /HPF (0-3); SPECIFIC GRAVITY URINE AUTO 1.013 (1.002-1.035); SQUAMOUS EPITHELIAL CELL UR AU 2 /HPF (0-6); UROBILINOGEN, URINE AUTO 0.2 mg/dL (0.0-2.0); WBC, URINE AUTO 0 /HPF (0-3)
== END ==
LOC: M SFHCPLAZ 12:49
PROVIDERS: ATTEND Physician Assistant
DX: R35.0 Frequency of micturition (principal)

== ENCOUNTER 2022-07-02 15:53 | Emergency (ER) | payer OTHER ==
[~2022-07-02] VITALS: Ht 162.6 cm; Wt 55.5 kg
[2022-07-02 17:14] LABS: BASO # 0.1 10^3/uL (0.0-0.2); BASO % 0.6 % (0.0-1.0); EOS # 0.1 10^3/uL (0.0-0.5); EOS % 1.4 % (0.0-3.0); HEMOGLOBIN 11.6 g/dl (12.0-15.5); LYMPH # 3.9 10^3/uL (1.5-5.0); LYMPH % 42.1 % (24.0-44.0); MEAN CORPUSCULAR HEMOGLOBIN 29.7 pg (27.0-33.0); MEAN CORPUSCULAR HGB CONC 32.2 g/dl (32.0-36.5); MEAN CORPUSCULAR VOLUME 92.1 fl (80.0-96.0); MONO # 0.7 10^3/uL (0.0-0.8); MONO % 7.7 % (2.0-8.0); NEUTROPHILS # 4.5 10^3/uL (1.5-8.5); PLATELET COUNT, AUTOMATED 204 10^3/uL (150-450); RED BLOOD COUNT 3.91 10^6/uL (4.00-5.40); WHITE BLOOD COUNT 9.4 10^3/uL (4.0-10.0)
[2022-07-02 17:30] LABS: LIPASE 21 U/L (12-53)
[2022-07-02 17:36] LABS: ALBUMIN 3.4 G/DL (3.2-5.2); ALKALINE PHOSPHATASE 54 U/L (46-116); ALT/SGPT 20 U/L (7.0-40); AST/SGOT 23 U/L (<34); BILIRUBIN,DIRECT < 0.1 MG/DL (<0.4); BILIRUBIN,TOTAL 0.3 MG/DL (0.3-1.2); BLOOD UREA NITROGEN 8 MG/DL (9-23); CALCIUM LEVEL 8.1 MG/DL (8.5-10.1); CARBON DIOXIDE LEVEL 30 MMOL/L (20-31); CHLORIDE LEVEL 105 MMOL/L (98-107); CREATININE FOR GFR 0.65 MG/DL (0.55-1.30); GLOMERULAR FILTRATION RATE > 60.0 (>58); GLUCOSE, FASTING 84 MG/DL (60-100); POTASSIUM SERUM 4.3 MMOL/L (3.5-5.1); SODIUM LEVEL 138 MMOL/L (136-145); TOTAL PROTEIN 5.9 G/DL (5.7-8.2)
[2022-07-02] MEDS ORDERED: diazePAM 5MG TABLET PO ONE (20:50)
[2022-07-02] MEDS ORDERED: KETOROLAC 30 MG/ML 1ML VIAL IV ONE (20:50)
[2022-07-02] MEDS ORDERED: ISOVUE-370 76% 100ML VIAL As Ordered ONE (22:27)
[2022-07-02] MEDS ORDERED: MIRA3350 PO (23:05)
[2022-07-02 23:35] VITALS: BP 115/65
== END 2022-07-02 23:47 | disposition home or self-care (01) ==
LOC: M ED 15:53
DX: K59.00 Constipation, unspecified (principal); I10 Essential (primary) hypertension; R51.9 Headache, unspecified; M54.14 Radiculopathy, thoracic region; Z87.442 Personal history of urinary calculi; Z88.2 Allergy status to sulfonamides; Z88.8 Allergy status to other drugs, medicaments and biological substances; Z91.048 Other nonmedicinal substance allergy status; Z79.891 Long term (current) use of opiate analgesic; Z79.899 Other long term (current) drug therapy
CPT/HCPCS: 36415; 74177; 76856; 80048; 80076; 83690; 84702; 85025; 96374; 99284; J1885; Q9967

== ENCOUNTER → 2022-08-03 | Outpatient (CLI) | payer OTHER ==
[~2022-08-03] MED LIST changes: +MIRA3350 PO
== END ==
LOC: M PAIN 14:45
PROVIDERS: ATTEND Nurse Practitioner Family
DX: M96.1 Postlaminectomy syndrome, not elsewhere classified (principal); G43.909 Migraine, unspecified, not intractable, without status migrainosus; Z79.891 Long term (current) use of opiate analgesic; Z79.899 Other long term (current) drug therapy; Z88.1 Allergy status to other antibiotic agents; Z88.6 Allergy status to analgesic agent; Z88.5 Allergy status to narcotic agent; Z88.8 Allergy status to other drugs, medicaments and biological substances

== ENCOUNTER → 2022-08-28 | Outpatient (CLI) | payer OTHER | LOC: M PAIN 11:00 | PROVIDERS: ATTEND Nurse Practitioner Family | DX: M79.18 Myalgia, other site (principal); M51.16 Intervertebral disc disorders with radiculopathy, lumbar region; M96.1 Postlaminectomy syndrome, not elsewhere classified; G89.29 Other chronic pain; G43.909 Migraine, unspecified, not intractable, without status migrainosus; F32.A Depression, unspecified; M79.2 Neuralgia and neuritis, unspecified; E04.1 Nontoxic single thyroid nodule; R53.83 Other fatigue; Z98.84 Bariatric surgery status; Z79.891 Long term (current) use of opiate analgesic; Z79.899 Other long term (current) drug therapy; Z88.1 Allergy status to other antibiotic agents; Z88.5 Allergy status to narcotic agent; Z88.6 Allergy status to analgesic agent; Z88.8 Allergy status to other drugs, medicaments and biological substances ==

== ENCOUNTER → 2022-10-27 | Outpatient (CLI) | payer OTHER ==
[~2022-10-27] MED LIST changes: -MEGE400S10; +[UNRECOGNIZED DRUG - CODE]
[2022-10-28 13:37] LABS: ALKALINE PHOSPHATASE 61 U/L (46-116); ALT/SGPT 16 U/L (7.0-40); AST/SGOT 17 U/L (<34); BASO # 0.1 10^3/uL (0.0-0.2); BASO % 0.5 % (0.0-1.0); BILIRUBIN,TOTAL 0.2 MG/DL (0.3-1.2); BLOOD UREA NITROGEN 9 MG/DL (9-23); CALCIUM LEVEL 8.8 MG/DL (8.5-10.1); CARBON DIOXIDE LEVEL 24 MMOL/L (20-31); CHLORIDE LEVEL 108 MMOL/L (98-107); CREATININE FOR GFR 0.67 MG/DL (0.55-1.30); EOS # 0.1 10^3/uL (0.0-0.5); EOS % 0.9 % (0.0-3.0); GLOMERULAR FILTRATION RATE > 60.0 (>58); GLUCOSE, FASTING 99 MG/DL (60-100); HEMATOCRIT 40.2 % (36.0-47.0); HEMOGLOBIN 13.5 g/dl (12.0-15.5); LYMPH # 2.9 10^3/uL (1.5-5.0); LYMPH % 24.6 % (24.0-44.0); MEAN CORPUSCULAR HEMOGLOBIN 30.6 pg (27.0-33.0); MEAN CORPUSCULAR HGB CONC 33.6 g/dl (32.0-36.5); MEAN CORPUSCULAR VOLUME 91.2 fl (80.0-96.0); MONO % 8.3 % (2.0-8.0); NEUTROPHILS # 7.6 10^3/uL (1.5-8.5); NEUTROPHILS % 65.4 % (36.0-66.0); PLATELET COUNT, AUTOMATED 219 10^3/uL (150-450); POTASSIUM SERUM 4.7 MMOL/L (3.5-5.1); RED BLOOD COUNT 4.41 10^6/uL (4.00-5.40); SODIUM LEVEL 139 MMOL/L (136-145); TOTAL PROTEIN 7.1 G/DL (5.7-8.2); WHITE BLOOD COUNT 11.6 10^3/uL (4.0-10.0)
== END ==
LOC: M PLAIMG 16:26
PROVIDERS: ATTEND Family Medicine
DX: R10.30 Lower abdominal pain, unspecified (principal)

== ENCOUNTER → 2023-05-11 | Outpatient (CLI) | payer OTHER ==
[~2023-05-11] MED LIST changes: +BACL10TA2; -DIPH-319 PO; +DIPH-429 PO; +DULO1CAP6 PO; -GABA-283 PO; +GABA-284 PO; +HYDR-643; +LIDO1PAD; -OXYB5TAB10 PO; +OXYB5TAB11 PO; +OXYC10TA3; +PREG100CA PO; -PREG150C; +PREG150C2; -PREG200C; +PREG200C2
== END ==
LOC: M PLALAB 15:59
PROVIDERS: ATTEND Family Medicine
DX: M25.552 Pain in left hip (principal); M16.12 Unilateral primary osteoarthritis, left hip

== ENCOUNTER 2023-06-01 10:32 | Day surgery (SDC) | payer OTHER ==
[~2023-06-01] VITALS: Ht 162.6 cm; Wt 60.9 kg
[2023-06-01] MEDS: NS 1,000 ML IV ONE (06:00)
[~2023-06-01 10:32] MED LIST changes: -BACL10TA2; -HYDR-643; +HYDR-643 PO; +LIDOCAINE 2% 100MG/5ML SDV (FOR ANES.) As Ordered ONE; +MEGE400O12; +NS 1,000 ML IV ONE; -OXYB5TAB11 PO; +OXYB5TAB14 PO; -OXYC10TA3; +OXYC10TA3 PO; +THERTAB52 PO; -[UNRECOGNIZED DRUG - CODE]; +propofoL 200 MG/20 ML VIAL As Ordered ONE
[2023-06-01] MEDS ORDERED: fentaNYL 100 MCG/2 ML INJECTION As Ordered ONE (10:38)
[2023-06-01 13:04] VITALS: TEMP 96.8
[2023-06-01 13:35] VITALS: BP 102/73; O2SAT 98
== END 2023-06-01 13:45 | disposition home or self-care (01) ==
LOC: M OPP 10:32
PROVIDERS: ATTEND Internal Medicine Gastroenterology
DX: Z12.11 Encounter for screening for malignant neoplasm of colon (principal); K63.5 Polyp of colon; K64.8 Other hemorrhoids; K64.4 Residual hemorrhoidal skin tags; K29.70 Gastritis, unspecified, without bleeding; Z98.84 Bariatric surgery status; R13.10 Dysphagia, unspecified; R10.9 Unspecified abdominal pain; Z79.891 Long term (current) use of opiate analgesic; Z79.899 Other long term (current) drug therapy; Z88.5 Allergy status to narcotic agent; Z88.6 Allergy status to analgesic agent; Z88.8 Allergy status to other drugs, medicaments and biological substances; Z91.048 Other nonmedicinal substance allergy status
CPT/HCPCS: 43239; 45385; 88305; J3010

== ENCOUNTER → 2023-10-01 | Outpatient (REF) | payer OTHER ==
[~2023-10-01] MED LIST changes: -LIDOCAINE 2% 100MG/5ML SDV (FOR ANES.) As Ordered ONE; -NS 1,000 ML IV ONE; +TIZA4CAP3 PO; -TIZA4CAP6 PO; -propofoL 200 MG/20 ML VIAL As Ordered ONE
[2023-10-05 12:57] LABS: HPV APTIMA Not Detected (Not Detected)
== END ==
LOC: M SFHCWAGY 15:05
PROVIDERS: ATTEND Specialist
DX: Z12.4 Encounter for screening for malignant neoplasm of cervix (principal); R87.610 Atypical squamous cells of undetermined significance on cytologic smear of cervix (ASC-US)

== ENCOUNTER → 2024-11-07 | Outpatient (CLI) | payer OTHER ==
[~2024-11-07] MED LIST changes: -ACE65ERTAB PO; +ACET-1593 PO; +CARI-555 PO; -CARI1TAB7 PO; +PREG-35 PO; -PREG100CA PO
== END ==
LOC: M RAD 10:37
DX: R10.32 Left lower quadrant pain (principal); R11.0 Nausea

== ENCOUNTER 2024-12-03 15:09 | Emergency (ER) | payer OTHER ==
[~2024-12-03] VITALS: Ht 162.6 cm; Wt 67.6 kg
[2024-12-03 15:11] VITALS: TEMP 98
[2024-12-03] MEDS ORDERED: LUBI24CA (15:38)
[2024-12-03] MEDS ORDERED: DICY20TA20 (15:38)
[2024-12-03] MEDS: dexAMETHasone 4 MG/ML 1 ML VIAL IV ONE (17:02)
[2024-12-03] MEDS: ACETAMINOPHEN *IV* 1,000 MG in IV 1 EA IV ONE (17:02)
[2024-12-03] MEDS: METHOCARBAMOL 1,000 MG/10 ML VIAL IV ONE (17:02)
[2024-12-03 17:40] LABS: HCG, SERUM QUALITATIVE NEGATIVE (NEGATIVE)
[2024-12-03 21:00] VITALS: BP 129/71; O2SAT 98
== END 2024-12-03 21:16 | disposition home or self-care (01) ==
LOC: M ED 15:09
DX: M54.42 Lumbago with sciatica, left side (principal); M51.9 Unspecified thoracic, thoracolumbar and lumbosacral intervertebral disc disorder; Z88.6 Allergy status to analgesic agent; Z91.048 Other nonmedicinal substance allergy status; Z88.5 Allergy status to narcotic agent; Z88.8 Allergy status to other drugs, medicaments and biological substances; Z79.899 Other long term (current) drug therapy
CPT/HCPCS: 72131; 84703; 96365; 96375; 99284; J0131; J1100; J2800; J3010

== ENCOUNTER 2025-03-31 13:25 | Emergency (ER) | payer OTHER ==
[~2025-03-31] VITALS: Ht 162.6 cm; Wt 65.9 kg
[~2025-03-31 13:25] MED LIST changes: +ACET-1387 PO; -ACET-1593 PO; +DICY20TA20; +LUBI24CA PO
[2025-03-31] MEDS ORDERED: BUSP10TA PO (13:36)
[2025-03-31 14:17] LABS: BASO # 0.0 10^3/uL (0.0-0.2); BASO % 0.5 % (0.0-1.0); EOS # 0.1 10^3/uL (0.0-0.5); EOS % 1.6 % (0.0-3.0); LYMPH # 3.1 10^3/uL (1.5-5.0); LYMPH % 38.7 % (24.0-44.0); MONO # 0.6 10^3/uL (0.0-0.8); MONO % 6.8 % (2.0-8.0); NEUTROPHILS # 4.2 10^3/uL (1.5-8.5); NEUTROPHILS % 52.3 % (36.0-66.0); PLATELET COUNT, AUTOMATED 257 10^3/uL (150-450)
[2025-03-31 14:50] LABS: HCG, SERUM QUALITATIVE NEGATIVE (NEGATIVE)
[2025-03-31 14:51] LABS: ALT/SGPT 13 U/L (7.0-40); AST/SGOT 18 U/L (<34); CALCIUM LEVEL 8.2 MG/DL (8.5-10.1); CARBON DIOXIDE LEVEL 28 MMOL/L (20-31); CHLORIDE LEVEL 108 MMOL/L (98-107); CREATININE FOR GFR 0.71 MG/DL (0.55-1.30); GLOMERULAR FILTRATION RATE > 90.0 (>58); POTASSIUM SERUM 4.0 MMOL/L (3.5-5.1); SODIUM LEVEL 142 MMOL/L (136-145)
[2025-03-31 18:03] VITALS: TEMP 97.7
[2025-03-31] MEDS ORDERED: ISOVUE-370 76% 100 ML VIAL As Ordered ONE (19:03)
[2025-03-31 19:24] LABS: APPEARANCE, URINE HAZY (CLEAR); BACTERIA, URINE AUTO NEGATIVE (NEGATIVE); BILIRUBIN, URINE AUTO NEGATIVE (NEGATIVE); BLOOD, URINE BLOOD 1+ (NEGATIVE); GLUCOSE, URINE (UA) AUTO NEGATIVE (NEGATIVE); KETONE, URINE AUTO TRACE mg/dL (NEGATIVE); LEUKOCYTE ESTERASE, URINE AUTO NEGATIVE (NEGATIVE); MUCUS, URINE SMALL (NEGATIVE); NITRITE, URINE AUTO NEGATIVE (NEGATIVE); PROTEIN, URINE AUTO NEGATIVE (NEGATIVE); RBC, URINE AUTO 2 /HPF (0-3); SPECIFIC GRAVITY URINE AUTO 1.028 (1.002-1.035); SQUAMOUS EPITHELIAL CELL UR AU 0 /HPF (0-6); UROBILINOGEN, URINE AUTO 2.0 mg/dL (0.0-2.0); WBC, URINE AUTO 2 /HPF (0-3)
[2025-03-31] MEDS: ONDANSETRON 4MG/2ML VIAL IV ONE (19:32)
[2025-03-31] MEDS: NS 500 ML IV ONE (19:33)
[2025-03-31] MEDS: ACETAMINOPHEN *IV* 1,000 MG in IV 1 EA IV ONE (20:03)
[2025-03-31 21:10] VITALS: BP 112/59; O2SAT 97
== END 2025-03-31 21:27 | disposition home or self-care (01) ==
LOC: M ED 13:25
DX: N83.291 Other ovarian cyst, right side (principal); R10.32 Left lower quadrant pain; I48.91 Unspecified atrial fibrillation; N20.0 Calculus of kidney; F32.A Depression, unspecified; F43.10 Post-traumatic stress disorder, unspecified; F41.9 Anxiety disorder, unspecified; F17.210 Nicotine dependence, cigarettes, uncomplicated; Z88.5 Allergy status to narcotic agent; Z88.6 Allergy status to analgesic agent; Z88.8 Allergy status to other drugs, medicaments and biological substances; Z79.2 Long term (current) use of antibiotics; Z79.899 Other long term (current) drug therapy; Z79.810 Long term (current) use of selective estrogen receptor modulators (SERMs)
CPT/HCPCS: 74177; 80048; 80076; 81001; 83690; 84703; 85025; 96361; 96374; 96375; 99284; J0134; J2405; J2765; J3010; Q9967

== ENCOUNTER 2025-04-01 23:52 | Observation (INO) | payer OTHER ==
[~2025-04-01] VITALS: Ht 162.6 cm; Wt 68.8 kg
[~2025-04-01 23:52] MED LIST changes: +BUSP10TA PO
[2025-04-02 05:55] LABS: BASO # 0.1 10^3/uL (0.0-0.2); BASO % 0.8 % (0.0-1.0); EOS # 0.1 10^3/uL (0.0-0.5); EOS % 1.9 % (0.0-3.0); LYMPH # 3.3 10^3/uL (1.5-5.0); LYMPH % 44.3 % (24.0-44.0); MONO # 0.6 10^3/uL (0.0-0.8); MONO % 8.0 % (2.0-8.0); NEUTROPHILS # 3.3 10^3/uL (1.5-8.5); NEUTROPHILS % 44.9 % (36.0-66.0); PLATELET COUNT, AUTOMATED 233 10^3/uL (150-450)
[2025-04-02 06:16] LABS: ALT/SGPT 13 U/L (7.0-40); AST/SGOT 20 U/L (<34); CALCIUM LEVEL 8.1 MG/DL (8.5-10.1); CARBON DIOXIDE LEVEL 28 MMOL/L (20-31); CHLORIDE LEVEL 109 MMOL/L (98-107); CREATININE FOR GFR 0.69 MG/DL (0.55-1.30); GLOMERULAR FILTRATION RATE > 90.0 (>58); POTASSIUM SERUM 4.2 MMOL/L (3.5-5.1); SODIUM LEVEL 142 MMOL/L (136-145)
[2025-04-02] MEDS: MORPHINE 4 MG/ML 1 ML VIAL IV ONE ×2 (07:40→10:43)
[2025-04-02] MEDS: ONDANSETRON 4MG/2ML VIAL IV ONE (08:54)
[2025-04-02 09:35] LABS: KETONE, URINE AUTO RFX NEGATIVE (NEGATIVE); LEUKOCYTE ESTERASE UR AUTO RFX NEGATIVE (NEGATIVE); NITRITE, URINE AUTO RFX NEGATIVE (NEGATIVE); RBC, URINE AUTO RFX 0 /HPF (0-3); SQUAM EPITHELIAL CELL UR AURFX 1 /HPF (0-6); WBC, URINE AUTO RFX 0 /HPF (0-3)
[2025-04-02] MEDS ORDERED: OXYC10TA12 PO (11:05)
[2025-04-02] MEDS ORDERED: CLON0.5T2 PO (11:05)
[2025-04-02] MEDS ORDERED: HOME MED LIST COMPLETE! XX SCH (11:10)
[2025-04-02] MEDS ORDERED: ISOVUE-370 76% 100 ML VIAL As Ordered ONE (11:27)
[2025-04-02] MEDS: MORPHINE 4 MG/ML 1 ML VIAL IV PRN ×2 (12:52→16:17)
[2025-04-02] MEDS ORDERED: MORPHINE 4 MG/ML 1 ML VIAL IV PRN (15:45)
[2025-04-02] MEDS: PREGABALIN 100 MG CAP PO SCH (16:16)
[2025-04-02] MEDS: BACLOFEN 10 MG TAB PO SCH (16:16)
[2025-04-02 17:41] VITALS: BP 149/80; TEMP 98.1; O2SAT 100
[2025-04-02] MEDS: BISACODYL 10 MG SUPP PR ONE (18:04)
[2025-04-02] MEDS: DICLOFENAC EPOLAMINE 1.3% PATCH TOP SCH (18:20)
[2025-04-02 19:56] VITALS: BP 107/57; TEMP 98.2; O2SAT 98
[2025-04-02] MEDS: MIRALAX *UNIT DOSE* 17 GM PACKET PO SCH (20:39)
[2025-04-02] MEDS: SENNA 8.6 MG TAB PO PRN (20:40)
[2025-04-02] MEDS: clonazePAM 0.5 MG TAB PO PRN (20:40)
[2025-04-03] MEDS: ONDANSETRON 4MG/2ML VIAL IV PRN (03:15)
[2025-04-03 04:08] VITALS: BP 100/55; TEMP 98.1; O2SAT 96
[2025-04-03] MEDS: LACTULOSE 20 GM/30 ML SYRUP UDC PO PRN (05:58)
[2025-04-03 06:22] LABS: PLATELET COUNT, AUTOMATED 229 10^3/uL (150-450)
[2025-04-03 06:39] LABS: CALCIUM LEVEL 7.9 MG/DL (8.5-10.1); CARBON DIOXIDE LEVEL 24 MMOL/L (20-31); CHLORIDE LEVEL 111 MMOL/L (98-107); CREATININE FOR GFR 0.65 MG/DL (0.55-1.30); GLOMERULAR FILTRATION RATE > 90.0 (>58); POTASSIUM SERUM 4.4 MMOL/L (3.5-5.1); SODIUM LEVEL 143 MMOL/L (136-145)
[2025-04-03] MEDS: RIZATRIPTAN BENZOATE 10 MG TAB PO PRN (06:47)
[2025-04-03] MEDS: ENOXAPARIN 40 MG/0.4 ML SYRINGE (J1650 PER 10MG) SC SCH (08:40)
[2025-04-03 11:46] VITALS: BP 126/61; TEMP 98.1; O2SAT 98
[2025-04-03] MEDS: RIZATRIPTAN BENZOATE 10 MG TAB PO ONE (13:25)
[2025-04-03 20:00] VITALS: BP 128/68; TEMP 98.7; O2SAT 100
[2025-04-03] MEDS: traZODone 50 MG TAB PO PRN (22:12)
[2025-04-04 03:42] VITALS: BP 93/60; TEMP 98.1; O2SAT 100
[2025-04-04 05:00] VITALS: BP 93/60; TEMP 98.1; O2SAT 100
[2025-04-04] MEDS: RIZATRIPTAN BENZOATE 10 MG TAB PO PRN (05:20)
[2025-04-04] MEDS: LACTULOSE 20 GM/30 ML SYRUP UDC PO ONE (08:21)
[2025-04-04] MEDS: FLEET ENEMA PR PRN (09:07)
[2025-04-04 11:41] VITALS: BP 97/53; TEMP 97.4; O2SAT 95
[2025-04-04] MEDS ORDERED: MS C30TA6 PO (13:06)
[2025-04-04] MEDS ORDERED: OXYC30TA72 PO (13:40)
[2025-04-04] MEDS: MORPHINE SULFATE TAB EXT REL 30 MG PO SCH (13:41)
[2025-04-04] MEDS ORDERED: OXYC10TA12 PO (14:05)
[2025-04-04] MEDS ORDERED: NARC1SPR NARES (14:38)
[2025-04-04] MEDS ORDERED: MORP30TASA PO (14:38)
== END 2025-04-04 15:38 | disposition home or self-care (01) ==
LOC: M ED 23:52 → M ED INP 04-02 15:35 → M MS4PR 04-02 17:10
PROVIDERS: ADMIT Student in an Organized Health Care Education/Training Program; ATTEND Student in an Organized Health Care Education/Training Program
DX: R10.32 Left lower quadrant pain (principal); R10.A2 Flank pain, left side; M54.50 Low back pain, unspecified; G89.29 Other chronic pain; K59.00 Constipation, unspecified; F32.A Depression, unspecified; F41.9 Anxiety disorder, unspecified; G43.909 Migraine, unspecified, not intractable, without status migrainosus; N83.01 Follicular cyst of right ovary; R93.5 Abnormal findings on diagnostic imaging of other abdominal regions, including retroperitoneum; Z98.890 Other specified postprocedural states; Z87.442 Personal history of urinary calculi; Z79.899 Other long term (current) drug therapy; Z88.8 Allergy status to other drugs, medicaments and biological substances; Z91.048 Other nonmedicinal substance allergy status
CPT/HCPCS: 36415; 74177; 76775; 76830; 76856; 80048; 80076; 81001; 83690; 85025; 85027; 93041; 93976; 96372; 96374; 96375; 96376; 99285; J1650; J2405; J3360; Q9967